=== PATIENT | male | born 1970 ===

== ENCOUNTER 2018-06-16 05:15 | Inpatient (IN) | payer MEDICARE ==
[2018-06-16 05:16] VITALS: BMI 27.6
--- NOTE | 2018-06-16 05:37 | C.PDOC ---
History Of Present Illness 47 y/o male with a PMHx of DM and HTN presents to the ED complaining of injury to left elbow sustained 1 week ago s/p fall. Patient notes worsening pain and swelling to the elbow, with decreased ROM. Additionally patient reports having foul smelling discharge from the distal left foot, especially between the partially amputated left great toe and 2nd/3rd toes. Otherwise he denies any numbness or weakness. Time Seen by Provider: 06/16/18 05:36 Chief Complaint (Nursing): Upper Extremity Problem/Injury History Per: Patient History/Exam Limitations: no limitations Onset/Duration Of Symptoms: Days Current Symptoms Are (Timing): Still Present Past Medical History Reviewed: Historical Data, Nursing Documentation, Vital Signs - Medical History PMH: Anxiety, Asthma, Bipolar Disorder, Depression, Diabetes (Blood sugar 283), Fractures (RT toe), HTN, Hyperlipidemia, Schizophrenia, Sexually Transmitted Disease (erectile Dysfunction) Denies: Hepatitis, HIV, Chronic Kidney Disease, Seizures - [facility] Procedures EXCISION OF R FOOT SUBCU/FASCIA, OPEN APPROACH (06/17/17) EXCISION OF RIGHT FOOT SKIN, EXTERNAL APPROACH (12/24/16) EXCISION OF RIGHT METATARSAL, OPEN APPROACH (11/30/16) GROUP PSYCHOTHERAPY (12/05/16) INDIVID PSYCHOTHERAP NEC (12/11/14) INSERTION OF INFUSION DEV INTO SUP VENA CAVA, PERC APPROACH (06/17/17) OTHER GROUP THERAPY (12/11/14) PSYCHIAT DRUG THERAP NEC (12/11/14) REPAIR RIGHT FOOT, OPEN APPROACH (11/30/16) Family History: States: Unknown Family Hx - Social History Hx Tobacco Use: No Hx Alcohol Use: Yes (every other day) Hx Substance Use: No - Immunization History Hx Tetanus Toxoid Vaccination: No Hx Influenza Vaccination: No Hx Pneumococcal Vaccination: No Review Of Systems Constitutional: Negative for: Fever, Chills Cardiovascular: Negative for: Chest Pain Respiratory: Negative for: Shortness of Breath Gastrointestinal: Negative for: Nausea, Vomiting Musculoskeletal: Positive for: Arm Pain (left elbow pain) Skin: Positive for: Other (Left foot wounds with + foul-smelling discharge) Neurological: Positive for: Dizziness. Negative for: Weakness, Numbness Physical Exam - Physical Exam Appears: Non-toxic, No Acute Distress Skin: Warm, Dry Head: Normacephalic Eye(s): bilateral: Normal Inspection Oral Mucosa: Moist Neck: Trachea Midline, Supple Chest: Symmetrical Cardiovascular: Rhythm Regular Respiratory: No Rales, No Rhonchi, No Wheezing Gastrointestinal/Abdominal: Bowel Sounds (good), Soft, No Tenderness, No Distention Extremity: Tenderness (to left elbow, left elbow is held in flexed position), Capillary Refill (less than 2sec), Swelling (to left elbow, with (+) fluid in the synovial area), Other (Left foot edematous and tender to palpation, with partial amputation of the left great toe, w/ foul-smelling discharge between the 1, 2, and 3 toes, (+) somewhat macerated ventral aspect of fore foot) Pulses: Left Radial: Normal, Right Radial: Normal, Left Dorsalis Pedis: Decreased (slightly decreased), Right Dorsalis Pedis: Normal Neurological/Psych: Oriented x3 ED Course And Treatment - Laboratory Results Result Diagrams: 06/16/18 06:04 06/16/18 06:04 ECG: Interpreted By Me, Viewed By Me O2 Sat by Pulse Oximetry: 100 (on RA) Pulse Ox Interpretation: Normal - Radiology CXR: Interpreted by Me, Viewed By Me Progress Note: Accucheck shows BS of 464. Blood work and urine sent to the lab. VBG, EKG, CXR obtained and reviewed. Administered IVF hydration with IV insulin as per hyperglycemia protocol. Pending CT scans of the left elbow and left lower extremity. corrected sodium is 129 Critical Care Time - Critical Care Note Total Time (in mins): 30 Documented critical care: time excludes all time spent performing seperately billable procedures. Disposition Counseled Patient/Family Regarding: Studies Performed, Diagnosis - Disposition Disposition Time: 05:37 Condition: GUARDED Forms: [facility] ([employer]) - POA Present On Arrival: Falls Or Trauma - Clinical Impression Clinical Impression: Cellulitis, Hyponatremia, Diabetic foot infection, Elbow pain, left - Scribe Statement The provider has reviewed the documentation as recorded by the Ritu Abbott Provider Attestation: All medical record entries made by the Careyibkassi were at my direction and personally dictated by me. I have reviewed the chart and agree that the record accurately reflects my personal performance of the history, physical exam, medical decision making, and the department course for this patient. I have also personally directed, reviewed, and agree with the discharge instructions and disposition. Physician Patient Turnover Patient Signed Over To: Peyton Mari Handoff Comments: pending ct results,re-eval and admit
[2018-06-16] MEDS ORDERED: Sodium Chloride 0.9% 1,000 ML IV ONE ×3 (05:43→06:59)
[2018-06-16] MEDS ORDERED: (Novolin R) Insulin Human Regular 100 units/ml vial IVP ONE (05:51)
[2018-06-16] MEDS ORDERED: Sodium Chloride 0.9% 2,000 ML IV ONE (05:52)
[2018-06-16 06:16] LABS: BASO # 0.1 K/uL (0.0-0.2); BASO % 0.5 % (0.0-2.0); EOS % 0.1 % (0.0-4.0); HEMOGLOBIN 10.8 g/dL (12.0-18.0); LYMPH # 1.7 K/uL (1.0-4.3); LYMPH % 13.2 % (20.0-40.0); MEAN CELL VOLUME 97.5 fL (80.0-94.0); MEAN CORPUSCULAR HEMOGLOBIN 32.8 pg (27.0-31.0); MEAN CORPUSCULAR HGB CONC 33.6 g/dL (33.0-37.0); MEAN PLATELET VOLUME 10.4 fL (7.2-11.7); MONO # 1.1 K/uL (0.0-0.8); MONO % 8.4 % (0.0-10.0); NEUT # 9.9 K/uL (1.8-7.0); NEUT % 77.8 % (50.0-75.0); RBC 3.3 Mil/uL (4.40-5.90); RED CELL DISTRIBUTION WIDTH 14.6 % (11.5-14.5); WHITE BLOOD COUNT 12.7 K/uL (4.8-10.8)
[2018-06-16 06:22] LABS: VENOUS BLOOD GAS BASE EXCESS -1.3 mmol/L (0.0-2.0); VENOUS BLOOD GAS PCO2 35 mmHg (40-60); VENOUS BLOOD GAS PO2 16 mm/Hg (30-55); VENOUS BLOOD PH 7.42 (7.32-7.43)
[2018-06-16 06:23] LABS: ALB/GLOB RATIO 0.7 (1.0-2.1); ALBUMIN 3.3 g/dL (3.5-5.0); ALT/SGPT 37 U/L (21-72); AST/SGOT 68 U/L (17-59); BLOOD UREA NITROGEN 25 mg/dL (9-20); CALCIUM 8.2 mg/dl (8.6-10.4); GFR NON-AFRICAN AMERICAN > 60; LIPASE 51 U/L (23-300)
[2018-06-16] MEDS ORDERED: (Novolin R) Insulin Human Regular 100 units/ml vial ONE (06:26)
[2018-06-16] MEDS ORDERED: Piperacillin/Tazobact 3.375 gm 100 ML IVPB STA (06:33)
[2018-06-16] MEDS ORDERED: Vancomycin 1 GM 1 GM/250 ML BAG IVPB STA (06:33)
[2018-06-16] MEDS ORDERED: Vancomycin 1 GM 1 GM/250 ML BAG IVPB ONE (06:41)
[2018-06-16 07:06] LABS: INR 1.6
[2018-06-16] MEDS ORDERED: Sodium Chloride 0.9% 1,000 ML ONE (07:38)
--- NOTE | 2018-06-16 08:39 | RAD ---
HISTORY: GI Bleeding COMPARISON: Chest x-ray performed 07/12/15 TECHNIQUE: Chest, one view. FINDINGS: LUNGS: No focal consolidation. Reticular nodular nodular/interstitial markings may be chronic. Please note that chest x-ray has limited sensitivity for the detection of pulmonary masses. PLEURA: No significant pleural effusion identified. No definite pneumothorax . CARDIOVASCULAR: Heart size appears top normal. Atherosclerotic calcifications present. OSSEOUS STRUCTURES: Mild degenerative changes. VISUALIZED UPPER ABDOMEN: Unremarkable. OTHER FINDINGS: None. IMPRESSION: No focal consolidation. Reticular nodular nodular/interstitial markings may be chronic.
[2018-06-16 08:46] LABS: VENOUS BLOOD GAS BASE EXCESS -2.5 mmol/L (0.0-2.0); VENOUS BLOOD GAS PCO2 35 mmHg (40-60); VENOUS BLOOD GAS PO2 22 mm/Hg (30-55)
[2018-06-16 09:16] LABS: ALB/GLOB RATIO 0.7 (1.0-2.1); ALBUMIN 2.6 g/dL (3.5-5.0); ALT/SGPT 33 U/L (21-72); AST/SGOT 42 U/L (17-59); BLOOD UREA NITROGEN 21 mg/dL (9-20); CALCIUM 7.2 mg/dl (8.6-10.4); GFR NON-AFRICAN AMERICAN > 60
[2018-06-16] MEDS ORDERED: Potassium Chloride 20 mEq ER Tab PO STA (09:20)
[2018-06-16] MEDS ORDERED: Potassium Chloride 20 mEq ER Tab PO ONE (10:22)
[2018-06-16 10:37] LABS: URINE AMORPHOUS SEDIMENT FEW /ul (<OCC); URINE BILIRUBIN NEGATIVE (NEGATIVE); URINE BLOOD 3+ (NEGATIVE); URINE CLARITY Hazy (Clear); URINE COLOR Yellow (YELLOW); URINE GLUCOSE (UA) 3+ mg/dL (Normal); URINE LEUKOCYTE ESTERASE NEG Leu/uL (Negative); URINE PROTEIN NEGATIVE (NEGATIVE)
[2018-06-16] MEDS ORDERED: Glucagon Recombinant 1 mg Inj IM PRN (11:50)
[2018-06-16] MEDS ORDERED: (Lantus) Insulin Glargine, Recombinant SC ONE ×2 (11:50→13:00)
--- NOTE | 2018-06-16 12:17 | CP.PCM.HP ---
"<Aiden Israel - Last Filed: 06/16/18 13:11> History of Present Illness - History of Present Illness History of Present Illness: This patient is a 47 year old male with a PMHx of Diabetes Type II (Uncontrolled), HTN, Anxiety, Depression, Schizophrenia, Right Hallux Osteomyelitis Pancreatitis, and medical non-compliance who presents with complaints of sharp 9/10 left elbow pain with radiation down to his finger. He states the the pain began over a week ago after a fall (Denies head trauma). After the fall, he noticed that his left arm began to swell up. As the swelling decreased he noticed his elbow became more red with increased pain. Associated symptoms include fever, and lethargy. Mr. Horta also states that he has been getting wound dressing changes with a senior rd engineer for his right great toe. He states he never noticed that his toe was draining. Admits to his medication non- compliance. He has only been taking his Metformin. Of note, this patient was showing drug seeking behavior. ROS POSITIVES: Left Elbow Pain, Left Foot Pain, Fever, Chills, Left elbow decreased range of motion, Depressed mood NEGATIVES: Headache, Chest Pain, SOB, Abdominal pain, n/v changes in bowel habits, urinary symptoms. Suicidal/Homicidal Ideation. 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 Right Rotator Cuff Surgery Allergy: NKDA. But as per chart ([place], Apple, cashew nut, walnut, water chestnut) SocialHx: Admits to smoking hx (Quit 1 month ago), Admits to heavy EtoH use (Quit 1 month ago), Denies illicit drug use. Hospital: Psych [facility] in [place] 01/26, Left Toe infection 01/26, Pancreatitis 06/28 FamHx: HTN - Grandmother | Diabetes - Grandfather & Mother Meds: Please see MAR PMD: Dr. Jeff Garcia? [facility] Tender: Dr. Bray [place]? Present on Admission - Present on Admission Any Indicators Present on Admission: Yes History of Uncontrolled Diabetes: Yes Review of Systems - Review of Systems Review of Systems: As per HPI Past Patient History - Infectious Disease Hx of Infectious Diseases: MRSA - Tetanus Immunizations Tetanus Immunization: Unknown - Past Medical History & Family History Past Medical History?: Yes - Past Social History Smoking Status: Light Smoker < 10 Cigarettes Daily - CARDIAC Hx Hypertension: Yes - PULMONARY Hx Asthma: Yes - NEUROLOGICAL Hx Seizures: No - HEENT Hx HEENT Problems: No - RENAL Hx Chronic Kidney Disease: No - ENDOCRINE/METABOLIC Hx Endocrine Disorders: Yes (DM) - HEMATOLOGICAL/ONCOLOGICAL Hx Human Immunodeficiency Virus (HIV): No - INTEGUMENTARY Hx Dermatological Problems: No - MUSCULOSKELETAL/RHEUMATOLOGICAL Hx Fractures: Yes (RT toe) - GASTROINTESTINAL Hx Gastrointestinal Disorders: No - GENITOURINARY/GYNECOLOGICAL Hx Sexually Transmitted Disorders: Yes (erectile Dysfunction) - PSYCHIATRIC Hx Anxiety: Yes Hx Bipolar Disorder: Yes Hx Depression: Yes Hx Schizophrenia: Yes Hx Substance Use: No - SURGICAL HISTORY Hx Orthopedic Surgery: Yes (Right shoulder 1991 rotator cuff and dislocation 1988) Other/Comment: R foot wound debridement - ANESTHESIA Hx Anesthesia: Yes Hx Anesthesia Reactions: No Meds Allergies/Adverse Reactions: Allergies Allergy/AdvReac Type Severity Reaction Status Date / Time almond Allergy ITCHING Verified 06/16/18 05:45 apple Allergy ITCHING Verified 06/16/18 05:45 cashew nut Allergy ITCHING Verified 06/16/18 05:45 nut - unspecified Allergy ITCHING Verified 06/16/18 05:45 walnut Allergy ITCHING Verified 06/16/18 05:45 water chestnut Allergy ITCHING Verified 06/16/18 05:45 Physical Exam - Constitutional Appears: Unkempt, Older Than Stated Age, Chronically Ill - Head Exam Head Exam: ATRAUMATIC, NORMAL INSPECTION, NORMOCEPHALIC - Eye Exam Eye Exam: EOMI, Normal appearance, PERRL. absent: Scleral icterus - ENT Exam ENT Exam: Mucous Membranes Dry - Neck Exam Neck exam: Positive for: Normal Inspection - Respiratory Exam Respiratory Exam: Clear to Auscultation Bilateral, NORMAL BREATHING PATTERN. absent: Accessory Muscle Use, Rales, Rhonchi, Wheezes, Stridor - Cardiovascular Exam Cardiovascular Exam: RRR, +S1, +S2 - GI/Abdominal Exam GI & Abdominal Exam: Normal Bowel Sounds, Soft. absent: Tenderness - Extremities Exam Additional comments: Left Elbow Swollen, erythematous, indurated, fluctuant, dry, scaly. B/L Ankle Swollen Charcot deformity Left Foot Foul Smelling Feet B/L Onychomycosis - Neurological Exam Neurological exam: Abnormal Gait, Alert, Oriented x3 - Psychiatric Exam Psychiatric exam: Depressed Additional comments: Restricted Affect - Skin Additional comments: See Extremities. Results - Vital Signs Recent Vital Signs: Last Vital Signs Temp 99.7 F H 06/16/18 11:36 Pulse 107 H 06/16/18 11:36 Resp 16 06/16/18 11:36 BP 116/71 06/16/18 11:36 Pulse Ox 97 06/16/18 11:36 - Labs Result Diagrams: 06/16/18 06:04 06/16/18 08:33 Labs: Laboratory Results - last 24 hr 06/16/18 06/16/18 06/16/18 05:23 06:04 06:04 WBC 12.7 H D RBC 3.30 L Hgb 10.8 L D Hct 32.1 L MCV 97.5 H D MCH 32.8 H MCHC 33.6 RDW 14.6 H Plt Count 405 H MPV 10.4 Neut % (Auto) 77.8 H Lymph % (Auto) 13.2 L [place] % (Auto) 8.4 Eos % (Auto) 0.1 Baso % (Auto) 0.5 Neut # (Auto) 9.9 H Lymph # (Auto) 1.7 [place] # (Auto) 1.1 H Eos # (Auto) 0.0 Baso # (Auto) 0.1 ESR 125 H PT 17.0 H INR 1.6 APTT 36 H pO2 VBG pH VBG pCO2 VBG HCO3 VBG Total CO2 VBG O2 Sat (Calc) VBG Base Excess VBG Potassium Glucose Lactate Crit Value Called To Crit Value Called By Crit Value Read Back Blood Gas Notified Time Sodium Potassium Chloride Carbon Dioxide Anion Gap BUN Creatinine Est GFR ( Amer) Est GFR (Non-Af Amer) POC Glucose (mg/dL) 464 H* Random Glucose Calcium Total Bilirubin AST ALT Alkaline Phosphatase Total Protein Albumin Globulin Albumin/Globulin Ratio Lipase Venous Blood Potassium Urine Color Urine Clarity Urine pH Ur Specific [place] Urine Protein Urine Glucose (UA) Urine Ketones Urine Blood Urine Nitrate Urine Bilirubin Urine Urobilinogen Ur Leukocyte Esterase Urine WBC (Auto) Urine RBC (Auto) Amorphous Sediment B-Hydroxybutyrate Blood Type Antibody Screen 06/16/18 06/16/18 06/16/18 06:04 06:15 07:27 WBC RBC Hgb Hct MCV MCH MCHC RDW Plt Count MPV Neut % (Auto) Lymph % (Auto) [place] % (Auto) Eos % (Auto) Baso % (Auto) Neut # (Auto) Lymph # (Auto) [place] # (Auto) Eos # (Auto) Baso # (Auto) ESR PT INR APTT pO2 16 L VBG pH 7.42 VBG pCO2 35 L VBG HCO3 21.9 VBG Total CO2 23.8 VBG O2 Sat (Calc) 22.0 L VBG Base Excess -1.3 L VBG Potassium 3.6 Glucose 495 H* Lactate 3.6 H Crit Value Called To assistant district attorneykiran gray Crit Value Called By Anai dutta rt Crit Value Read Back Y Blood Gas Notified Time 620 Sodium 120 L* 120.0 L* Potassium 4.6 Chloride 82 L 85.0 L Carbon Dioxide 21 L Anion Gap 23 H BUN 25 H Creatinine 0.9 Est GFR ( Amer) > 60 Est GFR (Non-Af Amer) > 60 POC Glucose (mg/dL) Random Glucose 485 H* D Calcium 8.2 L Total Bilirubin 1.5 H AST 68 H ALT 37 Alkaline Phosphatase 74 Total Protein 7.9 Albumin 3.3 L Globulin 4.7 H Albumin/Globulin Ratio 0.7 L Lipase 51 Venous Blood Potassium 3.6 Urine Color Urine Clarity Urine pH Ur Specific [place] Urine Protein Urine Glucose (UA) Urine Ketones Urine Blood Urine Nitrate Urine Bilirubin Urine Urobilinogen Ur Leukocyte Esterase Urine WBC (Auto) Urine RBC (Auto) Amorphous Sediment B-Hydroxybutyrate 3.17 H Blood Type AB POSITIVE Antibody Screen Negative 06/16/18 06/16/18 06/16/18 08:01 08:33 08:40 WBC RBC Hgb Hct MCV MCH MCHC RDW Plt Count MPV Neut % (Auto) Lymph % (Auto) [place] % (Auto) Eos % (Auto) Baso % (Auto) Neut # (Auto) Lymph # (Auto) [place] # (Auto) Eos # (Auto) Baso # (Auto) ESR PT INR APTT pO2 22 L VBG pH 7.40 VBG pCO2 35 L VBG HCO3 21.3 VBG Total CO2 22.8 VBG O2 Sat (Calc) 34.5 L VBG Base Excess -2.5 L VBG Potassium 2.9 L Glucose 177 H Lactate 2.6 H Crit Value Called To Crit Value Called By Crit Value Read Back Blood Gas Notified Time Sodium 125 L 129.0 L Potassium 3.3 L Chloride 95 L 97.0 L Carbon Dioxide 19 L Anion Gap 15 BUN 21 H Creatinine 0.8 Est GFR ( Amer) > 60 Est GFR (Non-Af Amer) > 60 POC Glucose (mg/dL) 248 H Random Glucose 177 H D Calcium 7.2 L Total Bilirubin 0.8 AST 42 ALT 33 Alkaline Phosphatase 74 Total Protein 6.3 Albumin 2.6 L D Globulin 3.8 Albumin/Globulin Ratio 0.7 L Lipase Venous Blood Potassium 2.9 L Urine Color Urine Clarity Urine pH Ur Specific [place]ubens Urine Protein Urine Glucose (UA) Urine Ketones Urine Blood Urine Nitrate Urine Bilirubin Urine Urobilinogen Ur Leukocyte Esterase Urine WBC (Auto) Urine RBC (Auto) Amorphous Sediment B-Hydroxybutyrate Blood Type Antibody Screen 06/16/18 06/16/18 10:27 11:34 WBC RBC Hgb Hct MCV MCH MCHC RDW Plt Count MPV Neut % (Auto) Lymph % (Auto) [place] % (Auto) Eos % (Auto) Baso % (Auto) Neut # (Auto) Lymph # (Auto) [place] # (Auto) Eos # (Auto) Baso # (Auto) ESR PT INR APTT pO2 VBG pH VBG pCO2 VBG HCO3 VBG Total CO2 VBG O2 Sat (Calc) VBG Base Excess VBG Potassium Glucose Lactate Crit Value Called To Crit Value Called By Crit Value Read Back Blood Gas Notified Time Sodium Potassium Chloride Carbon Dioxide Anion Gap BUN Creatinine Est GFR ( Amer) Est GFR (Non-Af Amer) POC Glucose (mg/dL) 326 H Random Glucose Calcium Total Bilirubin AST ALT Alkaline Phosphatase Total Protein Albumin Globulin Albumin/Globulin Ratio Lipase Venous Blood Potassium Urine Color Yellow Urine Clarity Hazy Urine pH 5.0 Ur Specific [place] 1.022 Urine Protein Negative Urine Glucose (UA) 3+ H Urine Ketones 1+ H Urine Blood 3+ H Urine Nitrate Negative Urine Bilirubin Negative Urine Urobilinogen 2.0 Ur Leukocyte Esterase Neg Urine WBC (Auto) 6 H Urine RBC (Auto) 68 H Amorphous Sediment Few H B-Hydroxybutyrate Blood Type Antibody Screen Assessment & Plan - Assessment and Plan (Free Text) Assessment: 47 year old male with a PMHx of Diabetes Type II (Uncontrolled), HTN, Anxiety, Depression, Schizophrenia, Right Hallux Osteomyelitis Pancreatitis, and medical non-compliance admitted for Sepsis 2/2 to Left Elbow Cellulitis/Abscess vs Left Hallux infection. Plan: Sepsis Source: Elbow vs foot Infection EKG: Sinus Tach | CXR: No acute Disease | Lactate 3.6 and trending down |UA - Neg Nitrates and Leuk Es, ESR - 125 Consults: ID (Dr. Nava), Recs Appreciated Pancultures - PENDING, Mgmt: NS@100 Vancomycin 1gram Q12 H Zosyn 3.375gm Q6H Uncontroled Diabetes/DKA (Resolved) 2/2 to Medical NOn-compliance HgBA1C = 11.0 Beta Hydroxybutyrate elevated on Admission ED: Regular Insulin 14Units Once DC Planning: Patient may need help obtaining insulin before discharge. He states he cannot afford many of his medications. Mgmt: NS@100 Lantus 10 Given 1 today Lantus 10 HS High Dose Sliding Scale Left Elbow Cellulitis/Abscess per CT CT Left Upper Ext(Admission): Large fluid collection containing air bubbles suspicous for abscess involving the region of left biceps measuring approximately 12x7x3 Consults: ID (Dr. Nava), Recs Appreciated, Orthopedic (Dr. Mustafa), Recs Appreciated Pancultures - PENDING Mgmt: NS@100 Vancomycin 1gram Q12 H Zosyn 3.375gm Q6H Toradol 15 IVP Q6 PRN for Moderate Pain | Ultram 50 TID PRN for Severe Pain. Avoid stronger opiods than Ultram. B/L Ankle Cellulitis Left Foot CT (Admission): 1. extensive subcutaneous edema noted especially at the dorasal aspect of the foot and ankle 2. Degenerative changes frist tarsal and tarsometatarsal joints 3. Plantar calcenial spur Consults: ID (Dr. Nava), Recs Appreciated, Podiatry (Dr. Ngo), Recs Apprecaited. Pancultures - PENDING Mgmt: NS@100 Vancomycin 1gram Q12 H Zosyn 3.375gm Q6H Anemia HgB on Admisison 10.8 Low Iron Follow Up Anemia Studies Mgmt: Ferrous Sulfate 325 PO Daily Elevated INR INR = 1.6 on Admission | PT - 17.0 on Admission Will Monitor Consider evaluating for liver pathology. Depression/Anxiety/Schizophrenia Hx of Multiple Psych Admission Will Consult Psych for due to Depressed mood and medication reconciliation Proph Francinex Protonix Diabetic Diet Patient seen and examined with Attending Aiden Israel, PGY-2 <Jace Dutton - Last Filed: 06/16/18 20:38> Results - Vital Signs Recent Vital Signs: Last Vital Signs Temp 98 F 06/16/18 15:00 Pulse 82 06/16/18 15:00 Resp 20 06/16/18 15:00 BP 98/60 L 06/16/18 15:00 Pulse Ox 96 06/16/18 15:00 - Labs Result Diagrams: 06/16/18 06:04 06/16/18 17:00 Labs: Laboratory Results - last 24 hr 06/16/18 06/16/18 06/16/18 05:23 06:04 06:04 WBC 12.7 H D RBC 3.30 L Hgb 10.8 L D Hct 32.1 L MCV 97.5 H D MCH 32.8 H MCHC 33.6 RDW 14.6 H Plt Count 405 H MPV 10.4 Neut % (Auto) 77.8 H Lymph % (Auto) 13.2 L [place] % (Auto) 8.4 Eos % (Auto) 0.1 Baso % (Auto) 0.5 Neut # (Auto) 9.9 H Lymph # (Auto) 1.7 [place] # (Auto) 1.1 H Eos # (Auto) 0.0 Baso # (Auto) 0.1 ESR 125 H Retic Count Haptoglobin PT 17.0 H INR 1.6 APTT 36 H pO2 VBG pH VBG pCO2 VBG HCO3 VBG Total CO2 VBG O2 Sat (Calc) VBG Base Excess VBG Potassium Glucose Lactate Crit Value Called To Crit Value Called By Crit Value Read Back Blood Gas Notified Time Sodium Potassium Chloride Carbon Dioxide Anion Gap BUN Creatinine Est GFR ( Amer) Est GFR (Non-Af Amer) POC Glucose (mg/dL) 464 H* Random Glucose Hemoglobin A1c Calcium Iron TIBC % Saturation Ferritin Total Bilirubin AST ALT Alkaline Phosphatase Total Protein Albumin Globulin Albumin/Globulin Ratio Lipase Vitamin B12 Folate Venous Blood Potassium Urine Color Urine Clarity Urine pH Ur Specific [place] Urine Protein Urine Glucose (UA) Urine Ketones Urine Blood Urine Nitrate Urine Bilirubin Urine Urobilinogen Ur Leukocyte Esterase Urine WBC (Auto) Urine RBC (Auto) Amorphous Sediment Vancomycin Trough Urine Opiates Screen Urine Methadone Screen Ur Barbiturates Screen Ur Phencyclidine Scrn Ur Amphetamines Screen U Benzodiazepines Scrn U Oth Cocaine Metabols U Cannabinoids Screen Alcohol, Quantitative B-Hydroxybutyrate Blood Type Antibody Screen 06/16/18 06/16/18 06/16/18 06:04 06:15 07:27 WBC RBC Hgb Hct MCV MCH MCHC RDW Plt Count MPV Neut % (Auto) Lymph % (Auto) [place] % (Auto) Eos % (Auto) Baso % (Auto) Neut # (Auto) Lymph # (Auto) [place] # (Auto) Eos # (Auto) Baso # (Auto) ESR Retic Count Haptoglobin PT INR APTT pO2 16 L VBG pH 7.42 VBG pCO2 35 L VBG HCO3 21.9 VBG Total CO2 23.8 VBG O2 Sat (Calc) 22.0 L VBG Base Excess -1.3 L VBG Potassium 3.6 Glucose 495 H* Lactate 3.6 H Crit Value Called To assistant district attorneykiran gray Crit Value Called By Anai dutta rt Crit Value Read Back Y Blood Gas Notified Time 620 Sodium 120 L* 120.0 L* Potassium 4.6 Chloride 82 L 85.0 L Carbon Dioxide 21 L Anion Gap 23 H BUN 25 H Creatinine 0.9 Est GFR ( Amer) > 60 Est GFR (Non-Af Amer) > 60 POC Glucose (mg/dL) Random Glucose 485 H* D Hemoglobin A1c Calcium 8.2 L Iron TIBC % Saturation Ferritin Total Bilirubin 1.5 H AST 68 H ALT 37 Alkaline Phosphatase 74 Total Protein 7.9 Albumin 3.3 L Globulin 4.7 H Albumin/Globulin Ratio 0.7 L Lipase 51 Vitamin B12 Folate Venous Blood Potassium 3.6 Urine Color Urine Clarity Urine pH Ur Specific [place] Urine Protein Urine Glucose (UA) Urine Ketones Urine Blood Urine Nitrate Urine Bilirubin Urine Urobilinogen Ur Leukocyte Esterase Urine WBC (Auto) Urine RBC (Auto) Amorphous Sediment Vancomycin Trough Urine Opiates Screen Urine Methadone Screen Ur Barbiturates Screen Ur Phencyclidine Scrn Ur Amphetamines Screen U Benzodiazepines Scrn U Oth Cocaine Metabols U Cannabinoids Screen Alcohol, Quantitative B-Hydroxybutyrate 3.17 H Blood Type AB POSITIVE Antibody Screen Negative 06/16/18 06/16/18 06/16/18 08:01 08:33 08:40 WBC RBC Hgb Hct MCV MCH MCHC RDW Plt Count MPV Neut % (Auto) Lymph % (Auto) [place] % (Auto) Eos % (Auto) Baso % (Auto) Neut # (Auto) Lymph # (Auto) [place] # (Auto) Eos # (Auto) Baso # (Auto) ESR Retic Count Haptoglobin PT INR APTT pO2 22 L VBG pH 7.40 VBG pCO2 35 L VBG HCO3 21.3 VBG Total CO2 22.8 VBG O2 Sat (Calc) 34.5 L VBG Base Excess -2.5 L VBG Potassium 2.9 L Glucose 177 H Lactate 2.6 H Crit Value Called To Crit Value Called By Crit Value Read Back Blood Gas Notified Time Sodium 125 L 129.0 L Potassium 3.3 L Chloride 95 L 97.0 L Carbon Dioxide 19 L Anion Gap 15 BUN 21 H Creatinine 0.8 Est GFR ( Amer) > 60 Est GFR (Non-Af Amer) > 60 POC Glucose (mg/dL) 248 H Random Glucose 177 H D Hemoglobin A1c Calcium 7.2 L Iron TIBC % Saturation Ferritin Total Bilirubin 0.8 AST 42 ALT 33 Alkaline Phosphatase 74 Total Protein 6.3 Albumin 2.6 L D Globulin 3.8 Albumin/Globulin Ratio 0.7 L Lipase Vitamin B12 Folate Venous Blood Potassium 2.9 L Urine Color Urine Clarity Urine pH Ur Specific [place] Urine Protein Urine Glucose (UA) Urine Ketones Urine Blood Urine Nitrate Urine Bilirubin Urine Urobilinogen Ur Leukocyte Esterase Urine WBC (Auto) Urine RBC (Auto) Amorphous Sediment Vancomycin Trough Urine Opiates Screen Urine Methadone Screen Ur Barbiturates Screen Ur Phencyclidine Scrn Ur Amphetamines Screen U Benzodiazepines Scrn U Oth Cocaine Metabols U Cannabinoids Screen Alcohol, Quantitative B-Hydroxybutyrate Blood Type Antibody Screen 06/16/18 06/16/18 06/16/18 10:27 11:34 13:45 WBC RBC Hgb Hct MCV MCH MCHC RDW Plt Count MPV Neut % (Auto) Lymph % (Auto) [place] % (Auto) Eos % (Auto) Baso % (Auto) Neut # (Auto) Lymph # (Auto) [place] # (Auto) Eos # (Auto) Baso # (Auto) ESR Retic Count Haptoglobin PT INR APTT pO2 VBG pH VBG pCO2 VBG HCO3 VBG Total CO2 VBG O2 Sat (Calc) VBG Base Excess VBG Potassium Glucose Lactate Crit Value Called To Crit Value Called By Crit Value Read Back Blood Gas Notified Time Sodium Potassium Chloride Carbon Dioxide Anion Gap BUN Creatinine Est GFR ( Amer) Est GFR (Non-Af Amer) POC Glucose (mg/dL) 326 H Random Glucose Hemoglobin A1c Calcium Iron TIBC % Saturation Ferritin Total Bilirubin AST ALT Alkaline Phosphatase Total Protein Albumin Globulin Albumin/Globulin Ratio Lipase Vitamin B12 Folate Venous Blood Potassium Urine Color Yellow Urine Clarity Hazy Urine pH 5.0 Ur Specific [place] 1.022 Urine Protein Negative Urine Glucose (UA) 3+ H Urine Ketones 1+ H Urine Blood 3+ H Urine Nitrate Negative Urine Bilirubin Negative Urine Urobilinogen 2.0 Ur Leukocyte Esterase Neg Urine WBC (Auto) 6 H Urine RBC (Auto) 68 H Amorphous Sediment Few H Vancomycin Trough Urine Opiates Screen Negative Urine Methadone Screen Negative Ur Barbiturates Screen Negative Ur Phencyclidine Scrn Negative Ur Amphetamines Screen Negative U Benzodiazepines Scrn Negative U Oth Cocaine Metabols Negative U Cannabinoids Screen Negative Alcohol, Quantitative B-Hydroxybutyrate Blood Type Antibody Screen 06/16/18 06/16/18 06/16/18 13:46 13:46 13:46 WBC RBC Hgb Hct MCV MCH MCHC RDW Plt Count MPV Neut % (Auto) Lymph % (Auto) [place] % (Auto) Eos % (Auto) Baso % (Auto) Neut # (Auto) Lymph # (Auto) [place] # (Auto) Eos # (Auto) Baso # (Auto) ESR Retic Count Haptoglobin PT INR APTT pO2 VBG pH VBG pCO2 VBG HCO3 VBG Total CO2 VBG O2 Sat (Calc) VBG Base Excess VBG Potassium Glucose Lactate Crit Value Called To Crit Value Called By Crit Value Read Back Blood Gas Notified Time Sodium Potassium Chloride Carbon Dioxide Anion Gap BUN Creatinine Est GFR ( Amer) Est GFR (Non-Af Amer) POC Glucose (mg/dL) Random Glucose Hemoglobin A1c 11.0 H Calcium Iron 18 L TIBC 188 L % Saturation 9 L Ferritin Total Bilirubin AST ALT Alkaline Phosphatase Total Protein Albumin Globulin Albumin/Globulin Ratio Lipase Vitamin B12 Folate Venous Blood Potassium Urine Color Urine Clarity Urine pH Ur Specific [place] Urine Protein Urine Glucose (UA) Urine Ketones Urine Blood Urine Nitrate Urine Bilirubin Urine Urobilinogen Ur Leukocyte Esterase Urine WBC (Auto) Urine RBC (Auto) Amorphous Sediment Vancomycin Trough Urine Opiates Screen Urine Methadone Screen Ur Barbiturates Screen Ur Phencyclidine Scrn Ur Amphetamines Screen U Benzodiazepines Scrn U Oth Cocaine Metabols U Cannabinoids Screen Alcohol, Quantitative < 10 B-Hydroxybutyrate Blood Type Antibody Screen 06/16/18 06/16/18 06/16/18 13:46 13:46 13:46 WBC RBC Hgb Hct MCV MCH MCHC RDW Plt Count MPV Neut % (Auto) Lymph % (Auto) [place] % (Auto) Eos % (Auto) Baso % (Auto) Neut # (Auto) Lymph # (Auto) [place] # (Auto) Eos # (Auto) Baso # (Auto) ESR Retic Count 1.1 Haptoglobin 334.5 H PT INR APTT pO2 VBG pH VBG pCO2 VBG HCO3 VBG Total CO2 VBG O2 Sat (Calc) VBG Base Excess VBG Potassium Glucose Lactate Crit Value Called To Crit Value Called By Crit Value Read Back Blood Gas Notified Time Sodium Potassium Chloride Carbon Dioxide Anion Gap BUN Creatinine Est GFR ( Amer) Est GFR (Non-Af Amer) POC Glucose (mg/dL) Random Glucose Hemoglobin A1c Calcium Iron TIBC % Saturation Ferritin 1100.0 Total Bilirubin AST ALT Alkaline Phosphatase Total Protein Albumin Globulin Albumin/Globulin Ratio Lipase Vitamin B12 557 Folate 9.7 Venous Blood Potassium Urine Color Urine Clarity Urine pH Ur Specific [place] Urine Protein Urine Glucose (UA) Urine Ketones Urine Blood Urine Nitrate Urine Bilirubin Urine Urobilinogen Ur Leukocyte Esterase Urine WBC (Auto) Urine RBC (Auto) Amorphous Sediment Vancomycin Trough Urine Opiates Screen Urine Methadone Screen Ur Barbiturates Screen Ur Phencyclidine Scrn Ur Amphetamines Screen U Benzodiazepines Scrn U Oth Cocaine Metabols U Cannabinoids Screen Alcohol, Quantitative B-Hydroxybutyrate Blood Type Antibody Screen 06/16/18 06/16/18 06/16/18 13:46 16:20 16:32 WBC RBC Hgb Hct MCV MCH MCHC RDW Plt Count MPV Neut % (Auto) Lymph % (Auto) [place] % (Auto) Eos % (Auto) Baso % (Auto) Neut # (Auto) Lymph # (Auto) [place] # (Auto) Eos # (Auto) Baso # (Auto) ESR Retic Count Haptoglobin PT INR APTT pO2 41 VBG pH 7.41 VBG pCO2 36 L VBG HCO3 23.3 VBG Total CO2 23.9 VBG O2 Sat (Calc) 80.9 H VBG Base Excess -1.4 L VBG Potassium 3.2 L Glucose 303 H Lactate 1.4 Crit Value Called To Crit Value Called By Crit Value Read Back Blood Gas Notified Time Sodium 125.0 L Potassium Chloride 94.0 L Carbon Dioxide Anion Gap BUN Creatinine Est GFR ( Amer) Est GFR (Non-Af Amer) POC Glucose (mg/dL) 306 H Random Glucose Hemoglobin A1c Calcium Iron TIBC % Saturation Ferritin Total Bilirubin AST ALT Alkaline Phosphatase Total Protein Albumin Globulin Albumin/Globulin Ratio Lipase Vitamin B12 Folate Venous Blood Potassium 3.2 L Urine Color Urine Clarity Urine pH Ur Specific [place] Urine Protein Urine Glucose (UA) Urine Ketones Urine Blood Urine Nitrate Urine Bilirubin Urine Urobilinogen Ur Leukocyte Esterase Urine WBC (Auto) Urine RBC (Auto) Amorphous Sediment Vancomycin Trough 9.9 Urine Opiates Screen Urine Methadone Screen Ur Barbiturates Screen Ur Phencyclidine Scrn Ur Amphetamines Screen U Benzodiazepines Scrn U Oth Cocaine Metabols U Cannabinoids Screen Alcohol, Quantitative B-Hydroxybutyrate Blood Type Antibody Screen 06/16/18 17:00 WBC RBC Hgb Hct MCV MCH MCHC RDW Plt Count MPV Neut % (Auto) Lymph % (Auto) [place] % (Auto) Eos % (Auto) Baso % (Auto) Neut # (Auto) Lymph # (Auto) [place] # (Auto) Eos # (Auto) Baso # (Auto) ESR Retic Count Haptoglobin PT INR APTT pO2 VBG pH VBG pCO2 VBG HCO3 VBG Total CO2 VBG O2 Sat (Calc) VBG Base Excess VBG Potassium Glucose Lactate Crit Value Called To Crit Value Called By Crit Value Read Back Blood Gas Notified Time Sodium 124 L Potassium 3.2 L Chloride 93 L Carbon Dioxide 24 Anion Gap 11 BUN 20 Creatinine 0.8 Est GFR ( Amer) > 60 Est GFR (Non-Af Amer) > 60 POC Glucose (mg/dL) Random Glucose 299 H D Hemoglobin A1c Calcium 7.3 L Iron TIBC % Saturation Ferritin Total Bilirubin AST ALT Alkaline Phosphatase Total Protein Albumin Globulin Albumin/Globulin Ratio Lipase Vitamin B12 Folate Venous Blood Potassium Urine Color Urine Clarity Urine pH Ur Specific [place] Urine Protein Urine Glucose (UA) Urine Ketones Urine Blood Urine Nitrate Urine Bilirubin Urine Urobilinogen Ur Leukocyte Esterase Urine WBC (Auto) Urine RBC (Auto) Amorphous Sediment Vancomycin Trough Urine Opiates Screen Urine Methadone Screen Ur Barbiturates Screen Ur Phencyclidine Scrn Ur Amphetamines Screen U Benzodiazepines Scrn U Oth Cocaine Metabols U Cannabinoids Screen Alcohol, Quantitative B-Hydroxybutyrate Blood Type Antibody Screen Attending/Attestation - Attestation I have personally seen and examined this patient.: Yes I have fully participated in the care of the patient.: Yes I have reviewed all pertinent clinical information: Yes Notes (Text): seen and examined by me in the ER with the resident 1.septic,bacteremia 2.DKA-resolving,heperglycemia 3.Left elbow abscess,no joint effusion 4.left ankle cellulitis,right foot diabetic foot infection 5.Hyponatremia 6.noncompliance with meds/schizophrenia spoke to surgery resident who contacted Dr Marlow. Recommending orthopedic consult started on zosyn and [email or web address].spoke to Dr Nava who recommended Gentamycin and Echo. spoke to Dr Recinos about hyponatremia.possibility of sepsis causing ADH. we will continue Normal saline and follow sodium q8h"
--- NOTE | 2018-06-16 12:59 | PCM.SEPTIC ---
<Aiden Israel - Last Filed: 06/16/18 12:58> Sepsis Progress Note - Reassessment Type Date of Evaluation: 06/16/18 Time of Evaluation: 12:58 Reassessment Type: Non-invasive reassessment - Non Invasive Reassessment Were the most recent vital sign reviewed: Yes Vital Sign (Latest): Temp Pulse Resp BP Pulse Ox 99.7 F H 107 H 16 116/71 97 06/16/18 11:36 06/16/18 11:36 06/16/18 11:36 06/16/18 11:36 06/16/18 11:36 Cardiovascular: Yes: Regular Rate, Rhythm Respiratory: Yes: Normal Breath Sounds Capillary Refill: Normal (Less than 2 sec) Pulses: Normal Radial Skin: Warm, Other <Jace Dutton - Last Filed: 06/16/18 20:38> Sepsis Progress Note - Non Invasive Reassessment Vital Sign (Latest): Temp Pulse Resp BP Pulse Ox 98 F 82 20 98/60 L 96 06/16/18 15:00 06/16/18 15:00 06/16/18 15:00 06/16/18 15:00 06/16/18 15:00 Attending/Attestation - Attestation I have personally seen and examined this patient.: Yes I have fully participated in the care of the patient.: Yes I have reviewed all pertinent clinical information, including history, physical exam and plan: Yes
[2018-06-16] MEDS: Piperacill/Tazo 3.375gm in Dex 3.375 GM/50 ML BAG IVPB SCH ×2 (14:09→19:02)
[2018-06-16 14:17] LABS: IRON 18 ug/dL (49-181)
[2018-06-16] MEDS: Sodium Chloride 0.9% 1,000 ML IV SCH (14:26)
[2018-06-16 14:27] LABS: % IRON SATURATION 9 (20-55); TOTAL IRON BINDING CAPACITY 188 ug/dL (250-450)
[2018-06-16 14:57] LABS: BARBITURATES, UR NEGATIVE (NEGATIVE); BENZODIAZEPINES, UR NEGATIVE (NEGATIVE); OPIATES, UR NEGATIVE (NEGATIVE); PHENCYCLIDINE, UR NEGATIVE (NEGATIVE)
[2018-06-16 15:22] LABS: FOLATE 9.7 ng/mL
--- NOTE | 2018-06-16 16:15 | CT ---
Date of service: 06/16/2018 PROCEDURE: CT of the left upper extremity HISTORY: left elbow COMPARISON: TECHNIQUE: . Radiation dose: Total exam DLP = 435.56 mGy-cm. This CT exam was performed using one or more of the following dose reduction techniques: Automated exposure control, adjustment of the mA and/or kV according to patient size, and/or use of iterative reconstruction technique. FINDINGS: There is no evidence of fracture. There is no joint effusion. There is a fluid collection along the distal triceps muscle measuring 12 x 7 x 3 cm. This could represent a seroma or abscess. This would be easily accessible to needle aspiration. It is just beneath the skin surface. The report concurs with the preliminary [facility] report IMPRESSION: There is no evidence of fracture. There is no joint effusion. There is a fluid collection along the distal triceps muscle measuring 12 x 7 x 3 cm. This could represent a seroma or abscess. This would be easily accessible to needle aspiration. It is just beneath the skin surface
--- NOTE | 2018-06-16 16:18 | CT ---
Date of service: 06/16/2018 PROCEDURE: CT of the left foot HISTORY: left foot, att toes COMPARISON: TECHNIQUE: Radiation dose: Total exam DLP = 339.83 mGy-cm. This CT exam was performed using one or more of the following dose reduction techniques: Automated exposure control, adjustment of the mA and/or kV according to patient size, and/or use of iterative reconstruction technique. FINDINGS: There is extensive subcutaneous edema over the dorsum of the foot and ankle. There is no fracture visualized. There is no foreign body. The report concurs with the preliminary [facility] report IMPRESSION: There is extensive subcutaneous edema over the dorsum of the foot and ankle. There is no fracture visualized. There is no foreign body.
[2018-06-16 16:26] LABS: VENOUS BLOOD GAS BASE EXCESS -1.4 mmol/L (0.0-2.0); VENOUS BLOOD GAS PCO2 36 mmHg (40-60); VENOUS BLOOD GAS PO2 41 mm/Hg (30-55); VENOUS BLOOD PH 7.41 (7.32-7.43)
[2018-06-16 17:27] LABS: BLOOD UREA NITROGEN 20 mg/dL (9-20); CALCIUM 7.3 mg/dl (8.6-10.4); GFR NON-AFRICAN AMERICAN > 60
[2018-06-16] MEDS: (Novolin R) Insulin Human Regular 100 units/ml vial SC SCH ×2 (18:18→22:47)
[2018-06-16 20:41] LABS: VENOUS BLOOD GAS BASE EXCESS 0.1 mmol/L (0.0-2.0); VENOUS BLOOD GAS PCO2 34 mmHg (40-60); VENOUS BLOOD GAS PO2 51 mm/Hg (30-55); VENOUS BLOOD PH 7.45 (7.32-7.43)
--- NOTE | 2018-06-16 21:52 | CP.PCM.CON ---
History of Present Illness - History of Present Illness History of Present Illness: dictated Past Patient History - Infectious Disease Hx of Infectious Diseases: MRSA - Tetanus Immunizations Tetanus Immunization: Unknown - Past Medical History & Family History Past Medical History?: Yes - Past Social History Smoking Status: Light Smoker < 10 Cigarettes Daily - CARDIAC Hx Hypertension: Yes - PULMONARY Hx Asthma: Yes - NEUROLOGICAL Hx Seizures: No - HEENT Hx HEENT Problems: No - RENAL Hx Chronic Kidney Disease: No - ENDOCRINE/METABOLIC Hx Endocrine Disorders: Yes (DM) - HEMATOLOGICAL/ONCOLOGICAL Hx Human Immunodeficiency Virus (HIV): No - INTEGUMENTARY Hx Dermatological Problems: No - MUSCULOSKELETAL/RHEUMATOLOGICAL Hx Fractures: Yes (RT toe) - GASTROINTESTINAL Hx Gastrointestinal Disorders: No - GENITOURINARY/GYNECOLOGICAL Hx Sexually Transmitted Disorders: Yes (erectile Dysfunction) - PSYCHIATRIC Hx Anxiety: Yes Hx Bipolar Disorder: Yes Hx Depression: Yes Hx Schizophrenia: Yes Hx Substance Use: No - SURGICAL HISTORY Hx Orthopedic Surgery: Yes (Right shoulder 1991 rotator cuff and dislocation 1988) Other/Comment: R foot wound debridement - ANESTHESIA Hx Anesthesia: Yes Hx Anesthesia Reactions: No Meds Allergies/Adverse Reactions: Allergies Allergy/AdvReac Type Severity Reaction Status Date / Time almond Allergy ITCHING Verified 06/16/18 05:45 apple Allergy ITCHING Verified 06/16/18 05:45 cashew nut Allergy ITCHING Verified 06/16/18 05:45 nut - unspecified Allergy ITCHING Verified 06/16/18 05:45 walnut Allergy ITCHING Verified 06/16/18 05:45 water chestnut Allergy ITCHING Verified 06/16/18 05:45 - Medications Medications: Current Medications Acetaminophen (Tylenol 325mg Tab) 650 mg PO Q6 PRN PRN Reason: Fever >100.4 F Enoxaparin Sodium (Lovenox) 40 mg SC DAILY ARIANA Ferrous Sulfate (Feosol) 325 mg PO DAILY ARIANA Glucagon (Glucagen Diagnostic Kit) 0 mg IM STAT PRN; Protocol PRN Reason: Hypoglycemia Protocol Sodium Chloride (Sodium Chloride 0.9%) 2,000 mls @ 100 mls/hr IV .Q20H ONE Stop: 06/17/18 01:42 Last Admin: 06/16/18 06:38 Dose: 100 mls/hr Piperacillin Sod/Tazobactam Sod (Zosyn 3.375 Gm Iv Premix) 3.375 gm in 50 mls @ 200 mls/hr IVPB Q6H ARIANA; Protocol Last Admin: 06/16/18 19:02 Dose: 200 mls/hr Sodium Chloride (Sodium Chloride 0.9%) 1,000 mls @ 100 mls/hr IV .Q10H ARIANA Last Admin: 06/16/18 14:26 Dose: 100 mls/hr Vancomycin HCl 1.2 gm/ Sodium (Chloride) 250 mls @ 166.7 mls/hr IVPB Q12H ARIANA; Protocol Gentamicin Sulfate/Sodium Chloride (Gentamicin 80mg/100ml Ns) 80 mg in 100 mls @ 100 mls/hr IVPB Q8H ARIANA; Protocol Potassium Chloride (Potassium Chloride 20 Meq/100 Ml) 20 meq in 100 mls @ 50 mls/hr IVPB Q2H ARIANA Stop: 06/17/18 00:59 Insulin Glargine (Lantus) 20 unit SC HS ARIANA Insulin Human Regular (Novolin R) 0 unit SC ACHS ARIANA; Protocol Last Admin: 06/16/18 18:18 Dose: 8 units Ketorolac Tromethamine (Toradol) 15 mg IVP Q6 PRN PRN Reason: Pain, moderate (4-7) Last Admin: 06/16/18 13:14 Dose: 15 mg Pantoprazole Sodium (Protonix Ec Tab) 40 mg PO Q24H ARIANA Tramadol HCl (Ultram) 50 mg PO TID PRN PRN Reason: Pain, severe (8-10) Last Admin: 06/16/18 19:11 Dose: 50 mg Results - Vital Signs Recent Vital Signs: Last Vital Signs Temp 98 F 06/16/18 15:00 Pulse 82 06/16/18 15:00 Resp 20 06/16/18 15:00 BP 98/60 L 06/16/18 15:00 Pulse Ox 96 06/16/18 15:00 - Labs Result Diagrams: 06/16/18 06:04 06/16/18 17:00 Labs: Laboratory Results - last 24 hr 06/16/18 06/16/18 06/16/18 05:23 06:04 06:04 WBC 12.7 H D RBC 3.30 L Hgb 10.8 L D Hct 32.1 L MCV 97.5 H D MCH 32.8 H MCHC 33.6 RDW 14.6 H Plt Count 405 H MPV 10.4 Neut % (Auto) 77.8 H Lymph % (Auto) 13.2 L Leake % (Auto) 8.4 Eos % (Auto) 0.1 Baso % (Auto) 0.5 Neut # (Auto) 9.9 H Lymph # (Auto) 1.7 Leake # (Auto) 1.1 H Eos # (Auto) 0.0 Baso # (Auto) 0.1 ESR 125 H Retic Count Haptoglobin PT 17.0 H INR 1.6 APTT 36 H pO2 VBG pH VBG pCO2 VBG HCO3 VBG Total CO2 VBG O2 Sat (Calc) VBG Base Excess VBG Potassium Glucose Lactate Crit Value Called To Crit Value Called By Crit Value Read Back Blood Gas Notified Time Sodium Potassium Chloride Carbon Dioxide Anion Gap BUN Creatinine Est GFR ( Amer) Est GFR (Non-Af Amer) POC Glucose (mg/dL) 464 H* Random Glucose Hemoglobin A1c Serum Osmolality Calcium Iron TIBC % Saturation Ferritin Total Bilirubin AST ALT Alkaline Phosphatase Total Protein Albumin Globulin Albumin/Globulin Ratio Lipase Vitamin B12 Folate Venous Blood Potassium Urine Color Urine Clarity Urine pH Ur Specific [place] Urine Protein Urine Glucose (UA) Urine Ketones Urine Blood Urine Nitrate Urine Bilirubin Urine Urobilinogen Ur Leukocyte Esterase Urine WBC (Auto) Urine RBC (Auto) Amorphous Sediment Vancomycin Trough Urine Opiates Screen Urine Methadone Screen Ur Barbiturates Screen Ur Phencyclidine Scrn Ur Amphetamines Screen U Benzodiazepines Scrn U Oth Cocaine Metabols U Cannabinoids Screen Alcohol, Quantitative B-Hydroxybutyrate Blood Type Antibody Screen 06/16/18 06/16/18 06/16/18 06:04 06:15 07:27 WBC RBC Hgb Hct MCV MCH MCHC RDW Plt Count MPV Neut % (Auto) Lymph % (Auto) [place] % (Auto) Eos % (Auto) Baso % (Auto) Neut # (Auto) Lymph # (Auto) [place] # (Auto) Eos # (Auto) Baso # (Auto) ESR Retic Count Haptoglobin PT INR APTT pO2 16 L VBG pH 7.42 VBG pCO2 35 L VBG HCO3 21.9 VBG Total CO2 23.8 VBG O2 Sat (Calc) 22.0 L VBG Base Excess -1.3 L VBG Potassium 3.6 Glucose 495 H* Lactate 3.6 H Crit Value Called To internal specialistkiran gray Crit Value Called By Anai dutta rt Crit Value Read Back Y Blood Gas Notified Time 620 Sodium 120 L* 120.0 L* Potassium 4.6 Chloride 82 L 85.0 L Carbon Dioxide 21 L Anion Gap 23 H BUN 25 H Creatinine 0.9 Est GFR ( Amer) > 60 Est GFR (Non-Af Amer) > 60 POC Glucose (mg/dL) Random Glucose 485 H* D Hemoglobin A1c Serum Osmolality Calcium 8.2 L Iron TIBC % Saturation Ferritin Total Bilirubin 1.5 H AST 68 H ALT 37 Alkaline Phosphatase 74 Total Protein 7.9 Albumin 3.3 L Globulin 4.7 H Albumin/Globulin Ratio 0.7 L Lipase 51 Vitamin B12 Folate Venous Blood Potassium 3.6 Urine Color Urine Clarity Urine pH Ur Specific [place] Urine Protein Urine Glucose (UA) Urine Ketones Urine Blood Urine Nitrate Urine Bilirubin Urine Urobilinogen Ur Leukocyte Esterase Urine WBC (Auto) Urine RBC (Auto) Amorphous Sediment Vancomycin Trough Urine Opiates Screen Urine Methadone Screen Ur Barbiturates Screen Ur Phencyclidine Scrn Ur Amphetamines Screen U Benzodiazepines Scrn U Oth Cocaine Metabols U Cannabinoids Screen Alcohol, Quantitative B-Hydroxybutyrate 3.17 H Blood Type AB POSITIVE Antibody Screen Negative 06/16/18 06/16/18 06/16/18 08:01 08:33 08:40 WBC RBC Hgb Hct MCV MCH MCHC RDW Plt Count MPV Neut % (Auto) Lymph % (Auto) [place] % (Auto) Eos % (Auto) Baso % (Auto) Neut # (Auto) Lymph # (Auto) [place] # (Auto) Eos # (Auto) Baso # (Auto) ESR Retic Count Haptoglobin PT INR APTT pO2 22 L VBG pH 7.40 VBG pCO2 35 L VBG HCO3 21.3 VBG Total CO2 22.8 VBG O2 Sat (Calc) 34.5 L VBG Base Excess -2.5 L VBG Potassium 2.9 L Glucose 177 H Lactate 2.6 H Crit Value Called To Crit Value Called By Crit Value Read Back Blood Gas Notified Time Sodium 125 L 129.0 L Potassium 3.3 L Chloride 95 L 97.0 L Carbon Dioxide 19 L Anion Gap 15 BUN 21 H Creatinine 0.8 Est GFR ( Amer) > 60 Est GFR (Non-Af Amer) > 60 POC Glucose (mg/dL) 248 H Random Glucose 177 H D Hemoglobin A1c Serum Osmolality Calcium 7.2 L Iron TIBC % Saturation Ferritin Total Bilirubin 0.8 AST 42 ALT 33 Alkaline Phosphatase 74 Total Protein 6.3 Albumin 2.6 L D Globulin 3.8 Albumin/Globulin Ratio 0.7 L Lipase Vitamin B12 Folate Venous Blood Potassium 2.9 L Urine Color Urine Clarity Urine pH Ur Specific [place] Urine Protein Urine Glucose (UA) Urine Ketones Urine Blood Urine Nitrate Urine Bilirubin Urine Urobilinogen Ur Leukocyte Esterase Urine WBC (Auto) Urine RBC (Auto) Amorphous Sediment Vancomycin Trough Urine Opiates Screen Urine Methadone Screen Ur Barbiturates Screen Ur Phencyclidine Scrn Ur Amphetamines Screen U Benzodiazepines Scrn U Oth Cocaine Metabols U Cannabinoids Screen Alcohol, Quantitative B-Hydroxybutyrate Blood Type Antibody Screen 06/16/18 06/16/18 06/16/18 10:27 11:34 13:45 WBC RBC Hgb Hct MCV MCH MCHC RDW Plt Count MPV Neut % (Auto) Lymph % (Auto) [place] % (Auto) Eos % (Auto) Baso % (Auto) Neut # (Auto) Lymph # (Auto) [place] # (Auto) Eos # (Auto) Baso # (Auto) ESR Retic Count Haptoglobin PT INR APTT pO2 VBG pH VBG pCO2 VBG HCO3 VBG Total CO2 VBG O2 Sat (Calc) VBG Base Excess VBG Potassium Glucose Lactate Crit Value Called To Crit Value Called By Crit Value Read Back Blood Gas Notified Time Sodium Potassium Chloride Carbon Dioxide Anion Gap BUN Creatinine Est GFR ( Amer) Est GFR (Non-Af Amer) POC Glucose (mg/dL) 326 H Random Glucose Hemoglobin A1c Serum Osmolality Calcium Iron TIBC % Saturation Ferritin Total Bilirubin AST ALT Alkaline Phosphatase Total Protein Albumin Globulin Albumin/Globulin Ratio Lipase Vitamin B12 Folate Venous Blood Potassium Urine Color Yellow Urine Clarity Hazy Urine pH 5.0 Ur Specific [place] 1.022 Urine Protein Negative Urine Glucose (UA) 3+ H Urine Ketones 1+ H Urine Blood 3+ H Urine Nitrate Negative Urine Bilirubin Negative Urine Urobilinogen 2.0 Ur Leukocyte Esterase Neg Urine WBC (Auto) 6 H Urine RBC (Auto) 68 H Amorphous Sediment Few H Vancomycin Trough Urine Opiates Screen Negative Urine Methadone Screen Negative Ur Barbiturates Screen Negative Ur Phencyclidine Scrn Negative Ur Amphetamines Screen Negative U Benzodiazepines Scrn Negative U Oth Cocaine Metabols Negative U Cannabinoids Screen Negative Alcohol, Quantitative B-Hydroxybutyrate Blood Type Antibody Screen 06/16/18 06/16/18 06/16/18 13:46 13:46 13:46 WBC RBC Hgb Hct MCV MCH MCHC RDW Plt Count MPV Neut % (Auto) Lymph % (Auto) [place] % (Auto) Eos % (Auto) Baso % (Auto) Neut # (Auto) Lymph # (Auto) [place] # (Auto) Eos # (Auto) Baso # (Auto) ESR Retic Count Haptoglobin PT INR APTT pO2 VBG pH VBG pCO2 VBG HCO3 VBG Total CO2 VBG O2 Sat (Calc) VBG Base Excess VBG Potassium Glucose Lactate Crit Value Called To Crit Value Called By Crit Value Read Back Blood Gas Notified Time Sodium Potassium Chloride Carbon Dioxide Anion Gap BUN Creatinine Est GFR ( Amer) Est GFR (Non-Af Amer) POC Glucose (mg/dL) Random Glucose Hemoglobin A1c 11.0 H Serum Osmolality Calcium Iron 18 L TIBC 188 L % Saturation 9 L Ferritin Total Bilirubin AST ALT Alkaline Phosphatase Total Protein Albumin Globulin Albumin/Globulin Ratio Lipase Vitamin B12 Folate Venous Blood Potassium Urine Color Urine Clarity Urine pH Ur Specific [place] Urine Protein Urine Glucose (UA) Urine Ketones Urine Blood Urine Nitrate Urine Bilirubin Urine Urobilinogen Ur Leukocyte Esterase Urine WBC (Auto) Urine RBC (Auto) Amorphous Sediment Vancomycin Trough Urine Opiates Screen Urine Methadone Screen Ur Barbiturates Screen Ur Phencyclidine Scrn Ur Amphetamines Screen U Benzodiazepines Scrn U Oth Cocaine Metabols U Cannabinoids Screen Alcohol, Quantitative < 10 B-Hydroxybutyrate Blood Type Antibody Screen 06/16/18 06/16/18 06/16/18 13:46 13:46 13:46 WBC RBC Hgb Hct MCV MCH MCHC RDW Plt Count MPV Neut % (Auto) Lymph % (Auto) [place] % (Auto) Eos % (Auto) Baso % (Auto) Neut # (Auto) Lymph # (Auto) [place] # (Auto) Eos # (Auto) Baso # (Auto) ESR Retic Count 1.1 Haptoglobin 334.5 H PT INR APTT pO2 VBG pH VBG pCO2 VBG HCO3 VBG Total CO2 VBG O2 Sat (Calc) VBG Base Excess VBG Potassium Glucose Lactate Crit Value Called To Crit Value Called By Crit Value Read Back Blood Gas Notified Time Sodium Potassium Chloride Carbon Dioxide Anion Gap BUN Creatinine Est GFR ( Amer) Est GFR (Non-Af Amer) POC Glucose (mg/dL) Random Glucose Hemoglobin A1c Serum Osmolality Calcium Iron TIBC % Saturation Ferritin 1100.0 Total Bilirubin AST ALT Alkaline Phosphatase Total Protein Albumin Globulin Albumin/Globulin Ratio Lipase Vitamin B12 557 Folate 9.7 Venous Blood Potassium Urine Color Urine Clarity Urine pH Ur Specific [place] Urine Protein Urine Glucose (UA) Urine Ketones Urine Blood Urine Nitrate Urine Bilirubin Urine Urobilinogen Ur Leukocyte Esterase Urine WBC (Auto) Urine RBC (Auto) Amorphous Sediment Vancomycin Trough Urine Opiates Screen Urine Methadone Screen Ur Barbiturates Screen Ur Phencyclidine Scrn Ur Amphetamines Screen U Benzodiazepines Scrn U Oth Cocaine Metabols U Cannabinoids Screen Alcohol, Quantitative B-Hydroxybutyrate Blood Type Antibody Screen 06/16/18 06/16/18 06/16/18 13:46 16:20 16:32 WBC RBC Hgb Hct MCV MCH MCHC RDW Plt Count MPV Neut % (Auto) Lymph % (Auto) [place] % (Auto) Eos % (Auto) Baso % (Auto) Neut # (Auto) Lymph # (Auto) [place] # (Auto) Eos # (Auto) Baso # (Auto) ESR Retic Count Haptoglobin PT INR APTT pO2 41 VBG pH 7.41 VBG pCO2 36 L VBG HCO3 23.3 VBG Total CO2 23.9 VBG O2 Sat (Calc) 80.9 H VBG Base Excess -1.4 L VBG Potassium 3.2 L Glucose 303 H Lactate 1.4 Crit Value Called To Crit Value Called By Crit Value Read Back Blood Gas Notified Time Sodium 125.0 L Potassium Chloride 94.0 L Carbon Dioxide Anion Gap BUN Creatinine Est GFR ( Amer) Est GFR (Non-Af Amer) POC Glucose (mg/dL) 306 H Random Glucose Hemoglobin A1c Serum Osmolality Calcium Iron TIBC % Saturation Ferritin Total Bilirubin AST ALT Alkaline Phosphatase Total Protein Albumin Globulin Albumin/Globulin Ratio Lipase Vitamin B12 Folate Venous Blood Potassium 3.2 L Urine Color Urine Clarity Urine pH Ur Specific [place] Urine Protein Urine Glucose (UA) Urine Ketones Urine Blood Urine Nitrate Urine Bilirubin Urine Urobilinogen Ur Leukocyte Esterase Urine WBC (Auto) Urine RBC (Auto) Amorphous Sediment Vancomycin Trough 9.9 Urine Opiates Screen Urine Methadone Screen Ur Barbiturates Screen Ur Phencyclidine Scrn Ur Amphetamines Screen U Benzodiazepines Scrn U Oth Cocaine Metabols U Cannabinoids Screen Alcohol, Quantitative B-Hydroxybutyrate Blood Type Antibody Screen 06/16/18 06/16/18 06/16/18 17:00 20:35 21:13 WBC RBC Hgb Hct MCV MCH MCHC RDW Plt Count MPV Neut % (Auto) Lymph % (Auto) [place] % (Auto) Eos % (Auto) Baso % (Auto) Neut # (Auto) Lymph # (Auto) [place] # (Auto) Eos # (Auto) Baso # (Auto) ESR Retic Count Haptoglobin PT INR APTT pO2 51 VBG pH 7.45 H VBG pCO2 34 L VBG HCO3 24.7 VBG Total CO2 24.6 VBG O2 Sat (Calc) 91.7 H VBG Base Excess 0.1 VBG Potassium 3.2 L Glucose 286 H Lactate 1.4 Crit Value Called To Crit Value Called By Crit Value Read Back Blood Gas Notified Time Sodium 124 L 126.0 L Potassium 3.2 L Chloride 93 L 98.0 Carbon Dioxide 24 Anion Gap 11 BUN 20 Creatinine 0.8 Est GFR ( Amer) > 60 Est GFR (Non-Af Amer) > 60 POC Glucose (mg/dL) 285 H Random Glucose 299 H D Hemoglobin A1c Serum Osmolality Calcium 7.3 L Iron TIBC % Saturation Ferritin Total Bilirubin AST ALT Alkaline Phosphatase Total Protein Albumin Globulin Albumin/Globulin Ratio Lipase Vitamin B12 Folate Venous Blood Potassium 3.2 L Urine Color Urine Clarity Urine pH Ur Specific [place] Urine Protein Urine Glucose (UA) Urine Ketones Urine Blood Urine Nitrate Urine Bilirubin Urine Urobilinogen Ur Leukocyte Esterase Urine WBC (Auto) Urine RBC (Auto) Amorphous Sediment Vancomycin Trough Urine Opiates Screen Urine Methadone Screen Ur Barbiturates Screen Ur Phencyclidine Scrn Ur Amphetamines Screen U Benzodiazepines Scrn U Oth Cocaine Metabols U Cannabinoids Screen Alcohol, Quantitative B-Hydroxybutyrate Blood Type Antibody Screen 06/16/18 21:28 WBC RBC Hgb Hct MCV MCH MCHC RDW Plt Count MPV Neut % (Auto) Lymph % (Auto) [place] % (Auto) Eos % (Auto) Baso % (Auto) Neut # (Auto) Lymph # (Auto) [place] # (Auto) Eos # (Auto) Baso # (Auto) ESR Retic Count Haptoglobin PT INR APTT pO2 VBG pH VBG pCO2 VBG HCO3 VBG Total CO2 VBG O2 Sat (Calc) VBG Base Excess VBG Potassium Glucose Lactate Crit Value Called To Crit Value Called By Crit Value Read Back Blood Gas Notified Time Sodium Potassium Chloride Carbon Dioxide Anion Gap BUN Creatinine Est GFR ( Amer) Est GFR (Non-Af Amer) POC Glucose (mg/dL) Random Glucose Hemoglobin A1c Serum Osmolality 278 Calcium Iron TIBC % Saturation Ferritin Total Bilirubin AST ALT Alkaline Phosphatase Total Protein Albumin Globulin Albumin/Globulin Ratio Lipase Vitamin B12 Folate Venous Blood Potassium Urine Color Urine Clarity Urine pH Ur Specific [place] Urine Protein Urine Glucose (UA) Urine Ketones Urine Blood Urine Nitrate Urine Bilirubin Urine Urobilinogen Ur Leukocyte Esterase Urine WBC (Auto) Urine RBC (Auto) Amorphous Sediment Vancomycin Trough Urine Opiates Screen Urine Methadone Screen Ur Barbiturates Screen Ur Phencyclidine Scrn Ur Amphetamines Screen U Benzodiazepines Scrn U Oth Cocaine Metabols U Cannabinoids Screen Alcohol, Quantitative B-Hydroxybutyrate Blood Type Antibody Screen
[2018-06-16] MEDS: Gentamicin 80 mg in 0.9% NS 80 MG/100 ML BAG IVPB SCH (22:47)
[2018-06-17] MEDS: Piperacill/Tazo 3.375gm in Dex 3.375 GM/50 ML BAG IVPB SCH ×4 (02:04→19:09)
[2018-06-17] MEDS: Gentamicin 80 mg in 0.9% NS 80 MG/100 ML BAG IVPB SCH ×2 (05:14→13:54)
[2018-06-17] MEDS: Pantoprazole 40 mg EC Tab PO SCH (05:37)
[2018-06-17 06:36] LABS: BASO # 0.1 K/uL (0.0-0.2); BASO % 1.1 % (0.0-2.0); EOS # 0.1 K/uL (0.0-0.7); EOS % 1.2 % (0.0-4.0); HEMOGLOBIN 9.8 g/dL (12.0-18.0); LYMPH # 1.8 K/uL (1.0-4.3); MEAN CELL VOLUME 96.8 fL (80.0-94.0); MEAN CORPUSCULAR HEMOGLOBIN 32.9 pg (27.0-31.0); MEAN PLATELET VOLUME 10.4 fL (7.2-11.7); MONO # 0.9 K/uL (0.0-0.8); MONO % 8.9 % (0.0-10.0); NEUT # 7.3 K/uL (1.8-7.0); NEUT % 70.8 % (50.0-75.0); RBC 2.97 Mil/uL (4.40-5.90); RED CELL DISTRIBUTION WIDTH 14.5 % (11.5-14.5); WHITE BLOOD COUNT 10.3 K/uL (4.8-10.8)
[2018-06-17 06:45] LABS: INR 1.5; PROTHROMBIN TIME 16.3 SECONDS (9.7-12.2)
[2018-06-17 06:53] LABS: ALB/GLOB RATIO 0.6 (1.0-2.1); ALBUMIN 2.3 g/dL (3.5-5.0); ALT/SGPT 48 U/L (21-72); AST/SGOT 77 U/L (17-59); BLOOD UREA NITROGEN 14 mg/dL (9-20); CALCIUM 7.3 mg/dl (8.6-10.4); GFR NON-AFRICAN AMERICAN > 60
--- NOTE | 2018-06-17 07:55 | CP.PCM.CON ---
History of Present Illness - History of Present Illness History of Present Illness: Orthopedic consultation Dr. Mustafa 47M complains of left elbow pain x approx 1 week after falling onto his elbow. He says the swelling and pain have continued to worsen so he came to the ER. Denies any drainage from his elbow. Denies any prior elbow injury. Denies numbness/tingling. Says he has been feeling tired. Denies CP/SOB/dizziness/n/v. PMH: uncontrolled DM, A1c 11 on admission, toe ulcer, depression, anxiety, schizophrenia, HTN Review of Systems - Review of Systems All systems: reviewed and no additional remarkable complaints except - Cardiovascular Cardiovascular: As Per HPI - Respiratory Respiratory: As Per HPI - Gastrointestinal Gastrointestinal: As Per HPI - Musculoskeletal Musculoskeletal: As Per HPI - Integumentary Integumentary: As Per HPI - Neurological Neurological: As Per HPI - Hematologic/Lymphatic Hematologic: absent: As Per HPI, Easy Bleeding, Easy Bruising, Lymphadenopathy, Other Past Patient History - Infectious Disease Hx of Infectious Diseases: MRSA - Tetanus Immunizations Tetanus Immunization: Unknown - Past Medical History & Family History Past Medical History?: Yes Past Family History: Reviewed and not pertinent - Past Social History Smoking Status: Light Smoker < 10 Cigarettes Daily - CARDIAC Hx Hypertension: Yes - PULMONARY Hx Asthma: Yes - NEUROLOGICAL Hx Seizures: No - HEENT Hx HEENT Problems: No - RENAL Hx Chronic Kidney Disease: No - ENDOCRINE/METABOLIC Hx Endocrine Disorders: Yes (DM) Hx Diabetes Mellitus Type 2: Yes - HEMATOLOGICAL/ONCOLOGICAL Hx Human Immunodeficiency Virus (HIV): No - INTEGUMENTARY Hx Dermatological Problems: No - MUSCULOSKELETAL/RHEUMATOLOGICAL Hx Fractures: Yes (RT toe) - GASTROINTESTINAL Hx Gastrointestinal Disorders: No - GENITOURINARY/GYNECOLOGICAL Hx Sexually Transmitted Disorders: Yes (erectile Dysfunction) - PSYCHIATRIC Hx Anxiety: Yes Hx Bipolar Disorder: Yes Hx Depression: Yes Hx Schizophrenia: Yes Hx Substance Use: No - SURGICAL HISTORY Hx Orthopedic Surgery: Yes (Right shoulder 1992 rotator cuff and dislocation 1988) Other/Comment: R foot wound debridement - ANESTHESIA Hx Anesthesia: Yes Hx Anesthesia Reactions: No Meds Allergies/Adverse Reactions: Allergies Allergy/AdvReac Type Severity Reaction Status Date / Time almond Allergy ITCHING Verified 06/16/18 05:45 apple Allergy ITCHING Verified 06/16/18 05:45 cashew nut Allergy ITCHING Verified 06/16/18 05:45 nut - unspecified Allergy ITCHING Verified 06/16/18 05:45 walnut Allergy ITCHING Verified 06/16/18 05:45 water chestnut Allergy ITCHING Verified 06/16/18 05:45 - Medications Medications: Current Medications Acetaminophen (Tylenol 325mg Tab) 650 mg PO Q6 PRN PRN Reason: Fever >100.4 F Enoxaparin Sodium (Lovenox) 40 mg SC DAILY ARIANA Ferrous Sulfate (Feosol) 325 mg PO DAILY ARIANA Glucagon (Glucagen Diagnostic Kit) 0 mg IM STAT PRN; Protocol PRN Reason: Hypoglycemia Protocol Piperacillin Sod/Tazobactam Sod (Zosyn 3.375 Gm Iv Premix) 3.375 gm in 50 mls @ 200 mls/hr IVPB Q6H ARIANA; Protocol Last Admin: 06/17/18 02:04 Dose: 200 mls/hr Sodium Chloride (Sodium Chloride 0.9%) 1,000 mls @ 100 mls/hr IV .Q10H ARIANA Last Admin: 06/16/18 14:26 Dose: 100 mls/hr Vancomycin HCl 1.2 gm/ Sodium (Chloride) 250 mls @ 166.7 mls/hr IVPB Q12H ARIANA; Protocol Gentamicin Sulfate/Sodium Chloride (Gentamicin 80mg/100ml Ns) 80 mg in 100 mls @ 100 mls/hr IVPB Q8H ARIANA; Protocol Last Admin: 06/17/18 05:14 Dose: 100 mls/hr Insulin Glargine (Lantus) 20 unit SC HS ARIANA Insulin Human Regular (Novolin R) 0 unit SC ACHS ARIANA; Protocol Last Admin: 06/16/18 22:47 Dose: Not Given Ketorolac Tromethamine (Toradol) 15 mg IVP Q6 PRN PRN Reason: Pain, moderate (4-7) Last Admin: 06/17/18 05:52 Dose: 15 mg Pantoprazole Sodium (Protonix Ec Tab) 40 mg PO Q24H ARIANA Last Admin: 06/17/18 05:37 Dose: 40 mg Tramadol HCl (Ultram) 50 mg PO TID PRN PRN Reason: Pain, severe (8-10) Last Admin: 06/17/18 02:15 Dose: 50 mg Physical Exam - Constitutional Appears: No Acute Distress, Unkempt - Head Exam Head Exam: ATRAUMATIC - Neck Exam Neck exam: Positive for: Full Rom, Normal Inspection - Respiratory Exam Respiratory Exam: NORMAL BREATHING PATTERN - Cardiovascular Exam Additional comments: +radial pulse - Expanded Upper Extremities Exam Left Elbow exam: erythema, full ROM (noted fluctuance over olecranon and proximally , tender to same, no pain with pronosupination, flex/ext limited by swelling), swelling Neuro motor exam: finger 2-5 abduction intact, thumb abduction, thumb IP flexion intact, thumb opposition intact, wrist extension intact Neurosensory exam: median nerve intact, radial nerve intact, ulnar nerve intact Vascular exam: radial pulse - Neurological Exam Neurological exam: Alert, Oriented x3 - Psychiatric Exam Psychiatric exam: Anxious - Skin Skin Exam: Dry, Intact, Warm Additional comments: +erythema to posterior arm at elbow and proximal to elbow, improving from demarcation Results - Vital Signs Recent Vital Signs: Last Vital Signs Temp 98.4 F 06/16/18 23:10 Pulse 97 H 06/17/18 04:00 Resp 20 06/16/18 23:10 BP 100/63 06/16/18 23:10 Pulse Ox 98 06/16/18 23:10 - Labs Result Diagrams: 06/17/18 06:23 06/17/18 06:23 Labs: Laboratory Results - last 24 hr 06/16/18 06/16/18 06/16/18 06:04 08:01 08:33 WBC 12.7 H D RBC 3.30 L Hgb 10.8 L D Hct 32.1 L MCV 97.5 H D MCH 32.8 H MCHC 33.6 RDW 14.6 H Plt Count 405 H MPV 10.4 Neut % (Auto) 77.8 H Lymph % (Auto) 13.2 L [place] % (Auto) 8.4 Eos % (Auto) 0.1 Baso % (Auto) 0.5 Neut # (Auto) 9.9 H Lymph # (Auto) 1.7 [place] # (Auto) 1.1 H Eos # (Auto) 0.0 Baso # (Auto) 0.1 ESR 125 H Retic Count Haptoglobin PT INR APTT pO2 VBG pH VBG pCO2 VBG HCO3 VBG Total CO2 VBG O2 Sat (Calc) VBG Base Excess VBG Potassium Glucose Lactate Sodium 125 L Potassium 3.3 L Chloride 95 L Carbon Dioxide 19 L Anion Gap 15 BUN 21 H Creatinine 0.8 Est GFR ( Amer) > 60 Est GFR (Non-Af Amer) > 60 POC Glucose (mg/dL) 248 H Random Glucose 177 H D Hemoglobin A1c Serum Osmolality Calcium 7.2 L Magnesium Iron TIBC % Saturation Ferritin Total Bilirubin 0.8 AST 42 ALT 33 Alkaline Phosphatase 74 Total Protein 6.3 Albumin 2.6 L D Globulin 3.8 Albumin/Globulin Ratio 0.7 L Vitamin B12 Folate Venous Blood Potassium Urine Color Urine Clarity Urine pH Ur Specific [place] Urine Protein Urine Glucose (UA) Urine Ketones Urine Blood Urine Nitrate Urine Bilirubin Urine Urobilinogen Ur Leukocyte Esterase Urine WBC (Auto) Urine RBC (Auto) Amorphous Sediment Vancomycin Trough Urine Opiates Screen Urine Methadone Screen Ur Barbiturates Screen Ur Phencyclidine Scrn Ur Amphetamines Screen U Benzodiazepines Scrn U Oth Cocaine Metabols U Cannabinoids Screen Alcohol, Quantitative 06/16/18 06/16/18 06/16/18 08:40 10:27 11:34 WBC RBC Hgb Hct MCV MCH MCHC RDW Plt Count MPV Neut % (Auto) Lymph % (Auto) [place] % (Auto) Eos % (Auto) Baso % (Auto) Neut # (Auto) Lymph # (Auto) [place] # (Auto) Eos # (Auto) Baso # (Auto) ESR Retic Count Haptoglobin PT INR APTT pO2 22 L VBG pH 7.40 VBG pCO2 35 L VBG HCO3 21.3 VBG Total CO2 22.8 VBG O2 Sat (Calc) 34.5 L VBG Base Excess -2.5 L VBG Potassium 2.9 L Glucose 177 H Lactate 2.6 H Sodium 129.0 L Potassium Chloride 97.0 L Carbon Dioxide Anion Gap BUN Creatinine Est GFR ( Amer) Est GFR (Non-Af Amer) POC Glucose (mg/dL) 326 H Random Glucose Hemoglobin A1c Serum Osmolality Calcium Magnesium Iron TIBC % Saturation Ferritin Total Bilirubin AST ALT Alkaline Phosphatase Total Protein Albumin Globulin Albumin/Globulin Ratio Vitamin B12 Folate Venous Blood Potassium 2.9 L Urine Color Yellow Urine Clarity Hazy Urine pH 5.0 Ur Specific [place] 1.022 Urine Protein Negative Urine Glucose (UA) 3+ H Urine Ketones 1+ H Urine Blood 3+ H Urine Nitrate Negative Urine Bilirubin Negative Urine Urobilinogen 2.0 Ur Leukocyte Esterase Neg Urine WBC (Auto) 6 H Urine RBC (Auto) 68 H Amorphous Sediment Few H Vancomycin Trough Urine Opiates Screen Urine Methadone Screen Ur Barbiturates Screen Ur Phencyclidine Scrn Ur Amphetamines Screen U Benzodiazepines Scrn U Oth Cocaine Metabols U Cannabinoids Screen Alcohol, Quantitative 06/16/18 06/16/18 06/16/18 13:45 13:46 13:46 WBC RBC Hgb Hct MCV MCH MCHC RDW Plt Count MPV Neut % (Auto) Lymph % (Auto) [place] % (Auto) Eos % (Auto) Baso % (Auto) Neut # (Auto) Lymph # (Auto) [place] # (Auto) Eos # (Auto) Baso # (Auto) ESR Retic Count Haptoglobin PT INR APTT pO2 VBG pH VBG pCO2 VBG HCO3 VBG Total CO2 VBG O2 Sat (Calc) VBG Base Excess VBG Potassium Glucose Lactate Sodium Potassium Chloride Carbon Dioxide Anion Gap BUN Creatinine Est GFR ( Amer) Est GFR (Non-Af Amer) POC Glucose (mg/dL) Random Glucose Hemoglobin A1c 11.0 H Serum Osmolality Calcium Magnesium Iron TIBC % Saturation Ferritin Total Bilirubin AST ALT Alkaline Phosphatase Total Protein Albumin Globulin Albumin/Globulin Ratio Vitamin B12 Folate Venous Blood Potassium Urine Color Urine Clarity Urine pH Ur Specific [place] Urine Protein Urine Glucose (UA) Urine Ketones Urine Blood Urine Nitrate Urine Bilirubin Urine Urobilinogen Ur Leukocyte Esterase Urine WBC (Auto) Urine RBC (Auto) Amorphous Sediment Vancomycin Trough Urine Opiates Screen Negative Urine Methadone Screen Negative Ur Barbiturates Screen Negative Ur Phencyclidine Scrn Negative Ur Amphetamines Screen Negative U Benzodiazepines Scrn Negative U Oth Cocaine Metabols Negative U Cannabinoids Screen Negative Alcohol, Quantitative < 10 06/16/18 06/16/18 06/16/18 13:46 13:46 13:46 WBC RBC Hgb Hct MCV MCH MCHC RDW Plt Count MPV Neut % (Auto) Lymph % (Auto) [place] % (Auto) Eos % (Auto) Baso % (Auto) Neut # (Auto) Lymph # (Auto) [place] # (Auto) Eos # (Auto) Baso # (Auto) ESR Retic Count 1.1 Haptoglobin 334.5 H PT INR APTT pO2 VBG pH VBG pCO2 VBG HCO3 VBG Total CO2 VBG O2 Sat (Calc) VBG Base Excess VBG Potassium Glucose Lactate Sodium Potassium Chloride Carbon Dioxide Anion Gap BUN Creatinine Est GFR ( Amer) Est GFR (Non-Af Amer) POC Glucose (mg/dL) Random Glucose Hemoglobin A1c Serum Osmolality Calcium Magnesium Iron 18 L TIBC 188 L % Saturation 9 L Ferritin Total Bilirubin AST ALT Alkaline Phosphatase Total Protein Albumin Globulin Albumin/Globulin Ratio Vitamin B12 Folate Venous Blood Potassium Urine Color Urine Clarity Urine pH Ur Specific [place] Urine Protein Urine Glucose (UA) Urine Ketones Urine Blood Urine Nitrate Urine Bilirubin Urine Urobilinogen Ur Leukocyte Esterase Urine WBC (Auto) Urine RBC (Auto) Amorphous Sediment Vancomycin Trough Urine Opiates Screen Urine Methadone Screen Ur Barbiturates Screen Ur Phencyclidine Scrn Ur Amphetamines Screen U Benzodiazepines Scrn U Oth Cocaine Metabols U Cannabinoids Screen Alcohol, Quantitative 06/16/18 06/16/18 06/16/18 13:46 13:46 16:20 WBC RBC Hgb Hct MCV MCH MCHC RDW Plt Count MPV Neut % (Auto) Lymph % (Auto) [place] % (Auto) Eos % (Auto) Baso % (Auto) Neut # (Auto) Lymph # (Auto) [place] # (Auto) Eos # (Auto) Baso # (Auto) ESR Retic Count Haptoglobin PT INR APTT pO2 41 VBG pH 7.41 VBG pCO2 36 L VBG HCO3 23.3 VBG Total CO2 23.9 VBG O2 Sat (Calc) 80.9 H VBG Base Excess -1.4 L VBG Potassium 3.2 L Glucose 303 H Lactate 1.4 Sodium 125.0 L Potassium Chloride 94.0 L Carbon Dioxide Anion Gap BUN Creatinine Est GFR ( Amer) Est GFR (Non-Af Amer) POC Glucose (mg/dL) Random Glucose Hemoglobin A1c Serum Osmolality Calcium Magnesium Iron TIBC % Saturation Ferritin 1100.0 Total Bilirubin AST ALT Alkaline Phosphatase Total Protein Albumin Globulin Albumin/Globulin Ratio Vitamin B12 557 Folate 9.7 Venous Blood Potassium 3.2 L Urine Color Urine Clarity Urine pH Ur Specific [place] Urine Protein Urine Glucose (UA) Urine Ketones Urine Blood Urine Nitrate Urine Bilirubin Urine Urobilinogen Ur Leukocyte Esterase Urine WBC (Auto) Urine RBC (Auto) Amorphous Sediment Vancomycin Trough 9.9 Urine Opiates Screen Urine Methadone Screen Ur Barbiturates Screen Ur Phencyclidine Scrn Ur Amphetamines Screen U Benzodiazepines Scrn U Oth Cocaine Metabols U Cannabinoids Screen Alcohol, Quantitative 06/16/18 06/16/18 06/16/18 16:32 17:00 20:35 WBC RBC Hgb Hct MCV MCH MCHC RDW Plt Count MPV Neut % (Auto) Lymph % (Auto) [place] % (Auto) Eos % (Auto) Baso % (Auto) Neut # (Auto) Lymph # (Auto) [place] # (Auto) Eos # (Auto) Baso # (Auto) ESR Retic Count Haptoglobin PT INR APTT pO2 51 VBG pH 7.45 H VBG pCO2 34 L VBG HCO3 24.7 VBG Total CO2 24.6 VBG O2 Sat (Calc) 91.7 H VBG Base Excess 0.1 VBG Potassium 3.2 L Glucose 286 H Lactate 1.4 Sodium 124 L 126.0 L Potassium 3.2 L Chloride 93 L 98.0 Carbon Dioxide 24 Anion Gap 11 BUN 20 Creatinine 0.8 Est GFR ( Amer) > 60 Est GFR (Non-Af Amer) > 60 POC Glucose (mg/dL) 306 H Random Glucose 299 H D Hemoglobin A1c Serum Osmolality Calcium 7.3 L Magnesium Iron TIBC % Saturation Ferritin Total Bilirubin AST ALT Alkaline Phosphatase Total Protein Albumin Globulin Albumin/Globulin Ratio Vitamin B12 Folate Venous Blood Potassium 3.2 L Urine Color Urine Clarity Urine pH Ur Specific [place] Urine Protein Urine Glucose (UA) Urine Ketones Urine Blood Urine Nitrate Urine Bilirubin Urine Urobilinogen Ur Leukocyte Esterase Urine WBC (Auto) Urine RBC (Auto) Amorphous Sediment Vancomycin Trough Urine Opiates Screen Urine Methadone Screen Ur Barbiturates Screen Ur Phencyclidine Scrn Ur Amphetamines Screen U Benzodiazepines Scrn U Oth Cocaine Metabols U Cannabinoids Screen Alcohol, Quantitative 06/16/18 06/16/18 06/16/18 21:13 21:28 21:28 WBC RBC Hgb Hct MCV MCH MCHC RDW Plt Count MPV Neut % (Auto) Lymph % (Auto) [place] % (Auto) Eos % (Auto) Baso % (Auto) Neut # (Auto) Lymph # (Auto) [place] # (Auto) Eos # (Auto) Baso # (Auto) ESR Retic Count Haptoglobin PT INR APTT pO2 VBG pH VBG pCO2 VBG HCO3 VBG Total CO2 VBG O2 Sat (Calc) VBG Base Excess VBG Potassium Glucose Lactate Sodium Potassium Chloride Carbon Dioxide Anion Gap BUN Creatinine Est GFR ( Amer) Est GFR (Non-Af Amer) POC Glucose (mg/dL) 285 H Random Glucose Hemoglobin A1c Serum Osmolality 278 Calcium Magnesium 1.5 L Iron TIBC % Saturation Ferritin Total Bilirubin AST ALT Alkaline Phosphatase Total Protein Albumin Globulin Albumin/Globulin Ratio Vitamin B12 Folate Venous Blood Potassium Urine Color Urine Clarity Urine pH Ur Specific [place] Urine Protein Urine Glucose (UA) Urine Ketones Urine Blood Urine Nitrate Urine Bilirubin Urine Urobilinogen Ur Leukocyte Esterase Urine WBC (Auto) Urine RBC (Auto) Amorphous Sediment Vancomycin Trough Urine Opiates Screen Urine Methadone Screen Ur Barbiturates Screen Ur Phencyclidine Scrn Ur Amphetamines Screen U Benzodiazepines Scrn U Oth Cocaine Metabols U Cannabinoids Screen Alcohol, Quantitative 06/17/18 06/17/18 06/17/18 06:23 06:23 06:23 WBC 10.3 RBC 2.97 L Hgb 9.8 L Hct 28.8 L MCV 96.8 H MCH 32.9 H MCHC 34.0 RDW 14.5 Plt Count 330 MPV 10.4 Neut % (Auto) 70.8 Lymph % (Auto) 18.0 L [place] % (Auto) 8.9 Eos % (Auto) 1.2 Baso % (Auto) 1.1 Neut # (Auto) 7.3 H Lymph # (Auto) 1.8 [place] # (Auto) 0.9 H Eos # (Auto) 0.1 Baso # (Auto) 0.1 ESR Retic Count Haptoglobin PT 16.3 H INR 1.5 APTT 30 D pO2 VBG pH VBG pCO2 VBG HCO3 VBG Total CO2 VBG O2 Sat (Calc) VBG Base Excess VBG Potassium Glucose Lactate Sodium 125 L Potassium 4.0 Chloride 97 L Carbon Dioxide 22 Anion Gap 11 BUN 14 Creatinine 0.7 L Est GFR ( Amer) > 60 Est GFR (Non-Af Amer) > 60 POC Glucose (mg/dL) Random Glucose 236 H D Hemoglobin A1c Serum Osmolality Calcium 7.3 L Magnesium Iron TIBC % Saturation Ferritin Total Bilirubin 0.7 AST 77 H D ALT 48 Alkaline Phosphatase 68 Total Protein 6.1 L Albumin 2.3 L Globulin 3.7 Albumin/Globulin Ratio 0.6 L Vitamin B12 Folate Venous Blood Potassium Urine Color Urine Clarity Urine pH Ur Specific [place] Urine Protein Urine Glucose (UA) Urine Ketones Urine Blood Urine Nitrate Urine Bilirubin Urine Urobilinogen Ur Leukocyte Esterase Urine WBC (Auto) Urine RBC (Auto) Amorphous Sediment Vancomycin Trough Urine Opiates Screen Urine Methadone Screen Ur Barbiturates Screen Ur Phencyclidine Scrn Ur Amphetamines Screen U Benzodiazepines Scrn U Oth Cocaine Metabols U Cannabinoids Screen Alcohol, Quantitative 06/17/18 06:23 WBC RBC Hgb Hct MCV MCH MCHC RDW Plt Count MPV Neut % (Auto) Lymph % (Auto) [place] % (Auto) Eos % (Auto) Baso % (Auto) Neut # (Auto) Lymph # (Auto) [place] # (Auto) Eos # (Auto) Baso # (Auto) ESR Retic Count Haptoglobin PT INR APTT pO2 VBG pH VBG pCO2 VBG HCO3 VBG Total CO2 VBG O2 Sat (Calc) VBG Base Excess VBG Potassium Glucose Lactate Sodium Potassium Chloride Carbon Dioxide Anion Gap BUN Creatinine Est GFR ( Amer) Est GFR (Non-Af Amer) POC Glucose (mg/dL) 269 H Random Glucose Hemoglobin A1c Serum Osmolality Calcium Magnesium Iron TIBC % Saturation Ferritin Total Bilirubin AST ALT Alkaline Phosphatase Total Protein Albumin Globulin Albumin/Globulin Ratio Vitamin B12 Folate Venous Blood Potassium Urine Color Urine Clarity Urine pH Ur Specific [place] Urine Protein Urine Glucose (UA) Urine Ketones Urine Blood Urine Nitrate Urine Bilirubin Urine Urobilinogen Ur Leukocyte Esterase Urine WBC (Auto) Urine RBC (Auto) Amorphous Sediment Vancomycin Trough Urine Opiates Screen Urine Methadone Screen Ur Barbiturates Screen Ur Phencyclidine Scrn Ur Amphetamines Screen U Benzodiazepines Scrn U Oth Cocaine Metabols U Cannabinoids Screen Alcohol, Quantitative - Impressions Impression: atient Name / ID : SHABBIR VASQUEZ / [id number] Exam Date : 06/16/2018 06:22:20 ( Approved ) Study Comment : Sex / Age : M / [id number] Creator : Ariel Du Dictator : Antonio Toth MD Lease Buyer : [employer] Measurer : Antonio Toth MD Approver2 : Report Date : 06/16/2018 06:35:30 My Comment : Date of service: 06/16/2018 PROCEDURE: CT of the left upper extremity HISTORY: left elbow COMPARISON: TECHNIQUE: . Radiation dose: Total exam DLP = 435.56 mGy-cm. This CT exam was performed using one or more of the following dose reduction techniques: Automated exposure control, adjustment of the mA and/or kV according to patient size, and/or use of iterative reconstruction technique. FINDINGS: There is no evidence of fracture. There is no joint effusion. There is a fluid collection along the distal triceps muscle measuring 12 x 7 x 3 cm. This could represent a seroma or abscess. This would be easily accessible to needle aspiration. It is just beneath the skin surface. The report concurs with the preliminary [facility] report IMPRESSION: There is no evidence of fracture. There is no joint effusion. There is a fluid collection along the distal triceps muscle measuring 12 x 7 x 3 cm. This could represent a seroma or abscess. This would be easily accessible to needle aspiration. It is just beneath the skin surface Assessment & Plan (1) Abscess of left arm Assessment and Plan: large collection upper arm near elbow, possible extension of septic olecranon bursitis, [id number] no joint involvement suspected clinically or suggested radiographically on CT MRI ordered f/u MRI, patient may be indicated for I&D of collection, NPO p MN d/w Dr. Mustafa, agrees with above ID consultation noted patient asking for pain medication, will defer to primary team Addendum: notified by RN that patient refused MRI although encouraged by myself and the RN. Dr. Mustafa notified PT/INR elevated labs in am f/u hyponatremia Status: Acute (2) DM type 2, uncontrolled, with lower extremity ulcer Status: Acute
[2018-06-17] MEDS: Sodium Chloride 0.9% 1,000 ML IV SCH ×3 (08:19→19:10)
[2018-06-17] MEDS: (Novolin R) Insulin Human Regular 100 units/ml vial SC SCH ×4 (08:32→22:25)
--- NOTE | 2018-06-17 09:00 | CP.PCM.PN ---
<Norma Hoffman - Last Filed: 06/17/18 14:33> Subjective - Date & Time of Evaluation Date of Evaluation: 06/17/18 Time of Evaluation: 08:58 - Subjective Subjective: Norma Hoffman PGY1 Progress Note for Dr. Rose Pt was examined at bedside this morning. Pt reports continuation of pain and swelling in the L elbow. He denies fever, chills, chest pain, abdominal pain, nausea, vomiting, diarrhea, dysuria. Objective - Vital Signs/Intake and Output Vital Signs (last 24 hours): Temp Pulse Resp BP Pulse Ox 98.4 F 97 H 20 100/63 98 06/16/18 23:10 06/17/18 04:00 06/16/18 23:10 06/16/18 23:10 06/16/18 23:10 Intake and Output: 06/17/18 06/17/18 06:59 18:59 Intake Total 1020 Output Total 500 Balance 520 - Medications Medications: Current Medications Acetaminophen (Tylenol 325mg Tab) 650 mg PO Q6 PRN PRN Reason: Fever >100.4 F Enoxaparin Sodium (Lovenox) 40 mg SC DAILY [facility] Ferrous Sulfate (Feosol) 325 mg PO DAILY [facility] Glucagon (Glucagen Diagnostic Kit) 0 mg IM STAT PRN; Protocol PRN Reason: Hypoglycemia Protocol Piperacillin Sod/Tazobactam Sod (Zosyn 3.375 Gm Iv Premix) 3.375 gm in 50 mls @ 200 mls/hr IVPB Q6H [facility]; Protocol Last Admin: 06/17/18 08:31 Dose: 200 mls/hr Sodium Chloride (Sodium Chloride 0.9%) 1,000 mls @ 100 mls/hr IV .Q10H [facility] Last Admin: 06/16/18 14:26 Dose: 100 mls/hr Vancomycin HCl 1.2 gm/ Sodium (Chloride) 250 mls @ 166.7 mls/hr IVPB Q12H [facility]; Protocol Gentamicin Sulfate/Sodium Chloride (Gentamicin 80mg/100ml Ns) 80 mg in 100 mls @ 100 mls/hr IVPB Q8H [facility]; Protocol Last Admin: 06/17/18 05:14 Dose: 100 mls/hr Insulin Glargine (Lantus) 20 unit SC HS [facility] Insulin Human Regular (Novolin R) 0 unit SC ACHS [facility]; Protocol Last Admin: 06/17/18 08:32 Dose: 6 units Ketorolac Tromethamine (Toradol) 15 mg IVP Q6 PRN PRN Reason: Pain, moderate (4-7) Last Admin: 06/17/18 05:52 Dose: 15 mg Pantoprazole Sodium (Protonix Ec Tab) 40 mg PO Q24H [facility] Last Admin: 06/17/18 05:37 Dose: 40 mg Tramadol HCl (Ultram) 50 mg PO TID PRN PRN Reason: Pain, severe (8-10) Last Admin: 06/17/18 02:15 Dose: 50 mg - Labs Labs: 06/17/18 06:23 06/17/18 06:23 PT 16.3 SECONDS (9.7-12.2) H 06/17/18 06:23 INR 1.5 06/17/18 06:23 APTT 30 SECONDS (21-34) D 06/17/18 06:23 - Constitutional Appears: Well, No Acute Distress - Head Exam Head Exam: ATRAUMATIC, NORMOCEPHALIC - Eye Exam Eye Exam: EOMI, PERRL - ENT Exam ENT Exam: Mucous Membranes Moist - Respiratory Exam Respiratory Exam: Clear to Ausculation Bilateral, NORMAL BREATHING PATTERN. absent: Rales, Rhonchi, Wheezes - Cardiovascular Exam Cardiovascular Exam: REGULAR RHYTHM, +S1, +S2. absent: Gallop, Rubs, Murmur - GI/Abdominal Exam GI & Abdominal Exam: Soft, Normal Bowel Sounds. absent: Distended, Tenderness - Extremities Exam Additional comments: LUE: erythema and edema posteriorly surrounding elbow with desquamation LLE: hyperkeratotic and dystrophic nail changes, charcot deformity RLE: hyperkeratotic and dystrophic nail changes Assessment and Plan - Assessment and Plan (Free Text) Assessment: 47 year old male with a PMHx of Diabetes Type II (Uncontrolled), HTN, Anxiety, Depression, Schizophrenia, Right Hallux Osteomyelitis Pancreatitis, and medical non-compliance admitted for Sepsis 2/2 to Left Elbow Cellulitis/Abscess vs Left Hallux infection. F/u MRI for possible OR I&D 06/18/18. Plan: Sepsis - Source: L Elbow abscess vs L foot infection - afebrile - leukocytosis downtrending - Lactate 1.4, downtrending - BCx: positive for gram + cocci in chains, pending sensitivities - Wound Cx: gram + cocci in clusters, pending final report - CXR: No acute Disease - UA: Neg Nitrates and Leuk Est - NS@100 - Vancomycin 1g IV Q12 H - Zosyn 3.375gm IV Q6H - ID consulted, Dr. Brandy hirsch appreciated Uncontroled DM 2/DKA (Resolved) - 2/2 to medication non compliance - HbA1C: 11.0 - Beta Hydroxybutyrate elevated on Admission - NS@100 - Lantus 20u HS - High Dose Sliding Scale - accuchecks ACHS - hypoglycemia protocol - diabetic education Left Elbow Cellulitis/Abscess - f/u MRI - possible OR tomorrow for I&D with Ortho - CT LUE: Large fluid collection containing air bubbles suspicous for abscess involving the region of left biceps measuring approximately [id number] - Wound Cx: gram + cocci in clusters, pending final report - pt afebrile, leukocytosis downtrending - NS@100 - Vancomycin 1gram Q12 H - Zosyn 3.375gm Q6H - Toradol 15 IVP Q6 PRN for Moderate Pain - Ultram 50 TID PRN for Severe Pain. - ID consulted, Dr. Brandy hirsch appreciated - Ortho consulted, Dr. Ramsey hirsch appreciated B/L Ankle Cellulitis - CT L foot: extensive subcutaneous edema noted especially at dorsal aspect of foot and ankle, Degenerative changes first tarsal and tarsometatarsal joints, Plantar calcanial spur - NS@100 - Vancomycin 1gram Q12 H - Zosyn 3.375gm Q6H - ID consulted, Dr. Brandy hirsch appreciated - Podiatry consulted, Dr. Huber hirsch appreciated Anemia - H/H 9.8/28.8 - Low Iron - Ferrous Sulfate 325mg PO Daily Depression/Anxiety/Schizophrenia - Hx of Multiple Psych Admission - Psych consulted for depressed mood and med recs PPx GI: Protonix DVT: Lovenox NPO MN Pt seen and case discussed with Dr. Rose <Scottie Rose H - Last Filed: 06/17/18 15:08> Objective - Vital Signs/Intake and Output Vital Signs (last 24 hours): Temp Pulse Resp BP Pulse Ox 99.0 F 80 18 93/59 L 99 06/17/18 07:00 06/17/18 07:00 06/17/18 07:00 06/17/18 07:00 06/17/18 07:00 Intake and Output: 06/17/18 06/17/18 06:59 18:59 Intake Total 1020 Output Total 500 Balance 520 - Medications Medications: Current Medications Acetaminophen (Tylenol 325mg Tab) 650 mg PO Q6 PRN PRN Reason: Fever >100.4 F Enoxaparin Sodium (Lovenox) 40 mg SC DAILY [facility] Last Admin: 06/17/18 10:44 Dose: 40 mg Ferrous Sulfate (Feosol) 325 mg PO DAILY [facility] Last Admin: 06/17/18 10:45 Dose: 325 mg Glucagon (Glucagen Diagnostic Kit) 0 mg IM STAT PRN; Protocol PRN Reason: Hypoglycemia Protocol Piperacillin Sod/Tazobactam Sod (Zosyn 3.375 Gm Iv Premix) 3.375 gm in 50 mls @ 200 mls/hr IVPB Q6H [facility]; Protocol Last Admin: 06/17/18 13:42 Dose: 200 mls/hr Sodium Chloride (Sodium Chloride 0.9%) 1,000 mls @ 100 mls/hr IV .Q10H [facility] Last Admin: 06/16/18 14:26 Dose: 100 mls/hr Vancomycin HCl 1.2 gm/ Sodium (Chloride) 250 mls @ 166.7 mls/hr IVPB Q12H [facility]; Protocol Last Admin: 06/17/18 12:20 Dose: 166.7 mls/hr Gentamicin Sulfate/Sodium Chloride (Gentamicin 80mg/100ml Ns) 80 mg in 100 mls @ 100 mls/hr IVPB Q8H [facility]; Protocol Last Admin: 06/17/18 13:54 Dose: Not Given Insulin Glargine (Lantus) 20 unit SC HS [facility] Insulin Human Regular (Novolin R) 0 unit SC ACHS [facility]; Protocol Last Admin: 06/17/18 13:03 Dose: 6 units Ketorolac Tromethamine (Toradol) 15 mg IVP Q6 PRN PRN Reason: Pain, moderate (4-7) Last Admin: 06/17/18 05:52 Dose: 15 mg Pantoprazole Sodium (Protonix Ec Tab) 40 mg PO Q24H [facility] Last Admin: 06/17/18 05:37 Dose: 40 mg Tramadol HCl (Ultram) 50 mg PO TID PRN PRN Reason: Pain, severe (8-10) Last Admin: 06/17/18 02:15 Dose: 50 mg - Labs Labs: 06/17/18 06:23 06/17/18 06:23 PT 16.4 SECONDS (9.7-12.2) H 06/17/18 11:25 INR 1.5 06/17/18 11:25 APTT 30 SECONDS (21-34) D 06/17/18 06:23 Attending/Attestation - Attestation I have fully participated in the care of the patient.: Yes I have reviewed all pertinent clinical information, including history, physical exam and plan: Yes Notes (Text): 06/17/18 15:04 Medical attending: Patient was seen and examined by me. Reviewed the above note by the resident and agree with the above The patient does have some history of mental illness. At times was cooperative, however also strange affect. The patient later on wanted additional narcotic pain class medication - otherwise he would leave. We explained to him that we will continue to monitor him and at this time would not be giving more narcotic pain medication he wanted He is being continued with IV abx and also as of this morning there were two gram + blood cultures pending Scottie Rose
--- NOTE | 2018-06-17 09:07 | CON ---
DATE: 06/16/2018 HISTORY OF PRESENT ILLNESS: He is a 47-year-old male. He has history of diabetes type 2, hypertension, schizophrenia, anxiety, and depression. He comes in. He says he fell few days ago, almost a week ago, he says. He fell in his own house, and he noticed some swelling and redness on the left elbow. The pain has been worsening. He says he was taking Tylenol and another pain medication, but it did not help, and he continued to have the swelling, redness, and pain, and he also has now fever and lethargy. His cultures just came out positive, even though I saw him this afternoon and dictating it now, and he also had some foot surgery with the acquisition consultant. He was here not too long ago when he had surgery done on his foot, and now, the left foot second toe appears red, moist, and also discolored. He states he never noticed that his toe was draining also, and this patient is very noncompliant with medications. Past medical history is significant for left elbow pain, left foot pain, fever, chills, left elbow decreased range of motion, and he is also with tremendous pain and swelling, and he was also seen by Surgery. PAST MEDICAL HISTORY: Significant for anxiety, depression, schizophrenia, right hallux osteomyelitis, pancreatitis, and diabetes. SURGICAL HISTORY: Left great toe amputation and right rotator cuff surgery. ALLERGIES: HE IS NOT ALLERGIC TO ANY MEDICINE. HE IS ALLERGIC TO LOT OF FRUITS. ALLERGIC TO ALMOND, AP[place], CASHEW NUT, WALNUT, , CHESTNUT. SOCIAL HISTORY: He admits to smoking, quit 1 month ago. He admits to heavy EtOH, quit 1 month ago. He denies any drug abuse. FAMILY HISTORY: He was with psych admission in [place] in 01/2018. He had a left toe infection. He was in here, and he had pancreatitis in June 2017. Family history is significant for diabetes present in grandfather and mother, and also hypertension in grandmother, and he follows with Dr. Bray in [facility]. MEDICATIONS: He is on Tylenol. He is on Lovenox, ferrous sulfate. We just added gentamicin as culture positive now. He is on insulin. He had lactate positive, he is positive for sepsis. He is on Toradol and pantoprazole. He is also on Zosyn, and he was just put on vancomycin 1.2 g every 12 hours, and he is still to get his dose at this time. REVIEW OF SYSTEMS: He did complain of pain in the left arm. He denies any pain in the foot, but his foot is still swollen. In the second toe on the left foot and the right foot also, there are some issues. He has no HEENT problems. He denies any seizure problems. He does have history of asthma. He has hypertension, cardiac queen. Neurologically, he has no history of seizures, but he has anxiety, depression, schizophrenia, no kidney issues. He has history of diabetes. He denies any HIV. Denies other skin problems. Denies GI problems. He does have erectile dysfunction, and psych issues, but no substance abuse. He used to smoke and drink before. PHYSICAL EXAMINATION: VITAL SIGNS: We find temperature is 98 now, it was 99.7 before, and heart rate is 107, blood pressure 116/71, and respirations are 16. HEENT: Head is atraumatic, normocephalic, but he is very unkempt. Pupils are reacting to light and eye movements are unremarkable, and tongue is moist. He has no icterus present. No pallor present. Mucous membranes are moist now. NECK: Supple. JVP is flat. Trachea is central. LUNGS: Clear to auscultation. No crackles or rales present. No accessory muscles use. No wheezing. He has no stridor. HEART: S1, S2 are regular. No murmurs appreciated. CHEST: Chest wall is symmetrical. ABDOMEN: Soft, nontender. No guarding, no rigidity present. EXTREMITIES: The left elbow is markedly indurated, erythematous, fluctuant, is probably bursitis along with the cellulitis. I made the markings also. His bilateral ankles are swollen. He has Charcot's foot to left foot in his second toe and foul smelling both feet, onychomycosis, and his second toe on the left foot was more moist and appeared little discolored. He does have abnormal gait, and I will have to reevaluate the foot again as I did see both the feet having issues. LABORATORY DATA: Labs are noted. Labs show white count is 12.7, hemoglobin 10.8, hematocrit 32.1, platelet count is 405, and haptoglobins are 334, and we are following the lactate, and once he has lactate , he came with a 3.6. Sodium is 126. He is on 100 mL of fluids at this time, and his sugar was 485, bicarbonate was 21 and is 24, so he is not in DKA, but hyperglycemia. Potassium is low. They are going to supplement urine showed 1+ ketones, so he was in DKA with hypernatremia and beta hydroxybutyrate positive, and at this time, his culture, I am told he has GPCs in both the sets. So we will follow identification and sensitivity. Sepsis protocol was positive, DKA, Gram-positive septicemia with diabetic ketoacidosis in this patient with hypernatremia, psych issues, diabetes mellitus with cellulitis and olecranon bursitis and also left foot cellulitis and ulceration, diabetic foot ulcers on the right foot. We will follow. He had upper extremity and lower extremity x-rays. There was a CT scan shows no evidence of fracture. There is no joint effusion. There is a fluid collection distal triceps, measuring 12 x 7 x 3. This could represent a seroma or abscess. This would easily be acceptable to needle aspiration. It is just beneath the skin surface. So, I would think it is probably an abscess in view of the Gram-positive cultures that we have now and needs to be aspirated. We are waiting for Ortho to evaluate as it is in joint area even though the joint may or may not be involved. Then, there is lower extremity CT was done of left foot which shows there is extensive subcutaneous edema over the dorsum of the foot and ankle. There is no fracture visualized. There is no foreign body and , the second toe appears infected and may have some issues. We will re-evaluate tomorrow. Also, we will get an echocardiogram to rule out vegetation. The patient is on vancomycin, gentamicin, and Zosyn at this time, and will be monitored in the hospital and will be seen by different consultants including the acquisition consultant as well as orthopedist. PLAN: We will discuss with the primary doctor. Joy Nava MD
[2018-06-17] MEDS: Enoxaparin 40 mg Syringe SC SCH (10:44)
[2018-06-17 11:43] LABS: INR 1.5; PROTHROMBIN TIME 16.4 SECONDS (9.7-12.2)
[2018-06-17] MEDS: Vancomycin 1.2 GM in Sodium Chloride 0.9% 250 ML IVPB SCH ×2 (12:20→22:24)
--- NOTE | 2018-06-17 12:35 | CP.PCM.CON ---
"History of Present Illness - History of Present Illness History of Present Illness: : This patient is a 47 year old male with a PMHx of Diabetes Type II (Uncontrolled), HTN, Anxiety, Depression, Schizophrenia, Right Hallux Osteomyelitis ,chronic pancreatitis, and medical non-compliance who presents with complaints of sharp 9/10 left elbow pain with radiation down to his finger. He states the the pain began over a week ago after a fall (Denies head trauma). After the fall, he noticed that his left arm began to swell up. As the swelling decreased he noticed his elbow became more red with increased pain. Associated symptoms include fever, and lethargy. Mr. Horta also states that he has been getting wound dressing changes with a biomedical manager for his right great toe. He states he never noticed that his toe was draining. Admits to his medication non- compliance. He has only been taking his Metformin. Of note, this patient was showing drug seeking behavior. ROS POSITIVES: Left Elbow Pain, Left Foot Pain, Fever, Chills, Left elbow decreased range of motion, Depressed mood ; drinks excessive water NEGATIVES: Headache, Chest Pain, SOB, Abdominal pain, n/v changes in bowel habits, urinary symptoms. Suicidal/Homicidal Ideation. 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 Right Rotator Cuff Surgery Allergy: NKDA. But as per chart ([place], Apple, cashew nut, walnut, water chestn ut) SocialHx: Admits to smoking hx (Quit 1 month ago), Admits to heavy EtoH use (Quit 1 month ago), Denies illicit drug use. Hospital: [facility] in [place] 01/26, Left Toe infection 01/26, Pancreatitis 06/28 FamHx: HTN - Grandmother | Diabetes - Grandfather & Mother Meds: Please see MAR Review of Systems - Constitutional Constitutional: Daytime Sleepiness, Lethargy - EENT Eyes: absent: As Per HPI, Blind Spots, Blurred Vision, Change in Vision, Decreased Night Vision, Diplopia, Discharge, Dry Eye, Exophthalmos, Floaters, Irritation, Itchy Eyes, Loss of Peripheral Vision, Pain, Photophobia, Requires Corrective Lenses, Sees Flashes, Spots in Vision, Tunnel Vision, Other Visual Disturbances, Loss of Vision, Other Ears: absent: As Per HPI, Decreased Hearing, Ear Discharge, Ear Pain, Tinnitus, Abnormal Hearing, Disequilibrium, Dizziness, Other Nose/Mouth/Throat: absent: As Per HPI, Epistaxis, Nasal Congestion, Nasal Discharge, Nasal Obstruction, Nasal Trauma, Nose Pain, Post Nasal Drip, Sinus Pain, Sinus Pressure, Bleeding Gums, Change in Voice, Dental Pain, Dry Mouth, Dysphagia, Halitosis, Hoarsness, Lip Swelling, Mouth Lesions, Mouth Pain, Odynophagia, Sore Throat, Throat Swelling, Tongue Swelling, Facial Pain, Neck Pain, Neck Mass, Other - Cardiovascular Cardiovascular: Lightheadedness - Respiratory Respiratory: absent: As Per HPI, Cough, Dyspnea, Hemoptysis, Dyspnea on Exertion, Wheezing, Snoring, Stridor, Pain on Inspiration, Chest Congestion, Excessive Mucous Production, Change in Mucous Color, Pain with Coughing, Other - Gastrointestinal Gastrointestinal: absent: As Per HPI, Abdominal Pain, Belching, Bloating, Change in Bowel Habits, Change in Stool Character, Coffee Ground Emesis, Constipation, Cramping, Diarrhea, Dyspepsia, Dysphagia, Early Satiety, Excessive Flatus, Fecal Incontinence, Heartburn, Hematemesis, Hematochezia, Loose Stools, Melena, Nausea, Odynophagia, Temesmus, Vomiting, Other - Genitourinary Genitourinary: Voiding Freq/Small Amts - Musculoskeletal Musculoskeletal: Muscle Cramps, Muscle Weakness, Myalgias - Neurological Neurological: Paresthesias, Weakness Past Patient History - Infectious Disease Hx of Infectious Diseases: MRSA - Tetanus Immunizations Tetanus Immunization: Unknown - Past Medical History & Family History Past Medical History?: Yes Past Family History: Reviewed and not pertinent - Past Social History Smoking Status: Light Smoker < 10 Cigarettes Daily Chewing Tobacco Use: No Cigar Use: No Alcohol: None Drugs: Denies - CARDIAC Hx Hypertension: Yes - PULMONARY Hx Asthma: Yes - NEUROLOGICAL Hx Seizures: No - HEENT Hx HEENT Problems: No - RENAL Hx Chronic Kidney Disease: No - ENDOCRINE/METABOLIC Hx Endocrine Disorders: Yes (DM) Hx Diabetes Mellitus Type 2: Yes - HEMATOLOGICAL/ONCOLOGICAL Hx Human Immunodeficiency Virus (HIV): No - INTEGUMENTARY Hx Dermatological Problems: No - MUSCULOSKELETAL/RHEUMATOLOGICAL Hx Fractures: Yes (RT toe) - GASTROINTESTINAL Hx Gastrointestinal Disorders: No - GENITOURINARY/GYNECOLOGICAL Hx Sexually Transmitted Disorders: Yes (erectile Dysfunction) - PSYCHIATRIC Hx Anxiety: Yes Hx Bipolar Disorder: Yes Hx Depression: Yes Hx Schizophrenia: Yes Hx Substance Use: No - SURGICAL HISTORY Hx Orthopedic Surgery: Yes (Right shoulder 1992 rotator cuff and dislocation 1988) Other/Comment: R foot wound debridement - ANESTHESIA Hx Anesthesia: Yes Hx Anesthesia Reactions: No Meds Allergies/Adverse Reactions: Allergies Allergy/AdvReac Type Severity Reaction Status Date / Time almond Allergy ITCHING Verified 06/16/18 05:45 apple Allergy ITCHING Verified 06/16/18 05:45 cashew nut Allergy ITCHING Verified 06/16/18 05:45 nut - unspecified Allergy ITCHING Verified 06/16/18 05:45 walnut Allergy ITCHING Verified 06/16/18 05:45 water chestnut Allergy ITCHING Verified 06/16/18 05:45 - Medications Medications: Current Medications Acetaminophen (Tylenol 325mg Tab) 650 mg PO Q6 PRN PRN Reason: Fever >100.4 F Enoxaparin Sodium (Lovenox) 40 mg SC DAILY [facility] Last Admin: 06/17/18 10:44 Dose: 40 mg Ferrous Sulfate (Feosol) 325 mg PO DAILY [facility] Last Admin: 06/17/18 10:45 Dose: 325 mg Glucagon (Glucagen Diagnostic Kit) 0 mg IM STAT PRN; Protocol PRN Reason: Hypoglycemia Protocol Piperacillin Sod/Tazobactam Sod (Zosyn 3.375 Gm Iv Premix) 3.375 gm in 50 mls @ 200 mls/hr IVPB Q6H [facility]; Protocol Last Admin: 06/17/18 08:31 Dose: 200 mls/hr Sodium Chloride (Sodium Chloride 0.9%) 1,000 mls @ 100 mls/hr IV .Q10H [facility] Last Admin: 06/16/18 14:26 Dose: 100 mls/hr Vancomycin HCl 1.2 gm/ Sodium (Chloride) 250 mls @ 166.7 mls/hr IVPB Q12H [facility]; Protocol Last Admin: 06/17/18 12:20 Dose: 166.7 mls/hr Gentamicin Sulfate/Sodium Chloride (Gentamicin 80mg/100ml Ns) 80 mg in 100 mls @ 100 mls/hr IVPB Q8H [facility]; Protocol Last Admin: 06/17/18 05:14 Dose: 100 mls/hr Insulin Glargine (Lantus) 20 unit SC HS [facility] Insulin Human Regular (Novolin R) 0 unit SC ACHS [facility]; Protocol Last Admin: 06/17/18 08:32 Dose: 6 units Ketorolac Tromethamine (Toradol) 15 mg IVP Q6 PRN PRN Reason: Pain, moderate (4-7) Last Admin: 06/17/18 05:52 Dose: 15 mg Pantoprazole Sodium (Protonix Ec Tab) 40 mg PO Q24H [facility] Last Admin: 06/17/18 05:37 Dose: 40 mg Tramadol HCl (Ultram) 50 mg PO TID PRN PRN Reason: Pain, severe (8-10) Last Admin: 06/17/18 02:15 Dose: 50 mg Physical Exam - Head Exam Head Exam: ATRAUMATIC, NORMAL INSPECTION - Eye Exam Eye Exam: EOMI, Normal appearance - Neck Exam Neck exam: Positive for: Normal Inspection. Negative for: Tenderness - Respiratory Exam Respiratory Exam: Clear to Auscultation Bilateral, NORMAL BREATHING PATTERN - Cardiovascular Exam Cardiovascular Exam: REGULAR RHYTHM, +S1 - GI/Abdominal Exam GI & Abdominal Exam: Soft. absent: Tenderness - Extremities Exam Extremities exam: Positive for: normal inspection, pedal edema - Neurological Exam Neurological exam: Alert, Oriented x3 - Psychiatric Exam Psychiatric exam: Anxious, Depressed - Skin Skin Exam: Dry, Warm Results - Vital Signs Recent Vital Signs: Last Vital Signs Temp 99.0 F 06/17/18 07:00 Pulse 80 06/17/18 07:00 Resp 18 06/17/18 07:00 BP 93/59 L 06/17/18 07:00 Pulse Ox 99 06/17/18 07:00 - Labs Result Diagrams: 06/17/18 06:23 06/17/18 06:23 Labs: Laboratory Results - last 24 hr 06/16/18 06/16/18 06/16/18 13:45 13:46 13:46 WBC RBC Hgb Hct MCV MCH MCHC RDW Plt Count MPV Neut % (Auto) Lymph % (Auto) [place] % (Auto) Eos % (Auto) Baso % (Auto) Neut # (Auto) Lymph # (Auto) [place] # (Auto) Eos # (Auto) Baso # (Auto) Retic Count Haptoglobin PT INR APTT pO2 VBG pH VBG pCO2 VBG HCO3 VBG Total CO2 VBG O2 Sat (Calc) VBG Base Excess VBG Potassium Sodium Chloride Glucose Lactate Potassium Carbon Dioxide Anion Gap BUN Creatinine Est GFR ( Amer) Est GFR (Non-Af Amer) POC Glucose (mg/dL) Random Glucose Hemoglobin A1c 11.0 H Serum Osmolality Calcium Magnesium Iron TIBC % Saturation Ferritin Total Bilirubin AST ALT Alkaline Phosphatase Total Protein Albumin Globulin Albumin/Globulin Ratio Vitamin B12 Folate Venous Blood Potassium Vancomycin Trough Urine Opiates Screen Negative Urine Methadone Screen Negative Ur Barbiturates Screen Negative Ur Phencyclidine Scrn Negative Ur Amphetamines Screen Negative U Benzodiazepines Scrn Negative U Oth Cocaine Metabols Negative U Cannabinoids Screen Negative Alcohol, Quantitative < 10 06/16/18 06/16/18 06/16/18 13:46 13:46 13:46 WBC RBC Hgb Hct MCV MCH MCHC RDW Plt Count MPV Neut % (Auto) Lymph % (Auto) [place] % (Auto) Eos % (Auto) Baso % (Auto) Neut # (Auto) Lymph # (Auto) [place] # (Auto) Eos # (Auto) Baso # (Auto) Retic Count 1.1 Haptoglobin 334.5 H PT INR APTT pO2 VBG pH VBG pCO2 VBG HCO3 VBG Total CO2 VBG O2 Sat (Calc) VBG Base Excess VBG Potassium Sodium Chloride Glucose Lactate Potassium Carbon Dioxide Anion Gap BUN Creatinine Est GFR ( Amer) Est GFR (Non-Af Amer) POC Glucose (mg/dL) Random Glucose Hemoglobin A1c Serum Osmolality Calcium Magnesium Iron 18 L TIBC 188 L % Saturation 9 L Ferritin Total Bilirubin AST ALT Alkaline Phosphatase Total Protein Albumin Globulin Albumin/Globulin Ratio Vitamin B12 Folate Venous Blood Potassium Vancomycin Trough Urine Opiates Screen Urine Methadone Screen Ur Barbiturates Screen Ur Phencyclidine Scrn Ur Amphetamines Screen U Benzodiazepines Scrn U Oth Cocaine Metabols U Cannabinoids Screen Alcohol, Quantitative 06/16/18 06/16/18 06/16/18 13:46 13:46 16:20 WBC RBC Hgb Hct MCV MCH MCHC RDW Plt Count MPV Neut % (Auto) Lymph % (Auto) [place] % (Auto) Eos % (Auto) Baso % (Auto) Neut # (Auto) Lymph # (Auto) [place] # (Auto) Eos # (Auto) Baso # (Auto) Retic Count Haptoglobin PT INR APTT pO2 41 VBG pH 7.41 VBG pCO2 36 L VBG HCO3 23.3 VBG Total CO2 23.9 VBG O2 Sat (Calc) 80.9 H VBG Base Excess -1.4 L VBG Potassium 3.2 L Sodium 125.0 L Chloride 94.0 L Glucose 303 H Lactate 1.4 Potassium Carbon Dioxide Anion Gap BUN Creatinine Est GFR ( Amer) Est GFR (Non-Af Amer) POC Glucose (mg/dL) Random Glucose Hemoglobin A1c Serum Osmolality Calcium Magnesium Iron TIBC % Saturation Ferritin 1100.0 Total Bilirubin AST ALT Alkaline Phosphatase Total Protein Albumin Globulin Albumin/Globulin Ratio Vitamin B12 557 Folate 9.7 Venous Blood Potassium 3.2 L Vancomycin Trough 9.9 Urine Opiates Screen Urine Methadone Screen Ur Barbiturates Screen Ur Phencyclidine Scrn Ur Amphetamines Screen U Benzodiazepines Scrn U Oth Cocaine Metabols U Cannabinoids Screen Alcohol, Quantitative 06/16/18 06/16/18 06/16/18 16:32 17:00 20:35 WBC RBC Hgb Hct MCV MCH MCHC RDW Plt Count MPV Neut % (Auto) Lymph % (Auto) [place] % (Auto) Eos % (Auto) Baso % (Auto) Neut # (Auto) Lymph # (Auto) [place] # (Auto) Eos # (Auto) Baso # (Auto) Retic Count Haptoglobin PT INR APTT pO2 51 VBG pH 7.45 H VBG pCO2 34 L VBG HCO3 24.7 VBG Total CO2 24.6 VBG O2 Sat (Calc) 91.7 H VBG Base Excess 0.1 VBG Potassium 3.2 L Sodium 124 L 126.0 L Chloride 93 L 98.0 Glucose 286 H Lactate 1.4 Potassium 3.2 L Carbon Dioxide 24 Anion Gap 11 BUN 20 Creatinine 0.8 Est GFR ( Amer) > 60 Est GFR (Non-Af Amer) > 60 POC Glucose (mg/dL) 306 H Random Glucose 299 H D Hemoglobin A1c Serum Osmolality Calcium 7.3 L Magnesium Iron TIBC % Saturation Ferritin Total Bilirubin AST ALT Alkaline Phosphatase Total Protein Albumin Globulin Albumin/Globulin Ratio Vitamin B12 Folate Venous Blood Potassium 3.2 L Vancomycin Trough Urine Opiates Screen Urine Methadone Screen Ur Barbiturates Screen Ur Phencyclidine Scrn Ur Amphetamines Screen U Benzodiazepines Scrn U Oth Cocaine Metabols U Cannabinoids Screen Alcohol, Quantitative 01/06/19 01/06/19 01/06/19 21:13 21:28 21:28 WBC RBC Hgb Hct MCV MCH MCHC RDW Plt Count MPV Neut % (Auto) Lymph % (Auto) [place] % (Auto) Eos % (Auto) Baso % (Auto) Neut # (Auto) Lymph # (Auto) [place] # (Auto) Eos # (Auto) Baso # (Auto) Retic Count Haptoglobin PT INR APTT pO2 VBG pH VBG pCO2 VBG HCO3 VBG Total CO2 VBG O2 Sat (Calc) VBG Base Excess VBG Potassium Sodium Chloride Glucose Lactate Potassium Carbon Dioxide Anion Gap BUN Creatinine Est GFR ( Amer) Est GFR (Non-Af Amer) POC Glucose (mg/dL) 285 H Random Glucose Hemoglobin A1c Serum Osmolality 278 Calcium Magnesium 1.5 L Iron TIBC % Saturation Ferritin Total Bilirubin AST ALT Alkaline Phosphatase Total Protein Albumin Globulin Albumin/Globulin Ratio Vitamin B12 Folate Venous Blood Potassium Vancomycin Trough Urine Opiates Screen Urine Methadone Screen Ur Barbiturates Screen Ur Phencyclidine Scrn Ur Amphetamines Screen U Benzodiazepines Scrn U Oth Cocaine Metabols U Cannabinoids Screen Alcohol, Quantitative 06/17/18 06/17/18 06/17/18 06:23 06:23 06:23 WBC 10.3 RBC 2.97 L Hgb 9.8 L Hct 28.8 L MCV 96.8 H MCH 32.9 H MCHC 34.0 RDW 14.5 Plt Count 330 MPV 10.4 Neut % (Auto) 70.8 Lymph % (Auto) 18.0 L [place] % (Auto) 8.9 Eos % (Auto) 1.2 Baso % (Auto) 1.1 Neut # (Auto) 7.3 H Lymph # (Auto) 1.8 [place] # (Auto) 0.9 H Eos # (Auto) 0.1 Baso # (Auto) 0.1 Retic Count Haptoglobin PT 16.3 H INR 1.5 APTT 30 D pO2 VBG pH VBG pCO2 VBG HCO3 VBG Total CO2 VBG O2 Sat (Calc) VBG Base Excess VBG Potassium Sodium 125 L Chloride 97 L Glucose Lactate Potassium 4.0 Carbon Dioxide 22 Anion Gap 11 BUN 14 Creatinine 0.7 L Est GFR ( Amer) > 60 Est GFR (Non-Af Amer) > 60 POC Glucose (mg/dL) Random Glucose 236 H D Hemoglobin A1c Serum Osmolality Calcium 7.3 L Magnesium Iron TIBC % Saturation Ferritin Total Bilirubin 0.7 AST 77 H D ALT 48 Alkaline Phosphatase 68 Total Protein 6.1 L Albumin 2.3 L Globulin 3.7 Albumin/Globulin Ratio 0.6 L Vitamin B12 Folate Venous Blood Potassium Vancomycin Trough Urine Opiates Screen Urine Methadone Screen Ur Barbiturates Screen Ur Phencyclidine Scrn Ur Amphetamines Screen U Benzodiazepines Scrn U Oth Cocaine Metabols U Cannabinoids Screen Alcohol, Quantitative 06/17/18 06/17/18 06/17/18 06:23 11:25 11:25 WBC RBC Hgb Hct MCV MCH MCHC RDW Plt Count MPV Neut % (Auto) Lymph % (Auto) [place] % (Auto) Eos % (Auto) Baso % (Auto) Neut # (Auto) Lymph # (Auto) [place] # (Auto) Eos # (Auto) Baso # (Auto) Retic Count Haptoglobin PT 16.4 H INR 1.5 APTT pO2 VBG pH VBG pCO2 VBG HCO3 VBG Total CO2 VBG O2 Sat (Calc) VBG Base Excess VBG Potassium Sodium Chloride Glucose Lactate Potassium Carbon Dioxide Anion Gap BUN Creatinine Est GFR ( Amer) Est GFR (Non-Af Amer) POC Glucose (mg/dL) 269 H Random Glucose Hemoglobin A1c Serum Osmolality Calcium Magnesium Iron TIBC % Saturation Ferritin Total Bilirubin AST ALT Alkaline Phosphatase Total Protein Albumin Globulin Albumin/Globulin Ratio Vitamin B12 Folate Venous Blood Potassium Vancomycin Trough 10.5 H Urine Opiates Screen Urine Methadone Screen Ur Barbiturates Screen Ur Phencyclidine Scrn Ur Amphetamines Screen U Benzodiazepines Scrn U Oth Cocaine Metabols U Cannabinoids Screen Alcohol, Quantitative Assessment & Plan (1) Hyponatremia Status: Acute (2) Type 2 diabetes mellitus without complications Status: Acute (3) PVD (peripheral vascular disease) Status: Acute (4) Excessive fluid intake Status: Acute (5) HTN (hypertension) Status: Chronic - Assessment and Plan (Free Text) Assessment: hyponatremia likely due to excess free water intake improving from 120 to 125 with moderate fluid restriction would continue po fluid restriction check studies for SIADH"
[2018-06-17 13:15] LABS: URIC ACID 2.7 mg/dL (3.5-8.5)
--- NOTE | 2018-06-17 16:10 | CARD ---
APPROVED REPORT Date of service: 06/16/2018 EKG Measurement Heart [id number] <Conclusion> Sinus tachycardia Otherwise normal ECG
--- NOTE | 2018-06-17 16:39 | CARD ---
APPROVED REPORT Date of service: 06/17/2018 EXAM: Two-dimensional and M-mode echocardiogram with Doppler and color Doppler. Other Information Quality : GoodRhythm : INDICATION r/o vegetation ,positive BK RISK FACTORS Hypertension Diabetes 2D DIMENSIONS IVSd1.1 (0.7-1.1cm)LVDd4.7 (3.9-5.9cm) PWd1.2 (0.7-1.1cm)LA Mpowyd17 (18-58mL) LVDs3.4 (2.5-4.0cm)FS (%) 29.2 % LVEF (%)55.9 (>50%)LVEF (Bowden's)58.86 % IVC0.00 cm M-Mode DIMENSIONS RVDd2.00 (2.1-3.2cm)Left Atrium (MM)4.68 (2.5-4.0cm) IVSd1.10 (0.7-1.1cm)Aortic Root4.02 (2.2-3.7cm) LVDd5.03 (4.0-5.6cm)Aortic Cusp Exc.2.78 (1.5-2.0cm) PWd1.12 (0.7-1.1cm)FS (%) 31 % LVDs3.49 (2.0-3.8cm)LVEF (%)58 (>50%) Mitral Valve MV E Kkdxzygy07.0cm/sMV A Ddqpnmyj32.6cm/sE/A ratio1.2 TDI Lateral E' Peak V13.26cm/sMedial E' Peak V6.74cm/sE/Lateral E'5.5 E/Medial E'10.8 Tricuspid Valve TR Peak Fjdthgbh303nk/sTR Peak [id number] <Conclusion> normal size lv,ra 7 rv. la is moderately dilated. normal lv wall motion,thickness,systolic 7 diastolic function with lvef of 55-60%. normal aortic,tv & pv.mild mac. mild tr,trace pi with normal pulmonary systolic pressures of 24 mm of hg. normal size aortic root. no pericardial effusion. suspicious for pfo.
--- NOTE | 2018-06-17 18:16 | CP.PCM.PN ---
Subjective - Date & Time of Evaluation Date of Evaluation: 06/17/18 Time of Evaluation: 15:00 - Subjective Subjective: dictated Objective - Vital Signs/Intake and Output Vital Signs (last 24 hours): Temp Pulse Resp BP Pulse Ox 98.1 F 99 H 20 106/69 100 06/17/18 15:20 06/17/18 15:20 06/17/18 15:20 06/17/18 15:20 06/17/18 15:20 Intake and Output: 06/17/18 06/17/18 06:59 18:59 Intake Total 1020 Output Total 500 Balance 520 - Medications Medications: Current Medications Acetaminophen (Tylenol 325mg Tab) 650 mg PO Q6 PRN PRN Reason: Fever >100.4 F Enoxaparin Sodium (Lovenox) 40 mg SC DAILY [facility] Last Admin: 06/17/18 10:44 Dose: 40 mg Ferrous Sulfate (Feosol) 325 mg PO DAILY [facility] Last Admin: 06/17/18 10:45 Dose: 325 mg Glucagon (Glucagen Diagnostic Kit) 0 mg IM STAT PRN; Protocol PRN Reason: Hypoglycemia Protocol Piperacillin Sod/Tazobactam Sod (Zosyn 3.375 Gm Iv Premix) 3.375 gm in 50 mls @ 200 mls/hr IVPB Q6H [facility]; Protocol Last Admin: 06/17/18 13:42 Dose: 200 mls/hr Sodium Chloride (Sodium Chloride 0.9%) 1,000 mls @ 100 mls/hr IV .Q10H [facility] Last Admin: 06/17/18 08:19 Dose: Not Given Vancomycin HCl 1.2 gm/ Sodium (Chloride) 250 mls @ 166.7 mls/hr IVPB Q12H [facility]; Protocol Last Admin: 06/17/18 12:20 Dose: 166.7 mls/hr Gentamicin Sulfate/Sodium Chloride (Gentamicin 80mg/100ml Ns) 80 mg in 100 mls @ 100 mls/hr IVPB Q8H [facility]; Protocol Last Admin: 06/17/18 13:54 Dose: Not Given Insulin Glargine (Lantus) 20 unit SC HS [facility] Insulin Human Regular (Novolin R) 0 unit SC ACHS [facility]; Protocol Last Admin: 06/17/18 13:03 Dose: 6 units Ketorolac Tromethamine (Toradol) 15 mg IVP Q6 PRN PRN Reason: Pain, moderate (4-7) Last Admin: 06/17/18 05:52 Dose: 15 mg Pantoprazole Sodium (Protonix Ec Tab) 40 mg PO Q24H [facility] Last Admin: 06/17/18 05:37 Dose: 40 mg Tramadol HCl (Ultram) 50 mg PO TID PRN PRN Reason: Pain, severe (8-10) Last Admin: 06/17/18 02:15 Dose: 50 mg - Labs Labs: 06/17/18 06:23 06/17/18 06:23 PT 16.4 SECONDS (9.7-12.2) H 06/17/18 11:25 INR 1.5 06/17/18 11:25 APTT 30 SECONDS (21-34) D 06/17/18 06:23
[2018-06-17] MEDS ORDERED: DiphenhydrAMINE 12.5 mg/5 ml LIQ UD (5 ml) PO STA (19:00)
[2018-06-17 20:49] LABS: SQUAMOUS EPITHIAL < 1 /hpf (0-5); URINE BILIRUBIN NEGATIVE (NEGATIVE); URINE BLOOD 3+ (NEGATIVE); URINE CLARITY Hazy (Clear); URINE COLOR Yellow (YELLOW); URINE GLUCOSE (UA) 3+ mg/dL (Normal); URINE LEUKOCYTE ESTERASE NEG Leu/uL (Negative); URINE PROTEIN NEGATIVE (NEGATIVE)
[2018-06-17] MEDS ORDERED: (Lantus) Insulin Glargine, Recombinant SC SCH (22:00)
[2018-06-17] MEDS: (Lantus) Insulin Glargine, Recombinant SC SCH ×2 (22:25→22:35)
[2018-06-18] MEDS: Piperacill/Tazo 3.375gm in Dex 3.375 GM/50 ML BAG IVPB SCH ×4 (01:44→20:00)
[2018-06-18] MEDS: Sodium Chloride 0.9% 1,000 ML IV SCH ×2 (04:06→22:48)
[2018-06-18] MEDS: Pantoprazole 40 mg EC Tab PO SCH (05:44)
--- NOTE | 2018-06-18 06:30 | PN ---
DATE: 06/17/2018 INFECTIOUS DISEASE FOLLOWUP SUBJECTIVE: I went to see the patient today. He kept on complaining of the left elbow pain He wanted Percocet. He states he would be happy if he get two Percocet; however, I am not involved in the pain management. He looked comfortable; and I did not find he any fever, chills, chest pain. His gentamicin level was more than 2 troughs, so we had to hold gentamicin. We will repeat the level again. His blood cultures were positive for GPC for chains Streptococcus or Enterococcus. final ID is pending. He has no nausea or vomiting. He had dressing on both lower feet and was seen by sanitation director probably as he had clean dressing. He also has hypernatremia and was seen by the renal attending who says he has been having excessive fluid, and we will monitor. PHYSICAL EXAMINATION: VITAL SIGNS: T-max was 98.4 and now is 98.1, 99, blood pressure is 106/69, respirations are 20. HEENT: Head is atraumatic, normocephalic. NECK: Supple. LUNGS: Clear. No crackles or rales present. HEART: S1, S2 are regular. ABDOMEN: Soft, nontender. No guarding. No rigidity present. EXTREMITIES: Bilateral diabetic foot ulcers. The second toe on the left foot appears moist and discolored and may be acutely infected. Left foot appeared warmth to touch along with the left leg. Right foot had dressings and elbow appears to have redness, swelling, tenderness, and he is not able to lift it. He had a CAT scan which showed fluid collection and induration. He is on antibiotics at this time; however, his cultures have not been finalized yet, and we will give him gentamicin every 8 hours. If tomorrow level is low, I will start him back on gentamicin every 12 hours, and he is supposed to get an echocardiogram to rule out endocarditis, and also had a duplex scan. Echo was done today and echo reads normal size RA, LA is moderately dilated, normal LV wall motion thickness, systolic 7, diastolic function is 55 to 60, normal aortic valve, mild trace pulmonary insufficiency with pulmonary systolic pressure of 24, normal size aortic root. No pericardial effusion, suspicious for patent foramen ovale. So he will need a cardiology evaluation to see if there is a patent foramen ovale or not, and also there was no mention about the vegetation on this reading, so we want to be very sure as he does have bacteremia at this time. Patient remains on vancomycin as well as gentamicin level has been reordered for tomorrow, and if he goes to OR, I may give him a dose of Amikacin. He is on Zosyn every 6 hours, and he is on vancomycin 1.2 g every 12 hours which we will continue and monitor. He did come with acetone in the urine and hyperglycemia and probably was in DKA and the lactic acidosis and had sepsis protocol positive but he is clinically improving and I am waiting for the ID and sensitivity. He needs I and D and debridement of the left elbow cellulitis and has fluctuance, needs it to be drained. Clinically, it looks like cellulitis with olecranon bursitis but they are saying there is more fluid in the muscle, I am sure the orthopedics will evaluate that. Joy Nava MD
--- NOTE | 2018-06-18 07:27 | CP.PCM.PN ---
<Norma Hoffman - Last Filed: 06/18/18 13:55> Subjective - Date & Time of Evaluation Date of Evaluation: 06/18/18 Time of Evaluation: 07:24 - Subjective Subjective: Norma Hoffman PGY1 Progress Note for Dr. Rose Pt was seen at bedside this morning. He reports improvement in the pain in his left elbow. He denies any fever, chill, shortness of breath, chest pain, abdominal pain, nausea, vomiting, diarrhea, dysuria. Objective - Vital Signs/Intake and Output Vital Signs (last 24 hours): Temp Pulse Resp BP Pulse Ox 99.3 F 95 H 20 106/71 97 06/17/18 23:10 06/18/18 04:00 06/17/18 23:10 06/17/18 23:10 06/17/18 23:10 Intake and Output: 06/18/18 06/18/18 06:59 18:59 Intake Total 900 Output Total 600 Balance 300 - Medications Medications: Current Medications Acetaminophen (Tylenol 325mg Tab) 650 mg PO Q6 PRN PRN Reason: Fever >100.4 F Enoxaparin Sodium (Lovenox) 40 mg SC DAILY [facility] Last Admin: 06/17/18 10:44 Dose: 40 mg Ferrous Sulfate (Feosol) 325 mg PO DAILY [facility] Last Admin: 06/17/18 10:45 Dose: 325 mg Glucagon (Glucagen Diagnostic Kit) 0 mg IM STAT PRN; Protocol PRN Reason: Hypoglycemia Protocol Piperacillin Sod/Tazobactam Sod (Zosyn 3.375 Gm Iv Premix) 3.375 gm in 50 mls @ 200 mls/hr IVPB Q6H [facility]; Protocol Last Admin: 06/18/18 06:16 Dose: 200 mls/hr Sodium Chloride (Sodium Chloride 0.9%) 1,000 mls @ 100 mls/hr IV .Q10H [facility] Last Admin: 06/18/18 04:06 Dose: Not Given Vancomycin HCl 1.2 gm/ Sodium (Chloride) 250 mls @ 166.7 mls/hr IVPB Q12H [facility]; Protocol Last Admin: 06/17/18 22:24 Dose: 166.7 mls/hr Gentamicin Sulfate/Sodium Chloride (Gentamicin 80mg/100ml Ns) 80 mg in 100 mls @ 100 mls/hr IVPB Q8H [facility]; Protocol Last Admin: 06/17/18 13:54 Dose: Not Given Insulin Glargine (Lantus) 20 unit SC HS [facility] Last Admin: 06/17/18 22:35 Dose: Not Given Insulin Human Regular (Novolin R) 0 unit SC ACHS [facility]; Protocol Last Admin: 06/17/18 22:25 Dose: 3 units Ketorolac Tromethamine (Toradol) 15 mg IVP Q6 PRN PRN Reason: Pain, moderate (4-7) Last Admin: 06/18/18 05:41 Dose: 15 mg Pantoprazole Sodium (Protonix Ec Tab) 40 mg PO Q24H [facility] Last Admin: 06/18/18 05:44 Dose: Not Given Tramadol HCl (Ultram) 50 mg PO TID PRN PRN Reason: Pain, severe (8-10) Last Admin: 06/17/18 19:07 Dose: 50 mg - Labs Labs: 06/17/18 06:23 06/17/18 06:23 PT 16.4 SECONDS (9.7-12.2) H 06/17/18 11:25 INR 1.5 06/17/18 11:25 APTT 30 SECONDS (21-34) D 06/17/18 06:23 - Additional Findings Additional findings: - Head Exam Head Exam: ATRAUMATIC, NORMOCEPHALIC - Eye Exam Eye Exam: EOMI, PERRL - ENT Exam ENT Exam: Mucous Membranes Moist - Respiratory Exam Respiratory Exam: Clear to Ausculation Bilateral, NORMAL BREATHING PATTERN. absent: Rales, Rhonchi, Wheezes - Cardiovascular Exam Cardiovascular Exam: REGULAR RHYTHM, +S1, +S2. absent: Gallop, Rubs, Murmur - GI/Abdominal Exam GI & Abdominal Exam: Soft, Normal Bowel Sounds. absent: Distended, Tenderness - Extremities Exam Additional comments: LUE: erythema and edema posteriorly surrounding elbow improving, with desquamation LLE: bandage clean, dry, intact. hyperkeratotic and dystrophic nail changes, c harcot deformity RLE: bandage clean, dry, intact. hyperkeratotic and dystrophic nail changes Assessment and Plan - Assessment and Plan (Free Text) Assessment: 47 year old male with a PMHx of Diabetes Type II (Uncontrolled), HTN, Anxiety, Depression, Schizophrenia, Right Hallux Osteomyelitis Pancreatitis, and medical non-compliance admitted for Sepsis 2/2 to Left Elbow Cellulitis/Abscess vs Left Hallux infection. Pt for MRI today prior to OR with ortho for I&D. Plan: Sepsis - Source: L Elbow abscess vs L foot infection - afebrile - leukocytosis downtrending - BCx: positive for gram + cocci in chains, pending sensitivities - Wound Cx: gram + cocci in clusters, pending final report - CXR: No acute Disease - UA: Neg Nitrates and Leuk Est - NS@100 - Vancomycin 1g IV Q12 H - Zosyn 3.375gm IV Q6H - Gentamycin 80mg IV q8h (held due to elevated trough at 2.3) - ID consulted, Dr. Brandy hirsch appreciated Uncontroled DM 2/DKA (Resolved) - 2/2 to medication non compliance - HbA1C: 11.0 - Beta Hydroxybutyrate elevated on Admission - NS@100 - Lantus 20u HS - High Dose Sliding Scale - accuchecks ACHS - hypoglycemia protocol - diabetic education Left Elbow Cellulitis/Abscess - f/u MRI - possible OR tomorrow for I&D with Ortho - CT LUE: Large fluid collection containing air bubbles suspicous for abscess involving the region of left biceps measuring approximately [id number] - Wound Cx: gram + cocci in clusters, pending final report - pt afebrile, leukocytosis downtrending - NS@100 - Vancomycin 1gram Q12 H - Zosyn 3.375gm Q6H - Gentamycin 80mg IV q8h (held due to elevated trough at 2.3) - Lidocaine 5% topical q6h PRN for mild pain - Toradol 15 IVP Q6 PRN for Moderate Pain - Ultram 50 TID PRN for Severe Pain - ID consulted, Dr. Brandy hirsch appreciated - Ortho consulted, Dr. Ramsey hirsch appreciated B/L Ankle Cellulitis - CT L foot: extensive subcutaneous edema noted especially at dorsal aspect of foot and ankle, Degenerative changes first tarsal and tarsometatarsal joints, P lantar calcanial spur - NS@100 - Vancomycin 1gram Q12 H - Zosyn 3.375gm Q6H - Gentamycin 80mg IV q8h (held due to elevated trough at 2.3) - ID consulted, Dr. Brandy hirsch appreciated - Podiatry consulted, Dr. Huber hirsch appreciated Anemia - H/H 8.9/25.9 - Low Iron - Ferrous Sulfate 325mg PO Daily Depression/Anxiety/Schizophrenia - Hx of Multiple Psych Admission - Psych consulted for depressed mood and med recs PPx GI: Protonix DVT: Lovenox NPO MN Pt seen and case discussed with Dr. Rose <Scottie Rose - Last Filed: 06/18/18 15:22> Objective - Vital Signs/Intake and Output Vital Signs (last 24 hours): Temp Pulse Resp BP Pulse Ox 98.7 F 86 20 144/70 98 06/18/18 07:00 06/18/18 07:35 06/18/18 07:00 06/18/18 07:00 06/18/18 07:00 Intake and Output: 06/18/18 06/18/18 06:59 18:59 Intake Total 900 Output Total 600 Balance 300 - Medications Medications: Current Medications Acetaminophen (Tylenol 325mg Tab) 650 mg PO Q6 PRN PRN Reason: Fever >100.4 F Aripiprazole (Abilify) 5 mg PO HS [facility] Clonazepam (Klonopin) 0.5 mg PO BID [facility] Enoxaparin Sodium (Lovenox) 40 mg SC DAILY [facility] Last Admin: 06/18/18 09:17 Dose: Not Given Ferrous Sulfate (Feosol) 325 mg PO DAILY [facility] Last Admin: 06/18/18 09:11 Dose: 325 mg Fluoxetine HCl (Prozac) 20 mg PO DAILY [facility] Last Admin: 06/18/18 12:33 Dose: 20 mg Glucagon (Glucagen Diagnostic Kit) 0 mg IM STAT PRN; Protocol PRN Reason: Hypoglycemia Protocol Piperacillin Sod/Tazobactam Sod (Zosyn 3.375 Gm Iv Premix) 3.375 gm in 50 mls @ 200 mls/hr IVPB Q6H [facility]; Protocol Last Admin: 06/18/18 13:45 Dose: 200 mls/hr Sodium Chloride (Sodium Chloride 0.9%) 1,000 mls @ 100 mls/hr IV .Q10H [facility] Last Admin: 06/18/18 04:06 Dose: Not Given Vancomycin HCl 1.2 gm/ Sodium (Chloride) 250 mls @ 166.7 mls/hr IVPB Q12H [facility]; Protocol Last Admin: 06/18/18 09:12 Dose: 166.7 mls/hr Gentamicin Sulfate/Sodium Chloride (Gentamicin 80mg/100ml Ns) 80 mg in 100 mls @ 100 mls/hr IVPB Q12 [facility]; Protocol Insulin Glargine (Lantus) 20 unit SC HS [facility] Last Admin: 06/17/18 22:35 Dose: Not Given Insulin Human Regular (Novolin R) 0 unit SC ACHS [facility]; Protocol Last Admin: 06/18/18 11:36 Dose: Not Given Ketorolac Tromethamine (Toradol) 15 mg IVP Q6 PRN PRN Reason: Pain, moderate (4-7) Last Admin: 06/18/18 13:57 Dose: 15 mg Lidocaine (Lidocaine 5%) 1 gm TOP Q6H PRN PRN Reason: Pain, Mild (1-3) Last Admin: 06/18/18 12:32 Dose: 1 applic Pantoprazole Sodium (Protonix Ec Tab) 40 mg PO Q24H [facility] Last Admin: 06/18/18 05:44 Dose: Not Given Tramadol HCl (Ultram) 50 mg PO TID PRN PRN Reason: Pain, severe (8-10) Last Admin: 06/18/18 09:11 Dose: 50 mg - Labs Labs: 06/18/18 07:19 06/18/18 07:18 PT 16.5 SECONDS (9.7-12.2) H 06/18/18 07:18 INR 1.5 06/18/18 07:18 APTT 31 SECONDS (21-34) 06/18/18 07:18 Attending/Attestation - Attestation I have personally seen and examined this patient.: Yes I have fully participated in the care of the patient.: Yes I have reviewed all pertinent clinical information, including history, physical exam and plan: Yes Notes (Text): 06/18/18 15:19 Medical attending: Patient was seen and examined by me. Reviewed the above note by the resident and agree with the above He was supposed to have MRI done yesterday but he did not cooperate for this. This morning he was agreeable for getting MRI He remains on IV abx at this time He appears very comfortable and was sleeping and not in any acute distress when we saw and examined him - per the staff and nurses he was requesting IR narcotic pain medication. However given his psychiatric history will hold off on this Scottie Rose
[2018-06-18 07:40] LABS: BASO # 0.1 K/uL (0.0-0.2); BASO % 0.6 % (0.0-2.0); EOS % 0.5 % (0.0-4.0); HEMOGLOBIN 8.9 g/dL (12.0-18.0); LYMPH # 1.6 K/uL (1.0-4.3); LYMPH % 17.8 % (20.0-40.0); MEAN CORPUSCULAR HEMOGLOBIN 33.1 pg (27.0-31.0); MEAN CORPUSCULAR HGB CONC 34.5 g/dL (33.0-37.0); MEAN PLATELET VOLUME 9.9 fL (7.2-11.7); MONO # 0.8 K/uL (0.0-0.8); NEUT # 6.3 K/uL (1.8-7.0); NEUT % 72.1 % (50.0-75.0); RBC 2.7 Mil/uL (4.40-5.90); RED CELL DISTRIBUTION WIDTH 14.6 % (11.5-14.5); WHITE BLOOD COUNT 8.7 K/uL (4.8-10.8)
[2018-06-18 07:49] LABS: INR 1.5; PROTHROMBIN TIME 16.5 SECONDS (9.7-12.2)
[2018-06-18 08:11] LABS: ALB/GLOB RATIO 0.6 (1.0-2.1); ALBUMIN 2.2 g/dL (3.5-5.0); ALT/SGPT 59 U/L (21-72); AST/SGOT 79 U/L (17-59); BLOOD UREA NITROGEN 11 mg/dL (9-20); GFR NON-AFRICAN AMERICAN > 60
[2018-06-18] MEDS: (Novolin R) Insulin Human Regular 100 units/ml vial SC SCH ×4 (08:39→21:48)
--- NOTE | 2018-06-18 08:45 | CP.PCM.PN ---
Subjective - Date & Time of Evaluation Date of Evaluation: 06/18/18 Time of Evaluation: 08:39 - Subjective Subjective: Patient says his elbow is fine right now. Advised patient that Dr. Mustafa states MRI is necessary. He says that it is too painful and that he can't do the test. Again stressed this test is important to assess the infection, and he says that he will try. Denies numbness/tingling. Objective - Vital Signs/Intake and Output Vital Signs (last 24 hours): Temp Pulse Resp BP Pulse Ox 98.7 F 78 20 144/70 98 06/18/18 07:00 06/18/18 07:00 06/18/18 07:00 06/18/18 07:00 06/18/18 07:00 Intake and Output: 06/18/18 06/18/18 06:59 18:59 Intake Total 900 Output Total 600 Balance 300 - Medications Medications: Current Medications Acetaminophen (Tylenol 325mg Tab) 650 mg PO Q6 PRN PRN Reason: Fever >100.4 F Enoxaparin Sodium (Lovenox) 40 mg SC DAILY [facility] Last Admin: 06/17/18 10:44 Dose: 40 mg Ferrous Sulfate (Feosol) 325 mg PO DAILY [facility] Last Admin: 06/17/18 10:45 Dose: 325 mg Glucagon (Glucagen Diagnostic Kit) 0 mg IM STAT PRN; Protocol PRN Reason: Hypoglycemia Protocol Piperacillin Sod/Tazobactam Sod (Zosyn 3.375 Gm Iv Premix) 3.375 gm in 50 mls @ 200 mls/hr IVPB Q6H [facility]; Protocol Last Admin: 06/18/18 06:16 Dose: 200 mls/hr Sodium Chloride (Sodium Chloride 0.9%) 1,000 mls @ 100 mls/hr IV .Q10H [facility] Last Admin: 06/18/18 04:06 Dose: Not Given Vancomycin HCl 1.2 gm/ Sodium (Chloride) 250 mls @ 166.7 mls/hr IVPB Q12H [facility]; Protocol Last Admin: 06/17/18 22:24 Dose: 166.7 mls/hr Gentamicin Sulfate/Sodium Chloride (Gentamicin 80mg/100ml Ns) 80 mg in 100 mls @ 100 mls/hr IVPB Q8H [facility]; Protocol Last Admin: 06/17/18 13:54 Dose: Not Given Insulin Glargine (Lantus) 20 unit SC HS [facility] Last Admin: 06/17/18 22:35 Dose: Not Given Insulin Human Regular (Novolin R) 0 unit SC ACHS [facility]; Protocol Last Admin: 06/17/18 22:25 Dose: 3 units Ketorolac Tromethamine (Toradol) 15 mg IVP Q6 PRN PRN Reason: Pain, moderate (4-7) Last Admin: 06/18/18 05:41 Dose: 15 mg Pantoprazole Sodium (Protonix Ec Tab) 40 mg PO Q24H [facility] Last Admin: 06/18/18 05:44 Dose: Not Given Tramadol HCl (Ultram) 50 mg PO TID PRN PRN Reason: Pain, severe (8-10) Last Admin: 06/17/18 19:07 Dose: 50 mg - Labs Labs: 06/18/18 07:19 06/18/18 07:18 PT 16.5 SECONDS (9.7-12.2) H 06/18/18 07:18 INR 1.5 06/18/18 07:18 APTT 31 SECONDS (21-34) 06/18/18 07:18 - Extremities Exam Additional comments: abscess feels somewhat more fluctuant today. skin still intact. +ROM fingers, wrist, no pain with pronation/supination, elbow ROM limited in flexion. +radial pulse Assessment and Plan (1) Abscess of left arm Assessment & Plan: MRI patient refused MRI yesterday for possible I&D today d/w Dr. Mustafa, will f/u sodium also still 125, coags elevated Status: Acute (2) DM type 2, uncontrolled, with lower extremity ulcer Status: Acute
[2018-06-18] MEDS: Vancomycin 1.2 GM in Sodium Chloride 0.9% 250 ML IVPB SCH ×2 (09:12→22:01)
[2018-06-18] MEDS ORDERED: Potassium Chloride 20 mEq/15 ml LIQ UD PO SCH (09:15)
[2018-06-18] MEDS: Enoxaparin 40 mg Syringe SC SCH (09:17)
[2018-06-18] MEDS ORDERED: Lidocaine 5% Oint(35 gm) TOP PRN (10:18)
--- NOTE | 2018-06-18 11:30 | PCM.PSYCH ---
Initial Psychiatric Evaluation - Initial Psychiatric Evaluation Type of Admission: Voluntary Legal Status: Capacity Chief Complaint (in patient's own words): "I need my meds" History of Present Illness and Precipitating Events: 48 y.o. male pt, currently unemployed, collecting disability and living with his GF. Consult was requested for his depression Pt states his friend is dying of liver failure 2/2 alcohol abuse and he also r ecently fell on his elbow, both situations reincited feelings of depression Pt has previously seen a psychiatrist on [facility] where he was diagnosed with schizophrenia and depression, and prescribed Prozac. He has been compliant with his medications until recently because he ran out. Pt states he has never used drugs, and used to drink Alcohol to get tipsy but his last drink was one month ago. Pt denies tobacco use. Currently, pt denies any SI, HI, hearing voices, or paranoia. PMHx: DM Psych Hx: Schizophrenia and Depression but no clear cut psychotic sxs except for some paranoia in the past. He reports mostly depression. No admissions Family psych: Unknown Current Medications: Active Medications Generic Name Dose Route Start Last Admin Trade Name Freq PRN Reason Stop Dose Admin Acetaminophen 650 mg 06/16/18 12:09 Tylenol 325mg Tab PO Q6 PRN Fever >100.4 F Enoxaparin Sodium 40 mg 06/17/18 10:00 06/18/18 09:17 Lovenox SC Not Given DAILY [facility] Ferrous Sulfate 325 mg 06/17/18 10:00 06/18/18 09:11 Feosol PO 325 mg DAILY [facility] Administration Glucagon 0 mg 06/16/18 11:50 Glucagen Diagnostic Kit IM STAT PRN Hypoglycemia Protocol Protocol Piperacillin Sod/Tazobactam Sod 3.375 gm in 50 mls @ 200 mls/hr 06/16/18 13:00 06/18/18 06:16 Zosyn 3.375 Gm Iv Premix IVPB 200 mls/hr Q6H [facility] Administration Protocol Sodium Chloride 1,000 mls @ 100 mls/hr 06/16/18 11:45 06/18/18 04:06 Sodium Chloride 0.9% IV Not Given .Q10H [facility] Vancomycin HCl 1.2 gm/ Sodium 250 mls @ 166.7 mls/hr 06/17/18 10:00 06/18/18 09:12 Chloride IVPB 166.7 mls/hr Q12H [facility] Administration Protocol Gentamicin Sulfate/Sodium Chloride 80 mg in 100 mls @ 100 mls/hr 06/16/18 21:00 06/17/18 13:54 Gentamicin 80mg/100ml Ns IVPB Not Given Q8H [facility] Protocol Insulin Glargine 20 unit 06/17/18 22:00 06/17/18 22:35 Lantus SC Not Given HS [facility] Insulin Human Regular 0 unit 06/16/18 16:30 06/18/18 08:39 Novolin R SC Not Given ACHS [facility] Protocol Ketorolac Tromethamine 15 mg 06/16/18 12:07 06/18/18 05:41 Toradol IVP 15 mg Q6 PRN Administration Pain, moderate (4-7) Lidocaine 1 gm 06/18/18 10:18 Lidocaine 5% TOP Q6H PRN Pain, Mild (1-3) Pantoprazole Sodium 40 mg 06/17/18 06:00 06/18/18 05:44 Protonix Ec Tab PO Not Given Q24H [facility] Potassium Chloride 20 meq 06/18/18 10:15 K-Dur 20 Meq Er Tab PO 06/18/18 14:16 Q4H [facility] Tramadol HCl 50 mg 06/16/18 12:33 06/18/18 09:11 Ultram PO 50 mg TID PRN Administration Pain, severe (8-10) Past Psychiatric History - Past Psychiatric History Previous Treatment History: Intensive Outpatient Pertinent Medical Hx (Current Medical&Sleep Prob, Allergies): Allergies Allergy/AdvReac Type Severity Reaction Status Date / Time almond Allergy ITCHING Verified 06/16/18 05:45 apple Allergy ITCHING Verified 06/16/18 05:45 cashew nut Allergy ITCHING Verified 06/16/18 05:45 nut - unspecified Allergy ITCHING Verified 06/16/18 05:45 walnut Allergy ITCHING Verified 06/16/18 05:45 water chestnut Allergy ITCHING Verified 06/16/18 05:45 MetFORMIN [glucoPHAGE] 1,000 mg PO BID #60 tab 12/29/16 Acetaminophen [Tylenol 325mg tab] 650 mg PO Q4 PRN 01/22/18 Acetaminophen with Codeine [Tylenol with Codeine #3 Tablet] 1 tab PO Q4 PRN 01/22/18 Insulin Glargine, Recombina [Lantus] 10 unit SC HS 01/22/18 SITagliptin [Januvia] 100 mg PO DAILY 01/22/18 oxyCODONE/Acetaminophen [Percocet 5/325 mg Tab] 2 tab PO Q6 PRN 01/22/18 Metformin HCl [Glucophage] 1,000 mg PO BID 01/23/18 Insulin Glargine,Hum.rec.anlog 10 units SUBCUT HS 01/24/18 ARIPiprazole [Abilify] 5 mg PO [facility] tab 01/29/18 FLUoxetine [Prozac] 30 mg PO DAILY cap 01/29/18 Insulin Human Regular-LOW [HumuLIN R LOW] 0 units SC ACHS ml 01/29/18 Nicotine 14 mg/24 hr [Nicoderm CQ] 1 patch TD DAILY patch 01/29/18 clonazePAM [Klonopin] 0.25 mg PO TID PRN tab 01/29/18 Gabapentin [Neurontin] 600 mg PO TID #42 tab 02/06/18 Magnesium Oxide [Mag-Ox] 400 mg PO TID #42 tab 02/06/18 Metoprolol Succinate XL [Toprol XL] 25 mg PO DAILY #14 tab 02/06/18 chlorproMAZINE [Thorazine] 50 mg PO 0900,1400 #28 tab 02/06/18 clonazePAM [Klonopin] 1 mg PO HS #14 tab 02/06/18 Review of Systems - Psychiatric Psychiatric: Abnormal Sleep Pattern, Anxiety, Difficulty Concentrating. absent: Hallucinations, Homicidal Ideation, Paranoia, Suicidal Ideation Mental Status Examination - Personal Presentation Personal Presentation: Looks stated age - Affect Affect: Constricted - Motor Activity Motor Activity: Calm - Reliability in Providing Information Reliability in Providing Information: Good - Speech Speech: Organized - Mood Mood: Depressed, Anxious - Formal Thought Process Formal Thought Process: No Impairment - Cognitive Functions Orientation: Person, Place, Situation, Time Sensorium: Alert Attention/Concentration: Easily distracted Abstract Thinking: [place] Estimate of Intelligence: Average Judgement: Intact, as evidence by: Insight regarding need for hospitalization Memory: Recent intact, as evidence by: Ability to recall events of the day, Remote intact, as evidenced by: Ability to recall historical events - Risk Risk: Diminished functioning - Strength & Assets Inventory Strength & Assets Inventory: Cooperative DSM 5 DX - DSM 5 DSM 5 Diagnosis: Major depression, recurrent,moderate - Recommended/Plan of Treatment Treatment Recommendations and Plan of Treatment: Resume Prozac Support and psychoed Refer back to private psychiatrist psych will sign off 33 min
[2018-06-18] MEDS: Potassium Chloride 20 mEq ER Tab PO SCH ×2 (11:37→13:52)
--- NOTE | 2018-06-18 13:16 | CP.PCM.PN ---
Subjective - Date & Time of Evaluation Date of Evaluation: 06/18/18 Time of Evaluation: 13:14 - Subjective Subjective: seen and examined labs noted na 125 pt is npo c/o left arm pain and swelling Objective - Vital Signs/Intake and Output Vital Signs (last 24 hours): Temp Pulse Resp BP Pulse Ox 98.7 F 78 20 144/70 98 06/18/18 07:00 06/18/18 07:00 06/18/18 07:00 06/18/18 07:00 06/18/18 07:00 Intake and Output: 06/18/18 06/18/18 06:59 18:59 Intake Total 900 Output Total 600 Balance 300 - Medications Medications: Current Medications Acetaminophen (Tylenol 325mg Tab) 650 mg PO Q6 PRN PRN Reason: Fever >100.4 F Aripiprazole (Abilify) 5 mg PO HS [facility] Clonazepam (Klonopin) 0.5 mg PO BID [facility] Enoxaparin Sodium (Lovenox) 40 mg SC DAILY [facility] Last Admin: 06/18/18 09:17 Dose: Not Given Ferrous Sulfate (Feosol) 325 mg PO DAILY [facility] Last Admin: 06/18/18 09:11 Dose: 325 mg Fluoxetine HCl (Prozac) 20 mg PO DAILY [facility] Last Admin: 06/18/18 12:33 Dose: 20 mg Glucagon (Glucagen Diagnostic Kit) 0 mg IM STAT PRN; Protocol PRN Reason: Hypoglycemia Protocol Piperacillin Sod/Tazobactam Sod (Zosyn 3.375 Gm Iv Premix) 3.375 gm in 50 mls @ 200 mls/hr IVPB Q6H [facility]; Protocol Last Admin: 06/18/18 06:16 Dose: 200 mls/hr Sodium Chloride (Sodium Chloride 0.9%) 1,000 mls @ 100 mls/hr IV .Q10H [facility] Last Admin: 06/18/18 04:06 Dose: Not Given Vancomycin HCl 1.2 gm/ Sodium (Chloride) 250 mls @ 166.7 mls/hr IVPB Q12H [facility]; Protocol Last Admin: 06/18/18 09:12 Dose: 166.7 mls/hr Gentamicin Sulfate/Sodium Chloride (Gentamicin 80mg/100ml Ns) 80 mg in 100 mls @ 100 mls/hr IVPB Q8H [facility]; Protocol Last Admin: 06/17/18 13:54 Dose: Not Given Insulin Glargine (Lantus) 20 unit SC HS [facility] Last Admin: 06/17/18 22:35 Dose: Not Given Insulin Human Regular (Novolin R) 0 unit SC ACHS [facility]; Protocol Last Admin: 06/18/18 11:36 Dose: Not Given Ketorolac Tromethamine (Toradol) 15 mg IVP Q6 PRN PRN Reason: Pain, moderate (4-7) Last Admin: 06/18/18 05:41 Dose: 15 mg Lidocaine (Lidocaine 5%) 1 gm TOP Q6H PRN PRN Reason: Pain, Mild (1-3) Last Admin: 06/18/18 12:32 Dose: 1 applic Pantoprazole Sodium (Protonix Ec Tab) 40 mg PO Q24H [facility] Last Admin: 06/18/18 05:44 Dose: Not Given Potassium Chloride (K-Dur 20 Meq Er Tab) 20 meq PO Q4H [facility] Stop: 06/18/18 14:16 Last Admin: 06/18/18 11:37 Dose: 20 meq Tramadol HCl (Ultram) 50 mg PO TID PRN PRN Reason: Pain, severe (8-10) Last Admin: 06/18/18 09:11 Dose: 50 mg - Labs Labs: 06/18/18 07:19 06/18/18 07:18 PT 16.5 SECONDS (9.7-12.2) H 06/18/18 07:18 INR 1.5 06/18/18 07:18 APTT 31 SECONDS (21-34) 06/18/18 07:18 - Constitutional Appears: Non-toxic, No Acute Distress - Head Exam Head Exam: NORMAL INSPECTION, NORMOCEPHALIC - Eye Exam Eye Exam: Normal appearance Pupil Exam: NORMAL ACCOMODATION - ENT Exam ENT Exam: Mucous Membranes Moist, Normal Exam - Neck Exam Neck Exam: Full ROM, Normal Inspection - Respiratory Exam Respiratory Exam: Clear to Ausculation Bilateral, NORMAL BREATHING PATTERN - Cardiovascular Exam Cardiovascular Exam: RRR - GI/Abdominal Exam GI & Abdominal Exam: Distended, Soft, Normal Bowel Sounds - Extremities Exam Extremities Exam: Normal Inspection (lue swelling on forearm) - Neurological Exam Neurological Exam: Alert, Awake, Oriented x3 - Skin Skin Exam: Dry, Intact, Normal Color Assessment and Plan (1) Cellulitis Status: Acute (2) Diabetic foot infection Status: Acute (3) Hyponatremia Status: Acute - Assessment and Plan (Free Text) Assessment: corrected na for glucose 128 meq/dl maintain fluid restriction SSRI contributary urine lytes pending
--- NOTE | 2018-06-18 15:09 | VASCLAB ---
Date of service: 06/17/2018 PROCEDURE: Left Upper Extremity Venous Duplex Exam HISTORY: Left Upper Extremity Swelling. PRIORS: None. TECHNIQUE: Left upper extremity, internal jugular, subclavian, axillary, brachial, ulnar, radial, basilic and upper cephalic veins were evaluated. Flow was assessed with color Doppler, compressibility, assessment of phasic flow and augmentation response. Report prepared by Maynor Nielsen, ADDIE, RVT FINDINGS: LEFT: 1. Internal Jugular: 1.1. Compressibility - Fully compressible: Thrombus - None : Flow - Phasic: Augmentation -Normal: Reflux - None. 2. Subclavian: 2.1. Compressibility - Fully compressible: Thrombus - None : Flow - Phasic: Augmentation -Normal: Reflux - None. 3. Axillary: 3.1. Compressibility - Fully compressible: Thrombus - None : Flow - Phasic: Augmentation -Normal: Reflux - None. 4. Brachial: 4.1. Compressibility - Fully compressible: Thrombus - None: Flow - Phasic: Augmentation -Normal: Reflux - None. 5. Ulnar: 5.1. Compressibility - Fully compressible: Thrombus - None: Flow - Phasic: Augmentation -Normal: Reflux - None. 6. Radial: 6.1. Compressibility - Fully compressible: Thrombus - None: Flow - Phasic: Augmentation - Normal: Reflux - None. 7. Cephalic: 7.1. Compressibility - Fully compressible: Thrombus - None: Flow - Phasic: Augmentation -Normal: Reflux - None. 8. Basilic: 8.1. Compressibility - Fully compressible: Thrombus - None: Flow - Phasic: Augmentation -Normal: Reflux - None. OTHER FINDINGS: Left: None. IMPRESSION: Left: No evidence of vein thrombosis of the left upper extremity with excellent venous flow. Normal valve function noted of the left side. Normal venous flow noted in the right internal jugular and right subclavian veins.
--- NOTE | 2018-06-18 17:03 | MRI ---
MRI left elbow HISTORY: Left upper arm collection near the elbow. COMPARISON: CT dated 06/16/2018 TECHNIQUE: Multi-echo multiplanar sequences were performed through the left elbow without and with the use of intravenous contrast. Findings: Large multilobulated collection seen at the posterior aspect of the elbow at the level of the olecranon bursa extending superiorly and inferiorly measuring 7.3 x 2.1 x 15.2 centimeters. The collection demonstrates heterogeneously increased STIR signal, heterogeneously decreased T1 signal, and multiple peripheral areas of nodular postcontrast enhancement with internal thickened septations. The collection appears to extend to the level of the triceps tendon distally with apparent intramuscular extension into the triceps muscle more superiorly. This is of uncertain clinical etiology and may represent a large abscess possibly the sequelae of a severe olecranon bursitis. Additional etiologies such as soft tissue lesion or mass cannot be excluded. Additional etiologies not excluded. Correlation with soft tissue biopsy and drainage may be helpful for further evaluation if clinically indicated. Signal abnormality within the proximal humerus at the level of the olecranon demonstrating patchy increased T2 signal with associated postcontrast enhancement concerning for an acute osteomyelitis. Small elbow joint effusion. Biceps and brachialis tendon insertions are preserved. Edema noted within the posterior musculature at the level of the proximal radius and ulna which may represent a myositis. Reticulation and edema within the circumferential subcutaneous soft tissues suggestive for a cellulitis. Impression: 1. Large multilobulated collection seen at the posterior aspect of the elbow at the level of the olecranon bursa extending superiorly and inferiorly measuring 7.3 x 2.1 x 15.2 centimeters. The collection demonstrates heterogeneously increased STIR signal, heterogeneously decreased T1 signal, and multiple peripheral areas of nodular postcontrast enhancement with internal thickened septations. The collection appears to extend to the level of the triceps tendon distally with apparent intramuscular extension into the triceps muscle more superiorly. This is of uncertain clinical etiology and may represent a large abscess possibly the sequelae of a severe olecranon bursitis. Additional etiologies such as soft tissue lesion or mass cannot be excluded. Additional etiologies not excluded. Correlation with soft tissue biopsy and drainage may be helpful for further evaluation if clinically indicated. 2. Signal abnormality within the proximal humerus at the level of the bony olecranon demonstrating patchy increased T2 signal with associated postcontrast enhancement concerning for an acute osteomyelitis. 3. Small elbow joint effusion. 4. Edema noted within the posterior musculature at the level of the proximal radius and ulna which may represent a myositis. 5. Reticulation and edema within the circumferential subcutaneous soft tissues suggestive for a cellulitis.
[2018-06-18] MEDS: Gentamicin 80 mg in 0.9% NS 80 MG/100 ML BAG IVPB SCH ×2 (18:18→22:02)
[2018-06-18 18:42] LABS: OSMOLALITY,URINE 499 mosm/kg (300-1000)
[2018-06-18 18:53] LABS: BARBITURATES, UR NEGATIVE (NEGATIVE); BENZODIAZEPINES, UR NEGATIVE (NEGATIVE); OPIATES, UR NEGATIVE (NEGATIVE); PHENCYCLIDINE, UR NEGATIVE (NEGATIVE)
--- NOTE | 2018-06-18 21:06 | CP.PCM.PN ---
Subjective - Date & Time of Evaluation Date of Evaluation: 06/18/18 Time of Evaluation: 15:00 - Subjective Subjective: dictated Objective - Vital Signs/Intake and Output Vital Signs (last 24 hours): Temp Pulse Resp BP Pulse Ox 97.9 F 78 20 104/70 99 06/18/18 16:04 06/18/18 16:04 06/18/18 16:04 06/18/18 16:04 06/18/18 16:04 - Medications Medications: Current Medications Acetaminophen (Tylenol 325mg Tab) 650 mg PO Q6 PRN PRN Reason: Fever >100.4 F Aripiprazole (Abilify) 5 mg PO HS [facility] Clonazepam (Klonopin) 0.5 mg PO BID [facility] Last Admin: 06/18/18 17:52 Dose: 0.5 mg Enoxaparin Sodium (Lovenox) 40 mg SC DAILY [facility] Last Admin: 06/18/18 09:17 Dose: Not Given Ferrous Sulfate (Feosol) 325 mg PO DAILY [facility] Last Admin: 06/18/18 09:11 Dose: 325 mg Fluoxetine HCl (Prozac) 20 mg PO DAILY [facility] Last Admin: 06/18/18 12:33 Dose: 20 mg Glucagon (Glucagen Diagnostic Kit) 0 mg IM STAT PRN; Protocol PRN Reason: Hypoglycemia Protocol Piperacillin Sod/Tazobactam Sod (Zosyn 3.375 Gm Iv Premix) 3.375 gm in 50 mls @ 200 mls/hr IVPB Q6H [facility]; Protocol Last Admin: 06/18/18 13:45 Dose: 200 mls/hr Sodium Chloride (Sodium Chloride 0.9%) 1,000 mls @ 100 mls/hr IV .Q10H [facility] Last Admin: 06/18/18 04:06 Dose: Not Given Vancomycin HCl 1.2 gm/ Sodium (Chloride) 250 mls @ 166.7 mls/hr IVPB Q12H [facility]; Protocol Last Admin: 06/18/18 09:12 Dose: 166.7 mls/hr Gentamicin Sulfate/Sodium Chloride (Gentamicin 80mg/100ml Ns) 80 mg in 100 mls @ 100 mls/hr IVPB Q12 [facility]; Protocol Last Admin: 06/18/18 18:18 Dose: Not Given Insulin Glargine (Lantus) 20 unit SC [facility] Last Admin: 06/17/18 22:35 Dose: Not Given Insulin Human Regular (Novolin R) 0 unit SC ACHS [facility]; Protocol Last Admin: 06/18/18 17:58 Dose: 4 units Ketorolac Tromethamine (Toradol) 15 mg IVP Q6 PRN PRN Reason: Pain, moderate (4-7) Last Admin: 06/18/18 13:57 Dose: 15 mg Lidocaine (Lidocaine 5%) 1 gm TOP Q6H PRN PRN Reason: Pain, Mild (1-3) Last Admin: 06/18/18 12:32 Dose: 1 applic Pantoprazole Sodium (Protonix Ec Tab) 40 mg PO Q24H [facility] Last Admin: 06/18/18 05:44 Dose: Not Given Tramadol HCl (Ultram) 50 mg PO TID PRN PRN Reason: Pain, severe (8-10) Last Admin: 06/18/18 09:11 Dose: 50 mg - Labs Labs: 06/18/18 07:19 06/18/18 07:18 PT 16.5 SECONDS (9.7-12.2) H 06/18/18 07:18 INR 1.5 06/18/18 07:18 APTT 31 SECONDS (21-34) 06/18/18 07:18
[2018-06-18] MEDS: (Lantus) Insulin Glargine, Recombinant SC SCH (21:47)
[2018-06-19] MEDS: Piperacill/Tazo 3.375gm in Dex 3.375 GM/50 ML BAG IVPB SCH ×4 (00:02→19:07)
--- NOTE | 2018-06-19 00:24 | PN ---
DATE: 06/18/2018 SUBJECTIVE: The patient has been depressed. He wants pain medications. His left arm is hurting him. He went for an MRI today. He has also been seen by Renal as he continues to have hyponatremia. However, his left arm remains with pain and swelling and redness, and I had to cut down his gentamicin as gentamicin level was high, but I have restarted it with 80 every 12 hours for now as he does have bacteremia. He was seen by Ortho, requiring an MRI. PHYSICAL EXAMINATION VITAL SIGNS: T-max is 98.7, pulse 78, blood pressure 144/70, respirations are 20. HEENT: Head is atraumatic and normocephalic. NECK: Supple. LUNGS: Clear. HEART: S1 and S2 regular. ABDOMEN: Soft, nontender. No guarding, no rigidity present. EXTREMITIES: He has dressings on both feet. He has olecranon bursitis with cellulitis, could be extending to the muscle. They are talking about myositis also. LABORATORY DATA: Labs are noted. Labs show a micro; they have not finalized his culture reports. The wound is also showing GPCs, which is in the left foot, so I am not sure if the left foot is causing these blood cultures to be positive because of the second toe which was discolored and appeared infected and some drainage was there. Also, he has infection in the left elbow. Ortho needs to drain it. He is waiting for the MRI report. To continue vancomycin, Zosyn and gentamicin for now. We will follow. I want to see if the vancomycin level is there. Gentamicin trough is 2.3 we have started it. Vancomycin trough is 10.5, which is on the low side. He is getting 1.2 every 12 hours, so we will continue this. We are waiting for the ID and sensitivity of the organism and also for the echo report. Echo report is pending from 06/16/2018, which was done. Echo report, I think I read it before. They were saying it was suspicious for patent foramen ovale, so he may also need a cardiology evaluation. We will follow. Joy Nava MD
[2018-06-19] MEDS: Pantoprazole 40 mg EC Tab PO SCH (06:21)
[2018-06-19] MEDS: Sodium Chloride 0.9% 1,000 ML IV SCH ×4 (06:25→22:00)
[2018-06-19 06:49] LABS: INR 1.4; PROTHROMBIN TIME 15.8 SECONDS (9.7-12.2)
[2018-06-19 07:22] LABS: BASO % 0.6 % (0.0-2.0); EOS # 0.1 K/uL (0.0-0.7); EOS % 1.3 % (0.0-4.0); HEMOGLOBIN 8.9 g/dL (12.0-18.0); LYMPH # 1.7 K/uL (1.0-4.3); LYMPH % 20.7 % (20.0-40.0); MEAN CELL VOLUME 96.3 fL (80.0-94.0); MEAN CORPUSCULAR HGB CONC 34.3 g/dL (33.0-37.0); MEAN PLATELET VOLUME 9.5 fL (7.2-11.7); MONO # 0.6 K/uL (0.0-0.8); MONO % 7.7 % (0.0-10.0); NEUT # 5.8 K/uL (1.8-7.0); NEUT % 69.7 % (50.0-75.0); RBC 2.71 Mil/uL (4.40-5.90); RED CELL DISTRIBUTION WIDTH 14.5 % (11.5-14.5); WHITE BLOOD COUNT 8.3 K/uL (4.8-10.8)
[2018-06-19 07:26] LABS: ALB/GLOB RATIO 0.6 (1.0-2.1); ALBUMIN 2.1 g/dL (3.5-5.0); ALT/SGPT 52 U/L (21-72); AST/SGOT 45 U/L (17-59); BLOOD UREA NITROGEN 9 mg/dL (9-20); CALCIUM 7.2 mg/dl (8.6-10.4); GFR NON-AFRICAN AMERICAN > 60
[2018-06-19] MEDS: (Novolin R) Insulin Human Regular 100 units/ml vial SC SCH ×4 (08:31→22:04)
--- NOTE | 2018-06-19 09:14 | CP.PCM.PN ---
<Norma Hoffman - Last Filed: 06/19/18 11:39> Subjective - Date & Time of Evaluation Date of Evaluation: 06/19/18 Time of Evaluation: 09:11 - Subjective Subjective: Norma Hoffman PGY1 Progress Note for Dr. Rose Pt was examined at bedside this morning. He reports continuation of the pain in his L elbow. He says he was able to tolerate the MRI yesterday without overt pain. Pt denies fever, chills, abdominal pain, shortness of breath, chest pain, nausea, vomiting, diarrhea, dysuria at this time. Objective - Vital Signs/Intake and Output Vital Signs (last 24 hours): Temp Pulse Resp BP Pulse Ox 98.3 F 75 20 102/68 99 06/18/18 23:15 06/19/18 08:00 06/18/18 23:15 06/18/18 23:15 06/18/18 23:15 Intake and Output: 06/19/18 06/19/18 06:59 18:59 Intake Total 920 Output Total 400 Balance 520 - Medications Medications: Current Medications Acetaminophen (Tylenol 325mg Tab) 650 mg PO Q6 PRN PRN Reason: Fever >100.4 F Aripiprazole (Abilify) 5 mg PO HS [facility] Last Admin: 06/18/18 21:34 Dose: 5 mg Clonazepam (Klonopin) 0.5 mg PO BID [facility] Last Admin: 06/18/18 17:52 Dose: 0.5 mg Enoxaparin Sodium (Lovenox) 40 mg SC DAILY [facility] Last Admin: 06/18/18 09:17 Dose: Not Given Ferrous Sulfate (Feosol) 325 mg PO DAILY [facility] Last Admin: 06/18/18 09:11 Dose: 325 mg Fluoxetine HCl (Prozac) 20 mg PO DAILY [facility] Last Admin: 06/18/18 12:33 Dose: 20 mg Glucagon (Glucagen Diagnostic Kit) 0 mg IM STAT PRN; Protocol PRN Reason: Hypoglycemia Protocol Piperacillin Sod/Tazobactam Sod (Zosyn 3.375 Gm Iv Premix) 3.375 gm in 50 mls @ 200 mls/hr IVPB Q6H [facility]; Protocol Last Admin: 06/19/18 06:24 Dose: 200 mls/hr Sodium Chloride (Sodium Chloride 0.9%) 1,000 mls @ 100 mls/hr IV .Q10H [facility] Last Admin: 06/19/18 06:25 Dose: 100 mls/hr Vancomycin HCl 1.2 gm/ Sodium (Chloride) 250 mls @ 166.7 mls/hr IVPB Q12H [facility]; Protocol Last Admin: 06/18/18 22:01 Dose: 166.7 mls/hr Gentamicin Sulfate/Sodium Chloride (Gentamicin 80mg/100ml Ns) 80 mg in 100 mls @ 100 mls/hr IVPB Q12 [facility]; Protocol Last Admin: 06/18/18 22:02 Dose: 100 mls/hr Insulin Glargine (Lantus) 20 unit SC HS [facility] Last Admin: 06/18/18 21:47 Dose: 20 units Insulin Human Regular (Novolin R) 0 unit SC ACHS [facility]; Protocol Last Admin: 06/19/18 08:31 Dose: 6 units Ketorolac Tromethamine (Toradol) 15 mg IVP Q6 PRN PRN Reason: Pain, moderate (4-7) Last Admin: 06/19/18 03:30 Dose: 15 mg Lidocaine (Lidocaine 5%) 1 gm TOP Q6H PRN PRN Reason: Pain, Mild (1-3) Last Admin: 06/18/18 12:32 Dose: 1 applic Pantoprazole Sodium (Protonix Ec Tab) 40 mg PO Q24H [facility] Last Admin: 06/19/18 06:21 Dose: 40 mg Potassium Chloride (K-Dur 20 Meq Er Tab) 20 meq PO DAILY [facility] Tramadol HCl (Ultram) 50 mg PO TID PRN PRN Reason: Pain, severe (8-10) Last Admin: 06/18/18 09:11 Dose: 50 mg - Labs Labs: 06/19/18 06:32 06/19/18 06:32 PT 15.8 SECONDS (9.7-12.2) H 06/19/18 06:32 INR 1.4 06/19/18 06:32 APTT 30 SECONDS (21-34) 06/19/18 06:32 - Additional Findings Additional findings: - Head Exam Head Exam: ATRAUMATIC, NORMOCEPHALIC - Eye Exam Eye Exam: EOMI, PERRL - ENT Exam ENT Exam: Mucous Membranes Moist - Respiratory Exam Respiratory Exam: Clear to Ausculation Bilateral, NORMAL BREATHING PATTERN. absent: Rales, Rhonchi, Wheezes - Cardiovascular Exam Cardiovascular Exam: REGULAR RHYTHM, +S1, +S2. absent: Gallop, Rubs, Murmur - GI/Abdominal Exam GI & Abdominal Exam: Soft, Normal Bowel Sounds. absent: Distended, Tenderness - Extremities Exam Additional comments: LUE: erythema and edema posteriorly surrounding elbow improving, with slight desquamation. warmth to touch LLE: bandage clean, dry, intact. hyperkeratotic and dystrophic nail changes, charcot deformity RLE: bandage clean, dry, intact. hyperkeratotic and dystrophic nail changes Assessment and Plan - Assessment and Plan (Free Text) Assessment: 47 year old male with a PMHx of Diabetes Type II (Uncontrolled), HTN, Anxiety, Depression, Schizophrenia, Right Hallux Osteomyelitis Pancreatitis, and medical non-compliance admitted for Sepsis 2/2 to Left Elbow Cellulitis/Abscess vs Left Hallux infection. MRI showing abscessing in L triceps tendon and possible osteomyelitis. Plan for OR with ortho for I&D. Plan: Sepsis - Source: L Elbow abscess vs L foot infection - afebrile - leukocytosis downtrending - BCx: Staph aureus and Group A Strep, only resistant to penicillin - L foot Wound Cx: Staph aureus, only resistant to penicillin - CXR: No acute Disease - UA: Neg Nitrates and Leuk Est - NS@100 - Vancomycin 1g IV Q12 H - Zosyn 3.375gm IV Q6H - Gentamycin 80mg IV q8h - ID consulted, Dr. Nava - recs appreciated Uncontroled DM 2/DKA (Resolved) - 2/2 to medication non compliance - HbA1C: 11.0 - Beta Hydroxybutyrate elevated on Admission - Lantus 20u HS - High Dose Sliding Scale - accuchecks ACHS - hypoglycemia protocol - diabetic education Left Elbow Cellulitis/Abscess - awaiting OR scheduling for I&D with ortho - MRI: septated multilobulated abscess 7.3 x 2.1 x 15.2cm in posterior elbow at level of triceps tendon. suspicious for osteomyelitis in olecranon. - CT LUE: Large fluid collection containing air bubbles suspicous for abscess involving the region of left biceps measuring approximately [id number] - pt afebrile, leukocytosis downtrending - NS@100 - Vancomycin 1gram Q12 H - Zosyn 3.375gm Q6H - Gentamycin 80mg IV q8h - Lidocaine 5% topical q6h PRN for mild pain - Toradol 15 IVP Q6 PRN for Moderate Pain - Ultram 50 TID PRN for Severe Pain - ID consulted, Dr. Brandy hirsch appreciated - Ortho consulted, Dr. Ramsey hirsch appreciated B/L Ankle Cellulitis - CT L foot: extensive subcutaneous edema noted especially at dorsal aspect of foot and ankle, Degenerative changes first tarsal and tarsometatarsal joints, Plantar calcanial spur - Wound Cx: Staph aureus, only resistant to penicillin - NS@100 - Vancomycin 1gram Q12 H - Zosyn 3.375gm Q6H - Gentamycin 80mg IV q8h - ID consulted, Dr. Brandy hirsch appreciated - Podiatry consulted, Dr. Huber hirsch appreciated Hyponatremia - Na 125, corrected 128 - fluid restriction - Nephro Consulted, Dr. Leonel hirsch appreciated Anemia - H/H 8.9/26.1 - Low Iron - Ferrous Sulfate 325mg PO Daily Depression/Anxiety/Schizophrenia - Hx of Multiple Psych Admission - Psych consulted for depressed mood and med recs PPx GI: Protonix DVT: Lovenox Diabetic Diet Pt seen and case discussed with Dr. Rose <Scottie Rose H - Last Filed: 06/19/18 18:57> Objective - Vital Signs/Intake and Output Vital Signs (last 24 hours): Temp Pulse Resp BP Pulse Ox 98.1 F 85 20 119/72 99 06/19/18 15:00 06/19/18 15:00 06/19/18 15:00 06/19/18 15:00 06/19/18 15:00 Intake and Output: 06/19/18 06/19/18 06:59 18:59 Intake Total 920 Output Total 400 Balance 520 - Medications Medications: Current Medications Acetaminophen (Tylenol 325mg Tab) 650 mg PO Q6 PRN PRN Reason: Fever >100.4 F Aripiprazole (Abilify) 5 mg PO HS [facility] Last Admin: 06/18/18 21:34 Dose: 5 mg Clonazepam (Klonopin) 0.5 mg PO BID [facility] Last Admin: 06/19/18 10:24 Dose: 0.5 mg Enoxaparin Sodium (Lovenox) 40 mg SC DAILY [facility] Last Admin: 06/18/18 09:17 Dose: Not Given Ferrous Sulfate (Feosol) 325 mg PO DAILY [facility] Last Admin: 06/19/18 10:18 Dose: 325 mg Fluoxetine HCl (Prozac) 20 mg PO DAILY [facility] Last Admin: 06/19/18 10:20 Dose: 20 mg Glucagon (Glucagen Diagnostic Kit) 0 mg IM STAT PRN; Protocol PRN Reason: Hypoglycemia Protocol Piperacillin Sod/Tazobactam Sod (Zosyn 3.375 Gm Iv Premix) 3.375 gm in 50 mls @ 200 mls/hr IVPB Q6H [facility]; Protocol Last Admin: 06/19/18 12:21 Dose: 200 mls/hr Sodium Chloride (Sodium Chloride 0.9%) 1,000 mls @ 100 mls/hr IV .Q10H [facility] Last Admin: 06/19/18 10:00 Dose: Not Given Vancomycin HCl 1.2 gm/ Sodium (Chloride) 250 mls @ 166.7 mls/hr IVPB Q12H [facility]; Protocol Last Admin: 06/19/18 10:24 Dose: 166.7 mls/hr Gentamicin Sulfate/Sodium Chloride (Gentamicin 80mg/100ml Ns) 80 mg in 100 mls @ 100 mls/hr IVPB Q12 [facility]; Protocol Last Admin: 06/19/18 10:14 Dose: 100 mls/hr Insulin Glargine (Lantus) 20 unit SC [facility] Last Admin: 06/18/18 21:47 Dose: 20 units Insulin Human Regular (Novolin R) 0 unit SC [facility]; Protocol Last Admin: 06/19/18 12:40 Dose: 4 units Ketorolac Tromethamine (Toradol) 15 mg IVP Q6 PRN PRN Reason: Pain, moderate (4-7) Last Admin: 06/19/18 10:15 Dose: 15 mg Lidocaine (Lidocaine 5%) 1 gm TOP Q6H PRN PRN Reason: Pain, Mild (1-3) Last Admin: 06/18/18 12:32 Dose: 1 applic Pantoprazole Sodium (Protonix Ec Tab) 40 mg PO Q24H [facility] Last Admin: 06/19/18 06:21 Dose: 40 mg Potassium Chloride (K-Dur 20 Meq Er Tab) 20 meq PO DAILY [facility] Last Admin: 06/19/18 10:19 Dose: 20 meq Tramadol HCl (Ultram) 50 mg PO TID PRN PRN Reason: Pain, severe (8-10) Last Admin: 06/18/18 09:11 Dose: 50 mg - Labs Labs: 06/19/18 06:32 06/19/18 17:01 PT 15.8 SECONDS (9.7-12.2) H 06/19/18 06:32 INR 1.4 06/19/18 06:32 APTT 30 SECONDS (21-34) 06/19/18 06:32 Attending/Attestation - Attestation I have personally seen and examined this patient.: Yes I have fully participated in the care of the patient.: Yes I have reviewed all pertinent clinical information, including history, physical exam and plan: Yes
[2018-06-19] MEDS: Gentamicin 80 mg in 0.9% NS 80 MG/100 ML BAG IVPB SCH ×2 (10:14→21:53)
[2018-06-19] MEDS: Potassium Chloride 20 mEq ER Tab PO SCH (10:19)
[2018-06-19] MEDS: Vancomycin 1.2 GM in Sodium Chloride 0.9% 250 ML IVPB SCH ×2 (10:24→21:54)
[2018-06-19] MEDS ORDERED: Lidocaine 1% Inj (20ml) INFIL ONE (11:15)
--- NOTE | 2018-06-19 12:14 | CP.PCM.PN ---
Subjective - Date & Time of Evaluation Date of Evaluation: 06/19/18 Time of Evaluation: 12:12 - Subjective Subjective: Patient wit continued arm pain Objective - Vital Signs/Intake and Output Vital Signs (last 24 hours): Temp Pulse Resp BP Pulse Ox 98.4 F 75 18 102/68 97 06/19/18 07:00 06/19/18 08:00 06/19/18 07:00 06/18/18 23:15 06/19/18 07:00 Intake and Output: 06/19/18 06/19/18 06:59 18:59 Intake Total 920 Output Total 400 Balance 520 - Medications Medications: Current Medications Acetaminophen (Tylenol 325mg Tab) 650 mg PO Q6 PRN PRN Reason: Fever >100.4 F Aripiprazole (Abilify) 5 mg PO HS [facility] Last Admin: 06/18/18 21:34 Dose: 5 mg Clonazepam (Klonopin) 0.5 mg PO BID [facility] Last Admin: 06/19/18 10:24 Dose: 0.5 mg Enoxaparin Sodium (Lovenox) 40 mg SC DAILY [facility] Last Admin: 06/18/18 09:17 Dose: Not Given Ferrous Sulfate (Feosol) 325 mg PO DAILY [facility] Last Admin: 06/19/18 10:18 Dose: 325 mg Fluoxetine HCl (Prozac) 20 mg PO DAILY [facility] Last Admin: 06/19/18 10:20 Dose: 20 mg Glucagon (Glucagen Diagnostic Kit) 0 mg IM STAT PRN; Protocol PRN Reason: Hypoglycemia Protocol Piperacillin Sod/Tazobactam Sod (Zosyn 3.375 Gm Iv Premix) 3.375 gm in 50 mls @ 200 mls/hr IVPB Q6H [facility]; Protocol Last Admin: 06/19/18 06:24 Dose: 200 mls/hr Sodium Chloride (Sodium Chloride 0.9%) 1,000 mls @ 100 mls/hr IV .Q10H [facility] Last Admin: 06/19/18 06:25 Dose: 100 mls/hr Vancomycin HCl 1.2 gm/ Sodium (Chloride) 250 mls @ 166.7 mls/hr IVPB Q12H [facility]; Protocol Last Admin: 06/19/18 10:24 Dose: 166.7 mls/hr Gentamicin Sulfate/Sodium Chloride (Gentamicin 80mg/100ml Ns) 80 mg in 100 mls @ 100 mls/hr IVPB Q12 [facility]; Protocol Last Admin: 06/19/18 10:14 Dose: 100 mls/hr Insulin Glargine (Lantus) 20 unit SC HS [facility] Last Admin: 06/18/18 21:47 Dose: 20 units Insulin Human Regular (Novolin R) 0 unit SC ACHS [facility]; Protocol Last Admin: 06/19/18 08:31 Dose: 6 units Ketorolac Tromethamine (Toradol) 15 mg IVP Q6 PRN PRN Reason: Pain, moderate (4-7) Last Admin: 06/19/18 10:15 Dose: 15 mg Lidocaine (Lidocaine 5%) 1 gm TOP Q6H PRN PRN Reason: Pain, Mild (1-3) Last Admin: 06/18/18 12:32 Dose: 1 applic Pantoprazole Sodium (Protonix Ec Tab) 40 mg PO Q24H [facility] Last Admin: 06/19/18 06:21 Dose: 40 mg Potassium Chloride (K-Dur 20 Meq Er Tab) 20 meq PO DAILY [facility] Last Admin: 06/19/18 10:19 Dose: 20 meq Tramadol HCl (Ultram) 50 mg PO TID PRN PRN Reason: Pain, severe (8-10) Last Admin: 06/18/18 09:11 Dose: 50 mg - Labs Labs: 06/19/18 06:32 06/19/18 06:32 PT 15.8 SECONDS (9.7-12.2) H 06/19/18 06:32 INR 1.4 06/19/18 06:32 APTT 30 SECONDS (21-34) 06/19/18 06:32 atient Name / ID : SHABBIR [id number] / [id number] Exam Date : 06/18/2018 14:27:35 ( Approved ) Study Comment : Sex / Age : M / 47Y Creator : Sully Maynard Dictator : Petey Thapa MD Supervisor Properties : Office Automation Technician : Petey Thapa MD Approver2 : Report Date : 06/18/2018 15:51:42 My Comment : MRI left elbow HISTORY: Left upper arm collection near the elbow. COMPARISON: CT dated 06/16/2018 TECHNIQUE: Multi-echo multiplanar sequences were performed through the left elbow without and with the use of intravenous contrast. Findings: Large multilobulated collection seen at the posterior aspect of the elbow at the level of the olecranon bursa extending superiorly and inferiorly measuring 7.3 x 2.1 x 15.2 centimeters. The collection demonstrates heterogeneously increased STIR signal, heterogeneously decreased T1 signal, and multiple peripheral areas of nodular postcontrast enhancement with internal thickened septations. The collection appears to extend to the level of the triceps tendon distally with apparent intramuscular extension into the triceps muscle more superiorly. This is of uncertain clinical etiology and may represent a large abscess possibly the sequelae of a severe olecranon bursitis. Additional etiologies such as soft tissue lesion or mass cannot be excluded. Additional etiologies not excluded. Correlation with soft tissue biopsy and drainage may be helpful for further evaluation if clinically indicated. Signal abnormality within the proximal humerus at the level of the olecranon demonstrating patchy increased T2 signal with associated postcontrast enhancement concerning for an acute osteomyelitis. Small elbow joint effusion. Biceps and brachialis tendon insertions are preserved. Edema noted within the posterior musculature at the level of the proximal radius and ulna which may represent a myositis. Reticulation and edema within the circumferential subcutaneous soft tissues suggestive for a cellulitis. Impression: 1. Large multilobulated collection seen at the posterior aspect of the elbow at the level of the olecranon bursa extending superiorly and inferiorly measuring 7.3 x 2.1 x 15.2 centimeters. The collection demonstrates heterogeneously increased STIR signal, heterogeneously decreased T1 signal, and multiple peripheral areas of nodular postcontrast enhancement with internal thickened septations. The collection appears to extend to the level of the triceps tendon distally with apparent intramuscular extension into the triceps muscle more superiorly. This is of uncertain clinical etiology and may represent a large abscess possibly the sequelae of a severe olecranon bursitis. Additional etiologies such as soft tissue lesion or mass cannot be excluded. Additional etiologies not excluded. Correlation with soft tissue biopsy and drainage may be helpful for further evaluation if clinically indicated. 2. Signal abnormality within the proximal humerus at the level of the bony olecranon demonstrating patchy increased T2 signal with associated postcontrast enhancement concerning for an acute osteomyelitis. 3. Small elbow joint effusion. 4. Edema noted within the posterior musculature at the level of the proximal radius and ulna which may represent a myositis. 5. Reticulation and edema within the circumferential subcutaneous soft tissues suggestive for a cellulitis. Assessment and Plan (1) Abscess of left arm Assessment & Plan: for bedside I&D today Dr. Mustafa in pm Status: Acute (2) DM type 2, uncontrolled, with lower extremity ulcer Status: Acute
--- NOTE | 2018-06-19 13:53 | CP.PCM.CON ---
"History of Present Illness - History of Present Illness History of Present Illness: Podiatry Consult Note- Dr. Ngo 47M with PMH of DM II (uncontrolled), HTN, Anxiety, Depression, Schizophrenia seen and evaluated at bedside for bilateral foot ulcerations. Patient is seen resting comfortably in bed, in NAD, and AA0x3. Patient reports that he has ulcerations on bilateral foot. Reports has been seeing Dr. Bray on an outpatient basis n which he has continued care to his feet. Last visitation was in mid May. Patient reports has visiting nurse that comes and changes the dressing every 2-3 days. Denies pain to the lower extremities. Denies nausea, shortness of breath, chest pains or chills. Reports feeling feverish at times. Dressing intact to the left and right lower extremity. 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 Right Rotator Cuff Surgery ALL: NKDA. Per chart allergies to almond, apple, cashew nut, nuts SH: Former smoker (47 year smoker), reports drinking, denies illicit drug use FH: HTN - Grandmother | Diabetes - Grandfather & Mother MEDS: see meds list Past Patient History - Infectious Disease Hx of Infectious Diseases: MRSA - Tetanus Immunizations Tetanus Immunization: Unknown - Past Medical History & Family History Past Medical History?: Yes Past Family History: Reviewed and not pertinent - Past Social History Smoking Status: Light Smoker < 10 Cigarettes Daily - CARDIAC Hx Hypertension: Yes - PULMONARY Hx Asthma: Yes - NEUROLOGICAL Hx Seizures: No - HEENT Hx HEENT Problems: No - RENAL Hx Chronic Kidney Disease: No - ENDOCRINE/METABOLIC Hx Endocrine Disorders: Yes (DM) Hx Diabetes Mellitus Type 2: Yes - HEMATOLOGICAL/ONCOLOGICAL Hx Human Immunodeficiency Virus (HIV): No - INTEGUMENTARY Hx Dermatological Problems: No - MUSCULOSKELETAL/RHEUMATOLOGICAL Hx Fractures: Yes (RT toe) - GASTROINTESTINAL Hx Gastrointestinal Disorders: No - GENITOURINARY/GYNECOLOGICAL Hx Sexually Transmitted Disorders: Yes (erectile Dysfunction) - PSYCHIATRIC Hx Anxiety: Yes Hx Bipolar Disorder: Yes Hx Depression: Yes Hx Schizophrenia: Yes Hx Substance Use: No - SURGICAL HISTORY Hx Orthopedic Surgery: Yes (Right shoulder 1991 rotator cuff and dislocation 1988) Other/Comment: R foot wound debridement - ANESTHESIA Hx Anesthesia: Yes Hx Anesthesia Reactions: No Meds Allergies/Adverse Reactions: Allergies Allergy/AdvReac Type Severity Reaction Status Date / Time almond Allergy ITCHING Verified 06/16/18 05:45 apple Allergy ITCHING Verified 06/16/18 05:45 cashew nut Allergy ITCHING Verified 06/16/18 05:45 nut - unspecified Allergy ITCHING Verified 06/16/18 05:45 walnut Allergy ITCHING Verified 06/16/18 05:45 water chestnut Allergy ITCHING Verified 06/16/18 05:45 - Medications Medications: Current Medications Acetaminophen (Tylenol 325mg Tab) 650 mg PO Q6 PRN PRN Reason: Fever >100.4 F Aripiprazole (Abilify) 5 mg PO HS [facility] Last Admin: 06/18/18 21:34 Dose: 5 mg Clonazepam (Klonopin) 0.5 mg PO BID [facility] Last Admin: 06/19/18 10:24 Dose: 0.5 mg Enoxaparin Sodium (Lovenox) 40 mg SC DAILY [facility] Last Admin: 06/18/18 09:17 Dose: Not Given Ferrous Sulfate (Feosol) 325 mg PO DAILY [facility] Last Admin: 06/19/18 10:18 Dose: 325 mg Fluoxetine HCl (Prozac) 20 mg PO DAILY [facility] Last Admin: 06/19/18 10:20 Dose: 20 mg Glucagon (Glucagen Diagnostic Kit) 0 mg IM STAT PRN; Protocol PRN Reason: Hypoglycemia Protocol Piperacillin Sod/Tazobactam Sod (Zosyn 3.375 Gm Iv Premix) 3.375 gm in 50 mls @ 200 mls/hr IVPB Q6H [facility]; Protocol Last Admin: 06/19/18 12:21 Dose: 200 mls/hr Sodium Chloride (Sodium Chloride 0.9%) 1,000 mls @ 100 mls/hr IV .Q10H [facility] Last Admin: 06/19/18 10:00 Dose: Not Given Vancomycin HCl 1.2 gm/ Sodium (Chloride) 250 mls @ 166.7 mls/hr IVPB Q12H [facility]; Protocol Last Admin: 06/19/18 10:24 Dose: 166.7 mls/hr Gentamicin Sulfate/Sodium Chloride (Gentamicin 80mg/100ml Ns) 80 mg in 100 mls @ 100 mls/hr IVPB Q12 [facility]; Protocol Last Admin: 06/19/18 10:14 Dose: 100 mls/hr Insulin Glargine (Lantus) 20 unit SC HS [facility] Last Admin: 06/18/18 21:47 Dose: 20 units Insulin Human Regular (Novolin R) 0 unit SC ACHS [facility]; Protocol Last Admin: 06/19/18 12:40 Dose: 4 units Ketorolac Tromethamine (Toradol) 15 mg IVP Q6 PRN PRN Reason: Pain, moderate (4-7) Last Admin: 06/19/18 10:15 Dose: 15 mg Lidocaine (Lidocaine 5%) 1 gm TOP Q6H PRN PRN Reason: Pain, Mild (1-3) Last Admin: 06/18/18 12:32 Dose: 1 applic Pantoprazole Sodium (Protonix Ec Tab) 40 mg PO Q24H [facility] Last Admin: 06/19/18 06:21 Dose: 40 mg Potassium Chloride (K-Dur 20 Meq Er Tab) 20 meq PO DAILY [facility] Last Admin: 06/19/18 10:19 Dose: 20 meq Tramadol HCl (Ultram) 50 mg PO TID PRN PRN Reason: Pain, severe (8-10) Last Admin: 06/18/18 09:11 Dose: 50 mg Physical Exam - Constitutional Appears: Well, Non-toxic, No Acute Distress - Extremities Exam Extremities exam: Negative for: calf tenderness Additional comments: Bilateral LE focused Vasc: DP and PT pulses weakly palpable 1/4 b/l. CFT <3 seconds to all digits. Temperature gradient warm to warm. Edema noted to the left and right foot. Neuro: Gross and protective sensation diminished bilaterally. Derm: Ulceration at right sub met 5 ulceration measuring approximately 2 cm in diameter x .1 cm and ulceration at the lateral aspect of 5th metatarsal head ulceration measures approximately 1.5 cm in diameter x .2 cm, probe to bone, wound base is granular, periwound with sloughing and macerated, odorous, active sangious and purulence drainage noted from wound Ulceration located in the 4th interspace on the medial aspect of 4th digit. Ulceration measures approximately 1 cm in diameter x .3 in depth, probe to bone, wound base is granular, periwound intact, odorous, active sangious and purulence drainage noted from wound Previous left hallux partial amputation completely healed. Ortho: No pain on palpation to the entire lower extremity and ulceration sites. Healed s/p left partial hallux amputation. Muscle strength 5/5 for all dorsiflexors, plantarflexors, inverters, and everters b/l. - Neurological Exam Neurological exam: Alert, Oriented x3 - Psychiatric Exam Psychiatric exam: Normal Affect, Normal Mood Results - Vital Signs Recent Vital Signs: Last Vital Signs Temp 98.4 F 06/19/18 07:00 Pulse 75 06/19/18 08:00 Resp 18 06/19/18 07:00 BP 102/68 06/18/18 23:15 Pulse Ox 97 06/19/18 07:00 - Labs Result Diagrams: 06/19/18 06:32 06/19/18 22:58 Labs: Laboratory Results - last 24 hr 06/18/18 06/18/18 06/18/18 16:33 18:17 21:22 WBC RBC Hgb Hct MCV MCH MCHC RDW Plt Count MPV Neut % (Auto) Lymph % (Auto) [place] % (Auto) Eos % (Auto) Baso % (Auto) Neut # (Auto) Lymph # (Auto) [place] # (Auto) Eos # (Auto) Baso # (Auto) PT INR APTT Sodium Potassium Chloride Carbon Dioxide Anion Gap BUN Creatinine Est GFR ( Amer) Est GFR (Non-Af Amer) POC Glucose (mg/dL) 219 H 256 H Random Glucose Calcium Total Bilirubin AST ALT Alkaline Phosphatase Total Protein Albumin Globulin Albumin/Globulin Ratio Urine Osmolality 499 Ur Random Sodium 62 Urine Opiates Screen Negative Urine Methadone Screen Negative Ur Barbiturates Screen Negative Ur Phencyclidine Scrn Negative Ur Amphetamines Screen Negative U Benzodiazepines Scrn Negative U Oth Cocaine Metabols Negative U Cannabinoids Screen Negative 06/19/18 06/19/18 06/19/18 06:14 06:32 06:32 WBC 8.3 RBC 2.71 L Hgb 8.9 L Hct 26.1 L MCV 96.3 H MCH 33.0 H MCHC 34.3 RDW 14.5 Plt Count 360 MPV 9.5 Neut % (Auto) 69.7 Lymph % (Auto) 20.7 [place] % (Auto) 7.7 Eos % (Auto) 1.3 Baso % (Auto) 0.6 Neut # (Auto) 5.8 Lymph # (Auto) 1.7 [place] # (Auto) 0.6 Eos # (Auto) 0.1 Baso # (Auto) 0.0 PT INR APTT Sodium 125 L Potassium 3.4 L Chloride 96 L Carbon Dioxide 24 Anion Gap 9 L BUN 9 Creatinine 0.7 L Est GFR ( Amer) > 60 Est GFR (Non-Af Amer) > 60 POC Glucose (mg/dL) 259 H Random Glucose 207 H Calcium 7.2 L Total Bilirubin 0.7 AST 45 ALT 52 Alkaline Phosphatase 63 Total Protein 5.9 L Albumin 2.1 L Globulin 3.8 Albumin/Globulin Ratio 0.6 L Urine Osmolality Ur Random Sodium Urine Opiates Screen Urine Methadone Screen Ur Barbiturates Screen Ur Phencyclidine Scrn Ur Amphetamines Screen U Benzodiazepines Scrn U Oth Cocaine Metabols U Cannabinoids Screen 06/19/18 06/19/18 06:32 12:26 WBC RBC Hgb Hct MCV MCH MCHC RDW Plt Count MPV Neut % (Auto) Lymph % (Auto) [place] % (Auto) Eos % (Auto) Baso % (Auto) Neut # (Auto) Lymph # (Auto) [place] # (Auto) Eos # (Auto) Baso # (Auto) PT 15.8 H INR 1.4 APTT 30 Sodium Potassium Chloride Carbon Dioxide Anion Gap BUN Creatinine Est GFR ( Amer) Est GFR (Non-Af Amer) POC Glucose (mg/dL) 214 H Random Glucose Calcium Total Bilirubin AST ALT Alkaline Phosphatase Total Protein Albumin Globulin Albumin/Globulin Ratio Urine Osmolality Ur Random Sodium Urine Opiates Screen Urine Methadone Screen Ur Barbiturates Screen Ur Phencyclidine Scrn Ur Amphetamines Screen U Benzodiazepines Scrn U Oth Cocaine Metabols U Cannabinoids Screen Assessment & Plan - Assessment and Plan (Free Text) Assessment: 47M with PMH of DM II (uncontrolled), HTN, Anxiety, Depression, Schizophrenia seen and evaluated at bedside for bilateral foot ulcerations secondary to DM - infected Plan: Patient seen and evaluated Discussed plan in detail with attending Dr. Ngo Charts, vitals, labs reviewed- afebrile, absent leukocytosis Cleansed ulceration with copious amounts of saline and betadine solution Expressed approximately 5cc of purulence from left foot, expressed 5cc of purulence from right foot. Wound culture of left foot 4th interspace ulceration and right foot lateral forefoot ulcer X-rays ordered of left and right foot CRP, ESR ordered MRI ordered left and right lower extremity to r/o OM and abscess Infectious disease consulted- recommendations appreciated Continue IV abx per ID Patient may WBAT in surgical shoe to bilateral foot Please dispense surgical shoe Will continue to follow patient while in house Thank you for allowing us to participate in patient's care"
--- NOTE | 2018-06-19 14:32 | CP.PCM.PN ---
Subjective - Date & Time of Evaluation Date of Evaluation: 06/19/18 Time of Evaluation: 14:29 - Subjective Subjective: pt concerned about foot wounds remains hyponatremic parameters consistent with SIADH Objective - Vital Signs/Intake and Output Vital Signs (last 24 hours): Temp Pulse Resp BP Pulse Ox 98.4 F 75 18 102/68 97 06/19/18 07:00 06/19/18 08:00 06/19/18 07:00 06/18/18 23:15 06/19/18 07:00 Intake and Output: 06/19/18 06/19/18 06:59 18:59 Intake Total 920 Output Total 400 Balance 520 - Medications Medications: Current Medications Acetaminophen (Tylenol 325mg Tab) 650 mg PO Q6 PRN PRN Reason: Fever >100.4 F Aripiprazole (Abilify) 5 mg PO HS [facility] Last Admin: 06/18/18 21:34 Dose: 5 mg Clonazepam (Klonopin) 0.5 mg PO BID [facility] Last Admin: 06/19/18 10:24 Dose: 0.5 mg Enoxaparin Sodium (Lovenox) 40 mg SC DAILY [facility] Last Admin: 06/18/18 09:17 Dose: Not Given Ferrous Sulfate (Feosol) 325 mg PO DAILY [facility] Last Admin: 06/19/18 10:18 Dose: 325 mg Fluoxetine HCl (Prozac) 20 mg PO DAILY [facility] Last Admin: 06/19/18 10:20 Dose: 20 mg Glucagon (Glucagen Diagnostic Kit) 0 mg IM STAT PRN; Protocol PRN Reason: Hypoglycemia Protocol Piperacillin Sod/Tazobactam Sod (Zosyn 3.375 Gm Iv Premix) 3.375 gm in 50 mls @ 200 mls/hr IVPB Q6H [facility]; Protocol Last Admin: 06/19/18 12:21 Dose: 200 mls/hr Sodium Chloride (Sodium Chloride 0.9%) 1,000 mls @ 100 mls/hr IV .Q10H [facility] Last Admin: 06/19/18 10:00 Dose: Not Given Vancomycin HCl 1.2 gm/ Sodium (Chloride) 250 mls @ 166.7 mls/hr IVPB Q12H [facility]; Protocol Last Admin: 06/19/18 10:24 Dose: 166.7 mls/hr Gentamicin Sulfate/Sodium Chloride (Gentamicin 80mg/100ml Ns) 80 mg in 100 mls @ 100 mls/hr IVPB Q12 [facility]; Protocol Last Admin: 06/19/18 10:14 Dose: 100 mls/hr Insulin Glargine (Lantus) 20 unit SC HS [facility] Last Admin: 06/18/18 21:47 Dose: 20 units Insulin Human Regular (Novolin R) 0 unit SC ACHS [facility]; Protocol Last Admin: 06/19/18 12:40 Dose: 4 units Ketorolac Tromethamine (Toradol) 15 mg IVP Q6 PRN PRN Reason: Pain, moderate (4-7) Last Admin: 06/19/18 10:15 Dose: 15 mg Lidocaine (Lidocaine 5%) 1 gm TOP Q6H PRN PRN Reason: Pain, Mild (1-3) Last Admin: 06/18/18 12:32 Dose: 1 applic Pantoprazole Sodium (Protonix Ec Tab) 40 mg PO Q24H [facility] Last Admin: 06/19/18 06:21 Dose: 40 mg Potassium Chloride (K-Dur 20 Meq Er Tab) 20 meq PO DAILY [facility] Last Admin: 06/19/18 10:19 Dose: 20 meq Tramadol HCl (Ultram) 50 mg PO TID PRN PRN Reason: Pain, severe (8-10) Last Admin: 06/18/18 09:11 Dose: 50 mg - Labs Labs: 06/19/18 06:32 06/19/18 06:32 PT 15.8 SECONDS (9.7-12.2) H 06/19/18 06:32 INR 1.4 06/19/18 06:32 APTT 30 SECONDS (21-34) 06/19/18 06:32 - Constitutional Appears: No Acute Distress, Chronically Ill - Head Exam Head Exam: ATRAUMATIC, NORMAL INSPECTION - Eye Exam Eye Exam: EOMI, Normal appearance - Neck Exam Neck Exam: Normal Inspection. absent: Tenderness - Respiratory Exam Respiratory Exam: Clear to Ausculation Bilateral, NORMAL BREATHING PATTERN - Cardiovascular Exam Cardiovascular Exam: REGULAR RHYTHM, +S1 - GI/Abdominal Exam GI & Abdominal Exam: Soft. absent: Tenderness - Extremities Exam Extremities Exam: Normal Inspection. absent: Tenderness - Neurological Exam Neurological Exam: Awake, CN II-XII Intact - Skin Skin Exam: Dry, Warm Assessment and Plan (1) Hyponatremia Status: Acute (2) Type 2 diabetes mellitus without complications Status: Acute (3) PVD (peripheral vascular disease) Status: Acute (4) Excessive fluid intake Status: Acute (5) HTN (hypertension) Status: Chronic - Assessment and Plan (Free Text) Plan: trial tovalptan monitor Na levels closely
[2018-06-19] MEDS ORDERED: Tolvaptan 15 MG TAB PO ONE (14:45)
[2018-06-19 17:46] LABS: BLOOD UREA NITROGEN 9 mg/dL (9-20); CALCIUM 7.2 mg/dl (8.6-10.4); GFR NON-AFRICAN AMERICAN > 60
[2018-06-19] MEDS ORDERED: Morphine 4 MG/ML VIAL IV ONE (18:03)
--- NOTE | 2018-06-19 20:39 | CP.PCM.PN ---
Subjective - Date & Time of Evaluation Date of Evaluation: 06/19/18 Time of Evaluation: 19:00 - Subjective Subjective: dictated Objective - Vital Signs/Intake and Output Vital Signs (last 24 hours): Temp Pulse Resp BP Pulse Ox 98.1 F 85 20 119/72 99 06/19/18 15:00 06/19/18 15:00 06/19/18 15:00 06/19/18 15:00 06/19/18 15:00 - Medications Medications: Current Medications Acetaminophen (Tylenol 325mg Tab) 650 mg PO Q6 PRN PRN Reason: Fever >100.4 F Aripiprazole (Abilify) 5 mg PO HS [facility] Last Admin: 06/18/18 21:34 Dose: 5 mg Clonazepam (Klonopin) 0.5 mg PO BID [facility] Last Admin: 06/19/18 19:03 Dose: 0.5 mg Enoxaparin Sodium (Lovenox) 40 mg SC DAILY [facility] Last Admin: 06/18/18 09:17 Dose: Not Given Ferrous Sulfate (Feosol) 325 mg PO DAILY [facility] Last Admin: 06/19/18 10:18 Dose: 325 mg Fluoxetine HCl (Prozac) 20 mg PO DAILY [facility] Last Admin: 06/19/18 10:20 Dose: 20 mg Glucagon (Glucagen Diagnostic Kit) 0 mg IM STAT PRN; Protocol PRN Reason: Hypoglycemia Protocol Piperacillin Sod/Tazobactam Sod (Zosyn 3.375 Gm Iv Premix) 3.375 gm in 50 mls @ 200 mls/hr IVPB Q6H [facility]; Protocol Last Admin: 06/19/18 19:07 Dose: 200 mls/hr Sodium Chloride (Sodium Chloride 0.9%) 1,000 mls @ 100 mls/hr IV .Q10H [facility] Last Admin: 06/19/18 10:00 Dose: Not Given Vancomycin HCl 1.2 gm/ Sodium (Chloride) 250 mls @ 166.7 mls/hr IVPB Q12H [facility]; Protocol Last Admin: 06/19/18 10:24 Dose: 166.7 mls/hr Gentamicin Sulfate/Sodium Chloride (Gentamicin 80mg/100ml Ns) 80 mg in 100 mls @ 100 mls/hr IVPB Q12 [facility]; Protocol Last Admin: 06/19/18 10:14 Dose: 100 mls/hr Insulin Glargine (Lantus) 20 unit SC HS [facility] Last Admin: 06/18/18 21:47 Dose: 20 units Insulin Human Regular (Novolin R) 0 unit SC [facility]; Protocol Last Admin: 06/19/18 19:04 Dose: 4 units Ketorolac Tromethamine (Toradol) 15 mg IVP Q6 PRN PRN Reason: Pain, moderate (4-7) Last Admin: 06/19/18 10:15 Dose: 15 mg Lidocaine (Lidocaine 5%) 1 gm TOP Q6H PRN PRN Reason: Pain, Mild (1-3) Last Admin: 06/18/18 12:32 Dose: 1 applic Pantoprazole Sodium (Protonix Ec Tab) 40 mg PO Q24H [facility] Last Admin: 06/19/18 06:21 Dose: 40 mg Potassium Chloride (K-Dur 20 Meq Er Tab) 20 meq PO DAILY [facility] Last Admin: 06/19/18 10:19 Dose: 20 meq Tramadol HCl (Ultram) 50 mg PO TID PRN PRN Reason: Pain, severe (8-10) Last Admin: 06/18/18 09:11 Dose: 50 mg - Labs Labs: 06/19/18 06:32 06/19/18 17:01 PT 15.8 SECONDS (9.7-12.2) H 06/19/18 06:32 INR 1.4 06/19/18 06:32 APTT 30 SECONDS (21-34) 06/19/18 06:32
[2018-06-19] MEDS: (Lantus) Insulin Glargine, Recombinant SC SCH (22:04)
[2018-06-19 23:14] LABS: BLOOD UREA NITROGEN 9 mg/dL (9-20); CALCIUM 7.1 mg/dl (8.6-10.4); GFR NON-AFRICAN AMERICAN > 60
[2018-06-20] MEDS: Piperacill/Tazo 3.375gm in Dex 3.375 GM/50 ML BAG IVPB SCH ×4 (00:10→18:12)
--- NOTE | 2018-06-20 01:08 | CON ---
DATE: 06/19/2018 HISTORY OF PRESENT ILLNESS: The patient is a 47-year-old male with past medical history of uncontrolled type 2 diabetes, hypertension, anxiety, depression, schizophrenia, osteomyelitis of the right hallux, and pancreatitis. The patient has been noncompliant, was consulted for right elbow abscess. The patient has had fever associated with the abscess, denies pain in any other extremity or joint. He has limited range of motion of his elbow currently. He is examined at bedside. The patient is right-hand dominant and has left elbow abscess. PAST MEDICAL HISTORY: Type 2 diabetes, hypertension, anxiety, depression, schizophrenia, osteomyelitis, and pancreatitis. PAST SURGICAL HISTORY: Left first great toe amputation and right rotator cuff surgery. ALLERGIES: NO KNOWN DRUG ALLERGY. PHYSICAL EXAMINATION: Examination of the patient's left elbow, there is apparent fluctuance and erythema around the olecranon extending proximally, distally. The patient has limited range of motion secondary to pain. He is neurovascularly intact distally. IMAGING: I have reviewed the patient's CT scan images which is showing a large loculated abscess at the olecranon bursa extending proximally, superficially, and distal to the olecranon. No intraarticular extension is noted. PROCEDURE: The patient was informed about the risks and benefits of the bedside irrigation and debridement. The risk included, but not limited to bleeding, infection, nerve vessel damage, continued fever, chills, abscess, intraarticular extension. Among others, the patient fully comprehended the risks and benefits and opted to proceed. First, the patient's elbow was sterilized using Betadine and ChloraPrep sticks. He was given 10 mL of 1% lidocaine for local anesthetic. Then, using a blade, a small 1-cm incision was made at the olecranon tip, and it was noted that about a close to 200 mL of purulent discharge was expressed from the olecranon incision. The patient tolerated the procedure well. Afterwards, the wound was covered with sterile dressing. ASSESSMENT AND PLAN: A 47-year-old male with left elbow abscess treatment. I instructed the patient to continue. We will continue with daily dressing. We have sent cultures. He is on antibiotics, we will continue on IV antibiotics, and activity as tolerated on the left elbow. Emmy Mustafa MD [facility] # [id number] [place]
--- NOTE | 2018-06-20 01:57 | PN ---
DATE: 06/19/2018 SUBJECTIVE: The patient was seen. The patient had his elbow drained by Dr. Mustafa who was there also, and he said it was the worst he has seen, and there was pure pus and lot of drainage from the left elbow. He also sent OR cultures, so we will follow those. The patient is trying to void at this time. He denies pain in the feet or anywhere else right now. PHYSICAL EXAMINATION: GENERAL: He is awake. VITAL SIGNS: T-max is 98.1, pulse 85, blood pressure 119/72, respirations are 20. HEENT: Head is atraumatic and normocephalic. NECK: Supple. LUNGS: Clear. HEART: S1, S2. Regular. ABDOMEN: Soft, nontender. No guarding, no rigidity present. EXTREMITIES: Both feet have dressing at this time. He was seen by Dr. gNo for the bilateral foot ulcerations, and he has a left elbow OR dressing at this time. He denies any nausea. No vomiting, no chest pain. No fever. I will look into Dr. Ngo's note, and we will reevaluate the toes again. He did have some discoloration and ulceration on the left foot fourth digit, even the second digit I think was a problem but I saw it only once. We will reevaluate with the Podiatry resident one of these days, and at this time, this patient's blood cultures came back positive for Streptococcus pyogenes group A as well as Staphylococcus aureus, and his wound culture also has Staphylococcus aureus in the left foot, so he has multiple sources. The left foot wound which was thickened, and this wound has oxacillin sensitive methicillin-susceptible Staphylococcus aureus, but at this time, I will leave all the antibiotics on the way they are, and once the cultures are finalized, we will reevaluate them. Right now, he has Staphylococcus aureus and group A Strep in the blood, and these are probably coming from the left elbow as well as from the left foot, and there were new cultures taken by the Podiatry today, so we will follow those from both the feet. The patient is noncompliant, so it is difficult to have close followup of this patient, but at this time, he is really acutely ill. His sodium is 127 today, slightly better than 125. His white count is 8.3, hemoglobin is 8.9, hematocrit 26.1, platelet count is 360, and I think tomorrow, I will do again repeat blood cultures and see if they are clearing or not; and he remains on vancomycin, gentamicin, and Zosyn at this time. Joy Nava MD
[2018-06-20] MEDS: Pantoprazole 40 mg EC Tab PO SCH (06:14)
[2018-06-20] MEDS: Sodium Chloride 0.9% 1,000 ML IV SCH (06:47)
[2018-06-20 07:46] LABS: BASO % 0.7 % (0.0-2.0); EOS # 0.1 K/uL (0.0-0.7); EOS % 1.6 % (0.0-4.0); LYMPH # 1.6 K/uL (1.0-4.3); LYMPH % 27.9 % (20.0-40.0); MEAN CELL VOLUME 96.8 fL (80.0-94.0); MEAN CORPUSCULAR HEMOGLOBIN 32.8 pg (27.0-31.0); MEAN CORPUSCULAR HGB CONC 33.9 g/dL (33.0-37.0); MEAN PLATELET VOLUME 9.2 fL (7.2-11.7); MONO # 0.7 K/uL (0.0-0.8); NEUT # 3.4 K/uL (1.8-7.0); NEUT % 57.8 % (50.0-75.0); RBC 2.75 Mil/uL (4.40-5.90); RED CELL DISTRIBUTION WIDTH 14.3 % (11.5-14.5); WHITE BLOOD COUNT 5.9 K/uL (4.8-10.8)
[2018-06-20 08:11] LABS: BLOOD UREA NITROGEN 8 mg/dL (9-20); CALCIUM 7.4 mg/dl (8.6-10.4); GFR NON-AFRICAN AMERICAN > 60
[2018-06-20] MEDS: (Novolin R) Insulin Human Regular 100 units/ml vial SC SCH ×5 (08:19→22:00)
--- NOTE | 2018-06-20 09:46 | CP.PCM.PN ---
<Norma Hoffman - Last Filed: 06/20/18 15:48> Subjective - Date & Time of Evaluation Date of Evaluation: 06/20/18 Time of Evaluation: 09:43 - Subjective Subjective: Norma Hoffman PGY1 Progress Note for Dr. Rose Pt was examined at bedside this morning. He reports improvement in the L elbow, claiming the pressure is relieved but that he still has pain. He has no other complaints today. He denies fever, chills, shortness of breath, chest pain, abdominal pain, nausea, vomiting, diarrhea, dysuria. Objective - Vital Signs/Intake and Output Vital Signs (last 24 hours): Temp Pulse Resp BP Pulse Ox 97.7 F 75 20 115/74 97 06/20/18 07:00 06/20/18 07:00 06/20/18 07:00 06/20/18 07:00 06/20/18 07:00 Intake and Output: 06/20/18 06/20/18 06:59 18:59 Intake Total 2000 Output Total 2950 Balance -950 - Medications Medications: Current Medications Acetaminophen (Tylenol 325mg Tab) 650 mg PO Q6 PRN PRN Reason: Fever >100.4 F Aripiprazole (Abilify) 5 mg PO HS [facility] Last Admin: 06/19/18 21:49 Dose: 5 mg Clonazepam (Klonopin) 0.5 mg PO BID [facility] Last Admin: 06/19/18 19:03 Dose: 0.5 mg Enoxaparin Sodium (Lovenox) 40 mg SC DAILY [facility] Last Admin: 06/18/18 09:17 Dose: Not Given Ferrous Sulfate (Feosol) 325 mg PO DAILY [facility] Last Admin: 06/19/18 10:18 Dose: 325 mg Fluoxetine HCl (Prozac) 20 mg PO DAILY [facility] Last Admin: 06/19/18 10:20 Dose: 20 mg Glucagon (Glucagen Diagnostic Kit) 0 mg IM STAT PRN; Protocol PRN Reason: Hypoglycemia Protocol Piperacillin Sod/Tazobactam Sod (Zosyn 3.375 Gm Iv Premix) 3.375 gm in 50 mls @ 200 mls/hr IVPB Q6H [facility]; Protocol Last Admin: 06/20/18 06:15 Dose: 200 mls/hr Sodium Chloride (Sodium Chloride 0.9%) 1,000 mls @ 100 mls/hr IV .Q10H [facility] Last Admin: 06/20/18 06:47 Dose: Not Given Vancomycin HCl 1.2 gm/ Sodium (Chloride) 250 mls @ 166.7 mls/hr IVPB Q12H [facility]; Protocol Last Admin: 06/19/18 21:54 Dose: 166.7 mls/hr Gentamicin Sulfate/Sodium Chloride (Gentamicin 80mg/100ml Ns) 80 mg in 100 mls @ 100 mls/hr IVPB Q12 [facility]; Protocol Last Admin: 06/19/18 21:53 Dose: 100 mls/hr Insulin Glargine (Lantus) 20 unit SC HS [facility] Last Admin: 06/19/18 22:04 Dose: 20 units Insulin Human Regular (Novolin R) 0 unit SC ACHS [facility]; Protocol Last Admin: 06/20/18 08:19 Dose: 4 units Ketorolac Tromethamine (Toradol) 15 mg IVP Q6 PRN PRN Reason: Pain, moderate (4-7) Last Admin: 06/20/18 03:49 Dose: 15 mg Lidocaine (Lidocaine 5%) 1 gm TOP Q6H PRN PRN Reason: Pain, Mild (1-3) Last Admin: 06/18/18 12:32 Dose: 1 applic Pantoprazole Sodium (Protonix Ec Tab) 40 mg PO Q24H [facility] Last Admin: 06/20/18 06:14 Dose: 40 mg Potassium Chloride (K-Dur 20 Meq Er Tab) 20 meq PO DAILY [facility] Last Admin: 06/19/18 10:19 Dose: 20 meq Tramadol HCl (Ultram) 50 mg PO TID PRN PRN Reason: Pain, severe (8-10) Last Admin: 06/18/18 09:11 Dose: 50 mg - Labs Labs: 06/20/18 07:22 06/20/18 07:22 PT 15.8 SECONDS (9.7-12.2) H 06/19/18 06:32 INR 1.4 06/19/18 06:32 APTT 30 SECONDS (21-34) 06/19/18 06:32 - Additional Findings Additional findings: - Head Exam Head Exam: ATRAUMATIC, NORMOCEPHALIC - Eye Exam Eye Exam: EOMI, PERRL - ENT Exam ENT Exam: Mucous Membranes Moist - Respiratory Exam Respiratory Exam: Clear to Ausculation Bilateral, NORMAL BREATHING PATTERN. absent: Rales, Rhonchi, Wheezes - Cardiovascular Exam Cardiovascular Exam: REGULAR RHYTHM, +S1, +S2. absent: Gallop, Rubs, Murmur - GI/Abdominal Exam GI & Abdominal Exam: Soft, Normal Bowel Sounds. absent: Distended, Tenderness - Extremities Exam Additional comments: LUE: dressing clean, dry, intact LLE: bandage clean, dry, intact. hyperkeratotic and dystrophic nail changes, charcot deformity RLE: bandage clean, dry, intact. hyperkeratotic and dystrophic nail changes Assessment and Plan - Assessment and Plan (Free Text) Assessment: 47 year old male with a PMHx of Diabetes Type II (Uncontrolled), HTN, Anxiety, Depression, Schizophrenia, Right Hallux Osteomyelitis Pancreatitis, and medical non-compliance admitted for Sepsis 2/2 to Left Elbow Cellulitis/Abscess vs Left Hallux infection. MRI showing abscessing in L triceps tendon and possible osteomyelitis. S/p bedside I&D with Ortho 06/19/18. For OR tomorrow with podiatry for I&D of b/l feet. Plan: Sepsis - Source: L Elbow abscess vs L foot infection - afebrile - leukocytosis downtrending - BCx: Staph aureus and Group A Strep, only resistant to penicillin - L foot Wound Cx: Staph aureus, only resistant to penicillin - CXR: No acute Disease - UA: Neg Nitrates and Leuk Est - Vancomycin 1g IV Q12 H - Zosyn 3.375gm IV Q6H - Gentamycin 80mg IV q8h - f/u new b/l foot Cx and BCx - ID consulted, Dr. Nava - recs appreciated Uncontroled DM 2/DKA (Resolved) - 2/2 to medication non compliance - HbA1C: 11.0 - Beta Hydroxybutyrate elevated on Admission - Lantus 20u HS - High Dose Sliding Scale - accuchecks ACHS - hypoglycemia protocol - diabetic education Left Elbow Cellulitis/Abscess - s/p bedside I&D with ortho 06/19/17 - MRI: septated multilobulated abscess 7.3 x 2.1 x 15.2cm in posterior elbow at level of triceps tendon. suspicious for osteomyelitis in olecranon. - CT LUE: Large fluid collection containing air bubbles suspicous for abscess involving the region of left biceps measuring approximately [id number] - pt afebrile, leukocytosis downtrending - Vancomycin 1gram Q12 H - Zosyn 3.375gm Q6H - Gentamycin 80mg IV q8h - Lidocaine 5% topical q6h PRN for mild pain - Toradol 15 IVP Q6 PRN for Moderate Pain - Ultram 50 TID PRN for Severe Pain - ID consulted, Dr. Brandy hirsch appreciated - Ortho consulted, Dr. Ramsey hirsch appreciated B/L Foot Cellulitis - for OR tomorrow with podiatry for b/l foot I&D, pt hemodynamically stable for procedure - s/p bedside wound care with podiatry - MRI feet: cellulitis, possible osteomyelitis - CT L foot: extensive subcutaneous edema noted especially at dorsal aspect of foot and ankle, Degenerative changes first tarsal and tarsometatarsal joints, Plantar calcanial spur - Wound Cx: Staph aureus, only resistant to penicillin - Vancomycin 1gram Q12 H - Zosyn 3.375gm Q6H - Gentamycin 80mg IV q8h - f/u new b/l feet Cx - ID consulted, Dr. Brandy hirsch appreciated - Podiatry consulted, Dr. 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 Leonel hirsch appreciated Anemia - H/H 03/06.6 - Low Iron - Ferrous Sulfate 325mg PO Daily Depression/Anxiety/Schizophrenia - Hx of Multiple Psych Admission - Psych consulted for depressed mood and med recs PPx GI: Protonix DVT: Lovenox NPO PM except meds Pt seen and case discussed with Dr. Rose <Scottie Rose H - Last Filed: 06/20/18 15:57> Objective - Vital Signs/Intake and Output Vital Signs (last 24 hours): Temp Pulse Resp BP Pulse Ox 98.6 F 109 H 20 135/89 99 06/20/18 15:30 06/20/18 15:30 06/20/18 07:00 06/20/18 15:30 06/20/18 15:30 Intake and Output: 06/20/18 06/20/18 06:59 18:59 Intake Total 2000 Output Total 2950 Balance -950 - Medications Medications: Current Medications Acetaminophen (Tylenol 325mg Tab) 650 mg PO Q6 PRN PRN Reason: Fever >100.4 F Aripiprazole (Abilify) 5 mg PO [facility] Last Admin: 06/19/18 21:49 Dose: 5 mg Clonazepam (Klonopin) 0.5 mg PO BID [facility] Last Admin: 06/20/18 10:16 Dose: 0.5 mg Enoxaparin Sodium (Lovenox) 40 mg SC DAILY [facility] Last Admin: 06/20/18 10:19 Dose: 40 mg Ferrous Sulfate (Feosol) 325 mg PO DAILY [facility] Last Admin: 06/20/18 10:16 Dose: 325 mg Fluoxetine HCl (Prozac) 20 mg PO DAILY [facility] Last Admin: 06/20/18 10:05 Dose: 20 mg Glucagon (Glucagen Diagnostic Kit) 0 mg IM STAT PRN; Protocol PRN Reason: Hypoglycemia Protocol Piperacillin Sod/Tazobactam Sod (Zosyn 3.375 Gm Iv Premix) 3.375 gm in 50 mls @ 200 mls/hr IVPB Q6H [facility]; Protocol Last Admin: 06/20/18 14:00 Dose: 200 mls/hr Vancomycin HCl 1.2 gm/ Sodium (Chloride) 250 mls @ 166.7 mls/hr IVPB Q12H [facility]; Protocol Last Admin: 06/20/18 10:17 Dose: 166.7 mls/hr Gentamicin Sulfate/Sodium Chloride (Gentamicin 80mg/100ml Ns) 80 mg in 100 mls @ 100 mls/hr IVPB Q12 [facility]; Protocol Last Admin: 06/20/18 10:18 Dose: 100 mls/hr Insulin Glargine (Lantus) 20 unit SC [facility] Last Admin: 06/19/18 22:04 Dose: 20 units Insulin Human Regular (Novolin R) 0 unit SC [facility]; Protocol Last Admin: 06/20/18 13:00 Dose: 8 units Ketorolac Tromethamine (Toradol) 15 mg IVP Q6 PRN PRN Reason: Pain, moderate (4-7) Last Admin: 06/20/18 10:17 Dose: 15 mg Lidocaine (Lidocaine 5%) 1 gm TOP Q6H PRN PRN Reason: Pain, Mild (1-3) Last Admin: 06/18/18 12:32 Dose: 1 applic Pantoprazole Sodium (Protonix Ec Tab) 40 mg PO Q24H [facility] Last Admin: 06/20/18 06:14 Dose: 40 mg Potassium Chloride (K-Dur 20 Meq Er Tab) 20 meq PO DAILY [facility] Last Admin: 06/20/18 10:16 Dose: 20 meq Tramadol HCl (Ultram) 50 mg PO TID PRN PRN Reason: Pain, severe (8-10) Last Admin: 06/18/18 09:11 Dose: 50 mg - Labs Labs: 06/20/18 07:22 06/20/18 13:56 PT 15.8 SECONDS (9.7-12.2) H 06/19/18 06:32 INR 1.4 06/19/18 06:32 APTT 30 SECONDS (21-34) 06/19/18 06:32 Attending/Attestation - Attestation I have personally seen and examined this patient.: Yes I have fully participated in the care of the patient.: Yes I have reviewed all pertinent clinical information, including history, physical exam and plan: Yes Notes (Text): 06/20/18 15:56 Medical attending: Patient was seen and examined by me with the medical device Reviewed the above note by the resident and agree with the above note The patient yesterday had a bedside ID of the left elbow and left tricpet area abcesss that was seen on MRI This morning he was pending additional lower extremity MRI imaging of the foot as he has had mutliple foot wounds Remains on the IV abx Scottie Rose
[2018-06-20] MEDS: Potassium Chloride 20 mEq ER Tab PO SCH (10:16)
[2018-06-20] MEDS: Vancomycin 1.2 GM in Sodium Chloride 0.9% 250 ML IVPB SCH ×2 (10:17→21:52)
[2018-06-20] MEDS: Gentamicin 80 mg in 0.9% NS 80 MG/100 ML BAG IVPB SCH ×2 (10:18→21:51)
[2018-06-20] MEDS: Enoxaparin 40 mg Syringe SC SCH (10:19)
--- NOTE | 2018-06-20 10:22 | CP.PCM.PN ---
Subjective - Date & Time of Evaluation Date of Evaluation: 06/20/18 Time of Evaluation: 10:20 - Subjective Subjective: given tovalptan 06/19 Na increased to 133- acceptable increase advised continued po fluid restriction Objective - Vital Signs/Intake and Output Vital Signs (last 24 hours): Temp Pulse Resp BP Pulse Ox 97.7 F 75 20 115/74 97 06/20/18 07:00 06/20/18 07:00 06/20/18 07:00 06/20/18 07:00 06/20/18 07:00 Intake and Output: 06/20/18 06/20/18 06:59 18:59 Intake Total 2000 Output Total 2950 Balance -950 - Medications Medications: Current Medications Acetaminophen (Tylenol 325mg Tab) 650 mg PO Q6 PRN PRN Reason: Fever >100.4 F Aripiprazole (Abilify) 5 mg PO HS [facility] Last Admin: 06/19/18 21:49 Dose: 5 mg Clonazepam (Klonopin) 0.5 mg PO BID [facility] Last Admin: 06/20/18 10:16 Dose: 0.5 mg Enoxaparin Sodium (Lovenox) 40 mg SC DAILY [facility] Last Admin: 06/18/18 09:17 Dose: Not Given Ferrous Sulfate (Feosol) 325 mg PO DAILY [facility] Last Admin: 06/20/18 10:16 Dose: 325 mg Fluoxetine HCl (Prozac) 20 mg PO DAILY [facility] Last Admin: 06/19/18 10:20 Dose: 20 mg Glucagon (Glucagen Diagnostic Kit) 0 mg IM STAT PRN; Protocol PRN Reason: Hypoglycemia Protocol Piperacillin Sod/Tazobactam Sod (Zosyn 3.375 Gm Iv Premix) 3.375 gm in 50 mls @ 200 mls/hr IVPB Q6H [facility]; Protocol Last Admin: 06/20/18 06:15 Dose: 200 mls/hr Vancomycin HCl 1.2 gm/ Sodium (Chloride) 250 mls @ 166.7 mls/hr IVPB Q12H [facility]; Protocol Last Admin: 06/20/18 10:17 Dose: 166.7 mls/hr Gentamicin Sulfate/Sodium Chloride (Gentamicin 80mg/100ml Ns) 80 mg in 100 mls @ 100 mls/hr IVPB Q12 [facility]; Protocol Last Admin: 06/20/18 10:18 Dose: 100 mls/hr Insulin Glargine (Lantus) 20 unit SC [facility] Last Admin: 06/19/18 22:04 Dose: 20 units Insulin Human Regular (Novolin R) 0 unit SC [facility]; Protocol Last Admin: 06/20/18 08:19 Dose: 4 units Ketorolac Tromethamine (Toradol) 15 mg IVP Q6 PRN PRN Reason: Pain, moderate (4-7) Last Admin: 06/20/18 10:17 Dose: 15 mg Lidocaine (Lidocaine 5%) 1 gm TOP Q6H PRN PRN Reason: Pain, Mild (1-3) Last Admin: 06/18/18 12:32 Dose: 1 applic Pantoprazole Sodium (Protonix Ec Tab) 40 mg PO Q24H [facility] Last Admin: 06/20/18 06:14 Dose: 40 mg Potassium Chloride (K-Dur 20 Meq Er Tab) 20 meq PO DAILY [facility] Last Admin: 06/20/18 10:16 Dose: 20 meq Tramadol HCl (Ultram) 50 mg PO TID PRN PRN Reason: Pain, severe (8-10) Last Admin: 06/18/18 09:11 Dose: 50 mg - Labs Labs: 06/20/18 07:22 06/20/18 07:22 PT 15.8 SECONDS (9.7-12.2) H 06/19/18 06:32 INR 1.4 06/19/18 06:32 APTT 30 SECONDS (21-34) 06/19/18 06:32 - Constitutional Appears: No Acute Distress, Chronically Ill - Head Exam Head Exam: ATRAUMATIC, NORMAL INSPECTION - Eye Exam Eye Exam: EOMI, Normal appearance - Neck Exam Neck Exam: Normal Inspection. absent: Tenderness - Respiratory Exam Respiratory Exam: Clear to Ausculation Bilateral, NORMAL BREATHING PATTERN - Cardiovascular Exam Cardiovascular Exam: REGULAR RHYTHM, +S1 - GI/Abdominal Exam GI & Abdominal Exam: Soft. absent: Tenderness - Neurological Exam Neurological Exam: Alert, Awake - Skin Skin Exam: Dry, Warm Assessment and Plan (1) Hyponatremia Status: Acute (2) Type 2 diabetes mellitus without complications Status: Acute (3) PVD (peripheral vascular disease) Status: Acute (4) Excessive fluid intake Status: Acute (5) HTN (hypertension) Status: Chronic - Assessment and Plan (Free Text) Plan: po fluid restriction stop IV NS
--- NOTE | 2018-06-20 11:48 | MRI ---
MRI right forefoot HISTORY: Evaluate for osteomyelitis. COMPARISON: X-ray dated 06/19/2018 Technique: Multi-echo multiplanar sequences were performed through the right forefoot without the use of intravenous contrast. FINDINGS: Again identified is a prominent dislocation of the 1st metatarsal head in relationship to the first proximal phalanx. Cortical irregularity with productive bone formation noted at the level of the 1st metatarsal head. Signal abnormality within the visualized 1st metatarsal head with patchy decreased T1 signal and increased STIR signal which may be the sequelae of acute infectious and or inflammatory changes possibly superimposed acute on chronic osteomyelitic changes. Clinical correlation. Fluid at the 1st MTP joint space. Additional mild reactive edema at the base of the 1st metatarsal bone. Again identified is deformity at the base of the 2nd proximal phalanx and head of the 2nd metatarsal bone with foreshortening of the 2nd metatarsal bone. Patchy signal abnormality within the residual metatarsal shaft demonstrating patchy decreased T1 and increased STIR signal which may represent the sequelae of postsurgical changes versus sequelae of post inflammatory and or infectious changes. Clinical correlation. Additional cortical irregularity with focal decreased T1 signal seen at the base of the 2nd proximal phalanx concerning for osteonecrotic changes. Deformity noted at the head of the 3rd metatarsal bone with foreshortening. Some minimal nonspecific reactive edema seen within the 3rd metatarsal shaft. Nonspecific reactive edema seen within the head of the 4th metatarsal bone as well as within the 4th proximal phalanx with only minimal patchy decreased T1 signal. Reticulation and edema suggestive for cellulitis seen within the lateral soft tissues at the level of the 5th digit with a suggestion of a questionable punctate foci of air noted at that level for which underlying gas gangrene cannot be excluded. Clinical correlation. Within the soft tissues adjacent to the 5th metatarsal bone at its dorsal midportion there is a 1.5 x 1.0 x 1.0 centimeter rounded lobulated foci within additional rounded lobulated foci seen volarly at the lateral aspect of the 5th metatarsal head measuring 1.5 x 1.8 x 1.7 centimeters. These demonstrate decreased T1 signal and increased STIR signal. These are of uncertain clinical etiology and small abscesses and or phlegmonous collections and/or soft tissue lesions and or additional etiology cannot be excluded. Clinical correlation. These are best seen on series 8, image 15 and series 8, image 9. Signal abnormality within the 5th proximal and middle phalanges with patchy decreased T1 signal and increased STIR signal adjacent to the presumed cellulitic changes concerning for acute infectious and inflammatory changes possibly developing acute osteomyelitic changes. Clinical correlation. Additional nonspecific reactive edema at the 5th metatarsal head. Mild fraying with increased signal seen at the level of the Lisfranc ligament which may represent a sprain and or partial tearing. Clinical correlation. Impression: 1. Reticulation and edema suggestive for cellulitis seen within the lateral soft tissues at the level of the 5th digit with a suggestion of a questionable punctate foci of air noted at that level for which underlying gas gangrene cannot be excluded. Clinical correlation. Within the soft tissues adjacent to the 5th metatarsal bone at its dorsal midportion there is a 1.5 x 1.0 x 1.0 centimeter rounded lobulated foci within additional rounded lobulated foci seen volarly at the lateral aspect of the 5th metatarsal head measuring 1.5 x 1.8 x 1.7 centimeters. These demonstrate decreased T1 signal and increased STIR signal. These are of uncertain clinical etiology and small abscesses and or phlegmonous collections and/or soft tissue lesions and or additional etiology cannot be excluded. Clinical correlation. These are best seen on series 8, image 15 and series 8, image 9. 2. Signal abnormality within the 5th proximal and middle phalanges with patchy decreased T1 signal and increased STIR signal adjacent to the presumed cellulitic changes concerning for acute infectious and inflammatory changes possibly developing acute osteomyelitic changes. Clinical correlation. Additional nonspecific reactive edema at the 5th metatarsal head. 3. Again identified is a prominent dislocation of the 1st metatarsal head in relationship to the first proximal phalanx. Cortical irregularity with productive bone formation noted at the level of the 1st metatarsal head. Signal abnormality within the visualized 1st metatarsal head with patchy decreased T1 signal and increased STIR signal which may be the sequelae of acute infectious and or inflammatory changes possibly superimposed acute on chronic osteomyelitic changes. Clinical correlation. Fluid at the 1st MTP joint space. Additional mild reactive edema at the base of the 1st metatarsal bone. 4. Again identified is deformity at the base of the 2nd proximal phalanx and head of the 2nd metatarsal bone with foreshortening of the 2nd metatarsal bone. Patchy signal abnormality within the residual metatarsal shaft demonstrating patchy decreased T1 and increased STIR signal which may represent the sequelae of postsurgical changes versus sequelae of post inflammatory and or infectious changes. Clinical correlation. Additional cortical irregularity with focal decreased T1 signal seen at the base of the 2nd proximal phalanx concerning for osteonecrotic changes. 5. Deformity noted at the head of the 3rd metatarsal bone with foreshortening. Some minimal nonspecific reactive edema seen within the 3rd metatarsal shaft. 6. Nonspecific reactive edema seen within the head of the 4th metatarsal bone as well as within the 4th proximal phalanx with only minimal patchy decreased T1 signal. Clinical correlation. 7. Mild fraying with increased signal seen at the level of the Lisfranc ligament which may represent a sprain and or partial tearing. Clinical correlation.
--- NOTE | 2018-06-20 13:44 | CP.PCM.PN ---
Subjective - Date & Time of Evaluation Date of Evaluation: 06/20/18 Time of Evaluation: 14:00 - Subjective Subjective: Podiatry Progress Note Dr. Ngo/Dr. Antunez 47M with PMH of DM II (uncontrolled), HTN, Anxiety, Depression, Schizophrenia seen and evaluated at bedside for infected bilateral foot ulcerations with abscess and likely underlying OM. Patient is seen resting comfortably in bed, in NAD, and AA0x3. Patient reports that he could not sleep well last night due to being anxious about his feet. Reports the feet looks bad during the dressing ch mateusz yesterday. Denies of pain to the lower extremity. Reports had the incision and drainage of the right elbow. Reports feeling chills. Denies fever, shortness of breath, chest pains or chills. Objective - Vital Signs/Intake and Output Vital Signs (last 24 hours): Temp Pulse Resp BP Pulse Ox 97.7 F 75 20 115/74 97 06/20/18 07:00 06/20/18 07:00 06/20/18 07:00 06/20/18 07:00 06/20/18 07:00 Intake and Output: 06/20/18 06/20/18 06:59 18:59 Intake Total 2000 Output Total 2950 Balance -950 - Medications Medications: Current Medications Acetaminophen (Tylenol 325mg Tab) 650 mg PO Q6 PRN PRN Reason: Fever >100.4 F Aripiprazole (Abilify) 5 mg PO HS [facility] Last Admin: 06/19/18 21:49 Dose: 5 mg Clonazepam (Klonopin) 0.5 mg PO BID [facility] Last Admin: 06/20/18 10:16 Dose: 0.5 mg Enoxaparin Sodium (Lovenox) 40 mg SC DAILY [facility] Last Admin: 06/20/18 10:19 Dose: 40 mg Ferrous Sulfate (Feosol) 325 mg PO DAILY [facility] Last Admin: 06/20/18 10:16 Dose: 325 mg Fluoxetine HCl (Prozac) 20 mg PO DAILY [facility] Last Admin: 06/20/18 10:05 Dose: 20 mg Glucagon (Glucagen Diagnostic Kit) 0 mg IM STAT PRN; Protocol PRN Reason: Hypoglycemia Protocol Piperacillin Sod/Tazobactam Sod (Zosyn 3.375 Gm Iv Premix) 3.375 gm in 50 mls @ 200 mls/hr IVPB Q6H [facility]; Protocol Last Admin: 06/20/18 06:15 Dose: 200 mls/hr Vancomycin HCl 1.2 gm/ Sodium (Chloride) 250 mls @ 166.7 mls/hr IVPB Q12H [facility]; Protocol Last Admin: 06/20/18 10:17 Dose: 166.7 mls/hr Gentamicin Sulfate/Sodium Chloride (Gentamicin 80mg/100ml Ns) 80 mg in 100 mls @ 100 mls/hr IVPB Q12 [facility]; Protocol Last Admin: 06/20/18 10:18 Dose: 100 mls/hr Insulin Glargine (Lantus) 20 unit SC HS [facility] Last Admin: 06/19/18 22:04 Dose: 20 units Insulin Human Regular (Novolin R) 0 unit SC ACHS [facility]; Protocol Last Admin: 06/20/18 13:00 Dose: 8 units Ketorolac Tromethamine (Toradol) 15 mg IVP Q6 PRN PRN Reason: Pain, moderate (4-7) Last Admin: 06/20/18 10:17 Dose: 15 mg Lidocaine (Lidocaine 5%) 1 gm TOP Q6H PRN PRN Reason: Pain, Mild (1-3) Last Admin: 06/18/18 12:32 Dose: 1 applic Pantoprazole Sodium (Protonix Ec Tab) 40 mg PO Q24H [facility] Last Admin: 06/20/18 06:14 Dose: 40 mg Potassium Chloride (K-Dur 20 Meq Er Tab) 20 meq PO DAILY [facility] Last Admin: 06/20/18 10:16 Dose: 20 meq Tramadol HCl (Ultram) 50 mg PO TID PRN PRN Reason: Pain, severe (8-10) Last Admin: 06/18/18 09:11 Dose: 50 mg - Labs Labs: 06/20/18 07:22 06/20/18 07:22 PT 15.8 SECONDS (9.7-12.2) H 06/19/18 06:32 INR 1.4 06/19/18 06:32 APTT 30 SECONDS (21-34) 06/19/18 06:32 - Constitutional Appears: Well, Non-toxic, No Acute Distress - Extremities Exam Extremities Exam: absent: Calf Tenderness Additional comments: Bilateral LE focused Vasc: DP and PT pulses weakly palpable 1/4 b/l. CFT <3 seconds to all digits. Temperature gradient warm to warm. Edema noted to the left and right foot. Increase pitting swelling noted to left ankle Neuro: Gross and protective sensation diminished bilaterally. Derm: Ulceration at right sub met 5 ulceration measuring approximately 2 cm in diameter x .1 cm and ulceration at the lateral aspect of 5th metatarsal head ulceration measures approximately 1.5 cm in diameter x .2 cm, probe to bone, wound base is granular, periwound with sloughing and macerated, odorous, active sangious and purulence drainage noted from wound Ulceration located in the 3rd interspace on the medial aspect of 3rd digit. Ulceration measures approximately 1 cm in diameter x .3 in depth, probe to bone, wound base is granular, periwound intact, odorous, active sangious and purulence drainage noted from wound. During examination today, ankle joint is fluctanance with fluid filled consistent with abscess Previous left hallux partial amputation completely healed. Ortho: No pain on palpation to the entire lower extremity and ulceration sites. Healed s/p left partial hallux amputation. Muscle strength 5/5 for all dors iflexors, plantarflexors, inverters, and everters b/l. - Neurological Exam Neurological Exam: Alert, Awake, Oriented x3 - Psychiatric Exam Psychiatric exam: Anxious, Normal Mood Assessment and Plan - Assessment and Plan (Free Text) Assessment: 47M with PMH of DM II (uncontrolled), HTN, Anxiety, Depression, Schizophrenia seen and evaluated at bedside for infected bilateral foot ulcerations with abscess and likely underlying OM. Plan: Patient seen and evaluated Discussed plan in detail with attending Dr. Ngo/Dr. Antunez Charts, vitals, labs reviewed- afebrile, absent leukocytosis Cleansed ulceration with copious amounts of saline and betadine solution Left foot ankle fluctanance noted, expressed 30 cc of dark red, purulence drainage from the left ankle and foot through the 3rd interspace ulceration. Patient will require surgical intervention. Explained to the patient plan and patient agrees. Patient is scheduled for incision and drainage and debridement of LEFT and RIGHT lower extremity tomorrow 06/21/18 at 3:45PM pending medical clearance. Please provide medical clearance, thank you Expressed approximately additional 5cc of purulence from left foot, expressed 5cc of purulence from right foot. Wound culture of left foot 3rd interspace ulceration and right foot lateral forefoot ulcer - pending X-rays ordered of left and right foot CRP, ESR ordered MRI ordered left and right lower extremity to r/o OM and abscess Infectious disease consulted- recommendations appreciated Continue IV abx per ID Patient may WBAT in surgical shoe to bilateral foot Please dispense surgical shoe Will continue to follow patient while in house Thank you for allowing us to participate in patient's care
[2018-06-20 15:19] LABS: BLOOD UREA NITROGEN 9 mg/dL (9-20); CALCIUM 7.9 mg/dl (8.6-10.4); GFR NON-AFRICAN AMERICAN > 60
--- NOTE | 2018-06-20 15:27 | CP.PCM.PN ---
Subjective - Date & Time of Evaluation Date of Evaluation: 06/20/18 Time of Evaluation: 14:00 - Subjective Subjective: Patient states elbow pain is controlled. Feels better after I&D. Denies numbness/tingling Objective - Vital Signs/Intake and Output Vital Signs (last 24 hours): Temp Pulse Resp BP Pulse Ox 97.7 F 71 20 115/74 97 06/20/18 07:00 06/20/18 07:25 06/20/18 07:00 06/20/18 07:00 06/20/18 07:00 Intake and Output: 06/20/18 06/20/18 06:59 18:59 Intake Total 2000 Output Total 2950 Balance -950 - Medications Medications: Current Medications Acetaminophen (Tylenol 325mg Tab) 650 mg PO Q6 PRN PRN Reason: Fever >100.4 F Aripiprazole (Abilify) 5 mg PO HS [facility] Last Admin: 06/19/18 21:49 Dose: 5 mg Clonazepam (Klonopin) 0.5 mg PO BID [facility] Last Admin: 06/20/18 10:16 Dose: 0.5 mg Enoxaparin Sodium (Lovenox) 40 mg SC DAILY [facility] Last Admin: 06/20/18 10:19 Dose: 40 mg Ferrous Sulfate (Feosol) 325 mg PO DAILY [facility] Last Admin: 06/20/18 10:16 Dose: 325 mg Fluoxetine HCl (Prozac) 20 mg PO DAILY [facility] Last Admin: 06/20/18 10:05 Dose: 20 mg Glucagon (Glucagen Diagnostic Kit) 0 mg IM STAT PRN; Protocol PRN Reason: Hypoglycemia Protocol Piperacillin Sod/Tazobactam Sod (Zosyn 3.375 Gm Iv Premix) 3.375 gm in 50 mls @ 200 mls/hr IVPB Q6H [facility]; Protocol Last Admin: 06/20/18 14:00 Dose: 200 mls/hr Vancomycin HCl 1.2 gm/ Sodium (Chloride) 250 mls @ 166.7 mls/hr IVPB Q12H [facility]; Protocol Last Admin: 06/20/18 10:17 Dose: 166.7 mls/hr Gentamicin Sulfate/Sodium Chloride (Gentamicin 80mg/100ml Ns) 80 mg in 100 mls @ 100 mls/hr IVPB Q12 [facility]; Protocol Last Admin: 01/10/19 10:18 Dose: 100 mls/hr Insulin Glargine (Lantus) 20 unit SC HS [facility] Last Admin: 06/19/18 22:04 Dose: 20 units Insulin Human Regular (Novolin R) 0 unit SC ACHS [facility]; Protocol Last Admin: 06/20/18 13:00 Dose: 8 units Ketorolac Tromethamine (Toradol) 15 mg IVP Q6 PRN PRN Reason: Pain, moderate (4-7) Last Admin: 06/20/18 10:17 Dose: 15 mg Lidocaine (Lidocaine 5%) 1 gm TOP Q6H PRN PRN Reason: Pain, Mild (1-3) Last Admin: 06/18/18 12:32 Dose: 1 applic Pantoprazole Sodium (Protonix Ec Tab) 40 mg PO Q24H [facility] Last Admin: 06/20/18 06:14 Dose: 40 mg Potassium Chloride (K-Dur 20 Meq Er Tab) 20 meq PO DAILY [facility] Last Admin: 06/20/18 10:16 Dose: 20 meq Tramadol HCl (Ultram) 50 mg PO TID PRN PRN Reason: Pain, severe (8-10) Last Admin: 06/18/18 09:11 Dose: 50 mg - Labs Labs: 06/20/18 07:22 06/20/18 13:56 PT 15.8 SECONDS (9.7-12.2) H 06/19/18 06:32 INR 1.4 06/19/18 06:32 APTT 30 SECONDS (21-34) 06/19/18 06:32 - Extremities Exam Additional comments: +ROM fingers/wrist, sensation intact, +radial pulse Assessment and Plan (1) Abscess of left arm Assessment & Plan: s/p bedside I&D f/u cultures d/w Dr. Mustafa, agrees with above treatment as per ID, MRI suggestive of OM Status: Acute (2) DM type 2, uncontrolled, with lower extremity ulcer Status: Acute
--- NOTE | 2018-06-20 16:31 | MRI ---
MRI left forefoot HISTORY: Ulceration. Evaluate for osteomyelitis. COMPARISON: X-ray dated 06/19/2018 Technique: Multi-echo multiplanar sequences were performed through the left forefoot without the use of intravenous contrast. Findings: Moderate tenosynovitis of the extensor digitorum tendon sheaths with a moderate to severe tenosynovitis of the 3rd and 4th extensor tendons concerning for an infected tenosynovitis of the 3rd and 4th extensor tendons. At the interspace between the 3rd and 4th metatarsal bones, there is a suggestion of a confluent fluid intensity signal collection measuring 4.2 x 1.1 x 2.0 centimeters concerning for an abscess collection which extends volarly to the undersurface of the 3rd metatarsal head. Extensive signal abnormality within the adjacent 3rd and 4th digits including the 3rd proximal and middle phalanges as well as the 3rd metatarsal shaft and head as well as the 4th proximal and middle phalanges as well as the 4th metatarsal shaft and head with patchy decreased T1 signal and increased STIR signal concerning for acute osteomyelitis at these levels. Additional signal abnormality with patchy decreased T1 signal and increased STIR signal seen within the 2nd distal phalanx also concerning for possible acute osteomyelitis at this level. Resection of the 1st digit to the level of the head of the 1st proximal phalanx with some reactive increased STIR signal seen within the distal remnant of the 1st metatarsal bone suggestive for postsurgical changes however acute inflammatory and or infectious changes at these levels cannot be excluded. In addition, there is some mild thinning and fraying of the dorsal aspect of the Lisfranc ligament which may represent a sprain and or mild partial tearing. At the level of the midfoot centered at the 2nd and 3rd metatarsal bases as well as at the medial middle and lateral cuneiform bones as well as a portion of the cuboid bone, there is patchy decreased T1 signal with some patchy increased STIR signal. These changes may be the sequelae of neuropathic change however acute inflammatory and or infectious changes at these levels cannot be excluded. Clinical correlation. Mild nonspecific reactive edema at the level of the 5th proximal phalanx. Extensive reticulation and edema within the visualized musculature suggestive for myositis. Impression: 1. Moderate tenosynovitis of the extensor digitorum tendon sheaths with a moderate to severe tenosynovitis of the 3rd and 4th extensor tendons concerning for an infected tenosynovitis of the 3rd and 4th extensor tendons. At the interspace between the 3rd and 4th metatarsal bones, there is a suggestion of a confluent fluid intensity signal collection measuring 4.2 x 1.1 x 2.0 centimeters concerning for an abscess collection which extends volarly to the undersurface of the 3rd metatarsal head. 2. Extensive signal abnormality within the adjacent 3rd and 4th digits including the 3rd proximal and middle phalanges as well as the 3rd metatarsal shaft and head as well as the 4th proximal and middle phalanges as well as the 4th metatarsal shaft and head with patchy decreased T1 signal and increased STIR signal concerning for acute osteomyelitis at these levels. 3. Additional signal abnormality with patchy decreased T1 signal and increased STIR signal seen within the 2nd distal phalanx also concerning for possible acute osteomyelitis at this level. 4. Resection of the 1st digit to the level of the head of the 1st proximal phalanx with some reactive increased STIR signal seen within the distal remnant of the 1st metatarsal bone suggestive for postsurgical changes however acute inflammatory and or infectious changes at these levels cannot be excluded. 5. In addition, there is some mild thinning and fraying of the dorsal aspect of the Lisfranc ligament which may represent a sprain and or mild partial tearing. 6. At the level of the midfoot centered at the 2nd and 3rd metatarsal bases as well as at the medial middle and lateral cuneiform bones as well as a portion of the cuboid bone, there is patchy decreased T1 signal with some patchy increased STIR signal. These changes may be the sequelae of neuropathic change however acute inflammatory and or infectious changes at these levels cannot be excluded. Clinical correlation. 7. Mild nonspecific reactive edema at the level of the 5th proximal phalanx. 8. Extensive reticulation and edema within the visualized musculature suggestive for myositis.
--- NOTE | 2018-06-20 18:29 | RAD ---
Date of service: 06/19/2018 PROCEDURE: Bilateral Feet Radiographs. HISTORY: left and right foot diabetic infection COMPARISON: June 20, 2018 MRI left foot. June 20, 2018 MRI right foot. FINDINGS: BONES: Right Foot: No compelling evidence for acute osteomyelitis. Erosive changes 2nd and 3rd distal metatarsals. Small calcaneal plantar spur. Left Foot: Surgical amputation of the distal tuft left 1st digit no compelling evidence for acute osteomyelitis. JOINTS: Right Foot: Multiple hammertoe deformities. Left Foot: Multiple hammertoe deformities. SOFT TISSUES: Right Foot: Normal. Left Foot: Soft tissue swelling without an acute osseous component OTHER FINDINGS: None. IMPRESSION: No acute osseous findings. Soft tissue swelling asymmetric left foot compared to right.
--- NOTE | 2018-06-20 19:18 | CP.PCM.PN ---
Subjective - Date & Time of Evaluation Date of Evaluation: 06/20/18 Time of Evaluation: 16:00 - Subjective Subjective: dictated Objective - Vital Signs/Intake and Output Vital Signs (last 24 hours): Temp Pulse Resp BP Pulse Ox 98.6 F 109 H 20 135/89 99 06/20/18 15:30 06/20/18 15:30 06/20/18 07:00 06/20/18 15:30 06/20/18 15:30 Intake and Output: 06/20/18 06/21/18 18:59 06:59 Intake Total 400 Balance 400 - Medications Medications: Current Medications Acetaminophen (Tylenol 325mg Tab) 650 mg PO Q6 PRN PRN Reason: Fever >100.4 F Aripiprazole (Abilify) 5 mg PO HS [facility] Last Admin: 06/19/18 21:49 Dose: 5 mg Clonazepam (Klonopin) 0.5 mg PO BID [facility] Last Admin: 06/20/18 18:12 Dose: 0.5 mg Enoxaparin Sodium (Lovenox) 40 mg SC DAILY [facility] Last Admin: 06/20/18 10:19 Dose: 40 mg Ferrous Sulfate (Feosol) 325 mg PO DAILY [facility] Last Admin: 06/20/18 10:16 Dose: 325 mg Fluoxetine HCl (Prozac) 20 mg PO DAILY [facility] Last Admin: 06/20/18 10:05 Dose: 20 mg Glucagon (Glucagen Diagnostic Kit) 0 mg IM STAT PRN; Protocol PRN Reason: Hypoglycemia Protocol Piperacillin Sod/Tazobactam Sod (Zosyn 3.375 Gm Iv Premix) 3.375 gm in 50 mls @ 200 mls/hr IVPB Q6H [facility]; Protocol Last Admin: 06/20/18 18:12 Dose: 200 mls/hr Vancomycin HCl 1.2 gm/ Sodium (Chloride) 250 mls @ 166.7 mls/hr IVPB Q12H [facility]; Protocol Last Admin: 06/20/18 10:17 Dose: 166.7 mls/hr Gentamicin Sulfate/Sodium Chloride (Gentamicin 80mg/100ml Ns) 80 mg in 100 mls @ 100 mls/hr IVPB Q12 [facility]; Protocol Last Admin: 06/20/18 10:18 Dose: 100 mls/hr Insulin Glargine (Lantus) 20 unit SC [facility] Last Admin: 06/19/18 22:04 Dose: 20 units Insulin Human Regular (Novolin R) 0 unit SC ACHS [facility]; Protocol Last Admin: 06/20/18 18:23 Dose: 4 units Ketorolac Tromethamine (Toradol) 15 mg IVP Q6 PRN PRN Reason: Pain, moderate (4-7) Last Admin: 06/20/18 18:22 Dose: 15 mg Lidocaine (Lidocaine 5%) 1 gm TOP Q6H PRN PRN Reason: Pain, Mild (1-3) Last Admin: 06/18/18 12:32 Dose: 1 applic Pantoprazole Sodium (Protonix Ec Tab) 40 mg PO Q24H [facility] Last Admin: 06/20/18 06:14 Dose: 40 mg Potassium Chloride (K-Dur 20 Meq Er Tab) 20 meq PO DAILY [facility] Last Admin: 06/20/18 10:16 Dose: 20 meq Tramadol HCl (Ultram) 50 mg PO TID PRN PRN Reason: Pain, severe (8-10) Last Admin: 06/18/18 09:11 Dose: 50 mg - Labs Labs: 06/20/18 07:22 06/20/18 13:56 PT 15.8 SECONDS (9.7-12.2) H 06/19/18 06:32 INR 1.4 06/19/18 06:32 APTT 30 SECONDS (21-34) 06/19/18 06:32
[2018-06-20] MEDS: (Lantus) Insulin Glargine, Recombinant SC SCH (21:55)
--- NOTE | 2018-06-21 00:45 | PN ---
DATE: 06/20/2018 SUBJECTIVE: He still says, he is in pain. OBJECTIVE: VITAL SIGNS: His T-max was 99.7, and we will see if it was higher than 99.7, and he has OR dressing on the left arm. His heart rate is 109, blood pressure 135/89, respirations are 20. He is still complaining of pain but that is improving. HEENT: Head is atraumatic, normocephalic. NECK: Supple. LUNGS: Clear. HEART: S1, S2 regular. ABDOMEN: Soft, nontender. EXTREMITIES: Bilaterally have dressings at this time. He said he had further studies done for the feet so we will look into those. Left arm remains with dressing, and we will follow. Labs show white count is 5.9, hemoglobin 9 , hematocrit 26.6, platelet count is 408. ESR is 132, and his sugar is 233. It was 339, to be better controlled. C-reactive is 55. The wound culture from 04/19 on the foot was Staph aureus and on the wound culture from the left foot and right foot; he had blood cultures which showed group A strep infection in the blood and Staph aureus. He grew two organisms in the blood. So he came in with really septicemia with Staph aureus and group A strep with a left arm cellulitis, bursitis, myositis, and has bilateral foot infections with staph aureus. He has had previously infections in the foot and he had MRIs done of both the feet, and the MRI shows, there is a pretty extensive report. We will review it and then we will see what the configuration developer makes out of it. At this time, I will continue the same antibiotics to monitor his labs as he is still having fevers, low grade temps, and he remains anemic with a white count of 9, platelet of 408. We will probably discontinue gentamicin if he remains afebrile for 24 hours and continue the other two antibiotics for now. Joy Nava MD
[2018-06-21] MEDS: Piperacill/Tazo 3.375gm in Dex 3.375 GM/50 ML BAG IVPB SCH ×4 (01:15→20:00)
[2018-06-21] MEDS: Pantoprazole 40 mg EC Tab PO SCH (06:20)
[2018-06-21 06:44] LABS: BASO # 0.1 K/uL (0.0-0.2); EOS # 0.2 K/uL (0.0-0.7); HEMOGLOBIN 8.5 g/dL (12.0-18.0); LYMPH # 2.1 K/uL (1.0-4.3); LYMPH % 38.8 % (20.0-40.0); MEAN CELL VOLUME 96.6 fL (80.0-94.0); MEAN CORPUSCULAR HEMOGLOBIN 32.5 pg (27.0-31.0); MEAN CORPUSCULAR HGB CONC 33.6 g/dL (33.0-37.0); MEAN PLATELET VOLUME 8.9 fL (7.2-11.7); MONO # 0.7 K/uL (0.0-0.8); MONO % 12.4 % (0.0-10.0); NEUT # 2.4 K/uL (1.8-7.0); NEUT % 44.8 % (50.0-75.0); RBC 2.63 Mil/uL (4.40-5.90); RED CELL DISTRIBUTION WIDTH 15.1 % (11.5-14.5); WHITE BLOOD COUNT 5.3 K/uL (4.8-10.8)
[2018-06-21 07:11] LABS: BLOOD UREA NITROGEN 8 mg/dL (9-20); CALCIUM 7.4 mg/dl (8.6-10.4); GFR NON-AFRICAN AMERICAN > 60
[2018-06-21] MEDS: (Novolin R) Insulin Human Regular 100 units/ml vial SC SCH ×4 (08:04→21:10)
--- NOTE | 2018-06-21 08:06 | CP.PCM.PN ---
Subjective - Date & Time of Evaluation Date of Evaluation: 06/21/18 Time of Evaluation: 08:04 - Subjective Subjective: Patient states elbow pain is improving. No new complaints. For OR for podiatry today Objective - Vital Signs/Intake and Output Vital Signs (last 24 hours): Temp Pulse Resp BP Pulse Ox 97.5 F L 68 20 112/72 100 06/20/18 23:10 06/21/18 04:00 06/20/18 23:10 06/20/18 23:10 06/20/18 23:10 Intake and Output: 06/21/18 06/21/18 06:59 18:59 Intake Total 100 Balance 100 - Medications Medications: Current Medications Acetaminophen (Tylenol 325mg Tab) 650 mg PO Q6 PRN PRN Reason: Fever >100.4 F Aripiprazole (Abilify) 5 mg PO HS [facility] Last Admin: 06/20/18 21:55 Dose: 5 mg Clonazepam (Klonopin) 0.5 mg PO BID [facility] Last Admin: 06/20/18 18:12 Dose: 0.5 mg Enoxaparin Sodium (Lovenox) 40 mg SC DAILY [facility] Last Admin: 06/20/18 10:19 Dose: 40 mg Ferrous Sulfate (Feosol) 325 mg PO DAILY [facility] Last Admin: 06/20/18 10:16 Dose: 325 mg Fluoxetine HCl (Prozac) 20 mg PO DAILY [facility] Last Admin: 06/20/18 10:05 Dose: 20 mg Glucagon (Glucagen Diagnostic Kit) 0 mg IM STAT PRN; Protocol PRN Reason: Hypoglycemia Protocol Piperacillin Sod/Tazobactam Sod (Zosyn 3.375 Gm Iv Premix) 3.375 gm in 50 mls @ 200 mls/hr IVPB Q6H [facility]; Protocol Last Admin: 06/21/18 06:19 Dose: 200 mls/hr Vancomycin HCl 1.2 gm/ Sodium (Chloride) 250 mls @ 166.7 mls/hr IVPB Q12H [facility]; Protocol Last Admin: 06/20/18 21:52 Dose: 166.7 mls/hr Gentamicin Sulfate/Sodium Chloride (Gentamicin 80mg/100ml Ns) 80 mg in 100 mls @ 100 mls/hr IVPB Q12 [facility]; Protocol Last Admin: 06/20/18 21:51 Dose: 100 mls/hr Insulin Glargine (Lantus) 20 unit SC HS [facility] Last Admin: 06/20/18 21:55 Dose: 20 units Insulin Human Regular (Novolin R) 0 unit SC [facility]; Protocol Last Admin: 06/20/18 22:00 Dose: Not Given Lidocaine (Lidocaine 5%) 1 gm TOP Q6H PRN PRN Reason: Pain, Mild (1-3) Last Admin: 06/18/18 12:32 Dose: 1 applic Pantoprazole Sodium (Protonix Ec Tab) 40 mg PO Q24H [facility] Last Admin: 06/21/18 06:20 Dose: 40 mg Potassium Chloride (K-Dur 20 Meq Er Tab) 20 meq PO DAILY [facility] Last Admin: 06/20/18 10:16 Dose: 20 meq Tramadol HCl (Ultram) 50 mg PO TID PRN PRN Reason: Pain, severe (8-10) Last Admin: 06/18/18 09:11 Dose: 50 mg - Labs Labs: 06/21/18 06:36 06/21/18 06:36 PT 15.8 SECONDS (9.7-12.2) H 06/19/18 06:32 INR 1.4 06/19/18 06:32 APTT 30 SECONDS (21-34) 06/19/18 06:32 - Extremities Exam Additional comments: +ROM elbow, improved, pain free small amount serous drainage from incision site, erythema improving, no fluctuance at this time telfa/kerlex/remedios applied +ROM fingers, wrist , sensation intact +radial pulse Assessment and Plan (1) Abscess of left arm Assessment & Plan: s/p bedside I&D 06/19 f/u cultures orthopedically stable dressing changes noted hand swelling due to dependent position, encouraged AROM and elevation d/w Dr. Mustafa, agrees with above Status: Acute (2) DM type 2, uncontrolled, with lower extremity ulcer Status: Acute
--- NOTE | 2018-06-21 08:59 | CP.PCM.PN ---
<Norma Hoffman - Last Filed: 06/21/18 13:09> Subjective - Date & Time of Evaluation Date of Evaluation: 06/21/18 Time of Evaluation: 08:56 - Subjective Subjective: Norma Hoffman PGY1 Progress Note for Dr. Rose Pt was examined at bedside this morning. He reports increased swelling in the L elbow but improvement in the pain. Pt reports 2 episodes of blood streaked toilet paper after bowel movement. Pt reports small amount of blood, denies blood in stool, denies pain with bowel movement. Pt reports previous history of this, which he attributes to hemorrhoids. Pt denies any fever, chills, chest pain, abdominal pain, nausea, vomiting, diarrhea, dysuira. Objective - Vital Signs/Intake and Output Vital Signs (last 24 hours): Temp Pulse Resp BP Pulse Ox 97.9 F 70 18 121/73 100 06/21/18 07:00 06/21/18 07:00 06/21/18 07:00 06/21/18 07:00 06/21/18 07:00 Intake and Output: 06/21/18 06/21/18 06:59 18:59 Intake Total 100 Balance 100 - Medications Medications: Current Medications Acetaminophen (Tylenol 325mg Tab) 650 mg PO Q6 PRN PRN Reason: Fever >100.4 F Aripiprazole (Abilify) 5 mg PO HS [facility] Last Admin: 06/20/18 21:55 Dose: 5 mg Clonazepam (Klonopin) 0.5 mg PO BID [facility] Last Admin: 06/20/18 18:12 Dose: 0.5 mg Enoxaparin Sodium (Lovenox) 40 mg SC DAILY [facility] Last Admin: 06/20/18 10:19 Dose: 40 mg Ferrous Sulfate (Feosol) 325 mg PO DAILY [facility] Last Admin: 06/20/18 10:16 Dose: 325 mg Fluoxetine HCl (Prozac) 20 mg PO DAILY [facility] Last Admin: 06/20/18 10:05 Dose: 20 mg Glucagon (Glucagen Diagnostic Kit) 0 mg IM STAT PRN; Protocol PRN Reason: Hypoglycemia Protocol Piperacillin Sod/Tazobactam Sod (Zosyn 3.375 Gm Iv Premix) 3.375 gm in 50 mls @ 200 mls/hr IVPB Q6H [facility]; Protocol Last Admin: 06/21/18 06:19 Dose: 200 mls/hr Vancomycin HCl 1.2 gm/ Sodium (Chloride) 250 mls @ 166.7 mls/hr IVPB Q12H [facility]; Protocol Last Admin: 06/20/18 21:52 Dose: 166.7 mls/hr Gentamicin Sulfate/Sodium Chloride (Gentamicin 80mg/100ml Ns) 80 mg in 100 mls @ 100 mls/hr IVPB Q12 [facility]; Protocol Last Admin: 06/20/18 21:51 Dose: 100 mls/hr Insulin Glargine (Lantus) 20 unit SC HS [facility] Last Admin: 06/20/18 21:55 Dose: 20 units Insulin Human Regular (Novolin R) 0 unit SC ACHS [facility]; Protocol Last Admin: 06/21/18 08:04 Dose: Not Given Lidocaine (Lidocaine 5%) 1 gm TOP Q6H PRN PRN Reason: Pain, Mild (1-3) Last Admin: 06/18/18 12:32 Dose: 1 applic Pantoprazole Sodium (Protonix Ec Tab) 40 mg PO Q24H [facility] Last Admin: 06/21/18 06:20 Dose: 40 mg Potassium Chloride (K-Dur 20 Meq Er Tab) 20 meq PO DAILY [facility] Last Admin: 06/20/18 10:16 Dose: 20 meq Tramadol HCl (Ultram) 50 mg PO TID PRN PRN Reason: Pain, severe (8-10) Last Admin: 06/18/18 09:11 Dose: 50 mg - Labs Labs: 06/21/18 06:36 06/21/18 06:36 PT 15.8 SECONDS (9.7-12.2) H 06/19/18 06:32 INR 1.4 06/19/18 06:32 APTT 30 SECONDS (21-34) 06/19/18 06:32 - Additional Findings Additional findings: - Additional Findings Additional findings: - Head Exam Head Exam: ATRAUMATIC, NORMOCEPHALIC - Eye Exam Eye Exam: EOMI, PERRL - ENT Exam ENT Exam: Mucous Membranes Moist - Respiratory Exam Respiratory Exam: Clear to Ausculation Bilateral, NORMAL BREATHING PATTERN. absent: Rales, Rhonchi, Wheezes - Cardiovascular Exam Cardiovascular Exam: REGULAR RHYTHM, +S1, +S2. absent: Gallop, Rubs, Murmur - GI/Abdominal Exam GI & Abdominal Exam: Soft, Normal Bowel Sounds. absent: Distended, Tenderness - Extremities Exam Additional comments: LUE: dressing clean, dry, intact. edema in L hand and forearm. no drainage. LLE: bandage clean, dry, intact. hyperkeratotic and dystrophic nail changes, charcot deformity RLE: bandage clean, dry, intact. hyperkeratotic and dystrophic nail changes Assessment and Plan - Assessment and Plan (Free Text) Assessment: 47 year old male with a PMHx of Diabetes Type II (Uncontrolled), HTN, Anxiety, Depression, Schizophrenia, Right Hallux Osteomyelitis Pancreatitis, and medical non-compliance admitted for Sepsis 2/2 to Left Elbow Cellulitis/Abscess vs Left Hallux infection. MRI showing abscessing in L triceps tendon and possible osteomyelitis. S/p bedside I&D with Ortho 06/19/18. Patient medically stable for or OR today with podiatry for I&D of b/l feet. Plan: Sepsis - Source: L Elbow abscess vs L foot infection - afebrile - leukocytosis downtrending - BCx: Staph aureus and Group A Strep, only resistant to penicillin - rpt BCx: negative - L foot Wound Cx: Staph aureus, only resistant to penicillin - R foot Wound Cx: Staph aureus - CXR: No acute Disease - UA: Neg Nitrates and Leuk Est - Vancomycin 1g IV Q12 H - Zosyn 3.375gm IV Q6H - Gentamycin 80mg IV q8h - ID consulted, Dr. Nava - joycelyn appreciated Uncontroled DM 2/DKA (Resolved) - 2/2 to medication non compliance - HbA1C: 11.0 - Beta Hydroxybutyrate elevated on admission - Lantus 20u HS - High Dose Sliding Scale - accuchecks ACHS - hypoglycemia protocol - diabetic education Left Elbow Cellulitis/Abscess - s/p bedside I&D with ortho 06/19/17 - MRI: septated multilobulated abscess 7.3 x 2.1 x 15.2cm in posterior elbow at level of triceps tendon. suspicious for osteomyelitis in olecranon. - CT LUE: Large fluid collection containing air bubbles suspicous for abscess involving the region of left biceps measuring approximately [id number] - pt afebrile, leukocytosis downtrending - Wound Cx pending - Vancomycin 1gram Q12 H - Zosyn 3.375gm Q6H - Gentamycin 80mg IV q8h - Lidocaine 5% topical q6h PRN for mild pain - Toradol 15 IVP Q6 PRN for Moderate Pain - Ultram 50 TID PRN for Severe Pain - ID consulted, Dr. Brandy hirsch appreciated - Ortho consulted, Dr. Ramsey hircsh appreciated B/L Foot Cellulitis - b/l foot I&D today - s/p bedside wound care with podiatry - MRI feet: cellulitis, possible osteomyelitis - CT L foot: extensive subcutaneous edema noted especially at dorsal aspect of foot and ankle, Degenerative changes first tarsal and tarsometatarsal joints, Plantar calcanial spur - L foot Wound Cx: Staph aureus, only resistant to penicillin - R foot Wound Cx: Staph aureus - Vancomycin 1gram Q12 H - Zosyn 3.375gm Q6H - Gentamycin 80mg IV q8h - ID consulted, Dr. Brandy hirsch appreciated - Podiatry consulted, Dr. 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 Leonel hirsch appreciated Anemia - H/H 8.5/25.4 - c/o blood on toilet paper, likely hemorrhoids - Low Iron - Ferrous Sulfate 325mg PO Daily Depression/Anxiety/Schizophrenia - Hx of Multiple Psych Admission - Psych consulted for depressed mood and med recs PPx GI: Protonix DVT: Lovenox Diabetic Diet Dispo: PICC line requested for IV abx for osteomyelitis. Pt seen and case discussed with Dr. Rose <Scottie Rose H - Last Filed: 06/21/18 16:06> Objective - Vital Signs/Intake and Output Vital Signs (last 24 hours): Temp Pulse Resp BP Pulse Ox 98 F 76 20 144/82 97 06/21/18 15:49 06/21/18 15:49 06/21/18 15:49 06/21/18 15:49 06/21/18 15:49 Intake and Output: 06/21/18 06/21/18 06:59 18:59 Intake Total 100 Balance 100 - Medications Medications: Current Medications Acetaminophen (Tylenol 325mg Tab) 650 mg PO Q6 PRN PRN Reason: Fever >100.4 F Aripiprazole (Abilify) 5 mg PO HS [facility] Last Admin: 06/20/18 21:55 Dose: 5 mg Clonazepam (Klonopin) 0.5 mg PO BID [facility] Last Admin: 06/21/18 11:08 Dose: Not Given Enoxaparin Sodium (Lovenox) 40 mg SC DAILY [facility] Last Admin: 06/20/18 10:19 Dose: 40 mg Ferrous Sulfate (Feosol) 325 mg PO DAILY [facility] Last Admin: 06/21/18 11:08 Dose: Not Given Fluoxetine HCl (Prozac) 20 mg PO DAILY [facility] Last Admin: 06/21/18 11:09 Dose: Not Given Glucagon (Glucagen Diagnostic Kit) 0 mg IM STAT PRN; Protocol PRN Reason: Hypoglycemia Protocol Piperacillin Sod/Tazobactam Sod (Zosyn 3.375 Gm Iv Premix) 3.375 gm in 50 mls @ 200 mls/hr IVPB Q6H [facility]; Protocol Last Admin: 06/21/18 13:06 Dose: Not Given Vancomycin HCl 1.2 gm/ Sodium (Chloride) 250 mls @ 166.7 mls/hr IVPB Q12H [facility]; Protocol Last Admin: 06/21/18 10:50 Dose: 166.7 mls/hr Gentamicin Sulfate/Sodium Chloride (Gentamicin 80mg/100ml Ns) 80 mg in 100 mls @ 100 mls/hr IVPB Q12 [facility]; Protocol Last Admin: 06/21/18 09:30 Dose: 100 mls/hr Insulin Glargine (Lantus) 20 unit SC [facility] Last Admin: 06/20/18 21:55 Dose: 20 units Insulin Human Regular (Novolin R) 0 unit SC [facility]; Protocol Last Admin: 06/21/18 11:45 Dose: Not Given Lidocaine (Lidocaine 5%) 1 gm TOP Q6H PRN PRN Reason: Pain, Mild (1-3) Last Admin: 06/18/18 12:32 Dose: 1 applic Multi-Ingredient Ointment (Prep-Hem) 0 ea TOP BID PRN PRN Reason: Hemorrhoids Pantoprazole Sodium (Protonix Ec Tab) 40 mg PO Q24H [facility] Last Admin: 06/21/18 06:20 Dose: 40 mg Potassium Chloride (K-Dur 20 Meq Er Tab) 20 meq PO DAILY [facility] Last Admin: 06/21/18 10:15 Dose: Not Given Tramadol HCl (Ultram) 50 mg PO TID PRN PRN Reason: Pain, severe (8-10) Last Admin: 06/21/18 11:01 Dose: 50 mg - Labs Labs: 06/21/18 06:36 06/21/18 06:36 PT 15.8 SECONDS (9.7-12.2) H 06/19/18 06:32 INR 1.4 06/19/18 06:32 APTT 30 SECONDS (21-34) 06/19/18 06:32 Attending/Attestation - Attestation I have personally seen and examined this patient.: Yes I have fully participated in the care of the patient.: Yes I have reviewed all pertinent clinical information, including history, physical exam and plan: Yes Notes (Text): 06/21/18 16:04 Medical attending: Patient was seen and examined by me. Agree with the above note by the resident The patient was not in any acute distress when I came and saw him. He previously underwent lower extremity MRI of the feet and when we saw him in the m morning was pending going to the OR for the feet There is also orders for PICC line as well Scottie Rose
[2018-06-21] MEDS: Gentamicin 80 mg in 0.9% NS 80 MG/100 ML BAG IVPB SCH ×2 (09:30→21:36)
[2018-06-21] MEDS: Potassium Chloride 20 mEq ER Tab PO SCH (10:15)
[2018-06-21] MEDS: Vancomycin 1.2 GM in Sodium Chloride 0.9% 250 ML IVPB SCH ×2 (10:50→22:40)
--- NOTE | 2018-06-21 10:53 | CP.PCM.PN ---
Subjective - Date & Time of Evaluation Date of Evaluation: 06/21/18 Time of Evaluation: 10:53 - Subjective Subjective: Podiatry Progress Note Dr. Ngo/Dr. Antunez 47 year old male patient, seen and evaluated at bedside prior to surgery. Patient resting comfortably and in NAD. Patient is aware of procedure and treatment plan. All questions answered to patient satisfaction. Patient NPO status confirmed and patient is agreeable to surgery. Patient denies any new pedal complaints. Denies N/V/F/SOB/CP/Chills. Objective - Vital Signs/Intake and Output Vital Signs (last 24 hours): Temp Pulse Resp BP Pulse Ox 97.9 F 70 18 121/73 100 06/21/18 07:00 06/21/18 07:00 06/21/18 07:00 06/21/18 07:00 06/21/18 07:00 Intake and Output: 06/21/18 06/21/18 06:59 18:59 Intake Total 100 Balance 100 - Medications Medications: Current Medications Acetaminophen (Tylenol 325mg Tab) 650 mg PO Q6 PRN PRN Reason: Fever >100.4 F Aripiprazole (Abilify) 5 mg PO HS [facility] Last Admin: 06/20/18 21:55 Dose: 5 mg Clonazepam (Klonopin) 0.5 mg PO BID [facility] Last Admin: 06/20/18 18:12 Dose: 0.5 mg Enoxaparin Sodium (Lovenox) 40 mg SC DAILY [facility] Last Admin: 06/20/18 10:19 Dose: 40 mg Ferrous Sulfate (Feosol) 325 mg PO DAILY [facility] Last Admin: 06/20/18 10:16 Dose: 325 mg Fluoxetine HCl (Prozac) 20 mg PO DAILY [facility] Last Admin: 06/20/18 10:05 Dose: 20 mg Glucagon (Glucagen Diagnostic Kit) 0 mg IM STAT PRN; Protocol PRN Reason: Hypoglycemia Protocol Piperacillin Sod/Tazobactam Sod (Zosyn 3.375 Gm Iv Premix) 3.375 gm in 50 mls @ 200 mls/hr IVPB Q6H [facility]; Protocol Last Admin: 06/21/18 06:19 Dose: 200 mls/hr Vancomycin HCl 1.2 gm/ Sodium (Chloride) 250 mls @ 166.7 mls/hr IVPB Q12H [facility]; Protocol Last Admin: 06/20/18 21:52 Dose: 166.7 mls/hr Gentamicin Sulfate/Sodium Chloride (Gentamicin 80mg/100ml Ns) 80 mg in 100 mls @ 100 mls/hr IVPB Q12 [facility]; Protocol Last Admin: 06/20/18 21:51 Dose: 100 mls/hr Insulin Glargine (Lantus) 20 unit SC HS [facility] Last Admin: 06/20/18 21:55 Dose: 20 units Insulin Human Regular (Novolin R) 0 unit SC ACHS [facility]; Protocol Last Admin: 06/21/18 08:04 Dose: Not Given Lidocaine (Lidocaine 5%) 1 gm TOP Q6H PRN PRN Reason: Pain, Mild (1-3) Last Admin: 06/18/18 12:32 Dose: 1 applic Multi-Ingredient Ointment (Prep-Hem) 0 ea TOP BID PRN PRN Reason: Hemorrhoids Pantoprazole Sodium (Protonix Ec Tab) 40 mg PO Q24H [facility] Last Admin: 06/21/18 06:20 Dose: 40 mg Potassium Chloride (K-Dur 20 Meq Er Tab) 20 meq PO DAILY [facility] Last Admin: 06/20/18 10:16 Dose: 20 meq Tramadol HCl (Ultram) 50 mg PO TID PRN PRN Reason: Pain, severe (8-10) Last Admin: 06/18/18 09:11 Dose: 50 mg - Labs Labs: 06/21/18 06:36 06/21/18 06:36 PT 15.8 SECONDS (9.7-12.2) H 06/19/18 06:32 INR 1.4 06/19/18 06:32 APTT 30 SECONDS (21-34) 06/19/18 06:32 - Constitutional Appears: Well, Non-toxic, No Acute Distress - Head Exam Head Exam: ATRAUMATIC, NORMOCEPHALIC - Extremities Exam Additional comments: Dressing left C/D/I CFT < 3 seconds to remaining digits, sensation diminished, patient able to wiggle toes. - Neurological Exam Neurological Exam: Alert, Awake, Oriented x3 - Psychiatric Exam Psychiatric exam: Normal Affect, Normal Mood Assessment and Plan - Assessment and Plan (Free Text) Assessment: 47M with PMH of DM II (uncontrolled), HTN, Anxiety, Depression, Schizophrenia seen and evaluated at bedside for infected bilateral foot ulcerations with absce ss and likely underlying OM. Plan: Patient seen and evaluated Discussed plan in detail with attending Dr. Ngo/Dr. Antunez Charts, vitals, labs reviewed- afebrile, absent leukocytosis, ESR 132, CRP pending B/L foot x-rays; No acute osseous findings, soft tissue swelling asymmetric, L > R MRI ordered left and right lower extremity: Adjacent to the 5th metatarsal bone, 1.5x1xcm lobulated foci within additional rounded lobulated foci to the lateral aspect of the 5th met head. These are of uncertain clinical etiology and small abscesses, phlegmonous collections and/or soft tissue lesions cannot be excluded. 5th proximal and middle phalanges, presumed cellulitic changes concerning for acute infections and inflammatory changes, possibly developing acute OM changes. Dressing left C/D/I Wound culture of left foot 3rd interspace ulceration and right foot lateral fore foot ulcer: staph aureus Continue IV abx per ID reccs Patient may WBAT in surgical shoe to b/l feet Patient scheduled for OR today, I&D of B/L lower extremities, at 2:45 PM, with Dr. Antunez
--- NOTE | 2018-06-21 13:27 | RAD ---
Date of service: 06/21/2018 HISTORY: Verify right PICC COMPARISON: Comparison chest dated 06/16/2018.. FINDINGS: In situ right-sided PICC line with tip in the SVC/RA junction LUNGS: Suspect mild bibasilar atelectasis... PLEURA: No significant pleural effusion identified, no pneumothorax apparent. CARDIOVASCULAR: No aortic atherosclerotic calcification present. Heart size is mildly enlarged.. OSSEOUS STRUCTURES: No significant abnormalities. VISUALIZED UPPER ABDOMEN: Normal. OTHER FINDINGS: None. IMPRESSION: Suspect mild bibasilar atelectasis. Interval placement right-sided PICC line as detailed above..
--- NOTE | 2018-06-21 13:56 | CP.PCM.PN ---
Subjective - Date & Time of Evaluation Date of Evaluation: 06/21/18 Time of Evaluation: 13:54 - Subjective Subjective: for foot surgery- debridement Na 131- sl worse but acceptable Further advised po fluid restriction Objective - Vital Signs/Intake and Output Vital Signs (last 24 hours): Temp Pulse Resp BP Pulse Ox 97.9 F 66 18 121/73 100 06/21/18 07:00 06/21/18 08:00 06/21/18 07:00 06/21/18 07:00 06/21/18 07:00 Intake and Output: 06/21/18 06/21/18 06:59 18:59 Intake Total 100 Balance 100 - Medications Medications: Current Medications Acetaminophen (Tylenol 325mg Tab) 650 mg PO Q6 PRN PRN Reason: Fever >100.4 F Aripiprazole (Abilify) [address] [facility] Last Admin: 06/20/18 21:55 Dose: 5 mg Clonazepam (Klonopin) 0.[address] [facility] Last Admin: 06/21/18 11:08 Dose: Not Given Enoxaparin Sodium (Lovenox) [address] [facility] Last Admin: 06/20/18 10:19 Dose: 40 mg Ferrous Sulfate (Feosol) [address] [facility] Last Admin: 06/21/18 11:08 Dose: Not Given Fluoxetine HCl (Prozac) [address] [facility] Last Admin: 06/21/18 11:09 Dose: Not Given Glucagon (Glucagen Diagnostic Kit) 0 mg IM STAT PRN; Protocol PRN Reason: Hypoglycemia Protocol Piperacillin Sod/Tazobactam Sod (Zosyn 3.375 Gm Iv Premix) 3.375 gm in 50 mls @ 200 mls/hr IVPB Q6H [facility]; Protocol Last Admin: 06/21/18 13:06 Dose: Not Given Vancomycin HCl 1.2 gm/ Sodium (Chloride) 250 mls @ 166.7 mls/hr IVPB Q12H [facility]; Protocol Last Admin: 06/21/18 10:50 Dose: 166.7 mls/hr Gentamicin Sulfate/Sodium Chloride (Gentamicin 80mg/100ml Ns) 80 mg in 100 mls @ 100 mls/hr IVPB Q12 [facility]; Protocol Last Admin: 06/21/18 09:30 Dose: 100 mls/hr Insulin Glargine (Lantus) 20 unit SC [facility] Last Admin: 06/20/18 21:55 Dose: 20 units Insulin Human Regular (Novolin R) [address] [facility]; Protocol Last Admin: 06/21/18 11:45 Dose: Not Given Lidocaine (Lidocaine 5%) 1 gm TOP Q6H PRN PRN Reason: Pain, Mild (1-3) Last Admin: 06/18/18 12:32 Dose: 1 applic Multi-Ingredient Ointment (Prep-Hem) 0 ea TOP BID PRN PRN Reason: Hemorrhoids Pantoprazole Sodium (Protonix Ec Tab) [address] [facility] Last Admin: 06/21/18 06:20 Dose: 40 mg Potassium Chloride (K-Dur 20 Meq Er Tab) [address] [facility] Last Admin: 06/21/18 10:15 Dose: Not Given Tramadol HCl (Ultram) 50 mg PO TID PRN PRN Reason: Pain, severe (8-10) Last Admin: 06/21/18 11:01 Dose: 50 mg - Labs Labs: 06/21/18 06:36 06/21/18 06:36 PT 15.8 SECONDS (9.7-12.2) H 06/19/18 06:32 INR 1.4 06/19/18 06:32 APTT 30 SECONDS (21-34) 06/19/18 06:32 - Constitutional Appears: No Acute Distress, Confused, Chronically Ill - Head Exam Head Exam: ATRAUMATIC, NORMAL INSPECTION - Eye Exam Eye Exam: EOMI, Normal appearance - Neck Exam Neck Exam: Normal Inspection. absent: Tenderness - Respiratory Exam Respiratory Exam: Clear to Ausculation Bilateral, NORMAL BREATHING PATTERN - Cardiovascular Exam Cardiovascular Exam: REGULAR RHYTHM, +S1 - GI/Abdominal Exam GI & Abdominal Exam: Soft. absent: Tenderness - Extremities Exam Extremities Exam: Pedal Edema, Tenderness - Neurological Exam Neurological Exam: Awake, CN II-XII Intact - Skin Skin Exam: Dry, Warm Assessment and Plan (1) Hyponatremia Status: Acute (2) Type 2 diabetes mellitus without complications Status: Acute (3) PVD (peripheral vascular disease) Status: Acute (4) Excessive fluid intake Status: Acute (5) HTN (hypertension) Status: Chronic (6) SIADH (syndrome of inappropriate ADH production) Status: Acute - Assessment and Plan (Free Text) Plan: follow up lytes post surgery K repletion po fluid restriction foot surgery pending
[2018-06-21] MEDS ORDERED: Midazolam 2 MG/2 ML VIAL ONE (17:35)
[2018-06-21] MEDS ORDERED: Propofol 10 mg/ml Inj (20 ML) ONE (17:35)
[2018-06-21] MEDS ORDERED: Lidocaine Hydrochloride 5 ML INJ ONE (17:36)
[2018-06-21] MEDS ORDERED: HYDROmorphone 0.5 mg/0.5 ml ISec IVP PRN (18:04)
[2018-06-21] MEDS ORDERED: Phenylephrine 10 mg/ml Inj ONE (18:06)
--- NOTE | 2018-06-21 18:35 | PCM.SURG1 ---
Surgeon's Initial Post Op Note - Surgeon's Notes Surgeon: Dr. Antunez, DPM Staff Weapons Officer: Dr. Chloe Friedman PGY2, Dr. Yanet Barrientos PGY1 Type of Anesthesia: IV Sedation, Local Pre-Operative Diagnosis: Left ankle cellulitis and possible abscess, Right foot infection with possible abscess Operative Findings: See dicatation. I: None. M: 06/14 iodoform packing Post-Operative Diagnosis: Left ankle cellulitis with abscess, right foot infection to abscess Operation Performed: Left ankle and foot incision and drainage, right foot incision and drainage, debridement of all non-viable bone and soft tissue Specimen/Specimens Removed: None Estimated Blood Loss: EBL {In ML}: 30 Blood Products Given: N/A Drains Used: No Drains Post-Op Condition: Good Date of Surgery/Procedure: 06/21/18 Time of Surgery/Procedure: 18:38
[2018-06-21] MEDS ORDERED: Potassium Chloride 20 mEq ER Tab PO ONE (19:45)
[2018-06-21 20:22] VITALS: RESP 20
[2018-06-21] MEDS: Oxycodone/Acetaminophen 5/325 mg Tab PO PRN (21:34)
[2018-06-21] MEDS: (Lantus) Insulin Glargine, Recombinant SC SCH (21:35)
--- NOTE | 2018-06-21 22:11 | CP.PCM.PN ---
Subjective - Date & Time of Evaluation Date of Evaluation: 06/21/18 Time of Evaluation: 17:15 - Subjective Subjective: dictated Objective - Vital Signs/Intake and Output Vital Signs (last 24 hours): Temp Pulse Resp BP Pulse Ox 98.3 F 95 H 20 121/80 97 06/21/18 20:21 06/21/18 20:21 06/21/18 20:21 06/21/18 20:21 06/21/18 20:21 Intake and Output: 06/21/18 06/22/18 18:59 06:59 Intake Total 400 Balance 400 - Medications Medications: Current Medications Acetaminophen (Tylenol 325mg Tab) 650 mg PO Q6 PRN PRN Reason: Fever >100.4 F Acetaminophen (Tylenol 325mg Tab) 650 mg PO Q6 PRN PRN Reason: Pain, Mild (1-3) Aripiprazole (Abilify) 5 mg PO HS [facility] Last Admin: 06/21/18 21:35 Dose: 5 mg Clonazepam (Klonopin) 0.5 mg PO BID [facility] Last Admin: 06/21/18 20:15 Dose: 0.5 mg Enoxaparin Sodium (Lovenox) 40 mg SC DAILY [facility] Last Admin: 06/20/18 10:19 Dose: 40 mg Ferrous Sulfate (Feosol) 325 mg PO DAILY [facility] Last Admin: 06/21/18 11:08 Dose: Not Given Fluoxetine HCl (Prozac) 20 mg PO DAILY [facility] Last Admin: 06/21/18 11:09 Dose: Not Given Glucagon (Glucagen Diagnostic Kit) 0 mg IM STAT PRN; Protocol PRN Reason: Hypoglycemia Protocol Piperacillin Sod/Tazobactam Sod (Zosyn 3.375 Gm Iv Premix) 3.375 gm in 50 mls @ 200 mls/hr IVPB Q6H [facility]; Protocol Last Admin: 06/21/18 20:00 Dose: 200 mls/hr Vancomycin HCl 1.2 gm/ Sodium (Chloride) 250 mls @ 166.7 mls/hr IVPB Q12H [facility]; Protocol Last Admin: 06/21/18 10:50 Dose: 166.7 mls/hr Gentamicin Sulfate/Sodium Chloride (Gentamicin 80mg/100ml Ns) 80 mg in 100 mls @ 100 mls/hr IVPB Q12 [facility]; Protocol Last Admin: 06/21/18 21:36 Dose: 100 mls/hr Insulin Glargine (Lantus) 20 unit SC HS [facility] Last Admin: 06/21/18 21:35 Dose: 20 units Insulin Human Regular (Novolin R) 0 unit SC ACHS [facility]; Protocol Last Admin: 06/21/18 21:10 Dose: Not Given Lidocaine (Lidocaine 5%) 1 gm TOP Q6H PRN PRN Reason: Pain, Mild (1-3) Last Admin: 06/18/18 12:32 Dose: 1 applic Multi-Ingredient Ointment (Prep-Hem) 0 ea TOP BID PRN PRN Reason: Hemorrhoids Oxycodone/Acetaminophen (Percocet 5/325 Mg Tab) 1 tab PO Q4H PRN PRN Reason: Pain, moderate (4-7) Stop: 06/24/18 18:41 Oxycodone/Acetaminophen (Percocet 5/325 Mg Tab) 2 tab PO Q4H PRN PRN Reason: Pain, severe (8-10) Stop: 06/24/18 18:41 Last Admin: 06/21/18 21:34 Dose: 2 tab Pantoprazole Sodium (Protonix Ec Tab) 40 mg PO Q24H [facility] Last Admin: 06/21/18 06:20 Dose: 40 mg Potassium Chloride (K-Dur 20 Meq Er Tab) 20 meq PO DAILY [facility] Last Admin: 06/21/18 10:15 Dose: Not Given Tramadol HCl (Ultram) 50 mg PO TID PRN PRN Reason: Pain, severe (8-10) Last Admin: 06/21/18 11:01 Dose: 50 mg - Labs Labs: 06/21/18 06:36 06/21/18 06:36 PT 15.8 SECONDS (9.7-12.2) H 06/19/18 06:32 INR 1.4 06/19/18 06:32 APTT 30 SECONDS (21-34) 06/19/18 06:32
[2018-06-22] MEDS: Piperacill/Tazo 3.375gm in Dex 3.375 GM/50 ML BAG IVPB SCH ×3 (00:12→12:09)
--- NOTE | 2018-06-22 00:54 | PN ---
DATE: 06/21/2018 SUBJECTIVE: I saw him just before he was going to go to the OR. He said he had a right foot infection with possible abscess and a left ankle cellulitis with a second toe discoloration and gangrene, so at the time I am dictating this note, he has already had operation which is a left ankle and foot I and D, right foot I and D, debridement of all nonviable bones and soft tissues, and this was done by and Yanet Underwood, PGY, and Dr. Antunez, so the patient really had an ugly looking second toe on the left foot that I could see. Otherwise, he had dressing. He says his left arm is getting little better. He still had some pain. He is also being followed for hyponatremia with Dr. Castaneda, and he was telling me why don't you give medicine to make it go up, and I had to tell him that there is a monotype setter following you, and he is on fluid restriction at this time. OBJECTIVE: VITAL SIGNS: T-max is 98.3, pulse 95 now, blood pressure 121/80, respirations are 20. GENERAL: When I saw, he was awake and alert. HEENT: Head is atraumatic. NECK: Supple. LUNGS: Clear. HEART: S1, S2 regular. ABDOMEN: Soft, nontender. EXTREMITIES: He had left elbow with Renny bandages, and both feet had edema as well as dressings on both feet. White count is 5.3, hemoglobin 8.5, hematocrit 25.4, platelet count is 423, potassium is 3.4, creatinine is 0.7, and sugar remains 195, so he has multiple issues. He had bacteremia, septicemia with Staph aureus which was in the wound in the feet as well as in the blood culture. He had a group A Strep as well as Staph aureus, and he had left elbow cellulitis and abscess and myositis and is recuperating from it. At this time, I did leave him on vancomycin and Zosyn and gentamicin, and he is postop so we will follow and he has these psych issues. He is on psych meds at this time. We will continue all these medications at this time, and we will follow with the surgeon as he remains still acutely ill. Joy Nava MD [facility] # [id number]
[2018-06-22] MEDS: Oxycodone/Acetaminophen 5/325 mg Tab PO PRN ×5 (01:51→21:17)
[2018-06-22] MEDS: Pantoprazole 40 mg EC Tab PO SCH (05:49)
[2018-06-22 06:56] LABS: BASO # 0.1 K/uL (0.0-0.2); EOS # 0.1 K/uL (0.0-0.7); EOS % 1.7 % (0.0-4.0); HEMOGLOBIN 8.2 g/dL (12.0-18.0); LYMPH # 2.6 K/uL (1.0-4.3); LYMPH % 40.7 % (20.0-40.0); MEAN CORPUSCULAR HEMOGLOBIN 33.6 pg (27.0-31.0); MEAN PLATELET VOLUME 8.9 fL (7.2-11.7); MONO # 0.7 K/uL (0.0-0.8); MONO % 10.9 % (0.0-10.0); NEUT # 2.9 K/uL (1.8-7.0); NEUT % 45.7 % (50.0-75.0); RBC 2.45 Mil/uL (4.40-5.90); WHITE BLOOD COUNT 6.4 K/uL (4.8-10.8)
[2018-06-22 07:36] LABS: ALB/GLOB RATIO 0.6 (1.0-2.1); ALBUMIN 2.2 g/dL (3.5-5.0); ALT/SGPT 33 U/L (21-72); AST/SGOT 27 U/L (17-59); BLOOD UREA NITROGEN 8 mg/dL (9-20); CALCIUM 7.2 mg/dl (8.6-10.4); GFR NON-AFRICAN AMERICAN > 60
[2018-06-22] MEDS: (Novolin R) Insulin Human Regular 100 units/ml vial SC SCH ×4 (08:35→21:17)
[2018-06-22] MEDS ORDERED: Sodium Chloride 0.9% 1,000 ML IV SCH (08:45)
[2018-06-22] MEDS: Potassium Chloride 20 mEq ER Tab PO SCH (09:36)
--- NOTE | 2018-06-22 09:41 | CP.PCM.PN ---
Subjective - Date & Time of Evaluation Date of Evaluation: 06/22/18 Time of Evaluation: 09:39 - Subjective Subjective: Notes reviewed Patient awake and alert Multiple drinks at bedside - water, soda, juice Most empty despite claims to be restricting fluid intake Left ankle cellulitis with abscess, right foot infection to abscess Operation Performed: Left ankle and foot incision and drainage, right foot incision and drainage, debridement of all non-viable bone and soft tissue No pain NO sob or cough NO n/v/d No cp or palp 10 point ros negative other than stated above Objective - Vital Signs/Intake and Output Vital Signs (last 24 hours): Temp Pulse Resp BP Pulse Ox 98.1 F 89 20 99/63 L 99 06/22/18 08:29 06/22/18 08:29 06/22/18 08:29 06/22/18 08:29 06/22/18 08:29 Intake and Output: 06/22/18 06/22/18 06:59 18:59 Intake Total 320 Output Total 1000 Balance -680 - Medications Medications: Current Medications Acetaminophen (Tylenol 325mg Tab) 650 mg PO Q6 PRN PRN Reason: Fever >100.4 F Acetaminophen (Tylenol 325mg Tab) 650 mg PO Q6 PRN PRN Reason: Pain, Mild (1-3) Aripiprazole (Abilify) 5 mg PO HS [facility] Last Admin: 06/21/18 21:35 Dose: 5 mg Clonazepam (Klonopin) 0.5 mg PO BID [facility] Last Admin: 06/21/18 20:15 Dose: 0.5 mg Enoxaparin Sodium (Lovenox) 40 mg SC DAILY [facility] Last Admin: 06/20/18 10:19 Dose: 40 mg Ferrous Sulfate (Feosol) 325 mg PO DAILY [facility] Last Admin: 06/21/18 11:08 Dose: Not Given Fluoxetine HCl (Prozac) 20 mg PO DAILY [facility] Last Admin: 06/21/18 11:09 Dose: Not Given Glucagon (Glucagen Diagnostic Kit) 0 mg IM STAT PRN; Protocol PRN Reason: Hypoglycemia Protocol Piperacillin Sod/Tazobactam Sod (Zosyn 3.375 Gm Iv Premix) 3.375 gm in 50 mls @ 200 mls/hr IVPB Q6H [facility]; Protocol Last Admin: 06/22/18 06:00 Dose: 200 mls/hr Vancomycin HCl 1.2 gm/ Sodium (Chloride) 250 mls @ 166.7 mls/hr IVPB Q12H [facility]; Protocol Last Admin: 06/21/18 22:40 Dose: 166.7 mls/hr Gentamicin Sulfate/Sodium Chloride (Gentamicin 80mg/100ml Ns) 80 mg in 100 mls @ 100 mls/hr IVPB Q12 [facility]; Protocol Last Admin: 06/21/18 21:36 Dose: 100 mls/hr Sodium Chloride (Sodium Chloride 0.9%) 1,000 mls @ 150 mls/hr IV .Q6H40M [facility] Insulin Glargine (Lantus) 20 unit SC HS [facility] Last Admin: 06/21/18 21:35 Dose: 20 units Insulin Human Regular (Novolin R) 0 unit SC ACHS [facility]; Protocol Last Admin: 06/22/18 08:35 Dose: 4 units Lidocaine (Lidocaine 5%) 1 gm TOP Q6H PRN PRN Reason: Pain, Mild (1-3) Last Admin: 06/18/18 12:32 Dose: 1 applic Multi-Ingredient Ointment (Prep-Hem) 0 ea TOP BID PRN PRN Reason: Hemorrhoids Oxycodone/Acetaminophen (Percocet 5/325 Mg Tab) 1 tab PO Q4H PRN PRN Reason: Pain, moderate (4-7) Stop: 06/24/18 18:41 Oxycodone/Acetaminophen (Percocet 5/325 Mg Tab) 2 tab PO Q4H PRN PRN Reason: Pain, severe (8-10) Stop: 06/24/18 18:41 Last Admin: 06/22/18 05:49 Dose: 2 tab Pantoprazole Sodium (Protonix Ec Tab) 40 mg PO Q24H [facility] Last Admin: 06/22/18 05:49 Dose: 40 mg Potassium Chloride (K-Dur 20 Meq Er Tab) 20 meq PO DAILY [facility] Last Admin: 06/21/18 10:15 Dose: Not Given Tramadol HCl (Ultram) 50 mg PO TID PRN PRN Reason: Pain, severe (8-10) Last Admin: 06/21/18 11:01 Dose: 50 mg - Labs Labs: 06/22/18 06:44 06/22/18 06:44 PT 15.8 SECONDS (9.7-12.2) H 06/19/18 06:32 INR 1.4 06/19/18 06:32 APTT 30 SECONDS (21-34) 06/19/18 06:32 - Constitutional Appears: Well, Non-toxic - Head Exam Head Exam: ATRAUMATIC, NORMAL INSPECTION - Eye Exam Eye Exam: EOMI, Normal appearance - ENT Exam ENT Exam: Mucous Membranes Moist, Normal Oropharynx - Neck Exam Neck Exam: absent: Lymphadenopathy, Thyromegaly - Respiratory Exam Respiratory Exam: Clear to Ausculation Bilateral. absent: Rales, Rhonchi, W heezes - Cardiovascular Exam Cardiovascular Exam: +S1, +S2. absent: Rubs - GI/Abdominal Exam GI & Abdominal Exam: Soft, Normal Bowel Sounds - Extremities Exam Extremities Exam: absent: Joint Swelling, Tenderness - Neurological Exam Neurological Exam: Alert, Awake - Psychiatric Exam Psychiatric exam: Normal Affect, Normal Mood - Skin Skin Exam: Dry, Intact Assessment and Plan (1) Diabetic foot infection Status: Acute (2) Hyponatremia Status: Acute (3) PVD (peripheral vascular disease) Status: Acute (4) SIADH (syndrome of inappropriate ADH production) Status: Acute (5) DM type 2, uncontrolled, with lower extremity ulcer Status: Acute (6) Depression Status: Acute - Assessment and Plan (Free Text) Assessment: Hyponatremia worse over past 24 hours - due to siadh and continued water intake Add tolvaptan today Follow chemistry carefully Abx and wound care as ordered Supportive measures
[2018-06-22] MEDS ORDERED: Tolvaptan 15 MG TAB PO ONE (09:42)
[2018-06-22] MEDS: Vancomycin 1.2 GM in Sodium Chloride 0.9% 250 ML IVPB SCH (09:47)
--- NOTE | 2018-06-22 10:01 | CP.PCM.PN ---
Subjective - Date & Time of Evaluation Date of Evaluation: 06/22/18 Time of Evaluation: 09:00 - Subjective Subjective: Patient was seen and examined by me. He was not in any acute distress. Out of bed to the chair - the concerning findings overnight was the low BP this morning in the 80s systolic per nursing. When I just saw him it was in the mid 90s systolic. He denied shortness of breath, denied dizziness and denied palpitations, denied also dizziness while standing. He had two tablets of Percocet this morning - which is probably making the BP low. He now has a PICC Line for prolonged abx He is S/P podiatry doig I + D of the lower extremities left ankle and foot incision and drainage, right foot incision and drainage, debridement of all non- viable bone and soft tissue He continues to have low Na, he is not following PO fluid restrictions Objective - Vital Signs/Intake and Output Vital Signs (last 24 hours): Temp Pulse Resp BP Pulse Ox 98.1 F 89 20 99/63 L 99 06/22/18 08:29 06/22/18 08:29 06/22/18 08:29 06/22/18 08:29 06/22/18 08:29 Intake and Output: 06/22/18 06/22/18 06:59 18:59 Intake Total 320 Output Total 1000 Balance -680 - Medications Medications: Current Medications Acetaminophen (Tylenol 325mg Tab) 650 mg PO Q6 PRN PRN Reason: Pain, Mild (1-3) Aripiprazole (Abilify) 5 mg PO HS [facility] Last Admin: 06/21/18 21:35 Dose: 5 mg Clonazepam (Klonopin) 0.5 mg PO BID [facility] Last Admin: 06/22/18 09:35 Dose: 0.5 mg Enoxaparin Sodium (Lovenox) 40 mg SC DAILY [facility] Last Admin: 06/20/18 10:19 Dose: 40 mg Ferrous Sulfate (Feosol) 325 mg PO DAILY [facility] Last Admin: 06/22/18 09:35 Dose: 325 mg Fluoxetine HCl (Prozac) 20 mg PO DAILY [facility] Last Admin: 06/22/18 09:36 Dose: 20 mg Glucagon (Glucagen Diagnostic Kit) 0 mg IM STAT PRN; Protocol PRN Reason: Hypoglycemia Protocol Piperacillin Sod/Tazobactam Sod (Zosyn 3.375 Gm Iv Premix) 3.375 gm in 50 mls @ 200 mls/hr IVPB Q6H [facility]; Protocol Last Admin: 06/22/18 06:00 Dose: 200 mls/hr Vancomycin HCl 1.2 gm/ Sodium (Chloride) 250 mls @ 166.7 mls/hr IVPB Q12H [facility]; Protocol Last Admin: 06/22/18 09:47 Dose: 166.7 mls/hr Gentamicin Sulfate/Sodium Chloride (Gentamicin 80mg/100ml Ns) 80 mg in 100 mls @ 100 mls/hr IVPB Q12 [facility]; Protocol Last Admin: 06/21/18 21:36 Dose: 100 mls/hr Sodium Chloride (Sodium Chloride 0.9%) 1,000 mls @ 150 mls/hr IV .Q6H40M [facility] Last Admin: 06/22/18 09:37 Dose: 150 mls/hr Insulin Glargine (Lantus) 20 unit SC HS [facility] Last Admin: 06/21/18 21:35 Dose: 20 units Insulin Human Regular (Novolin R) 0 unit SC ACHS [facility]; Protocol Last Admin: 06/22/18 08:35 Dose: 4 units Lidocaine (Lidocaine 5%) 1 gm TOP Q6H PRN PRN Reason: Pain, Mild (1-3) Last Admin: 06/18/18 12:32 Dose: 1 applic Multi-Ingredient Ointment (Prep-Hem) 0 ea TOP BID PRN PRN Reason: Hemorrhoids Oxycodone/Acetaminophen (Percocet 5/325 Mg Tab) 1 tab PO Q4H PRN PRN Reason: Pain, moderate (4-7) Stop: 06/24/18 18:41 Oxycodone/Acetaminophen (Percocet 5/325 Mg Tab) 2 tab PO Q4H PRN PRN Reason: Pain, severe (8-10) Stop: 06/24/18 18:41 Last Admin: 06/22/18 05:49 Dose: 2 tab Pantoprazole Sodium (Protonix Ec Tab) 40 mg PO Q24H [facility] Last Admin: 06/22/18 05:49 Dose: 40 mg Potassium Chloride (K-Dur 20 Meq Er Tab) 20 meq PO DAILY [facility] Last Admin: 06/22/18 09:36 Dose: 20 meq Tramadol HCl (Ultram) 50 mg PO TID PRN PRN Reason: Pain, severe (8-10) Last Admin: 06/21/18 11:01 Dose: 50 mg - Labs Labs: 06/22/18 06:44 06/22/18 06:44 PT 15.8 SECONDS (9.7-12.2) H 06/19/18 06:32 INR 1.4 06/19/18 06:32 APTT 30 SECONDS (21-34) 06/19/18 06:32 Assessment and Plan - Assessment and Plan (Free Text) Assessment: 47 year old male with a PMHx of Diabetes Type II (Uncontrolled), HTN, Anxiety, Depression, Schizophrenia, Right Hallux Osteomyelitis Pancreatitis, and medical non-compliance admitted for Sepsis 2/2 to Left Elbow Cellulitis/Abscess vs Left Hallux infection. MRI showing abscessing in L triceps tendon and possible osteomyelitis. S/p bedside I&D with Ortho 06/19/18. Patient had on 06/21/2018 bilateral podiatry ID surgery of the feet Plan: Sepsis 06/22: Doing better. He has had bedside I D of the L elbow abcess as well as yesterday having bilateral lower extremity foot and ankle incesion an drainage and debridment. He previously had + gram positive blood cultures and remains on IV abx. MRI shows concerning areas for cocnerning for osteomylitis. He had a PICC Line placed on 06/21 since he will likley need custodial abx Currently on Vancomycin, Zosyn, Vancomycin - BCx: Staph aureus and Group A Strep, only resistant to penicillin - rpt BCx: negative - L foot Wound Cx: Staph aureus, only resistant to penicillin - R foot Wound Cx: Staph aureus - CXR: No acute Disease - UA: Neg Nitrates and Leuk Est - Vancomycin 1g IV Q12 H - Zosyn 3.375gm IV Q6H - Gentamycin 80mg IV q8h - ID consulted, Dr. Nava - recs appreciated Uncontroled DM 2/DKA (Resolved) 06/22: Recent accuchecks 190, 200, 150 continue current regimen. - 2/2 to medication non compliance - HbA1C: 11.0 - Beta Hydroxybutyrate elevated on admission - Lantus 20u HS - High Dose Sliding Scale - accuchecks ACHS - hypoglycemia protocol - diabetic education Left Elbow Cellulitis/Abscess 06/22: Doing well, less pain. able to better move area now Being continued on IV abx Gentamicin, Zosyn and Vancomycin. Now has a PICC line - s/p bedside I&D with ortho 06/19/17 - MRI: septated multilobulated abscess 7.3 x 2.1 x 15.2cm in posterior elbow at level of triceps tendon. suspicious for osteomyelitis in olecranon. - CT LUE: Large fluid collection containing air bubbles suspicous for abscess involving the region of left biceps measuring approximately [id number] - pt afebrile, leukocytosis downtrending - Wound Cx pending - Vancomycin 1gram Q12 H - Zosyn 3.375gm Q6H - Gentamycin 80mg IV q8h - Lidocaine 5% topical q6h PRN for mild pain - Toradol 15 IVP Q6 PRN for Moderate Pain - Ultram 50 TID PRN for Severe Pain - ID consulted, Dr. Brandy hirsch appreciated - Ortho consulted, Dr. Ramsey hirsch appreciated B/L Foot Cellulitis - cocerning findings on MRI for Osteomylitis 06/22: Patient is S/P podiatry I + D of the lower extremities left ankle and foot incision and drainage, right foot incision and drainage, and debridement of all non-viable bone and soft tissue. Remains on Vancomycin, Zosyn, Gentamycin - MRI feet: Adjacent to the 5th metatarsal bone, 1.5x1xcm lobulated foci within additional rounded lobulated foci to the lateral aspect of the 5th met head. These are of uncertain clinical etiology and small abscesses, phlegmonous collections and/or soft tissue lesions cannot be excluded. 5th proximal and middle phalanges, presumed cellulitic changes concerning for acute infections and inflammatory changes, possibly developing acute OM changes. - CT L foot: extensive subcutaneous edema noted especially at dorsal aspect of foot and ankle, Degenerative changes first tarsal and tarsometatarsal joints, - L foot Wound Cx: Staph aureus, only resistant to penicillin - R foot Wound Cx: Staph aureus - Vancomycin 1gram Q12 H - Zosyn 3.375gm Q6H - Gentamycin 80mg IV q8h - ID consulted, Dr. Brandy hirsch appreciated - Podiatry consulted, Dr. 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 Castaneda - recs appreciated Anemia - H/H 8.5/25.4 - c/o blood on toilet paper, likely hemorrhoids - Low Iron - Ferrous Sulfate 325mg PO Daily Depression/Anxiety/Schizophrenia 06/22: Currently stable - Hx of Multiple Psych Admission - Psych consulted for depressed mood and med recs PPx GI: Protonix DVT: Lovenox Diabetic Diet Now has PICC line requested for IV abx for osteomyelitis.
[2018-06-22] MEDS: Enoxaparin 40 mg Syringe SC SCH (11:01)
[2018-06-22] MEDS: Gentamicin 80 mg in 0.9% NS 80 MG/100 ML BAG IVPB SCH (11:01)
--- NOTE | 2018-06-22 11:22 | CP.PCM.PN ---
Subjective - Date & Time of Evaluation Date of Evaluation: 06/22/18 Time of Evaluation: 11:18 - Subjective Subjective: Podiatry Progress Note Dr. Ngo/Dr. Antunez 47 year old male patient, seen and evaluated at bedside 1 DAY S/P B/L i&d of right foot and left foot/ankle. Patient resting comfortably and in NAD. Patient denies any new pedal complaints. Denies N/V/F/SOB/CP/Chills. Objective - Vital Signs/Intake and Output Vital Signs (last 24 hours): Temp Pulse Resp BP Pulse Ox 98.1 F 89 20 99/63 L 99 06/22/18 08:29 06/22/18 08:29 06/22/18 08:29 06/22/18 08:29 06/22/18 08:29 Intake and Output: 06/22/18 06/22/18 06:59 18:59 Intake Total 320 Output Total 1000 Balance -680 - Medications Medications: Current Medications Acetaminophen (Tylenol 325mg Tab) 650 mg PO Q6 PRN PRN Reason: Pain, Mild (1-3) Aripiprazole (Abilify) 5 mg PO HS [facility] Last Admin: 06/21/18 21:35 Dose: 5 mg Clonazepam (Klonopin) 0.5 mg PO BID [facility] Last Admin: 06/22/18 09:35 Dose: 0.5 mg Enoxaparin Sodium (Lovenox) 40 mg SC DAILY [facility] Last Admin: 06/22/18 11:01 Dose: 40 mg Ferrous Sulfate (Feosol) 325 mg PO DAILY [facility] Last Admin: 06/22/18 09:35 Dose: 325 mg Fluoxetine HCl (Prozac) 20 mg PO DAILY [facility] Last Admin: 06/22/18 09:36 Dose: 20 mg Glucagon (Glucagen Diagnostic Kit) 0 mg IM STAT PRN; Protocol PRN Reason: Hypoglycemia Protocol Piperacillin Sod/Tazobactam Sod (Zosyn 3.375 Gm Iv Premix) 3.375 gm in 50 mls @ 200 mls/hr IVPB Q6H [facility]; Protocol Last Admin: 06/22/18 06:00 Dose: 200 mls/hr Vancomycin HCl 1.2 gm/ Sodium (Chloride) 250 mls @ 166.7 mls/hr IVPB Q12H [facility]; Protocol Last Admin: 06/22/18 09:47 Dose: 166.7 mls/hr Gentamicin Sulfate/Sodium Chloride (Gentamicin 80mg/100ml Ns) 80 mg in 100 mls @ 100 mls/hr IVPB Q12 [facility]; Protocol Last Admin: 06/22/18 11:01 Dose: 100 mls/hr Sodium Chloride (Sodium Chloride 0.9%) 1,000 mls @ 150 mls/hr IV .Q6H40M [facility] Last Admin: 06/22/18 09:37 Dose: 150 mls/hr Insulin Glargine (Lantus) 20 unit SC HS [facility] Last Admin: 06/21/18 21:35 Dose: 20 units Insulin Human Regular (Novolin R) 0 unit SC ACHS [facility]; Protocol Last Admin: 06/22/18 08:35 Dose: 4 units Lidocaine (Lidocaine 5%) 1 gm TOP Q6H PRN PRN Reason: Pain, Mild (1-3) Last Admin: 06/18/18 12:32 Dose: 1 applic Multi-Ingredient Ointment (Prep-Hem) 0 ea TOP BID PRN PRN Reason: Hemorrhoids Oxycodone/Acetaminophen (Percocet 5/325 Mg Tab) 1 tab PO Q4H PRN PRN Reason: Pain, moderate (4-7) Stop: 06/24/18 18:41 Oxycodone/Acetaminophen (Percocet 5/325 Mg Tab) 2 tab PO Q4H PRN PRN Reason: Pain, severe (8-10) Stop: 06/24/18 18:41 Last Admin: 06/22/18 05:49 Dose: 2 tab Pantoprazole Sodium (Protonix Ec Tab) 40 mg PO Q24H [facility] Last Admin: 06/22/18 05:49 Dose: 40 mg Potassium Chloride (K-Dur 20 Meq Er Tab) 20 meq PO DAILY [facility] Last Admin: 06/22/18 09:36 Dose: 20 meq Tramadol HCl (Ultram) 50 mg PO TID PRN PRN Reason: Pain, severe (8-10) Last Admin: 06/21/18 11:01 Dose: 50 mg - Labs Labs: 06/22/18 06:44 06/22/18 06:44 PT 15.8 SECONDS (9.7-12.2) H 06/19/18 06:32 INR 1.4 06/19/18 06:32 APTT 30 SECONDS (21-34) 06/19/18 06:32 - Constitutional Appears: Well, Non-toxic, No Acute Distress - Head Exam Head Exam: ATRAUMATIC - Eye Exam Eye Exam: Normal appearance Pupil Exam: NORMAL ACCOMODATION - ENT Exam ENT Exam: Mucous Membranes Moist - Extremities Exam Additional comments: Bilateral LE focused Vasc: DP and PT pulses weakly palpable 1/4 b/l. CFT <3 seconds to all digits. Temperature gradient warm to warm. Minimal edema noted in both feet and ankle Neuro: Gross and protective sensation diminished bilaterally. Derm: Left anterior lower leg incision measuring approximately 5 cm is noted, no active purulence, packing intact, no malodor, minimal periwound erythema, decrea sed swelling to the ankle Left dorsal forefoot linear incision measuring approximately 2 cm noted, no active purulence, packing is noted to be intact, no malodor, minimal periwound erythema Right dorsal linear incision noted on dorsal/lateral aspect of fifth met measuring approximately 4 cm , no active drainage, no malodor, no kin wound erythema or edema. Ortho: No pain on palpation to the entire lower extremity and ulceration sites. Healed s/p left partial hallux amputation. Muscle strength 5/5 for all dorsiflexors, plantarflexors, inverters, and everters b/l. Assessment and Plan - Assessment and Plan (Free Text) Assessment: 47M with PMH of DM II (uncontrolled), HTN, Anxiety, Depression, Schizophrenia seen and evaluated at bedside 1 DAY S/P B/L foot and ankle abscess Plan: Patient seen and evaluated Discussed plan in detail with attending Dr. Ngo/Dr. Antunez Charts, vitals, labs reviewed- afebrile, absent leukocytosis, ESR 132, CRP 55 B/L foot x-rays; No acute osseous findings, soft tissue swelling asymmetric, L > R MRI ordered left and right lower extremity: Adjacent to the 5th metatarsal bone, 1.5x1xcm lobulated foci within additional rounded lobulated foci to the lateral aspect of the 5th met head. These are of uncertain clinical etiology and small abscesses, phlegmonous collections and/or soft tissue lesions cannot be excluded. 5th proximal and middle phalanges, presumed cellulitic changes concerning for acute infections and inflammatory changes, possibly developing acute OM changes. Wound culture of left foot 3rd interspace ulceration and right foot lateral for efoot ulcer: staph aureus Continue IV abx per ID reccs Bilateral feet dressed with iodoform packing, xerform, DSD. Plan: Possible surgical intervention next week for primary closure and/or further debridement of non-viable soft tissue and bone.
[2018-06-22] MEDS: Piperacillin/Tazobact 3.375 GM in Sodium Chloride 0.9% 100 ML IVPB SCH (18:50)
--- NOTE | 2018-06-22 20:53 | CP.PCM.PN ---
Subjective - Date & Time of Evaluation Date of Evaluation: 06/22/18 Time of Evaluation: 17:40 - Subjective Subjective: dictated Objective - Vital Signs/Intake and Output Vital Signs (last 24 hours): Temp Pulse Resp BP Pulse Ox 97.4 F L 72 20 130/90 99 06/22/18 15:00 06/22/18 17:19 06/22/18 15:00 06/22/18 17:19 06/22/18 15:00 Intake and Output: 06/22/18 06/23/18 18:59 06:59 Intake Total 700 Balance 700 - Medications Medications: Current Medications Acetaminophen (Tylenol 325mg Tab) 650 mg PO Q6 PRN PRN Reason: Pain, Mild (1-3) Aripiprazole (Abilify) 5 mg PO HS [facility] Last Admin: 06/21/18 21:35 Dose: 5 mg Clonazepam (Klonopin) 0.5 mg PO BID [facility] Last Admin: 06/22/18 18:44 Dose: 0.5 mg Enoxaparin Sodium (Lovenox) 40 mg SC DAILY [facility] Last Admin: 06/22/18 11:01 Dose: 40 mg Ferrous Sulfate (Feosol) 325 mg PO DAILY [facility] Last Admin: 06/22/18 09:35 Dose: 325 mg Fluoxetine HCl (Prozac) 20 mg PO DAILY [facility] Last Admin: 06/22/18 09:36 Dose: 20 mg Glucagon (Glucagen Diagnostic Kit) 0 mg IM STAT PRN; Protocol PRN Reason: Hypoglycemia Protocol Gentamicin Sulfate/Sodium Chloride (Gentamicin 80mg/100ml Ns) 80 mg in 100 mls @ 100 mls/hr IVPB Q12 [facility]; Protocol Last Admin: 06/22/18 11:01 Dose: 100 mls/hr Piperacillin Sod/Tazobactam (Sod 3.375 gm/ Sodium Chloride) 100 mls @ 200 mls/hr IVPB Q6H [facility]; Protocol Last Admin: 06/22/18 18:50 Dose: 200 mls/hr Insulin Glargine (Lantus) 20 unit SC HS [facility] Last Admin: 06/21/18 21:35 Dose: 20 units Insulin Human Regular (Novolin R) 0 unit SC ACHS [facility]; Protocol Last Admin: 06/22/18 16:40 Dose: Not Given Lidocaine (Lidocaine 5%) 1 gm TOP Q6H PRN PRN Reason: Pain, Mild (1-3) Last Admin: 06/18/18 12:32 Dose: 1 applic Multi-Ingredient Ointment (Prep-Hem) 0 ea TOP BID PRN PRN Reason: Hemorrhoids Oxycodone/Acetaminophen (Percocet 5/325 Mg Tab) 1 tab PO Q4H PRN PRN Reason: Pain, moderate (4-7) Stop: 06/24/18 18:41 Last Admin: 06/22/18 17:16 Dose: 1 tab Pantoprazole Sodium (Protonix Ec Tab) 40 mg PO Q24H [facility] Last Admin: 06/22/18 05:49 Dose: 40 mg Potassium Chloride (K-Dur 20 Meq Er Tab) 20 meq PO DAILY [facility] Last Admin: 06/22/18 09:36 Dose: 20 meq Tramadol HCl (Ultram) 50 mg PO TID PRN PRN Reason: Pain, severe (8-10) Last Admin: 06/21/18 11:01 Dose: 50 mg - Labs Labs: 06/22/18 06:44 06/22/18 06:44 PT 15.8 SECONDS (9.7-12.2) H 06/19/18 06:32 INR 1.4 06/19/18 06:32 APTT 30 SECONDS (21-34) 06/19/18 06:32
[2018-06-22] MEDS: (Lantus) Insulin Glargine, Recombinant SC SCH (23:03)
[2018-06-23] MEDS: Piperacillin/Tazobact 3.375 GM in Sodium Chloride 0.9% 100 ML IVPB SCH ×4 (01:30→18:22)
[2018-06-23] MEDS: Oxycodone/Acetaminophen 5/325 mg Tab PO PRN ×4 (02:23→18:21)
--- NOTE | 2018-06-23 02:55 | PN ---
DATE: 06/22/2018 SUBJECTIVE: The patient is seen today. He has a PICC line in the right arm. His left elbow is doing better. He still complains of pain. His girlfriend was at the bedside. He has dressings on his feet and they did I and D's yesterday and debrided most of the unhealthy tissue. PHYSICAL EXAMINATION: VITAL SIGNS: T-max is 97.4, pulse 67, blood pressure 107/70, respirations are 20. GENERAL: His main complaint remains pain, pain, pain. He is also not following the guidelines for fluid restriction as noted from Renal note, but he is awake and alert. HEAD: Atraumatic, normocephalic. NECK: Supple. LUNGS: Clear. HEART: S1, S2, regular. ABDOMEN: Soft, nontender. No guarding, no rigidity present. EXTREMITIES: Both feet have trace edema as well as dressings on the feet. The left elbow remains with a dressing. At this time, extensive dressing with Renny bandages. LABORATORY DATA: White count is 6.4, hemoglobin 8.2, he is anemic, platelet count is 418. His sodium remains 129, potassium is 3.8. Sugar is 130, is better now when I am dictating. His cultures now, we are looking for wound culture from yesterday are negative 24 hours. ASSESSMENT AND PLAN: He did have Streptococcus as well as Staphylococcus aureus in the blood and he had Staphylococcus aureus in all the wounds. He did give history of methicillin-resistant Staphylococcus aureus before, but this time the wound cultures are all methicillin-sensitive. Still waiting for the sensitivity of group A, they may not give it, group A is very sensitive organism. So, at this time, we will continue antibiotics and we will follow. Discontinue gentamicin. Joy Nava MD
[2018-06-23] MEDS: Pantoprazole 40 mg EC Tab PO SCH (06:18)
[2018-06-23 07:16] LABS: BASO # 0.1 K/uL (0.0-0.2); BASO % 1.5 % (0.0-2.0); EOS # 0.1 K/uL (0.0-0.7); HEMOGLOBIN 8.9 g/dL (12.0-18.0); LYMPH # 2.2 K/uL (1.0-4.3); LYMPH % 34.8 % (20.0-40.0); MEAN CELL VOLUME 96.7 fL (80.0-94.0); MEAN CORPUSCULAR HEMOGLOBIN 32.9 pg (27.0-31.0); MEAN PLATELET VOLUME 8.4 fL (7.2-11.7); MONO # 0.6 K/uL (0.0-0.8); MONO % 9.8 % (0.0-10.0); NEUT # 3.3 K/uL (1.8-7.0); NEUT % 51.9 % (50.0-75.0); RBC 2.69 Mil/uL (4.40-5.90); RED CELL DISTRIBUTION WIDTH 15.2 % (11.5-14.5); WHITE BLOOD COUNT 6.4 K/uL (4.8-10.8)
[2018-06-23 07:28] LABS: ALB/GLOB RATIO 0.6 (1.0-2.1); ALBUMIN 2.5 g/dL (3.5-5.0); ALT/SGPT 27 U/L (21-72); AST/SGOT 22 U/L (17-59); BLOOD UREA NITROGEN 8 mg/dL (9-20); CALCIUM 7.9 mg/dl (8.6-10.4); GFR NON-AFRICAN AMERICAN > 60
[2018-06-23] MEDS: (Novolin R) Insulin Human Regular 100 units/ml vial SC SCH ×4 (08:06→23:26)
[2018-06-23] MEDS: Potassium Chloride 20 mEq ER Tab PO SCH (09:13)
[2018-06-23] MEDS: Enoxaparin 40 mg Syringe SC SCH (09:16)
--- NOTE | 2018-06-23 09:30 | CP.PCM.PN ---
Subjective - Date & Time of Evaluation Date of Evaluation: 06/23/18 Time of Evaluation: 09:00 - Subjective Subjective: Patient was seen and examined by me Yesterday had a x1 dose of Tolvaptam by nephrology and Na is improved today We talked about fluid restrictions with him however given his underlying mental illness history I didn't get really far The patient has PICC line for IV abx and possibly will go for further podiatry surgery of the lower extremities this comming week. Objective - Vital Signs/Intake and Output Vital Signs (last 24 hours): Temp Pulse Resp BP Pulse Ox 97.8 F 108 H 20 111/69 96 06/23/18 07:00 06/23/18 07:30 06/23/18 07:00 06/23/18 07:00 06/23/18 07:00 Intake and Output: 06/23/18 06/23/18 06:59 18:59 Intake Total 950 Output Total 1435 Balance -485 - Medications Medications: Current Medications Acetaminophen (Tylenol 325mg Tab) 650 mg PO Q6 PRN PRN Reason: Pain, Mild (1-3) Aripiprazole (Abilify) 5 mg PO [facility] Last Admin: 06/22/18 23:03 Dose: 5 mg Clonazepam (Klonopin) 0.5 mg PO BID [facility] Last Admin: 06/23/18 09:13 Dose: 0.5 mg Enoxaparin Sodium (Lovenox) 40 mg SC DAILY [facility] Last Admin: 06/23/18 09:16 Dose: 40 mg Ferrous Sulfate (Feosol) 325 mg PO DAILY [facility] Last Admin: 06/23/18 09:13 Dose: 325 mg Fluoxetine HCl (Prozac) 20 mg PO DAILY [facility] Last Admin: 06/23/18 09:14 Dose: 20 mg Glucagon (Glucagen Diagnostic Kit) 0 mg IM STAT PRN; Protocol PRN Reason: Hypoglycemia Protocol Piperacillin Sod/Tazobactam (Sod 3.375 gm/ Sodium Chloride) 100 mls @ 200 mls/hr IVPB Q6H [facility]; Protocol Last Admin: 06/23/18 06:13 Dose: 200 mls/hr Insulin Glargine (Lantus) 20 unit SC [facility] Last Admin: 06/22/18 23:03 Dose: 20 units Insulin Human Regular (Novolin R) 0 unit SC [facility]; Protocol Last Admin: 06/23/18 08:06 Dose: Not Given Lidocaine (Lidocaine 5%) 1 gm TOP Q6H PRN PRN Reason: Pain, Mild (1-3) Last Admin: 06/18/18 12:32 Dose: 1 applic Multi-Ingredient Ointment (Prep-Hem) 0 ea TOP BID PRN PRN Reason: Hemorrhoids Oxycodone/Acetaminophen (Percocet 5/325 Mg Tab) 1 tab PO Q4H PRN PRN Reason: Pain, moderate (4-7) Stop: 06/24/18 18:41 Last Admin: 06/23/18 06:18 Dose: 1 tab Pantoprazole Sodium (Protonix Ec Tab) 40 mg PO Q24H [facility] Last Admin: 06/23/18 06:18 Dose: 40 mg Potassium Chloride (K-Dur 20 Meq Er Tab) 20 meq PO DAILY [facility] Last Admin: 06/23/18 09:13 Dose: 20 meq Tramadol HCl (Ultram) 50 mg PO TID PRN PRN Reason: Pain, severe (8-10) Last Admin: 06/21/18 11:01 Dose: 50 mg - Labs Labs: 06/23/18 07:02 06/23/18 07:02 PT 15.8 SECONDS (9.7-12.2) H 06/19/18 06:32 INR 1.4 06/19/18 06:32 APTT 30 SECONDS (21-34) 06/19/18 06:32 - Constitutional Appears: Unkempt, Chronically Ill - Head Exam Head Exam: NORMAL INSPECTION - Eye Exam Eye Exam: EOMI, Normal appearance - ENT Exam ENT Exam: Mucous Membranes Moist - Respiratory Exam Respiratory Exam: Clear to Ausculation Bilateral, NORMAL BREATHING PATTERN - Cardiovascular Exam Cardiovascular Exam: REGULAR RHYTHM - GI/Abdominal Exam GI & Abdominal Exam: Soft, Normal Bowel Sounds. absent: Tenderness - Neurological Exam Neurological Exam: Alert, Awake, Oriented x3 Neuro motor strength exam: Left Upper Extremity: 5, Right Upper Extremity: 5 - Psychiatric Exam Psychiatric exam: Depressed, Flat Affect - Skin Skin Exam: Normal Color, Warm Assessment and Plan - Assessment and Plan (Free Text) Assessment: Assessment: 47 year old male with a PMHx of Diabetes Type II (Uncontrolled), HTN, Anxiety, Depression, Schizophrenia, Right Hallux Osteomyelitis Pancreatitis, and medical non-compliance admitted for Sepsis 2/2 to Left Elbow Cellulitis/Abscess vs Left Hallux infection. MRI showing abscessing in L triceps tendon and possible osteomyelitis. S/p bedside I&D with Ortho 06/19/18. Patient had on 06/21/2018 bilateral podiatry ID surgery of the feet Plan: Sepsis 06/23: Again no fevers or chills. He wants more percocet - however we have been giving him only one tab as giving him two makes the BP low He also has PICC Line now as well. WBC is ok. 06/22: Doing better. He has had bedside I D of the L elbow abcess as well as yesterday having bilateral lower extremity foot and ankle incesion an drainage and debridment. He previously had + gram positive blood cultures and remains on IV abx. MRI shows concerning areas for cocnerning for osteomylitis. He had a PICC Line placed on 06/21 since he will likley need jail abx Currently on Vancomycin, Zosyn, Vancomycin - BCx: Staph aureus and Group A Strep, only resistant to penicillin - rpt BCx: negative - L foot Wound Cx: Staph aureus, only resistant to penicillin - R foot Wound Cx: Staph aureus - Vancomycin 1g IV Q12 H - Zosyn 3.375gm IV Q6H - Gentamycin 80mg IV q8h - ID consulted, Dr. Nava - joycelyn appreciated Uncontroled DM 2/DKA (Resolved) 06/23: Again recent accucheks are stable. Would continue with the Lantus and SSI 06/22: Recent accuchecks 190, 200, 150 continue current regimen. - 2/2 to medication non compliance - HbA1C: 11.0 - Beta Hydroxybutyrate elevated on admission - Lantus 20u HS - High Dose Sliding Scale - accuchecks ACHS - hypoglycemia protocol - diabetic education Left Elbow Cellulitis/Abscess 06/22: Doing well, less pain. able to better move area now Being continued on IV abx Gentamicin, Zosyn and Vancomycin. Now has a PICC line - s/p bedside I&D with ortho 06/19/17 - MRI: septated multilobulated abscess 7.3 x 2.1 x 15.2cm in posterior elbow at level of triceps tendon. suspicious for osteomyelitis in olecranon. - CT LUE: Large fluid collection containing air bubbles suspicous for abscess involving the region of left biceps measuring approximately [id number] - pt afebrile, leukocytosis downtrending - Wound Cx pending - Vancomycin 1gram Q12 H - Zosyn 3.375gm Q6H - Gentamycin 80mg IV q8h - Lidocaine 5% topical q6h PRN for mild pain - Toradol 15 IVP Q6 PRN for Moderate Pain - Ultram 50 TID PRN for Severe Pain - ID consulted, Dr. Brandy hirsch appreciated - Ortho consulted, Dr. Ramsey hirsch appreciated B/L Foot Cellulitis - cocerning findings on MRI for Osteomylitis 06/23: Podiatry is planning on possibly further intervention this comming week. Patient maybe able to go to [facility] or [facility]CU after this for keno terminal operator abx 06/22: Patient is S/P podiatry I + D of the lower extremities left ankle and foot incision and drainage, right foot incision and drainage, and debridement of all non-viable bone and soft tissue. Remains on Vancomycin, Zosyn, Gentamycin - MRI feet: Adjacent to the 5th metatarsal bone, 1.5x1xcm lobulated foci within additional rounded lobulated foci to the lateral aspect of the 5th met head. These are of uncertain clinical etiology and small abscesses, phlegmonous collections and/or soft tissue lesions cannot be excluded. 5th proximal and middle phalanges, presu med cellulitic changes concerning for acute infections and inflammatory changes, possibly developing acute OM changes. - CT L foot: extensive subcutaneous edema noted especially at dorsal aspect of f oot and ankle, Degenerative changes first tarsal and tarsometatarsal joints, - L foot Wound Cx: Staph aureus, only resistant to penicillin - R foot Wound Cx: Staph aureus - Vancomycin 1gram Q12 H - Zosyn 3.375gm Q6H - Gentamycin 80mg IV q8h - ID consulted, Dr. Brandy hirsch appreciated - Podiatry consulted, Dr. Huber hirsch appreciated Hyponatremia 06/23: Yesterday was given Tolvaptam x 1. Today the Na is better, I had fluid retriction discussion with him but got nowhere in the discussion - likely SIADH - fluid restriction - Nephro Consulted, Dr. Leonel - recs appreciated Anemia - H/H 8.5/25.4 - c/o blood on toilet paper, likely hemorrhoids - Low Iron - Ferrous Sulfate 325mg PO Daily Depression/Anxiety/Schizophrenia 06/22: Currently stable - Hx of Multiple Psych Admission - Psych consulted for depressed mood and med recs PPx GI: Protonix DVT: Lovenox Diabetic Diet
--- NOTE | 2018-06-23 11:02 | CP.PCM.PN ---
Subjective - Date & Time of Evaluation Date of Evaluation: 06/23/18 Time of Evaluation: 10:59 - Subjective Subjective: Podiatry Progress Note Dr. Ngo/Dr. Antunez 47 year old male patient, seen and evaluated at bedside 2 DAY S/P B/L i&d of right foot and left foot/ankle. Patient resting comfortably and in NAD. Patient denies any new pedal complaints. Denies N/V/F/SOB/CP/Chills. Objective - Vital Signs/Intake and Output Vital Signs (last 24 hours): Temp Pulse Resp BP Pulse Ox 97.8 F 108 H 20 111/69 96 06/23/18 07:00 06/23/18 07:30 06/23/18 07:00 06/23/18 07:00 06/23/18 07:00 Intake and Output: 06/23/18 06/23/18 06:59 18:59 Intake Total 950 Output Total 1435 Balance -485 - Medications Medications: Current Medications Acetaminophen (Tylenol 325mg Tab) 650 mg PO Q6 PRN PRN Reason: Pain, Mild (1-3) Aripiprazole (Abilify) 5 mg PO HS [facility] Last Admin: 06/22/18 23:03 Dose: 5 mg Clonazepam (Klonopin) 0.5 mg PO BID [facility] Last Admin: 06/23/18 09:13 Dose: 0.5 mg Enoxaparin Sodium (Lovenox) 40 mg SC DAILY [facility] Last Admin: 06/23/18 09:16 Dose: 40 mg Ferrous Sulfate (Feosol) 325 mg PO DAILY [facility] Last Admin: 06/23/18 09:13 Dose: 325 mg Fluoxetine HCl (Prozac) 20 mg PO DAILY [facility] Last Admin: 06/23/18 09:14 Dose: 20 mg Glucagon (Glucagen Diagnostic Kit) 0 mg IM STAT PRN; Protocol PRN Reason: Hypoglycemia Protocol Piperacillin Sod/Tazobactam (Sod 3.375 gm/ Sodium Chloride) 100 mls @ 200 mls/hr IVPB Q6H [facility]; Protocol Last Admin: 06/23/18 06:13 Dose: 200 mls/hr Insulin Glargine (Lantus) 20 unit SC [facility] Last Admin: 06/22/18 23:03 Dose: 20 units Insulin Human Regular (Novolin R) 0 unit SC [facility]; Protocol Last Admin: 06/23/18 08:06 Dose: Not Given Lidocaine (Lidocaine 5%) 1 gm TOP Q6H PRN PRN Reason: Pain, Mild (1-3) Last Admin: 06/18/18 12:32 Dose: 1 applic Multi-Ingredient Ointment (Prep-Hem) 0 ea TOP BID PRN PRN Reason: Hemorrhoids Oxycodone/Acetaminophen (Percocet 5/325 Mg Tab) 1 tab PO Q4H PRN PRN Reason: Pain, moderate (4-7) Stop: 06/24/18 18:41 Last Admin: 06/23/18 06:18 Dose: 1 tab Pantoprazole Sodium (Protonix Ec Tab) 40 mg PO Q24H [facility] Last Admin: 06/23/18 06:18 Dose: 40 mg Potassium Chloride (K-Dur 20 Meq Er Tab) 20 meq PO DAILY [facility] Last Admin: 06/23/18 09:13 Dose: 20 meq Tramadol HCl (Ultram) 50 mg PO TID PRN PRN Reason: Pain, severe (8-10) Last Admin: 06/21/18 11:01 Dose: 50 mg - Labs Labs: 06/23/18 07:02 06/23/18 07:02 PT 15.8 SECONDS (9.7-12.2) H 06/19/18 06:32 INR 1.4 06/19/18 06:32 APTT 30 SECONDS (21-34) 06/19/18 06:32 - Constitutional Appears: Well, Non-toxic, No Acute Distress - Head Exam Head Exam: ATRAUMATIC, NORMOCEPHALIC - Eye Exam Eye Exam: Normal appearance Pupil Exam: NORMAL ACCOMODATION - ENT Exam ENT Exam: Mucous Membranes Moist - Neck Exam Neck Exam: Normal Inspection - Extremities Exam Additional comments: Bilateral LE focused Vasc: DP and PT pulses weakly palpable 1/4 b/l. CFT <3 seconds to all digits. Temperature gradient warm to warm. Minimal edema noted in both feet and ankle Neuro: Gross and protective sensation diminished bilaterally. Derm: Left anterior lower leg incision measuring approximately 5 cm is noted, no active purulence, packing intact, no malodor, minimal periwound erythema, decreased swelling to the ankle Left dorsal forefoot linear incision measuring approximately 2 cm noted, no active purulence, packing is noted to be intact, no malodor, minimal periwound erythema Right dorsal linear incision noted on dorsal/lateral aspect of fifth met measuring approximately 4 cm , no active drainage, no malodor, no kin wound erythema or edema. Ortho: No pain on palpation to the entire lower extremity and ulceration sites. Healed s/p left partial hallux amputation. Muscle strength 5/5 for all dorsiflexors, plantarflexors, inverters, and everters b/l. Assessment and Plan - Assessment and Plan (Free Text) Assessment: 47M with PMH of DM II (uncontrolled), HTN, Anxiety, Depression, Schizophrenia seen and evaluated at bedside 2 DAYs S/P B/L foot and ankle abscess Plan: Patient seen and evaluated Discussed plan in detail with attending Dr. Ngo/Dr. Antunez Charts, vitals, labs reviewed- afebrile, absent leukocytosis, ESR 132, CRP 55 B/L foot x-rays; No acute osseous findings, soft tissue swelling asymmetric, L > R MRI ordered left and right lower extremity: Adjacent to the 5th metatarsal bone, 1.5x1xcm lobulated foci within additional rounded lobulated foci to the lateral aspect of the 5th met head. These are of uncertain clinical etiology and small abscesses, phlegmonous collections and/or soft tissue lesions cannot be excl uded. 5th proximal and middle phalanges, presumed cellulitic changes concerning for acute infections and inflammatory changes, possibly developing acute OM changes. Wound culture of left foot 3rd interspace ulceration and right foot lateral forefoot ulcer: staph aureus Continue IV abx per ID reccs Bilateral feet dressed with iodoform packing, xerform, DSD. Plan: Possible surgical intervention next week for primary closure and/or further debridement of non-viable soft tissue and bone.
[2018-06-23] MEDS: Hemorrohoidal Ointment (2 oz) TOP PRN (14:12)
--- NOTE | 2018-06-23 17:41 | CP.PCM.PN ---
Subjective - Date & Time of Evaluation Date of Evaluation: 06/23/18 Time of Evaluation: 13:50 - Subjective Subjective: dictated Objective - Vital Signs/Intake and Output Vital Signs (last 24 hours): Temp Pulse Resp BP Pulse Ox 98.1 F 70 20 108/70 95 06/23/18 16:00 06/23/18 16:00 06/23/18 16:00 06/23/18 16:00 06/23/18 16:00 Intake and Output: 06/23/18 06/23/18 06:59 18:59 Intake Total 950 Output Total 1435 Balance -485 - Medications Medications: Current Medications Acetaminophen (Tylenol 325mg Tab) 650 mg PO Q6 PRN PRN Reason: Pain, Mild (1-3) Aripiprazole (Abilify) 5 mg PO HS [facility] Last Admin: 06/22/18 23:03 Dose: 5 mg Clonazepam (Klonopin) 0.5 mg PO BID [facility] Last Admin: 06/23/18 09:13 Dose: 0.5 mg Enoxaparin Sodium (Lovenox) 40 mg SC DAILY [facility] Last Admin: 06/23/18 09:16 Dose: 40 mg Ferrous Sulfate (Feosol) 325 mg PO DAILY [facility] Last Admin: 06/23/18 09:13 Dose: 325 mg Fluoxetine HCl (Prozac) 20 mg PO DAILY [facility] Last Admin: 06/23/18 09:14 Dose: 20 mg Glucagon (Glucagen Diagnostic Kit) 0 mg IM STAT PRN; Protocol PRN Reason: Hypoglycemia Protocol Piperacillin Sod/Tazobactam (Sod 3.375 gm/ Sodium Chloride) 100 mls @ 200 mls/hr IVPB Q6H [facility]; Protocol Last Admin: 06/23/18 14:09 Dose: 200 mls/hr Insulin Glargine (Lantus) 20 unit SC [facility] Last Admin: 06/22/18 23:03 Dose: 20 units Insulin Human Regular (Novolin R) 0 unit SC [facility]; Protocol Last Admin: 06/23/18 12:55 Dose: 2 units Lidocaine (Lidocaine 5%) 1 gm TOP Q6H PRN PRN Reason: Pain, Mild (1-3) Last Admin: 06/18/18 12:32 Dose: 1 applic Multi-Ingredient Ointment (Prep-Hem) 0 ea TOP BID PRN PRN Reason: Hemorrhoids Last Admin: 06/23/18 14:12 Dose: 1 dose Oxycodone/Acetaminophen (Percocet 5/325 Mg Tab) 1 tab PO Q4H PRN PRN Reason: Pain, moderate (4-7) Stop: 06/24/18 18:41 Last Admin: 06/23/18 12:54 Dose: 1 tab Pantoprazole Sodium (Protonix Ec Tab) 40 mg PO Q24H [facility] Last Admin: 06/23/18 06:18 Dose: 40 mg Potassium Chloride (K-Dur 20 Meq Er Tab) 20 meq PO DAILY [facility] Last Admin: 06/23/18 09:13 Dose: 20 meq Tramadol HCl (Ultram) 50 mg PO TID PRN PRN Reason: Pain, severe (8-10) Last Admin: 06/21/18 11:01 Dose: 50 mg - Labs Labs: 06/23/18 07:02 06/23/18 07:02 PT 15.8 SECONDS (9.7-12.2) H 06/19/18 06:32 INR 1.4 06/19/18 06:32 APTT 30 SECONDS (21-34) 06/19/18 06:32
[2018-06-23] MEDS: (Lantus) Insulin Glargine, Recombinant SC SCH (22:13)
--- NOTE | 2018-06-23 22:31 | PN ---
DATE: 06/23/2018 SUBJECTIVE: The patient was seen today. He seems to be improving. He denies much pain. He has both feet dressing. He says the relay operator is going to change the dressings tomorrow. Otherwise, left arm pain is getting better. He still has the Renny bandage on the left arm. PHYSICAL EXAMINATION: VITAL SIGNS: T-max is 98.1, pulse 70, blood pressure 108/70, respirations are 20. HEENT: Head is atraumatic and normocephalic. NECK: Supple. LUNGS: Clear. HEART: S1 and S2 are regular. ABDOMEN: Soft, nontender. No guarding, no rigidity present. EXTREMITIES: Have no edema but he has dressings on both lower extremities. He did have a surgery. I and D's on both feet. Left elbow, he had cellulitis with abscess which was drained. LABORATORY DATA: White count is 6.4, hemoglobin 8.9, hematocrit 26, platelet count is 479, remains elevated. BUN is 8 and creatinine is 1.1. He had blood cultures positive for Staph aureus and Streptococcus. He had wounds which have Staph aureus in both feet, right and left feet and even with a left elbow wound. Actually, the left elbow wound had no growth. I think the blood cultures are positive most likely secondary to the arm which was very swollen and with cellulitis and bursitis. ASSESSMENT AND PLAN: This patient had MRIs of upper as well as lower extremities, and he has a peripherally inserted central catheter line in right arm. He probably will be going to rehabilitation. He has been on antibiotics since 06/16/2018, and I would suggest at least to give . The MRI showed lot of things now, so he should be treated with six weeks as he has had acute necrotic changes and he had bacteremia from the sixth week and count the days for 42 days. Right now, I would continue the Zosyn, but he can probably be changed to 2 g of Rocephin. I will leave the Zosyn on for now and monitor his labs weekly and treat him . He needs podiatry care and he also needs orthopedist to evaluate his left elbow which was drained. He has a psychiatric history which also needs to be kept under control. He remains anemic also. Joy Nava MD [facility] # [id number]
[2018-06-24] MEDS: Piperacillin/Tazobact 3.375 GM in Sodium Chloride 0.9% 100 ML IVPB SCH ×4 (00:28→18:17)
[2018-06-24] MEDS: Oxycodone/Acetaminophen 5/325 mg Tab PO PRN ×2 (00:34→06:02)
[2018-06-24] MEDS: Pantoprazole 40 mg EC Tab PO SCH (06:01)
[2018-06-24 07:05] LABS: ALB/GLOB RATIO 0.6 (1.0-2.1); ALBUMIN 2.5 g/dL (3.5-5.0); ALT/SGPT 20 U/L (21-72); AST/SGOT 18 U/L (17-59); BLOOD UREA NITROGEN 9 mg/dL (9-20); CALCIUM 8.1 mg/dl (8.6-10.4); GFR NON-AFRICAN AMERICAN > 60
[2018-06-24 07:10] LABS: BASO # 0.1 K/uL (0.0-0.2); EOS # 0.2 K/uL (0.0-0.7); EOS % 2.2 % (0.0-4.0); HEMOGLOBIN 8.6 g/dL (12.0-18.0); LYMPH # 2.5 K/uL (1.0-4.3); LYMPH % 36.7 % (20.0-40.0); MEAN CELL VOLUME 97.3 fL (80.0-94.0); MEAN CORPUSCULAR HEMOGLOBIN 32.8 pg (27.0-31.0); MEAN CORPUSCULAR HGB CONC 33.7 g/dL (33.0-37.0); MEAN PLATELET VOLUME 8.4 fL (7.2-11.7); MONO # 0.6 K/uL (0.0-0.8); MONO % 8.5 % (0.0-10.0); NEUT # 3.6 K/uL (1.8-7.0); NEUT % 51.6 % (50.0-75.0); RBC 2.62 Mil/uL (4.40-5.90); WHITE BLOOD COUNT 6.9 K/uL (4.8-10.8)
--- NOTE | 2018-06-24 07:53 | CP.PCM.PN ---
<Norma Hoffman - Last Filed: 06/24/18 13:33> Subjective - Date & Time of Evaluation Date of Evaluation: 06/24/18 Time of Evaluation: 07:50 - Subjective Subjective: Norma Hoffman PGY1 Progress Note for Dr. Dutton Pt was examined at bedside this morning. He reports improvement in his L elbow pain, only reporting mild itch in the area. Pt has no other complaints today, denies fever, chills, chest pain, abdominal pain, nausea, vomiting, diarrhea, dysuria. Objective - Vital Signs/Intake and Output Vital Signs (last 24 hours): Temp Pulse Resp BP Pulse Ox 98.7 F 69 20 129/81 100 06/24/18 07:00 06/24/18 07:00 06/24/18 07:00 06/24/18 07:00 06/24/18 07:00 Intake and Output: 06/24/18 06/24/18 06:59 18:59 Intake Total 1140 Output Total 2100 Balance -960 - Medications Medications: Current Medications Acetaminophen (Tylenol 325mg Tab) 650 mg PO Q6 PRN PRN Reason: Pain, Mild (1-3) Aripiprazole (Abilify) 5 mg PO HS [facility] Last Admin: 06/23/18 23:25 Dose: 5 mg Clonazepam (Klonopin) 0.5 mg PO BID [facility] Last Admin: 06/23/18 18:21 Dose: 0.5 mg Enoxaparin Sodium (Lovenox) 40 mg SC DAILY [facility] Last Admin: 06/23/18 09:16 Dose: 40 mg Ferrous Sulfate (Feosol) 325 mg PO DAILY [facility] Last Admin: 06/23/18 09:13 Dose: 325 mg Fluoxetine HCl (Prozac) 20 mg PO DAILY [facility] Last Admin: 06/23/18 09:14 Dose: 20 mg Glucagon (Glucagen Diagnostic Kit) 0 mg IM STAT PRN; Protocol PRN Reason: Hypoglycemia Protocol Piperacillin Sod/Tazobactam (Sod 3.375 gm/ Sodium Chloride) 100 mls @ 200 mls/hr IVPB Q6H [facility]; Protocol Last Admin: 06/24/18 06:02 Dose: 200 mls/hr Insulin Glargine (Lantus) 20 unit SC [facility] Last Admin: 06/23/18 22:13 Dose: 20 units Insulin Human Regular (Novolin R) 0 unit SC ACHS [facility]; Protocol Last Admin: 06/23/18 23:26 Dose: Not Given Lidocaine (Lidocaine 5%) 1 gm TOP Q6H PRN PRN Reason: Pain, Mild (1-3) Last Admin: 06/18/18 12:32 Dose: 1 applic Multi-Ingredient Ointment (Prep-Hem) 0 ea TOP BID PRN PRN Reason: Hemorrhoids Last Admin: 06/23/18 14:12 Dose: 1 dose Oxycodone/Acetaminophen (Percocet 5/325 Mg Tab) 1 tab PO Q4H PRN PRN Reason: Pain, moderate (4-7) Stop: 06/24/18 18:41 Last Admin: 06/24/18 06:02 Dose: 1 tab Pantoprazole Sodium (Protonix Ec Tab) 40 mg PO Q24H [facility] Last Admin: 06/24/18 06:01 Dose: 40 mg Potassium Chloride (K-Dur 20 Meq Er Tab) 20 meq PO DAILY [facility] Last Admin: 06/23/18 09:13 Dose: 20 meq Tramadol HCl (Ultram) 50 mg PO TID PRN PRN Reason: Pain, severe (8-10) Last Admin: 06/21/18 11:01 Dose: 50 mg - Labs Labs: 06/24/18 06:43 06/24/18 06:43 PT 15.8 SECONDS (9.7-12.2) H 06/19/18 06:32 INR 1.4 06/19/18 06:32 APTT 30 SECONDS (21-34) 06/19/18 06:32 - Constitutional Appears: Well, No Acute Distress - Head Exam Head Exam: ATRAUMATIC, NORMOCEPHALIC - Eye Exam Eye Exam: EOMI, Normal appearance, PERRL - ENT Exam ENT Exam: Mucous Membranes Moist - Respiratory Exam Respiratory Exam: Clear to Ausculation Bilateral, NORMAL BREATHING PATTERN. absent: Rales, Rhonchi, Wheezes - Cardiovascular Exam Cardiovascular Exam: REGULAR RHYTHM, +S1, +S2. absent: Gallop, Rubs, Murmur - GI/Abdominal Exam GI & Abdominal Exam: Soft, Normal Bowel Sounds. absent: Distended, Tenderness - Back Exam Additional comments: LUE: L elbow wound improved, mild erythema without edema. Small punctum draining serosanguinous fluid. RLE: wound dressings clean/dry/intact. hyperkeratotic and dystrophic nail changes LLE: wound dressings clean/dry/intact. hyperkeratotic and dystrophic nail changes - Neurological Exam Neurological Exam: Alert, Awake, Oriented x3 - Psychiatric Exam Psychiatric exam: Normal Affect, Normal Mood Assessment and Plan - Assessment and Plan (Free Text) Assessment: 47 year old male with a PMHx of Diabetes Type II (Uncontrolled), HTN, Anxiety, Depression, Schizophrenia, Right Hallux Osteomyelitis Pancreatitis, and medical non-compliance admitted for Sepsis 2/2 to Left Elbow Cellulitis/Abscess vs Left Hallux infection. MRI showing abscessing in L triceps tendon and possible osteomyelitis. S/p bedside I&D with Ortho 06/19/18. Patient had on 06/21/[address] [facility] podiatry ID surgery of the feet Plan: Uncontroled DM 2 - 2/2 to medication non compliance - HbA1C: 11.0 - Beta Hydroxybutyrate elevated on admission - Lantus 20u HS - High Dose Sliding Scale - accuchecks ACHS - hypoglycemia protocol - diabetic education Left Elbow Cellulitis/Abscess, improved - s/p bedside I&D with ortho 06/19/17 - MRI: septated multilobulated abscess 7.3 x 2.1 x 15.2cm in posterior elbow at level of triceps tendon. suspicious for osteomyelitis in olecranon. - CT LUE: Large fluid collection containing air bubbles suspicous for abscess involving the region of left biceps measuring approximately [id number] - pt afebrile, no leukocytosis - Wound Cx: neg - Zosyn 3.375gm Q6H - Lidocaine 5% topical q6h PRN for mild pain - Toradol 15 IVP Q6 PRN for Moderate Pain - Ultram 50 TID PRN for Severe Pain - ID consulted, Dr. Brandy hirsch appreciated - Ortho consulted, Dr. Ramsey hirsch appreciated B/L Foot Cellulitis - concerning findings on MRI for Osteomylitis - Podiatry is planning on possibly further intervention this week. Patient maybe able to go to [facility] or TCU after this for [facility]p abx - MRI feet: Adjacent to the 5th metatarsal bone, 1.5x1xcm lobulated foci within additional rounded lobulated foci to the lateral aspect of the 5th met head. These are of uncertain clinical etiology and small abscesses, phlegmonous collections and/or soft tissue lesions cannot be excluded. 5th proximal and middle phalanges, presumed cellulitic changes concerning for acute infections and inflammatory changes, possibly developing acute OM changes. - CT L foot: extensive subcutaneous edema noted especially at dorsal aspect of foot and ankle, Degenerative changes first tarsal and tarsometatarsal joints, - L foot Wound Cx: Staph aureus, rpt Cx: coag neg staph - R foot Wound Cx: Staph aureus - Zosyn 3.375gm Q6H - ID consulted, Dr. Brandy hirsch appreciated - Podiatry consulted, Dr. Huber hirsch appreciated Hyponatremia, resolved - given tolvaptam 06/23 - continue PO fluid restriction - Nephro Consulted, Dr. Leonel hirsch appreciated Anemia - H/H 8.6/25.5 - c/o blood on toilet paper, likely hemorrhoids - Low Iron - Ferrous Sulfate 325mg PO Daily Depression/Anxiety/Schizophrenia - Hx of Multiple Psych Admission - Psych consulted for depressed mood and med recs, help appreciated PPx GI: Protonix DVT: Lovenox Diabetic Diet Dispo: Podiatry to potential operate on b/l foot wounds this week. Pt has PICC, for [facility] for 6 weeks of IV abx. Pt seen and case reviewed with Dr. Dutton <Jace Dutton - Last Filed: 06/24/18 18:10> Objective - Vital Signs/Intake and Output Vital Signs (last 24 hours): Temp Pulse Resp BP Pulse Ox 98.4 F 68 20 113/78 100 06/24/18 15:57 06/24/18 15:57 06/24/18 15:57 06/24/18 15:57 06/24/18 15:57 Intake and Output: 06/24/18 06/24/18 06:59 18:59 Intake Total 1140 Output Total 2100 Balance -960 - Medications Medications: Current Medications Acetaminophen (Tylenol 325mg Tab) 650 mg PO Q6 PRN PRN Reason: Pain, Mild (1-3) Aripiprazole (Abilify) 5 mg PO HS [facility] Last Admin: 06/23/18 23:25 Dose: 5 mg Clonazepam (Klonopin) 0.5 mg PO BID [facility] Last Admin: 06/24/18 17:35 Dose: 0.5 mg Enoxaparin Sodium (Lovenox) 40 mg SC DAILY [facility] Last Admin: 06/24/18 09:28 Dose: 40 mg Ferrous Sulfate (Feosol) 325 mg PO DAILY [facility] Last Admin: 06/24/18 09:27 Dose: 325 mg Fluoxetine HCl (Prozac) 20 mg PO DAILY [facility] Last Admin: 06/24/18 09:31 Dose: 20 mg Glucagon (Glucagen Diagnostic Kit) 0 mg IM STAT PRN; Protocol PRN Reason: Hypoglycemia Protocol Piperacillin Sod/Tazobactam (Sod 3.375 gm/ Sodium Chloride) 100 mls @ 200 mls/hr IVPB Q6H [facility]; Protocol Last Admin: 06/24/18 12:23 Dose: 200 mls/hr Insulin Glargine (Lantus) 20 unit SC [facility] Last Admin: 06/23/18 22:13 Dose: 20 units Insulin Human Regular (Novolin R) 0 unit SC ACHS [facility]; Protocol Last Admin: 06/24/18 17:35 Dose: 4 units Lidocaine (Lidocaine 5%) 1 gm TOP Q6H PRN PRN Reason: Pain, Mild (1-3) Last Admin: 06/18/18 12:32 Dose: 1 applic Multi-Ingredient Ointment (Prep-Hem) 0 ea TOP BID PRN PRN Reason: Hemorrhoids Last Admin: 06/23/18 14:12 Dose: 1 dose Oxycodone/Acetaminophen (Percocet 5/325 Mg Tab) 1 tab PO Q4H PRN PRN Reason: Pain, moderate (4-7) Stop: 06/24/18 18:41 Last Admin: 06/24/18 06:02 Dose: 1 tab Pantoprazole Sodium (Protonix Ec Tab) 40 mg PO Q24H [facility] Last Admin: 06/24/18 06:01 Dose: 40 mg Potassium Chloride (K-Dur 20 Meq Er Tab) 20 meq PO DAILY [facility] Last Admin: 06/24/18 09:27 Dose: 20 meq Tramadol HCl (Ultram) 50 mg PO TID PRN PRN Reason: Pain, severe (8-10) Last Admin: 06/21/18 11:01 Dose: 50 mg - Labs Labs: 06/24/18 06:43 06/24/18 06:43 PT 15.8 SECONDS (9.7-12.2) H 06/19/18 06:32 INR 1.4 06/19/18 06:32 APTT 30 SECONDS (21-34) 06/19/18 06:32 Attending/Attestation - Attestation I have personally seen and examined this patient.: Yes I have fully participated in the care of the patient.: Yes I have reviewed all pertinent clinical information, including history, physical exam and plan: Yes Notes (Text): patient has no complain,s/p I and D of his wound,left elbow,both foot non compliance with medication.High HA1c 11 spoke to the patient about compliance with meds and control his sugar to improve his DM Patient will need weeks of antibiotics.we will follow with DR Nava spoke to job recruiter DR Antunez. he will see him tomorrow and decide about further surgical intervention of foot. Ortho follow up appreciated Discharge plan depend on further surgical intervention by job recruiter.
[2018-06-24] MEDS: (Novolin R) Insulin Human Regular 100 units/ml vial SC SCH ×4 (07:54→21:15)
--- NOTE | 2018-06-24 08:57 | OP ---
PROCEDURE DATE: 06/21/2018 PREOPERATIVE DIAGNOSES: Left ankle cellulitis with possible abscess and right foot infection with possible abscess. POSTOPERATIVE DIAGNOSES: 1. Left ankle cellulitis with abscess. 2. Right foot infection with abscess. PROCEDURES: 1. Left ankle and foot incision and drainage with debridement of all nonviable bone and soft tissue. 2. Right foot incision and drainage with debridement of all nonviable bone and soft tissue. SURGEON: Dr. Leandro Antunez, DPM RITUAL CIRCUMCISER: Helio Friedman, PGY2 and Yanet Underwood, PGY1. ANESTHESIA: IV sedation with local. INDICATIONS: The patient is a 47-year-old male with the above diagnoses. The patient has exhausted all conservative treatments at this time and now requires surgical intervention. The patient finally consented after careful explanation of risks, benefits, and complications and alternatives to the surgical procedure. No guarantees were given nor implied. PREPARATION: The patient was brought to the operating room and placed on the operating room table in a supine position. Time-out was performed for identification of the correct patient and procedure. After induction of IV sedation, bilateral feet were then prepped and draped in the normal sterile manner. No tourniquet was used during this procedure. DESCRIPTION OF PROCEDURE: PROCEDURE #1: Left ankle and foot incision and drainage with debridement: Attention was directed to the anterior aspect of the left ankle where an incision of approximately 5 cm was made. The incision was deepened down to the subcutaneous tissue using a #15 blade and hemostat. At this time, 30 mL of hematoma and purulent fluid was expressed from the incision site. Necrotic and devitalized tissue was excisionally debrided until a healthy granular bleeding tissue was noted. Next, an incision approximately 2 cm was made to the dorsal left forefoot extending into the third interspace ulceration. At this time, 10 mL of purulence was expressed from the site. Next, using a pulse lavage, the surgical areas of both copiously irrigated with normal saline. Next, a 0.25 inch iodoform packing was placed into the surgical site and left open. The wounds were then dressed with Xeroform, DSD, ABD, and loose Renny bandage. PROCEDURE #2: Right foot incision and drainage with debridement of all nonviable bone and soft tissue: Attention was directed to the dorsal lateral aspect of the right fifth digit where a linear incision of approximately 4 cm was made. The incision was deepened into the subcutaneous tissue utilizing a #15 blade and hemostat. At this time, 5 mL of purulence was expressed from the incision site. Necrotic and devitalized tissue was excisionally debrided until healthy granular bleeding tissue was noted. Next, using the pulse lavage, the area was copiously irrigated with normal sterile saline. The surgical site was then again packed with 0.25 inch iodoform packing and left open. The wound was dressed with Xeroform, DSD, ABD, and loose Renny bandage. POSTOPERATIVE CONDITION: The patient tolerated the anesthesia and procedure well and was escorted to the recovery room with all vital signs stable and neurovascular status intact to the bilateral feet. The patient is to remain nonweightbearing as tolerated. The patient will continue to be seen on the floors by Podiatry. MADHAVI Rodríguez Leandro Antunez DPM [facility]
[2018-06-24] MEDS: Potassium Chloride 20 mEq ER Tab PO SCH (09:27)
[2018-06-24] MEDS: Enoxaparin 40 mg Syringe SC SCH (09:28)
--- NOTE | 2018-06-24 10:56 | CP.PCM.PN ---
Subjective - Date & Time of Evaluation Date of Evaluation: 06/24/18 Time of Evaluation: 10:54 - Subjective Subjective: s/p LE debridements Na now 132- post tovalptan dose Na level acceptable now advised to limit fluid intake Objective - Vital Signs/Intake and Output Vital Signs (last 24 hours): Temp Pulse Resp BP Pulse Ox 98.7 F 68 20 129/81 100 06/24/18 07:00 06/24/18 08:00 06/24/18 07:00 06/24/18 07:00 06/24/18 07:00 Intake and Output: 06/24/18 06/24/18 06:59 18:59 Intake Total 1140 Output Total 2100 Balance -960 - Medications Medications: Current Medications Acetaminophen (Tylenol 325mg Tab) 650 mg PO Q6 PRN PRN Reason: Pain, Mild (1-3) Aripiprazole (Abilify) 5 mg PO HS [facility] Last Admin: 06/23/18 23:25 Dose: 5 mg Clonazepam (Klonopin) 0.5 mg PO BID [facility] Last Admin: 06/24/18 09:27 Dose: 0.5 mg Enoxaparin Sodium (Lovenox) 40 mg SC DAILY [facility] Last Admin: 06/24/18 09:28 Dose: 40 mg Ferrous Sulfate (Feosol) 325 mg PO DAILY [facility] Last Admin: 06/24/18 09:27 Dose: 325 mg Fluoxetine HCl (Prozac) 20 mg PO DAILY [facility] Last Admin: 06/24/18 09:31 Dose: 20 mg Glucagon (Glucagen Diagnostic Kit) 0 mg IM STAT PRN; Protocol PRN Reason: Hypoglycemia Protocol Piperacillin Sod/Tazobactam (Sod 3.375 gm/ Sodium Chloride) 100 mls @ 200 mls/hr IVPB Q6H [facility]; Protocol Last Admin: 06/24/18 06:02 Dose: 200 mls/hr Insulin Glargine (Lantus) 20 unit SC HS [facility] Last Admin: 06/23/18 22:13 Dose: 20 units Insulin Human Regular (Novolin R) 0 unit SC [facility]; Protocol Last Admin: 06/24/18 07:54 Dose: Not Given Lidocaine (Lidocaine 5%) 1 gm TOP Q6H PRN PRN Reason: Pain, Mild (1-3) Last Admin: 06/18/18 12:32 Dose: 1 applic Multi-Ingredient Ointment (Prep-Hem) 0 ea TOP BID PRN PRN Reason: Hemorrhoids Last Admin: 06/23/18 14:12 Dose: 1 dose Oxycodone/Acetaminophen (Percocet 5/325 Mg Tab) 1 tab PO Q4H PRN PRN Reason: Pain, moderate (4-7) Stop: 06/24/18 18:41 Last Admin: 06/24/18 06:02 Dose: 1 tab Pantoprazole Sodium (Protonix Ec Tab) 40 mg PO Q24H [facility] Last Admin: 06/24/18 06:01 Dose: 40 mg Potassium Chloride (K-Dur 20 Meq Er Tab) 20 meq PO DAILY [facility] Last Admin: 06/24/18 09:27 Dose: 20 meq Tramadol HCl (Ultram) 50 mg PO TID PRN PRN Reason: Pain, severe (8-10) Last Admin: 06/21/18 11:01 Dose: 50 mg - Labs Labs: 06/24/18 06:43 06/24/18 06:43 PT 15.8 SECONDS (9.7-12.2) H 06/19/18 06:32 INR 1.4 06/19/18 06:32 APTT 30 SECONDS (21-34) 06/19/18 06:32 - Constitutional Appears: No Acute Distress, Chronically Ill - Head Exam Head Exam: ATRAUMATIC, NORMAL INSPECTION - Eye Exam Eye Exam: EOMI, Normal appearance - Neck Exam Neck Exam: Normal Inspection. absent: Tenderness - Respiratory Exam Respiratory Exam: Clear to Ausculation Bilateral, NORMAL BREATHING PATTERN - Cardiovascular Exam Cardiovascular Exam: REGULAR RHYTHM, +S1 - GI/Abdominal Exam GI & Abdominal Exam: Soft. absent: Tenderness - Extremities Exam Extremities Exam: Pedal Edema, Tenderness - Neurological Exam Neurological Exam: Awake, CN II-XII Intact - Skin Skin Exam: Dry, Warm Assessment and Plan (1) Hyponatremia Status: Acute (2) Type 2 diabetes mellitus without complications Status: Acute (3) PVD (peripheral vascular disease) Status: Acute (4) Excessive fluid intake Status: Acute (5) HTN (hypertension) Status: Chronic (6) SIADH (syndrome of inappropriate ADH production) Status: Acute - Assessment and Plan (Free Text) Plan: po fluid restriction follw up chemistries periodically tovalptan as needed
[2018-06-24] MEDS ORDERED: (Novolog) Insulin Aspart, Recombinant 100 u/ml 10 ml vial SC SCH (11:30)
--- NOTE | 2018-06-24 14:00 | CP.PCM.PN ---
Subjective - Date & Time of Evaluation Date of Evaluation: 06/24/18 Time of Evaluation: 13:56 - Subjective Subjective: Patient states he still has a little elbow pain. He denies any new complaints. Objective - Vital Signs/Intake and Output Vital Signs (last 24 hours): Temp Pulse Resp BP Pulse Ox 98.7 F 68 20 129/81 100 06/24/18 07:00 06/24/18 08:00 06/24/18 07:00 06/24/18 07:00 06/24/18 07:00 Intake and Output: 06/24/18 06/24/18 06:59 18:59 Intake Total 1140 Output Total 2100 Balance -960 - Medications Medications: Current Medications Acetaminophen (Tylenol 325mg Tab) 650 mg PO Q6 PRN PRN Reason: Pain, Mild (1-3) Aripiprazole (Abilify) 5 mg PO HS [facility] Last Admin: 06/23/18 23:25 Dose: 5 mg Clonazepam (Klonopin) 0.5 mg PO BID [facility] Last Admin: 06/24/18 09:27 Dose: 0.5 mg Enoxaparin Sodium (Lovenox) 40 mg SC DAILY [facility] Last Admin: 06/24/18 09:28 Dose: 40 mg Ferrous Sulfate (Feosol) 325 mg PO DAILY [facility] Last Admin: 06/24/18 09:27 Dose: 325 mg Fluoxetine HCl (Prozac) 20 mg PO DAILY [facility] Last Admin: 06/24/18 09:31 Dose: 20 mg Glucagon (Glucagen Diagnostic Kit) 0 mg IM STAT PRN; Protocol PRN Reason: Hypoglycemia Protocol Piperacillin Sod/Tazobactam (Sod 3.375 gm/ Sodium Chloride) 100 mls @ 200 mls/hr IVPB Q6H [facility]; Protocol Last Admin: 06/24/18 12:23 Dose: 200 mls/hr Insulin Glargine (Lantus) 20 unit SC [facility] Last Admin: 06/23/18 22:13 Dose: 20 units Insulin Human Regular (Novolin R) 0 unit SC [facility]; Protocol Last Admin: 06/24/18 12:24 Dose: 2 units Lidocaine (Lidocaine 5%) 1 gm TOP Q6H PRN PRN Reason: Pain, Mild (1-3) Last Admin: 06/18/18 12:32 Dose: 1 applic Multi-Ingredient Ointment (Prep-Hem) 0 ea TOP BID PRN PRN Reason: Hemorrhoids Last Admin: 06/23/18 14:12 Dose: 1 dose Oxycodone/Acetaminophen (Percocet 5/325 Mg Tab) 1 tab PO Q4H PRN PRN Reason: Pain, moderate (4-7) Stop: 06/24/18 18:41 Last Admin: 06/24/18 06:02 Dose: 1 tab Pantoprazole Sodium (Protonix Ec Tab) 40 mg PO Q24H [facility] Last Admin: 06/24/18 06:01 Dose: 40 mg Potassium Chloride (K-Dur 20 Meq Er Tab) 20 meq PO DAILY [facility] Last Admin: 06/24/18 09:27 Dose: 20 meq Tramadol HCl (Ultram) 50 mg PO TID PRN PRN Reason: Pain, severe (8-10) Last Admin: 06/21/18 11:01 Dose: 50 mg - Labs Labs: 06/24/18 06:43 06/24/18 06:43 PT 15.8 SECONDS (9.7-12.2) H 06/19/18 06:32 INR 1.4 06/19/18 06:32 APTT 30 SECONDS (21-34) 06/19/18 06:32 - Extremities Exam Additional comments: left elbow: incision dry. No erythema. Swelling improving. No new collection. ROM elbow 10-95 degrees, almost full pronosupination. Instructed patient on AROM exercises. sensation intact. +ROM fingers/wrist, +radial pulse Assessment and Plan (1) Abscess of left arm Assessment & Plan: s/p bedside I&D significant improved possible OM per MRI encourage AROM dressing to wound, noted drainage on dressing but elbow dry no further ortho intervention indicated, ortho stable for d/c antibiotics per ID, PICC line in place f/u Dr. Mustafa as outpt 2 weeks d/w Dr. Mustafa, agrees with above Status: Acute (2) DM type 2, uncontrolled, with lower extremity ulcer Status: Acute
--- NOTE | 2018-06-24 15:23 | CP.PCM.PN ---
Subjective - Date & Time of Evaluation Date of Evaluation: 06/24/18 Time of Evaluation: 14:45 - Subjective Subjective: dictated Objective - Vital Signs/Intake and Output Vital Signs (last 24 hours): Temp Pulse Resp BP Pulse Ox 98.7 F 68 20 129/81 100 06/24/18 07:00 06/24/18 08:00 06/24/18 07:00 06/24/18 07:00 06/24/18 07:00 Intake and Output: 06/24/18 06/24/18 06:59 18:59 Intake Total 1140 Output Total 2100 Balance -960 - Medications Medications: Current Medications Acetaminophen (Tylenol 325mg Tab) 650 mg PO Q6 PRN PRN Reason: Pain, Mild (1-3) Aripiprazole (Abilify) 5 mg PO HS [facility] Last Admin: 06/23/18 23:25 Dose: 5 mg Clonazepam (Klonopin) 0.5 mg PO BID [facility] Last Admin: 06/24/18 09:27 Dose: 0.5 mg Enoxaparin Sodium (Lovenox) 40 mg SC DAILY [facility] Last Admin: 06/24/18 09:28 Dose: 40 mg Ferrous Sulfate (Feosol) 325 mg PO DAILY [facility] Last Admin: 06/24/18 09:27 Dose: 325 mg Fluoxetine HCl (Prozac) 20 mg PO DAILY [facility] Last Admin: 06/24/18 09:31 Dose: 20 mg Glucagon (Glucagen Diagnostic Kit) 0 mg IM STAT PRN; Protocol PRN Reason: Hypoglycemia Protocol Piperacillin Sod/Tazobactam (Sod 3.375 gm/ Sodium Chloride) 100 mls @ 200 mls/hr IVPB Q6H [facility]; Protocol Last Admin: 06/24/18 12:23 Dose: 200 mls/hr Insulin Glargine (Lantus) 20 unit SC [facility] Last Admin: 06/23/18 22:13 Dose: 20 units Insulin Human Regular (Novolin R) 0 unit SC [facility]; Protocol Last Admin: 06/24/18 12:24 Dose: 2 units Lidocaine (Lidocaine 5%) 1 gm TOP Q6H PRN PRN Reason: Pain, Mild (1-3) Last Admin: 06/18/18 12:32 Dose: 1 applic Multi-Ingredient Ointment (Prep-Hem) 0 ea TOP BID PRN PRN Reason: Hemorrhoids Last Admin: 06/23/18 14:12 Dose: 1 dose Oxycodone/Acetaminophen (Percocet 5/325 Mg Tab) 1 tab PO Q4H PRN PRN Reason: Pain, moderate (4-7) Stop: 06/24/18 18:41 Last Admin: 06/24/18 06:02 Dose: 1 tab Pantoprazole Sodium (Protonix Ec Tab) 40 mg PO Q24H [facility] Last Admin: 06/24/18 06:01 Dose: 40 mg Potassium Chloride (K-Dur 20 Meq Er Tab) 20 meq PO DAILY [facility] Last Admin: 06/24/18 09:27 Dose: 20 meq Tramadol HCl (Ultram) 50 mg PO TID PRN PRN Reason: Pain, severe (8-10) Last Admin: 06/21/18 11:01 Dose: 50 mg - Labs Labs: 06/24/18 06:43 06/24/18 06:43 PT 15.8 SECONDS (9.7-12.2) H 06/19/18 06:32 INR 1.4 06/19/18 06:32 APTT 30 SECONDS (21-34) 06/19/18 06:32
[2018-06-24] MEDS: (Lantus) Insulin Glargine, Recombinant SC SCH (22:37)
[2018-06-25] MEDS: Piperacillin/Tazobact 3.375 GM in Sodium Chloride 0.9% 100 ML IVPB SCH ×3 (00:06→12:16)
--- NOTE | 2018-06-25 00:17 | PN ---
DATE: 06/24/2018 SUBJECTIVE: The patient is feeling better. He denies pain in the left elbow. His left elbow swelling has diminished. He is also waiting for dressings on his both feet. In the right arm, he has the PICC line but definitely is looking much better. PHYSICAL EXAMINATION: VITAL SIGNS: T-max is 98.4, pulse 68, blood pressure 113/78, respirations are 20. HEAD: Atraumatic, normocephalic. NECK: Supple. LUNGS: Clear. HEART: S1, S2, regular. ABDOMEN: Soft, nontender. No guarding, no rigidity present. EXTREMITIES: Left arm, left elbow has a dressing at this time. Both lower extremities have dressings on the two ulcerations that he has. ASSESSMENT AND PLAN: His wound culture from 06/21/2018 came back coagulase-negative Staphylococcus, but he had Staphylococcus aureus before. He will be continued on Zosyn to complete the rest of the treatment. He has been on antibiotics since 06/16/2018, so he already got nine days worth of antibiotics and will need treatment for four to six weeks total. Joy Nava MD
--- NOTE | 2018-06-25 01:14 | CP.PCM.PN ---
Subjective - Date & Time of Evaluation Date of Evaluation: 06/24/18 Time of Evaluation: 16:00 - Subjective Subjective: Podiatry Progress Note Dr. Antunez 47 year old male patient seen and evaluated at bedside 3 days s/p left ankle and foot incision and drainage and right foot incision and drainage secondary to cellulitis with underlying abscess. Patient is seen resting comfortably in bed, AAox3 and in NAD. Patient reports improved pain to the left and right lowe extremity. Reports has been WBAT to bilateral feet without issues. Patient denies any new pedal complaints. Denies N/V/F/SOB/CP/Chills. Objective - Vital Signs/Intake and Output Vital Signs (last 24 hours): Temp Pulse Resp BP Pulse Ox 98 F 84 20 117/82 97 06/24/18 23:10 06/24/18 23:10 06/24/18 23:10 06/24/18 23:10 06/24/18 23:10 Intake and Output: 06/24/18 06/25/18 18:59 06:59 Intake Total 350 Output Total 1200 Balance -850 - Medications Medications: Current Medications Acetaminophen (Tylenol 325mg Tab) 650 mg PO Q6 PRN PRN Reason: Pain, Mild (1-3) Aripiprazole (Abilify) 5 mg PO HS [facility] Last Admin: 06/24/18 22:37 Dose: 5 mg Clonazepam (Klonopin) 0.5 mg PO BID [facility] Last Admin: 06/24/18 17:35 Dose: 0.5 mg Enoxaparin Sodium (Lovenox) 40 mg SC DAILY [facility] Last Admin: 06/24/18 09:28 Dose: 40 mg Ferrous Sulfate (Feosol) 325 mg PO DAILY [facility] Last Admin: 06/24/18 09:27 Dose: 325 mg Fluoxetine HCl (Prozac) 20 mg PO DAILY [facility] Last Admin: 06/24/18 09:31 Dose: 20 mg Glucagon (Glucagen Diagnostic Kit) 0 mg IM STAT PRN; Protocol PRN Reason: Hypoglycemia Protocol Piperacillin Sod/Tazobactam (Sod 3.375 gm/ Sodium Chloride) 100 mls @ 200 mls/hr IVPB Q6H [facility]; Protocol Last Admin: 06/25/18 00:06 Dose: 200 mls/hr Insulin Glargine (Lantus) 20 unit SC [facility] Last Admin: 06/24/18 22:37 Dose: 20 units Insulin Human Regular (Novolin R) 0 unit SC [facility]; Protocol Last Admin: 06/24/18 21:15 Dose: Not Given Lidocaine (Lidocaine 5%) 1 gm TOP Q6H PRN PRN Reason: Pain, Mild (1-3) Last Admin: 06/18/18 12:32 Dose: 1 applic Multi-Ingredient Ointment (Prep-Hem) 0 ea TOP BID PRN PRN Reason: Hemorrhoids Last Admin: 06/23/18 14:12 Dose: 1 dose Pantoprazole Sodium (Protonix Ec Tab) 40 mg PO Q24H [facility] Last Admin: 06/24/18 06:01 Dose: 40 mg Potassium Chloride (K-Dur 20 Meq Er Tab) 20 meq PO DAILY [facility] Last Admin: 06/24/18 09:27 Dose: 20 meq Sitagliptin Phosphate (Januvia) 100 mg PO DAILY [facility] Tramadol HCl (Ultram) 50 mg PO TID PRN PRN Reason: Pain, severe (8-10) Last Admin: 06/24/18 20:01 Dose: 50 mg - Labs Labs: 06/24/18 06:43 06/24/18 06:43 PT 15.8 SECONDS (9.7-12.2) H 06/19/18 06:32 INR 1.4 06/19/18 06:32 APTT 30 SECONDS (21-34) 06/19/18 06:32 - Constitutional Appears: Well, Non-toxic, No Acute Distress - Extremities Exam Extremities Exam: absent: Calf Tenderness Additional comments: Bilateral LE focused Vasc: DP and PT pulses weakly palpable 1/4 b/l. CFT <3 seconds to all digits. Temperature gradient warm to warm. Minimal edema noted in both feet and ankle- decreased since the incision and drainaged Neuro: Gross and protective sensation diminished bilaterally. Derm: Left anterior lower leg incision measuring approximately 5 cm is noted, no active purulence, no malodor, minimal periwound erythema, decreased swelling to the ankle, wound appears to be 80% granular and 20% fibrotic tissue. Left dorsal forefoot linear incision measuring approximately 2 cm noted, no active purulence, packing is noted to be intact, no malodor, minimal periwound erythema , wound appears to be 80% granular. Right dorsal linear incision noted on dorsal/lateral aspect of fifth met measuring approximately 4 cm , no active drainage, no malodor, no kin wound erythema or edema with wound bed mixture of fibrotic and slouging material and approximately 15% granular wound base. Dry skin noted to the dorsum of the right 5th digit with multiple diffused abrasions noted to the entire right forefoot Ortho: No pain on palpation to the entire lower extremity and ulceration sites. Healed s/p left partial hallux amputation. Muscle strength 5/5 for all dorsiflexors, plantarflexors, inverters, and everters b/l. - Neurological Exam Neurological Exam: Alert, Awake, Oriented x3 - Psychiatric Exam Psychiatric exam: Normal Affect, Normal Mood Assessment and Plan - Assessment and Plan (Free Text) Assessment: 47 year old male patient seen and evaluated at bedside 3 days s/p left ankle and foot incision and drainage and right foot incision and drainage secondary to cellulitis with underlying abscess- improving Plan: Patient seen and evaluated Discussed plan in detail with attending Dr. Antunez Charts, vitals, labs reviewed- afebrile, absent leukocytosis, ESR 132, CRP 55 B/L foot x-rays; No acute osseous findings, soft tissue swelling asymmetric, L > R MRI ordered left and right lower extremity Possible OM of right 5th proximal and middle phalanges Possible OM of left 2nd distal phalanx, 3rd proximal and middle phalanges, 3rd metatarsal head and shaft, 4th proximal and middle phalanges, 4th metatarsal Wound culture of left foot 3rd interspace ulceration and right foot lateral forefoot ulcer: staph aureus Continue abx per ID reccs Bilateral feet dressed with iodoform packing, xerform, DSD -stable dressing change. No increase drainage Plan: Possible surgical intervention next week for primary closure and/or further debridement of non-viable soft tissue and bone
[2018-06-25] MEDS: Pantoprazole 40 mg EC Tab PO SCH (06:04)
[2018-06-25 06:46] LABS: BASO # 0.1 K/uL (0.0-0.2); BASO % 1.2 % (0.0-2.0); EOS # 0.2 K/uL (0.0-0.7); EOS % 2.5 % (0.0-4.0); HEMOGLOBIN 8.9 g/dL (12.0-18.0); LYMPH # 2.7 K/uL (1.0-4.3); LYMPH % 37.9 % (20.0-40.0); MEAN CORPUSCULAR HEMOGLOBIN 32.2 pg (27.0-31.0); MEAN CORPUSCULAR HGB CONC 33.5 g/dL (33.0-37.0); MEAN PLATELET VOLUME 8.3 fL (7.2-11.7); MONO # 0.6 K/uL (0.0-0.8); MONO % 8.4 % (0.0-10.0); NEUT # 3.6 K/uL (1.8-7.0); RBC 2.75 Mil/uL (4.40-5.90); RED CELL DISTRIBUTION WIDTH 15.1 % (11.5-14.5); WHITE BLOOD COUNT 7.2 K/uL (4.8-10.8)
[2018-06-25 07:05] LABS: ALB/GLOB RATIO 0.7 (1.0-2.1); ALBUMIN 2.8 g/dL (3.5-5.0); ALT/SGPT 18 U/L (21-72); AST/SGOT 24 U/L (17-59); BLOOD UREA NITROGEN 10 mg/dL (9-20); CALCIUM 8.3 mg/dl (8.6-10.4); GFR NON-AFRICAN AMERICAN > 60
[2018-06-25 07:28] VITALS: BP 116/78; TEMP 97.8; O2SAT 98
[2018-06-25] MEDS: (Novolin R) Insulin Human Regular 100 units/ml vial SC SCH ×2 (08:15→12:16)
[2018-06-25] MEDS: Potassium Chloride 20 mEq ER Tab PO SCH (10:17)
[2018-06-25] MEDS: Enoxaparin 40 mg Syringe SC SCH (10:18)
--- NOTE | 2018-06-25 10:47 | CP.PCM.PN ---
Subjective - Date & Time of Evaluation Date of Evaluation: 06/25/18 Time of Evaluation: 10:47 - Subjective Subjective: seen and examined labs noted c/o left elbow pain no n/v/d no cp/sob/dizziness no headache no rash Objective - Vital Signs/Intake and Output Vital Signs (last 24 hours): Temp Pulse Resp BP Pulse Ox 97.8 F 73 20 116/78 98 06/25/18 07:00 06/25/18 08:00 06/25/18 07:00 06/25/18 07:00 06/25/18 07:00 Intake and Output: 06/25/18 06/25/18 06:59 18:59 Intake Total 730 Output Total 2000 Balance -1270 - Medications Medications: Current Medications Acetaminophen (Tylenol 325mg Tab) 650 mg PO Q6 PRN PRN Reason: Pain, Mild (1-3) Aripiprazole (Abilify) 5 mg PO HS [facility] Last Admin: 06/24/18 22:37 Dose: 5 mg Clonazepam (Klonopin) 0.5 mg PO BID [facility] Last Admin: 06/25/18 10:18 Dose: 0.5 mg Enoxaparin Sodium (Lovenox) 40 mg SC DAILY [facility] Last Admin: 06/25/18 10:18 Dose: 40 mg Ferrous Sulfate (Feosol) 325 mg PO DAILY [facility] Last Admin: 06/25/18 10:17 Dose: 325 mg Fluoxetine HCl (Prozac) 20 mg PO DAILY [facility] Last Admin: 06/25/18 10:18 Dose: 20 mg Glucagon (Glucagen Diagnostic Kit) 0 mg IM STAT PRN; Protocol PRN Reason: Hypoglycemia Protocol Piperacillin Sod/Tazobactam (Sod 3.375 gm/ Sodium Chloride) 100 mls @ 200 mls/hr IVPB Q6H [facility]; Protocol Last Admin: 06/25/18 06:04 Dose: 200 mls/hr Insulin Glargine (Lantus) 20 unit SC [facility] Last Admin: 06/24/18 22:37 Dose: 20 units Insulin Human Regular (Novolin R) 0 unit SC [facility]; Protocol Last Admin: 06/25/18 08:15 Dose: 2 units Lidocaine (Lidocaine 5%) 1 gm TOP Q6H PRN PRN Reason: Pain, Mild (1-3) Last Admin: 06/18/18 12:32 Dose: 1 applic Multi-Ingredient Ointment (Prep-Hem) 0 ea TOP BID PRN PRN Reason: Hemorrhoids Last Admin: 06/23/18 14:12 Dose: 1 dose Pantoprazole Sodium (Protonix Ec Tab) 40 mg PO Q24H [facility] Last Admin: 06/25/18 06:04 Dose: 40 mg Potassium Chloride (K-Dur 20 Meq Er Tab) 20 meq PO DAILY [facility] Last Admin: 06/25/18 10:17 Dose: 20 meq Sitagliptin Phosphate (Januvia) 100 mg PO DAILY [facility] Last Admin: 06/25/18 10:17 Dose: 100 mg Tramadol HCl (Ultram) 50 mg PO TID PRN PRN Reason: Pain, severe (8-10) Last Admin: 06/25/18 06:32 Dose: 50 mg - Labs Labs: 06/25/18 06:36 06/25/18 06:36 PT 15.8 SECONDS (9.7-12.2) H 06/19/18 06:32 INR 1.4 06/19/18 06:32 APTT 30 SECONDS (21-34) 06/19/18 06:32 - Constitutional Appears: Non-toxic, No Acute Distress - Head Exam Head Exam: NORMAL INSPECTION, NORMOCEPHALIC - Eye Exam Eye Exam: Normal appearance, PERRL - ENT Exam ENT Exam: Mucous Membranes Moist, Normal Exam - Neck Exam Neck Exam: Full ROM, Normal Inspection - Respiratory Exam Respiratory Exam: Clear to Ausculation Bilateral, NORMAL BREATHING PATTERN - Cardiovascular Exam Cardiovascular Exam: REGULAR RHYTHM, RRR - GI/Abdominal Exam GI & Abdominal Exam: Distended, Soft - Extremities Exam Extremities Exam: Normal Inspection (chronic skin changes b/l) - Neurological Exam Neurological Exam: Alert, Awake, Oriented x3 - Psychiatric Exam Psychiatric exam: Normal Affect, Normal Mood - Skin Skin Exam: Dry, Intact Assessment and Plan (1) Cellulitis Status: Acute (2) Diabetic foot infection Status: Acute (3) Hyponatremia Status: Acute - Assessment and Plan (Free Text) Assessment: hyponatremia / siadh stable na. maintain fluid restriction on ssri, may need to change if na remains low
[2018-06-25 12:39] VITALS: PULSE 114
--- NOTE | 2018-06-25 14:17 | CP.PCM.DIS ---
Provider - Provider Date of Admission: 06/16/18 10:16 Attending physician: Scottie Rose DO Consults: 06/16/18 11:38 Infectious Disease Consult Routine Comment: Consulting Provider: Joy Nava Consulting Physician: Joy Nava Reason for Consult: Sepsis Podiatry Consult Routine Comment: Consulting Provider: Erika Ngo Consulting Physician: Erika Ngo Reason for Consult: Hx of toe amputation, Left Charcot Foot Deformity Psychiatry Consult Routine Comment: Consulting Provider: George Roa Consulting Physician: George Roa Reason for Consult: Depression/Anxiety/Szhizophrenia/Medication Reconcilliation. 06/16/18 13:06 Orthopedic Consult Routine Comment: Consulting Provider: Emmy Mustafa Consulting Physician: Emmy Mustafa Reason for Consult: Elbow Abcess 06/16/18 14:26 Diabetic Education Referral Routine Comment: Physician Instructions: Reason For Exam: Uncontrolled Diabetes 06/16/18 20:24 Physician Consult Routine Comment: Consulting Provider: Aleksandar Castaneda Consulting Physician: Aleksandar Castaneda Reason for Consult: Hyponatremia 06/23/18 13:32 Case Management Referral Routine Comment: Physician Instructions: Reason For Exam: [facility] placement; needs detention abx. Reason for Referral: Discharge Planning Time Spent in preparation of Discharge (in minutes): 45 Hospital Course - Lab Results Lab Results: Micro Results 06/20/18 08:18 Blood-Venous Blood Culture - Final NO GROWTH AFTER 5 DAYS 06/20/18 07:22 Blood-Venous Blood Culture - Final NO GROWTH AFTER 5 DAYS 06/20/18 07:22 Blood-Venous Gram Stain - Final TEST NOT PERFORMED 06/21/18 19:49 Foot - Right Gram Stain - Final 06/21/18 19:49 Foot - Right Wound Culture - Final No growth. 06/21/18 18:16 Foot - Left Gram Stain - Final 06/21/18 18:16 Foot - Left Wound Culture - Final Coagulase Neg Staphylococcus 06/19/18 22:58 Other: Please Indicate Gram Stain - Final 06/19/18 22:58 Other: Please Indicate Wound Culture - Final No growth. 06/18/18 21:57 Blood Blood Culture - Final NO GROWTH AFTER 5 DAYS 06/18/18 21:57 Blood Gram Stain - Final TEST NOT PERFORMED 06/18/18 19:34 Blood Blood Culture - Final NO GROWTH AFTER 5 DAYS 06/18/18 19:34 Blood Gram Stain - Final TEST NOT PERFORMED 06/19/18 14:15 Foot - Left Gram Stain - Final 06/19/18 14:15 Foot - Left Wound Culture - Final Staphylococcus Aureus 06/19/18 14:15 Foot - Right Gram Stain - Final 06/19/18 14:15 Foot - Right Wound Culture - Final Staphylococcus Aureus 06/16/18 06:04 Blood Blood Culture - Final Streptococcus Pyogenes Grp A Staphylococcus Aureus 06/16/18 06:04 Blood Gram Stain - Final 06/16/18 06:09 Blood Blood Culture - Preliminary Streptococcus Pyogenes Grp A Staphylococcus Aureus 06/16/18 06:09 Blood Gram Stain - Final 06/16/18 17:00 Foot - Left Gram Stain - Final 06/16/18 17:00 Foot - Left Wound Culture - Final Staphylococcus Aureus 06/16/18 13:45 Urine Urine Culture - Final No Growth (<1,000 CFU/ML) Most Recent Lab Values WBC 7.2 K/uL (4.8-10.8) 06/25/18 06:36 RBC 2.75 Mil/uL (4.40-5.90) L 06/25/18 06:36 Hgb 8.9 g/dL (12.0-18.0) L 06/25/18 06:36 Hct 26.4 % (35.0-51.0) L 06/25/18 06:36 MCV 96.0 fL (80.0-94.0) H 06/25/18 06:36 MCH 32.2 pg (27.0-31.0) H 06/25/18 06:36 MCHC 33.5 g/dL (33.0-37.0) 06/25/18 06:36 RDW 15.1 % (11.5-14.5) H 06/25/18 06:36 Plt Count 445 K/uL (130-400) H 06/25/18 06:36 MPV 8.3 fL (7.2-11.7) 06/25/18 06:36 Neut % (Auto) 50.0 % (50.0-75.0) 06/25/18 06:36 Lymph % (Auto) 37.9 % (20.0-40.0) 06/25/18 06:36 Hendry % (Auto) 8.4 % (0.0-10.0) 06/25/18 06:36 Eos % (Auto) 2.5 % (0.0-4.0) 06/25/18 06:36 Baso % (Auto) 1.2 % (0.0-2.0) 06/25/18 06:36 Neut # (Auto) 3.6 K/uL (1.8-7.0) 06/25/18 06:36 Lymph # (Auto) 2.7 K/uL (1.0-4.3) 06/25/18 06:36 Hendry # (Auto) 0.6 K/uL (0.0-0.8) 06/25/18 06:36 Eos # (Auto) 0.2 K/uL (0.0-0.7) 06/25/18 06:36 Baso # (Auto) 0.1 K/uL (0.0-0.2) 06/25/18 06:36 ESR 132 mm/hr (0-15) H 06/20/18 07:22 Retic Count 1.1 % (0.5-1.5) 06/16/18 13:46 Haptoglobin 334.5 mg/dL (30.0-200.0) H 06/16/18 13:46 PT 15.8 SECONDS (9.7-12.2) H 06/19/18 06:32 INR 1.4 06/19/18 06:32 APTT 30 SECONDS (21-34) 06/19/18 06:32 pO2 51 mm/Hg (30-55) 06/16/18 20:35 VBG pH 7.45 (7.32-7.43) H 06/16/18 20:35 VBG pCO2 34 mmHg (40-60) L 06/16/18 20:35 VBG HCO3 24.7 mmol/L 06/16/18 20:35 VBG Total CO2 24.6 mmol/L (22-28) 06/16/18 20:35 VBG O2 Sat (Calc) 91.7 % (40-65) H 06/16/18 20:35 VBG Base Excess 0.1 mmol/L (0.0-2.0) 06/16/18 20:35 VBG Potassium 3.2 mmol/L (3.6-5.2) L 06/16/18 20:35 Sodium 126.0 mmol/l (132-148) L 06/16/18 20:35 Chloride 98.0 mmol/L (98-107) 06/16/18 20:35 Glucose 286 mg/dl (75-110) H 06/16/18 20:35 Lactate 1.4 mmol/L (0.7-2.1) 06/16/18 20:35 Crit Value Called To travel med surg rnkiran gray 06/16/18 06:15 Crit Value Called By Anai dutta rt 06/16/18 06:15 Crit Value Read Back Y 06/16/18 06:15 Blood Gas Notified Time 620 06/16/18 06:15 Sodium 131 mmol/L (132-148) L 06/25/18 06:36 Potassium 3.9 mmol/L (3.6-5.2) 06/25/18 06:36 Chloride 98 mmol/L (98-107) 06/25/18 06:36 Carbon Dioxide 26 mmol/L (22-30) 06/25/18 06:36 Anion Gap 11 (10-20) 06/25/18 06:36 BUN 10 mg/dL (9-20) 06/25/18 06:36 Creatinine 1.0 mg/dL (0.8-1.5) 06/25/18 06:36 Est GFR ( Amer) > 60 06/25/18 06:36 Est GFR (Non-Af Amer) > 60 06/25/18 06:36 POC Glucose (mg/dL) 208 mg/dL (65-110) H 06/25/18 11:24 Random Glucose 142 mg/dL (75-110) H 06/25/18 06:36 Hemoglobin A1c 11.0 % (4.2-6.5) H 06/16/18 13:46 Serum Osmolality 278 mosm/kg (272-300) 06/16/18 21:28 Uric Acid 2.7 mg/dL (3.5-8.5) L 06/17/18 06:23 Calcium 8.3 mg/dl (8.6-10.4) L 06/25/18 06:36 Phosphorus 2.4 mg/dL (2.5-4.5) L 06/18/18 07:18 Magnesium 1.1 mg/dL (1.6-2.3) L 06/22/18 06:44 Iron 18 ug/dL (49-181) L 06/16/18 13:46 TIBC 188 ug/dL (250-450) L 06/16/18 13:46 % Saturation 9 (20-55) L 06/16/18 13:46 Ferritin 1100.0 ng/mL 06/16/18 13:46 Total Bilirubin 0.4 mg/dL (0.2-1.3) 06/25/18 06:36 AST 24 U/L (17-59) 06/25/18 06:36 ALT 18 U/L (21-72) L 06/25/18 06:36 Alkaline Phosphatase 72 U/L (38-126) 06/25/18 06:36 C-Reactive Protein 55.00 mg/L (0.0-9.9) H 06/20/18 07:22 Total Protein 7.0 g/dL (6.3-8.3) 06/25/18 06:36 Albumin 2.8 g/dL (3.5-5.0) L 06/25/18 06:36 Globulin 4.2 gm/dL (2.2-3.9) H 06/25/18 06:36 Albumin/Globulin Ratio 0.7 (1.0-2.1) L 06/25/18 06:36 Lipase 51 U/L (23-300) 06/16/18 06:04 Vitamin B12 557 pg/mL (239-931) 06/16/18 13:46 Folate 9.7 ng/mL 06/16/18 13:46 Venous Blood Potassium 3.2 mmol/L (3.6-5.2) L 06/16/18 20:35 Urine Color Yellow (YELLOW) 06/17/18 20:24 Urine Clarity Hazy (Clear) 06/17/18 20:24 Urine pH 5.0 (5.0-8.0) 06/17/18 20:24 Ur Specific Thermal 1.017 (1.003-1.030) 06/17/18 20:24 Urine Protein Negative mg/dL (NEGATIVE) 06/17/18 20:24 Urine Glucose (UA) 3+ mg/dL (Normal) H 06/17/18 20:24 Urine Ketones Negative mg/dL (NEGATIVE) 06/17/18 20:24 Urine Blood 3+ (NEGATIVE) H 06/17/18 20:24 Urine Nitrate Negative (NEGATIVE) 06/17/18 20:24 Urine Bilirubin Negative (NEGATIVE) 06/17/18 20:24 Urine Urobilinogen 2.0 mg/dL (0.2-1.0) 06/17/18 20:24 Ur Leukocyte Esterase Neg Luke/uL (Negative) 06/17/18 20:24 Urine WBC (Auto) 7 /hpf (0-5) H 06/17/18 20:24 Urine RBC (Auto) 70 /hpf (0-3) H 06/17/18 20:24 Ur Squamous Epith Cells < 1 /hpf (0-5) 06/17/18 20:24 Amorphous Sediment Few /ul (<OCC) H 06/16/18 10:27 Urine Osmolality 499 mosm/kg (300-1000) 06/18/18 18:17 Ur Random Sodium 62 mmol/L 06/18/18 18:17 Gentamicin Trough 2.3 ug/mL (0.0-0.9) H* 06/17/18 11:25 Random Gentamicin < 0.6 ug/mL 06/18/18 07:19 Vancomycin Trough 10.5 ug/mL (5.0-10.0) H 06/17/18 11:25 Urine Opiates Screen Negative (NEGATIVE) 06/18/18 18:17 Urine Methadone Screen Negative (NEGATIVE) 06/18/18 18:17 Ur Barbiturates Screen Negative (NEGATIVE) 06/18/18 18:17 Ur Phencyclidine Scrn Negative (NEGATIVE) 06/18/18 18:17 Ur Amphetamines Screen Negative (NEGATIVE) 06/18/18 18:17 U Benzodiazepines Scrn Negative (NEGATIVE) 06/18/18 18:17 U Oth Cocaine Metabols Negative (NEGATIVE) 06/18/18 18:17 U Cannabinoids Screen Negative (NEGATIVE) 06/18/18 18:17 Alcohol, Quantitative < 10 mg/dl (0-10) 06/16/18 13:46 B-Hydroxybutyrate 3.17 mM (0.02-0.27) H 06/16/18 06:04 Blood Type AB POSITIVE 06/21/18 11:07 Antibody Screen Negative 06/21/18 11:07 - Hospital Course Hospital Course: On admission: This patient is a 47 year old male with a PMHx of Diabetes Type II (Uncontrolled), HTN, Anxiety, Depression, Schizophrenia, Right Hallux Osteomyelitis Pancreatitis, and medical non-compliance who presents with complaints of sharp 9/10 left elbow pain with radiation down to his finger. He states the the pain began over a week ago after a fall (Denies head trauma). After the fall, he noticed that his left arm began to swell up. As the swelling decreased he noticed his elbow became more red with increased pain. Associated symptoms include fever, and lethargy. Mr. Horta also states that he has been getting wound dressing changes with a food service specialist for his right great toe. He states he never noticed that his toe was draining. Admits to his medication non- compliance. He has only been taking his Metformin. Of note, this patient was showing drug seeking behavior. On discharge: Patient was treated for cellulitis of his LE and also cellulitis of his left elbow. 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 Podiatry also gave recommendations of wound care. Orthopedics saw the patient for his left elbow. The specialists would like to follow up with him in his [facility] where he will be discharged. Patient instructions: Patient discharged to [facility]. He is to be on zosyn for 31 days as prescribed. Patient has PICC on right arm. Recommended CBC, CMP, ESR and CRP weekly and to follow up with the following: -Follow up primary care physician, foot care (Dr. Antunez), orthopedics (Dr. Mustafa in 2 weeks - for left elbow) Return to emergency room with worsening swelling, edema, fever, chills, suggestive of infection. Discharge Exam - Head Exam Head Exam: NORMAL INSPECTION, NORMOCEPHALIC - Eye Exam Eye Exam: EOMI, Normal appearance - ENT Exam ENT Exam: Normal Exam - Respiratory Exam Respiratory Exam: Clear to PA & Lateral, NORMAL BREATHING PATTERN - Cardiovascular Exam Cardiovascular Exam: REGULAR RHYTHM - GI/Abdominal Exam GI & Abdominal Exam: Normal Bowel Sounds, Unremarkable - Extremities Exam Additional comments: LE wrapped in gauze, left elbow wrapped in gauze. - Psychiatric Exam Psychiatric exam: Normal Affect, Normal Mood - Skin Skin Exam: Dry, Intact, Normal Color, Warm Discharge Plan - Discharge Medications Prescriptions: Piperacillin/Tazobact [Zosyn] 3.375 gm IVPB Q6H 31 Days vial - Follow Up Plan Condition: GUARDED Disposition: REHAB FACILITY/REHAB UNIT Instructions: Heart Healthy Diet, Diabetes Exchange Diet, Diabetes Diet , Hyponatremia (DC), Debridement of a Wound or Burn (DC), Wound Incision and Drainage (DC) Additional Instructions: to [facility] continue medication as listed zosyn for 31 days CBC, CMP, ESR, and CRP weekly Follow up primary care physician, foot care (Dr. Antunez), orthopedics (Dr. Mustafa in 2 weeks - for left elbow) Referrals: Emmy Mustafa MD [Staff Provider] - Leandro Antunez DPM [Staff Provider] -
[2018-06-25] MEDS: Hemorrohoidal Ointment (2 oz) TOP PRN (14:30)
--- NOTE | 2018-06-25 15:34 | CP.PCM.PN ---
Subjective - Date & Time of Evaluation Date of Evaluation: 06/25/18 Time of Evaluation: 11:00 - Subjective Subjective: Podiatry Progress Note Dr. Antunez 47 year old male patient seen and evaluated at bedside 4 days s/p left ankle and foot incision and drainage and right foot incision and drainage secondary to cellulitis with underlying abscess with attending Dr. Antunez. Patient is seen resting comfortably in bed, AAox3 and in NAD. Reports that he is feeling good with increase appetite. Patient reports improved pain to the left and right lower extremity as well as arm. Reports has been WBAT to bilateral feet without issues. Patient denies any new pedal complaints. Denies N/V/F/SOB/CP/Chills. Objective - Vital Signs/Intake and Output Vital Signs (last 24 hours): Temp Pulse Resp BP Pulse Ox 97.8 F 114 H 20 116/78 98 06/25/18 07:00 06/25/18 12:00 06/25/18 07:00 06/25/18 07:00 06/25/18 07:00 Intake and Output: 06/25/18 06/25/18 06:59 18:59 Intake Total 730 500 Output Total 2000 Balance -1270 500 - Medications Medications: Current Medications Acetaminophen (Tylenol 325mg Tab) 650 mg PO Q6 PRN PRN Reason: Pain, Mild (1-3) Aripiprazole (Abilify) 5 mg PO HS [facility] Last Admin: 06/24/18 22:37 Dose: 5 mg Clonazepam (Klonopin) 0.5 mg PO BID [facility] Last Admin: 06/25/18 10:18 Dose: 0.5 mg Enoxaparin Sodium (Lovenox) 40 mg SC DAILY [facility] Last Admin: 06/25/18 10:18 Dose: 40 mg Ferrous Sulfate (Feosol) 325 mg PO DAILY [facility] Last Admin: 06/25/18 10:17 Dose: 325 mg Fluoxetine HCl (Prozac) 20 mg PO DAILY [facility] Last Admin: 06/25/18 10:18 Dose: 20 mg Glucagon (Glucagen Diagnostic Kit) 0 mg IM STAT PRN; Protocol PRN Reason: Hypoglycemia Protocol Piperacillin Sod/Tazobactam (Sod 3.375 gm/ Sodium Chloride) 100 mls @ 200 mls/hr IVPB Q6H [facility]; Protocol Last Admin: 06/25/18 12:16 Dose: 200 mls/hr Insulin Glargine (Lantus) 20 unit SC HS [facility] Last Admin: 06/24/18 22:37 Dose: 20 units Insulin Human Regular (Novolin R) 0 unit SC ACHS [facility]; Protocol Last Admin: 06/25/18 12:16 Dose: 4 units Lidocaine (Lidocaine 5%) 1 gm TOP Q6H PRN PRN Reason: Pain, Mild (1-3) Last Admin: 06/18/18 12:32 Dose: 1 applic Multi-Ingredient Ointment (Prep-Hem) 0 ea TOP BID PRN PRN Reason: Hemorrhoids Last Admin: 06/25/18 14:30 Dose: 1 dose Pantoprazole Sodium (Protonix Ec Tab) 40 mg PO Q24H [facility] Last Admin: 06/25/18 06:04 Dose: 40 mg Potassium Chloride (K-Dur 20 Meq Er Tab) 20 meq PO DAILY [facility] Last Admin: 06/25/18 10:17 Dose: 20 meq Sitagliptin Phosphate (Januvia) 100 mg PO DAILY [facility] Last Admin: 06/25/18 10:17 Dose: 100 mg Tramadol HCl (Ultram) 50 mg PO TID PRN PRN Reason: Pain, severe (8-10) Last Admin: 06/25/18 06:32 Dose: 50 mg - Labs Labs: 06/25/18 06:36 06/25/18 06:36 PT 15.8 SECONDS (9.7-12.2) H 06/19/18 06:32 INR 1.4 06/19/18 06:32 APTT 30 SECONDS (21-34) 06/19/18 06:32 - Constitutional Appears: Well, Non-toxic, No Acute Distress - Extremities Exam Extremities Exam: absent: Calf Tenderness Additional comments: Bilateral LE focused Vasc: DP and PT pulses weakly palpable 1/4 b/l. CFT <3 seconds to all digits. Temperature gradient warm to warm. Minimal edema noted in both feet and ankle- decreased since the incision and drainaged Neuro: Gross and protective sensation diminished bilaterally. Derm: Left anterior lower leg incision measuring approximately 5 cm is noted, no active purulence, no malodor, minimal periwound erythema, decreased swelling to the ankle, wound appears to be 80% granular and 20% fibrotic tissue. Left dorsal forefoot linear incision measuring approximately 2 cm noted, no active purulence, packing is noted to be intact, no malodor, minimal periwound erythema , wound appears to be 80% granular. Right dorsal linear incision noted on dorsal/lateral aspect of fifth met measuring approximately 4 cm , no active drainage, no malodor, no kin wound erythema or edema with wound bed mixture of fibrotic and slouging material and approximately 15% granular wound base. Dry skin noted to the dorsum of the right 5th digit with multiple diffused abrasions noted to the entire right forefoot Ortho: No pain on palpation to the entire lower extremity and ulceration sites. Healed s/p left partial hallux amputation. Muscle strength 5/5 for all dorsiflexors, plantarflexors, inverters, and everters b/l. - Neurological Exam Neurological Exam: Alert, Awake, Oriented x3 - Psychiatric Exam Psychiatric exam: Normal Affect, Normal Mood Assessment and Plan - Assessment and Plan (Free Text) Assessment: 47 year old male patient seen and evaluated at bedside 4 days s/p left ankle and foot incision and drainage and right foot incision and drainage secondary to cellulitis with underlying abscess- improving Plan: Patient seen and evaluated All questions/concerns addressed Charts, vitals, labs reviewed- afebrile, absent leukocytosis, ESR 132, CRP 55 B/L foot x-rays; No acute osseous findings, soft tissue swelling asymmetric, Left > Right MRI Possible OM of right 5th proximal and middle phalanges Possible OM of left 2nd distal phalanx, 3rd proximal and middle phalanges, 3rd metatarsal head and shaft, 4th proximal and middle phalanges, 4th metatarsal Wound culture of left foot 3rd interspace ulceration and right foot lateral forefoot ulcer: staph aureus Continue abx per ID reccs Packing removed cleansed with saline solution and pat dry Bilateral feet dressed with iodoform packing, xerform, DSD -stable dressing change. No drainage/purulence noted Plan: Possible surgical intervention next week for primary closure and/or further debridement of non-viable soft tissue and bone Can be scheduled outpatient Upon discharge, patient to follow up with Dr. Antunez within 1 week in office Keep dressing clean, dry and intact Do not get wet WBAT in surgical shoe to bilateral lower extremity Thank you for allowing us to participate in patient's care
== END 2018-06-25 16:04 | DRG 854 ==
LOC: C.ER 05:15 → C.9E 10:16 → C.6T 11:34
PROVIDERS: ADMIT Hospitalist; ATTEND Hospitalist
PROC: 02HV33Z Insertion of Infusion Device into Superior Vena Cava, Percutaneous Approach (ICD-10-PCS; 2018-06-21)
PROC: 0JBR0ZZ Excision of Left Foot Subcutaneous Tissue and Fascia, Open Approach (ICD-10-PCS; principal; 2018-06-21 16:15)
PROC: 0JBQ0ZZ Excision of Right Foot Subcutaneous Tissue and Fascia, Open Approach (ICD-10-PCS; 2018-06-21 16:15)
DX: A41.9 Sepsis, unspecified organism (principal); L02.611 Cutaneous abscess of right foot; L03.116 Cellulitis of left lower limb; L97.909 Non-pressure chronic ulcer of unspecified part of unspecified lower leg with unspecified severity; F33.1 Major depressive disorder, recurrent, moderate; E87.0 Hyperosmolality and hypernatremia; E22.2 Syndrome of inappropriate secretion of antidiuretic hormone; K86.1 Other chronic pancreatitis; L03.114 Cellulitis of left upper limb; E11.628 Type 2 diabetes mellitus with other skin complications; J45.909 Unspecified asthma, uncomplicated; M77.30 Calcaneal spur, unspecified foot; R79.1 Abnormal coagulation profile; E11.65 Type 2 diabetes mellitus with hyperglycemia; F17.210 Nicotine dependence, cigarettes, uncomplicated; Z89.412 Acquired absence of left great toe; Z91.14 Patient's other noncompliance with medication regimen; Z76.5 Malingerer [conscious simulation]; I10 Essential (primary) hypertension; F20.9 Schizophrenia, unspecified; E78.5 Hyperlipidemia, unspecified; E11.622 Type 2 diabetes mellitus with other skin ulcer; D64.9 Anemia, unspecified; F31.9 Bipolar disorder, unspecified

== ENCOUNTER 2018-07-15 06:50 | Day surgery (SDC) | payer MEDICARE ==
[2018-07-15] MEDS ORDERED: ceFAZolin 1 gm in NS 2 GM/200 ML BAG IVPB ONE (07:53)
[2018-07-15] MEDS ORDERED: Lidocaine 1% 20 MG/2 ML PF AMP ONE (07:53)
[2018-07-15] MEDS ORDERED: Bupivacaine 0.25% 20 ML INJ IJ ONE (07:54)
[2018-07-15] MEDS ORDERED: Propofol 10 mg/ml Inj (20 ML) ONE (07:55)
[2018-07-15] MEDS ORDERED: Midazolam 2 MG/2 ML VIAL ONE (07:55)
[2018-07-15] MEDS ORDERED: HYDROmorphone 0.5 mg/0.5 ml ISec IVP PRN (08:55)
--- NOTE | 2018-07-15 08:58 | PCM.SURG1 ---
Surgeon's Initial Post Op Note - Surgeon's Notes Surgeon: Dr. Leandro Antunez,[employer] Installer: Dr. Juanito Jay DPM/PGY1 Type of Anesthesia: IV Sedation, Local Anesthesia Administered By: Dr. Hilario Pre-Operative Diagnosis: Left ankle non healed ulcer. Operative Findings: See Dictation. Materials: 3-0 Nylon sutures. Injectables: 9 cc of mixture of Lidocaine 1% and Marcaine 0.25%. Post-Operative Diagnosis: Same Operation Performed: 1-debridement of left ankle non healing ulcer. 2-Delayed primary closure. Specimen/Specimens Removed: None. Estimated Blood Loss: EBL {In ML}: 10 Blood Products Given: N/A Drains Used: No Drains Post-Op Condition: Good Date of Surgery/Procedure: 07/15/18 Time of Surgery/Procedure: 08:59
[2018-07-15 09:14] VITALS: RESP 12; O2SAT 100
[2018-07-15 09:24] VITALS: TEMP 97.7
[2018-07-15 09:31] VITALS: PULSE 84
[2018-07-15 09:50] VITALS: BP 129/76
--- NOTE | 2018-07-15 20:49 | OP ---
PROCEDURE DATE: 07/15/2018 SURGEON: Leandro Antunez DPM [employer] SWORDFISH: Juanito Jay DPM, PGY-1 ANESTHESIOLOGIST: Elie Hilario MD TYPE OF ANESTHESIA: Local anesthesia with IV sedation. PREOPERATIVE DIAGNOSIS: Left ankle, nonhealing ulcer. POSTOPERATIVE DIAGNOSIS: Left ankle, nonhealing ulcer. PROCEDURE: 1. Debridement of left ankle nonhealing ulcer. 2. Delayed primary closure. INDICATION: The patient is 47 years old with the above diagnosis. The patient has exhausted all the conservative treatments at this time and now requires surgical intervention. The patient signed the consent after careful explanation of risks, benefits, complications, and alternatives for surgical procedure. No guarantees were given nor implied. N.p.o. status was confirmed prior to taking the patient to the OR. PREPARATION: The patient was brought into the operating room and placed on the operating room table in a supine position. Time-out was performed for identification of the correct patient and procedure. After induction of sedation and injection of 9 mL of mixture of 1% lidocaine plain and 0.25% of Marcaine plain to the left anterior ankle in a periwound local infiltration block fashion, left lower extremity was then prepped and draped in a normal sterile manner and procedure began. No tourniquet was used during the procedure. PROCEDURE #1: Debridement of left ankle nonhealing ulcer. Attention was then directed to the anterior aspect of the left lower extremity, where a nonhealing linear wound measuring approximately 7 cm x 1.2 cm was present. Using curved hemostat, undermining of the wound edge was done, the ulceration was then debrided of all remaining fibrotic and nonviable tissues until fresh and healthy bleeding granulation tissue appeared. Using pulsed lavage, copious amounts of sterile saline used to irrigate the wound. PROCEDURE #2: Delayed primary closure. Using 3-0 nylon sutures, delayed primary closure was performed using a simple, vertical mattress and horizontal mattress suture fashion. Prepping then was done using Xeroform, 4x4 gauze, Ezio, Kerlix, and Renny bandage. POSTOPERATIVE CONDITION: The patient tolerated the anesthesia and the procedure well and then was escorted to the recovery room with vital signs stable and neurovascular status intact to the left lower extremity. The patient is to follow up Dr. Antunez upon discharge. The patient will be discharged to subacute rehab today. JUANITO JAY MD Leandro Antunez DPM MTDDwaine
== END 2018-07-15 10:34 ==
LOC: C.SDS 06:50
PROVIDERS: ATTEND Podiatrist
DX: E11.622 Type 2 diabetes mellitus with other skin ulcer (principal); L97.329 Non-pressure chronic ulcer of left ankle with unspecified severity
CPT/HCPCS: 13160; 82948; 97597; J0690; J1642; J2250; J2704; J3010